=== PATIENT | female | born 2000 | race Caucasian/White ===

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

== ENCOUNTER 2020-03-12 12:40 | Emergency (ER) | payer OTHER, SELFPAY ==
[2020-03-12 12:51] VITALS: BP 117/72; PULSE 95; RESP 18; TEMP 36.7; O2SAT 99; BMI 24.5
[2020-03-12 13:15] LABS: Microscopic, Urine URINE MICROSCOPIC (MICROSCOPIC)
--- NOTE | 2020-03-12 13:17 | HMH.EDABDPAI ---
ED Disposition Clinical Impression: Acute UTI, Flank pain Disposition: Home, Self-Care Condition on Discharge: Good Instructions: DI for Abdominal Pain-Adult Prescriptions: Ibuprofen [Ibuprofen 800mg Tablet] 800 mg PO TIDP PRN #20 tab PRN Reason: Moderate Pain Prescription Printed cephALEXin [Keflex 500mg Cap] 500 mg PO BID 7 Days #14 cap Prescription Printed Referrals: PCP,No [Primary Care Provider] - - Critical Care Critical Care Time: No Attestation: On 03/12/20, the high probability of a clinically significant, sudden or life threatening deterioration of the following system(s) required my full and direct attention, intervention and personal management. The time I documented below is in addition to time spent performing reported procedures but includes the following listed in this critical care notation. Medical Decision Making - Medical Records Medical records reviewed: Yes: I reviewed the patient's medical records. - Malcolm Inquiry Pt receiving controlled substance: No Vital Signs: 03/12/20 12:51 03/12/20 14:23 03/12/20 14:30 Temperature 98.1 F Temperature Source Oral Pulse Rate [Radial] 95 H 84 85 Respiratory Rate 18 18 Blood Pressure [Right Arm] 117/72 91/72 L 108/75 L Blood Pressure Mean [Right Arm] 87 78 86 Blood Pressure Source [Right Arm] Automatic Cuff Automatic Cuff Automatic Cuff Blood Pressure Position [Right Arm] Sitting Sitting Sitting 02 Sat by Pulse Oximetry 99 100 100 Oxygen Delivery Method Room Air Room Air Room Air - Lab Data Lab Results 03/12/20 12:47: Urine Color Yellow, Urine Appearance Clear, Urine pH 8.0, Ur Specific [place] 1.020, Urine Protein 1+, Urine Glucose (UA) Negative, Urine Ketones Trace, Urine Blood 2+, Urine Nitrate Negative, Urine Bilirubin Negative, Urine Urobilinogen >=8.0, Ur Leukocyte Esterase Negative, Urine RBC 5-10, Urine WBC 3-5, Ur Squamous Epith Cells Occasional, Urine Bacteria Trace 03/12/20 12:47: Urine HCG, Qual Negative 03/12/20 13:41: WBC 9.5, RBC 4.46, Hgb 14.6, Hct 40.4, MCV 90.5, MCH 32.7 H, MCHC 36.1 H, RDW 13.0, Plt Count 210, MPV 7.6, Neut % (Auto) 76.0, Lymph % (Auto) 17.2, [place] % (Auto) 5.5, Eos % (Auto) 0.8, Baso % (Auto) 0.5, Neut # (Auto) 7.2, Lymph # (Auto) 1.6, [place] # (Auto) 0.5, Eos # (Auto) 0.1, Baso # (Auto) 0.1 03/12/20 13:41: Sodium 142, Potassium 3.4 L, Chloride 106, Carbon Dioxide 27, Anion Gap 12.4, BUN 8, Creatinine 0.60, Estimated Creat Clear 154, Estimated GFR 129, Est GFR ( Amer) 156, Glucose 113 H, Calcium 9.4, Total Bilirubin 3.0 H, AST 28, ALT 20, Alkaline Phosphatase 57, Total Protein 7.3, Albumin 4.4, Globulin 2.9, Albumin/Globulin Ratio 1.5, Lipase 44 Result diagrams: 03/12/20 13:41 03/12/20 13:41 Orders (Tests/Meds): ED MEDICATIONS Generic Name Dose Route Start Last Admin Trade Name Freq PRN Reason Stop Dose Admin Sodium Chloride 1,000 mls @ 999 mls/hr 03/12/20 13:30 03/12/20 13:46 Sod Chlor 0.9% 1000ml Bag IV 03/12/20 14:30 999 mls/hr .Q1H1M ISAAC Administration Discontinued Medications Generic Name Dose Route Start Last Admin Trade Name Freq PRN Reason Stop Dose Admin Ketorolac Tromethamine 30 mg 03/12/20 13:10 03/12/20 13:47 Toradol 30mg/Ml Vial IM 03/12/20 13:11 Not Given ONCE ONE Ketorolac Tromethamine 30 mg 03/12/20 13:16 03/12/20 13:45 Toradol 30mg/Ml Vial IV 03/12/20 13:17 30 mg ONCE ONE Administration Ondansetron HCl 4 mg 03/12/20 13:46 03/12/20 13:47 Zofran 4mg/2ml Vial IV 03/12/20 13:47 4 mg ONCE ONE Administration - Reevaluation(s) Time: 14:44 Reevaluation #1: On reevaluation, the patient is feeling much better. Repeat abdominal examination does not show any significant abnormality. She is tolerating oral intake at this time. No vomiting. Patient has evidence of some small bacteria in her urine, however there is some mild contamination. We will place the patient on antibiotics for the next few days. She ne
[2020-03-12 13:31] LABS: Urine Pregnancy, HCG Qual. Negative (Negative)
[2020-03-12 14:10] LABS: Chloride 106 mmol/L (98-107); Potassium 3.4 mmoL/L (3.5-5.1); Sodium 142 mmol/L (136-145)
[2020-03-12 14:12] LABS: Blood Urea Nitrogen 8 mg/dl (7-17); Creatinine Clearance Estimated 154 mL/min (50-200); Estimated Glomerular Filt Rate 129 ml/min (>60); GFR (African American) 156 ML/MIN (>60)
[2020-03-12 14:13] LABS: Alanine Aminotransferase 20 U/L (12-78); Albumin Level 4.4 g/dl (3.5-5.0); Albumin/Globulin Ratio 1.5 (1.1-1.8); Alkaline Phosphatase 57 U/L (38-126); Anion Gap 12.4 mEq/L (5-15); Aspartate Amino Transferase 28 U/L (14-36); Calcium 9.4 mg/dl (8.4-10.2); Carbon Dioxide 27 mmol/L (22.0-30.0); Globulin 2.9 g/dL (1.3-3.2); Glucose 113 mg/dl (74-100); Lipase 44 U/L (23-300); Total Protein,Serum 7.3 g/dl (6.3-8.2)
[2020-03-12 14:20] LABS: Basophils # 0.1 K/mm3 (0-0.2); Basophils % 0.5 % (0.1-2.0); Eosinophils # 0.1 K/mm3 (0.0-0.4); Eosinophils % 0.8 % (0.1-12.0); Hematocrit 40.4 % (37.0-47.0); Hemoglobin 14.6 g/dL (12.2-16.2); Lymphocytes # 1.6 K/mm3 (0.7-4.5); Lymphocytes % 17.2 % (10-50); Mean Corpuscular HGB Conc 36.1 g/dL (31.8-35.4); Mean Corpuscular Hemoglobin 32.7 pg (27.0-31.2); Mean Corpuscular Volume 90.5 fl (81-99); Mean Platelet Volume 7.6 fl (7.4-10.4); Monocytes # 0.5 K/mm3 (0.1-1.0); Monocytes % 5.5 % (1.7-9.3); Neutrophils # 7.2 K/mm3 (1.8-7.8); Platelet Count 210 K/mm3 (142-424); Red Blood Count 4.46 M/mm3 (4.20-5.40); White Blood Count 9.5 K/mm3 (4.5-13.0)
[2020-03-12 14:23] VITALS: BP 91/72; PULSE 84; RESP 18; O2SAT 100
[2020-03-12 14:24] LABS: Bacteria,Urine Trace /lpf; Squamous Epithelial Cell,Urine Occasional #/hpf (0-5)
[2020-03-12 14:27] LABS: Appearance,Urine CLEAR (Clear); Blood, Urine 2+ (Negative); Color,Urine YELLOW (Yellow); Glucose,Urine (UA) Negative (Negative); Ketones,Urine TRACE (Negative); Leukocyte Esterase,Urine Negative (Negative); Nitrate,Urine Negative (Negative); Protein,Urine 1+ (Negative); Urobilinogen,Urine >=8.0 EU/dl (0.2)
[2020-03-12 14:30] VITALS: BP 108/75; PULSE 85; O2SAT 100
[2020-03-12 14:32] LABS: Bilirubin,Urine Negative (Negative)
[2020-03-12 14:52] VITALS: BP 108/75; PULSE 93; RESP 18; TEMP 36.7; O2SAT 100
== END 2020-03-12 14:53 | disposition home or self-care (01) ==
PROVIDERS: Emergency Provider Emergency Medicine
DX: N30.00 Acute cystitis without hematuria (principal); Z88.8 Allergy status to other drugs, medicaments and biological substances
CPT/HCPCS: 80053; 81001; 81025; 83690; 85025; 96365; 96367; 96375; 99283; J2405

== ENCOUNTER 2020-12-26 12:43 | Emergency (ER) | payer OTHER, SELFPAY ==
[2020-12-26 12:45] VITALS: BP 103/66; PULSE 118; RESP 22; TEMP 36.9; O2SAT 98; BMI 25.8
--- NOTE | 2020-12-26 13:07 | HMH.EDUTC ---
[facility] [place] Dis[place] Clinical Impression: Strep throat Disposition: Home, Self-Care Condition on Discharge: Good Instructions: DI for Strep Throat Additional Instructions: Drink plenty of fluids. Take tylenol or ibuprofen for pain or fever. Take the medications as directed. Follow up with your regular doctor. GO TO THE ER FOR ANY WORSENING SYMPTOMS Prescriptions: Amoxicillin [Amoxicillin 500mg Tab] 500 mg PO TID 10 Days #30 tab Transmission Status: Received by [id number] Referrals: Provider,Referral, [Primary Care Provider] - Forms: Work/School Release Time of Disposition: 13:17 Medical Decision Making - Medical Records Medical records reviewed: No: I reviewed the patient's medical records. - Malcolm Inquiry Pt receiving controlled substance: No Vital Signs: 12/26/20 12:45 12/26/20 13:17 Temperature 98.4 F 98.4 F Temperature Source Oral Pulse Rate 118 H Pulse Rate [Left Brachial] 118 H Respiratory Rate 22 22 Blood Pressure 103/66 L Blood Pressure [Left Arm] 103/66 L Blood Pressure Mean [Left Arm] 78 Blood Pressure Source [Left Arm] Automatic Cuff Blood Pressure Position [Left Arm] Sitting 02 Sat by Pulse Oximetry 98 Oxygen Delivery Method Room Air - Lab Data Lab results reviewed: Yes: I reviewed the patient's lab results. Lab Results 12/26/20 13:01: Strep Scn Rapid Clinic Positive A [facility] [place] HPI - General Stated complaint: possible strep Time Seen by Provider: 12/26/20 13:07 - History of Present Illness Provider Complaint: She states that she has had a sore throat for the past 3 days. She has also had nausea and she has felt very bad. She had her tonsil removed when she was yound for frequent stret throat. - Related Data Previous Rx's Medication Instructions Recorded Amoxicillin [Amoxicillin 500mg Tab] 500 mg PO TID 10 Days #30 tab 12/26/20 Allergies Allergy/AdvReac Type Severity Reaction Status Date / Time brompheniramine Allergy Intermediate Hives Verified 12/13/20 18:37 [From Bromfed DM] dextromethorphan Allergy Intermediate Hives Verified 12/13/20 18:37 [From Bromfed DM] guaifenesin Allergy Intermediate Hives Verified 12/13/20 18:37 pseudoephedrine Allergy Intermediate Hives Verified 12/13/20 18:37 [facility] History - Hepatitis A Screen Attestation statement:: This patient has been screened for Hepatitis A risk factors. I have reviewed the patient's past medical history: Yes Medical History: Denies:: Diabetes Mellitus Type 1, Diabetes Mellitus Type 2, Seizures Other Surgeries: Yes: No Previous Surgery, Amputation: No Fractures: No - Social History Smoking Status: Never smoker Alcohol Intake: never Substance Use Type: denies use Occupational Status: employed Family Hx:: No significant family history Comment: Nexplanon ROS Obtained: Yes All systems reviewed & no additional complaints - Constitutional Constitutional: Reports chills, Reports fever(s), Reports poor appetite, Reports malaise - Eyes Eyes: Denies eye discharge - ENT Ears, Nose, Mouth, and Throat: Reports as per HPI - Cardiovascular Cardiovascular: Denies chest pain - Respiratory Respiratory: Denies chest congestion, Reports cough, Denies dyspnea, Denies stridor, Denies wheezing - Gastrointestinal Gastrointestingal: Reports: nausea. Denies: abdominal pain, diarrhea, vomiting Physical Exam - General General appearance: alert, in no apparent distress - Head Head exam: atraumatic, normocephalic, normal inspection - Eye Eye exam: Present: normal appearance, PERRL, EOMI - ENT ENT exam: Present: mucous membranes moist, normal external ear exam - Expanded ENT Exam TM/Canal exam: Bilateral TM: erythema, bulging Mouth exam: Present: normal external inspection Teeth exam: Present: normal inspection Throat exam: Present: tonsillar erythema, tonsillomegaly, tonsillar exudate. Absent: R peritonsillar mass, L peritonsillar mas
[2020-12-26 13:09] LABS: UTC Strep Screen (Rapid) Positive (Negative)
[2020-12-26 13:17] VITALS: BP 103/66; PULSE 118; RESP 22; TEMP 36.9; O2SAT 98
== END 2020-12-26 13:22 | disposition home or self-care (01) ==
PROVIDERS: Emergency Provider Nurse Practitioner Family
DX: J02.0 Streptococcal pharyngitis (principal)
CPT/HCPCS: 87880; 99202; G0463

== ENCOUNTER 2020-12-30 13:05 | Emergency (ER) | payer OTHER, SELFPAY ==
[2020-12-30 13:30] VITALS: BP 144/84; PULSE 86; RESP 18; TEMP 36.9; O2SAT 97; BMI 26.4
--- NOTE | 2020-12-30 14:15 | HMH.EDUTC ---
[facility] [place] Impression: Lower back pain Qualifiers: Chronicity: unspecified Back pain laterality: right Sciatica presence: without sciatica Qualified Code(s): M54.5 - Low back pain Disposition: Home, Self-Care Condition on Discharge: Good Instructions: Low Back Pain, DI for Low Back Pain, Cyclobenzaprine, Etodolac Additional Instructions: *Etodolac cata 6 hours with meal as needed for pain/inflammation *Not additional anti-inflammatory like motrin, aleve, advil with the above amount of ibuprofen. You can still take Tylenol every 4 hours as needed if you need something else for pain *Ice 20 minutes every 2 hours for the first 48 hours after the initial injury followed by moist heat every 20 minutes 3-4 times a day to affected area *Muscle relaxer as prescribed as needed for muscle spasms but remember, it WILL cause drowsiness You cannot take it and drive, operate machinery or care for small children. *Keep this area active, no movement leads to more stiffness, However take it easy and avoid heavy lifting pushing or pulling *Follow up with you family doctor if no improvement for further treatment Return if needed Straight to ER if any life threatening symptoms Prescriptions: Etodolac 200 mg PO Q6HP PRN #20 cap PRN Reason: Moderate Pain Transmission Status: Received by [id number] methocarbamoL [Methocarbamol 500mg Tablet] 500 mg PO BID PRN #20 tab PRN Reason: Muscle Spasm Transmission Status: Received by [id number] Referrals: Provider,Referral, [Primary Care Provider] - As needed Time of Disposition: 14:36 Medical Decision Making - Malcolm Inquiry Pt receiving controlled substance: No Malcolm was queried for this patient: No Vital Signs: 12/30/20 13:30 12/30/20 14:41 Temperature 98.5 F 98.5 F Temperature Source Oral Pulse Rate 86 Pulse Rate [Right Brachial] 86 Respiratory Rate 18 18 Blood Pressure 144/84 H Blood Pressure [Right Arm] 144/84 H Blood Pressure Mean [Right Arm] 104 Blood Pressure Source [Right Arm] Automatic Cuff Blood Pressure Position [Right Arm] Sitting 02 Sat by Pulse Oximetry 97 Oxygen Delivery Method Room Air - Lab Data Lab results reviewed: Yes: I reviewed the patient's lab results. Lab Results 12/30/20 13:47: Urine Color Dark yellow, Urine Appearance Clear, Urine pH 6.5, Ur Specific [place] 1.010, Urine Protein Negative, Urine Glucose (UA) Negative, Urine Ketones Negative, Urine Blood Trace, Urine Nitrate Negative, Urine Bilirubin Negative, Urine Urobilinogen 1, Ur Leukocyte Esterase Negative, Tst Clinic Negative [facility] [place] - General Stated complaint: lower back pain Time Seen by Provider: 12/30/20 14:15 Mode of Arrival: Ambulatory Source of Information: Patient Limitations: No Limitations Description of Symptoms (Recalled from Triage Doc. by RN): PATIENT C/O PAIN TO MIDDLE OF BACK SINCE 1300 TODAY. STATES PAIN STARTED AFTER SHE TRIED PICKING UP HER CHILD HEENT Symptoms (Recalled from RN notes): No Resp Symptoms (Recalled from RN notes): No Skin Symptoms (Recalled from RN notes): No MS Symptoms (Recalled from RN notes): Yes Functional Status (Recalled from RN notes): WNL - History of Present Illness Provider Complaint: Patient states that she went to bend over to poultry picker her child earlier and felt something pull in her right lower back and it shot pain through her back State that ever since she has been having achy like pain in her lower back area and hurts when she moves certain ways States feels like she is having spasms - Related Data Home Medications Medication Instructions Recorded Confirmed Amoxicillin [Amoxicillin 500mg Tab] 500 mg PO TID 12/30/20 12/30/20 Previous Rx's Medication Instructions Recorded Etodolac 200 mg PO Q6HP PRN #20 cap 12/30/20 methocarbamoL [Methocarbamol 500mg 500 mg PO BID PRN #20 tab 12/30/20 Tablet] Allergies Allergy/AdvReac Type Severity Reaction Status Date / T
[2020-12-30 14:23] LABS: Apearance,Urine Clear (Clear); Color,Urine Dark Yellow (Yellow)
[2020-12-30 14:24] LABS: Bilirubin,Urine Negative (Negative); Blood, Urine Trace (Negative); Glucose,Urine (UA) Negative (Negative); Ketones,Urine Negative (Negative); PH,Urine 6.5 (5.0-8.5); Protein,Urine Negative (Negative); UTC Leukocyte Esterase,Urine Negative (Negative); UTC Nitrate,Urine Negative (Negative); UTC Pregnancy Test, Urine Negative (Negative); Urobilinogen,Urine 1 EU/dl (0.2)
[2020-12-30 14:41] VITALS: BP 144/84; PULSE 86; RESP 18; TEMP 36.9; O2SAT 97
== END 2020-12-30 14:51 | disposition home or self-care (01) ==
PROVIDERS: Emergency Provider Nurse Practitioner
DX: M54.5 Low back pain (principal); Z88.8 Allergy status to other drugs, medicaments and biological substances
CPT/HCPCS: 81003; 81025; 99202; G0463

== ENCOUNTER → 2021-09-17 09:09 | Outpatient (CLI) | payer BC, OTHER, SELFPAY ==
[2021-09-17 11:15] LABS: HCG,Quantitative 73 mIU/ml (0-5.42)
== END ==
PROVIDERS: Visit Provider Nurse Practitioner Obstetrics & Gynecology
DX: Z32.01 Encounter for pregnancy test, result positive (principal)
CPT/HCPCS: 36415; 84702

== ENCOUNTER → 2021-09-20 08:35 | Outpatient (CLI) | payer BC, OTHER, SELFPAY ==
[2021-09-20 09:47] LABS: Basophils # 0.2 K/mm3 (0-0.2); Basophils % 1.6 % (0.1-2.0); Eosinophils # 0.1 K/mm3 (0.0-0.4); Eosinophils % 1.2 % (0.1-12.0); Hematocrit 42.6 % (37.0-47.0); Lymphocytes # 2.3 K/mm3 (0.7-4.5); Lymphocytes % 25.1 % (10-50); Mean Corpuscular HGB Conc 32.8 g/dL (31.8-35.4); Mean Corpuscular Hemoglobin 31.5 pg (27.0-31.2); Mean Corpuscular Volume 96.2 fl (81-99); Mean Platelet Volume 8.2 fl (7.4-10.4); Monocytes # 0.4 K/mm3 (0.1-1.0); Monocytes % 4.2 % (1.7-9.3); Neutrophils # 6.1 K/mm3 (1.8-7.8); Neutrophils % 67.9 % (37.0-80.0); Platelet Count 273 K/mm3 (142-424); Red Blood Count 4.43 M/mm3 (4.20-5.40); Red Cell Distribution Width 13.1 % (11.5-17.5)
[2021-09-20 11:06] LABS: HCG,Quantitative 71 mIU/ml (0-5.42)
[2021-09-21 08:15] LABS: HSV 1 IgG, Type Spec <0.91 index (0.00-0.90); HSV 2 IgG, Type Spec <0.91 index (0.00-0.90); Rubella Antibodies, IgG <0.90 index (Immune >0.99)
[2021-09-21 10:15] LABS: HIV Screen 4th Generation wRfx Non Reactive (Non Reactive); Rapid Plasma Reagin Ab Titer Non Reactive (NonRea<1:1)
[2021-09-21 11:15] LABS: Hepatitis B Surface Antigen Negative (Negative); Hepatitis C Antibody 0.1 s/co ratio (0.0-0.9)
== END ==
PROVIDERS: Visit Provider Nurse Practitioner Obstetrics & Gynecology
DX: Z34.90 Encounter for supervision of normal pregnancy, unspecified, unspecified trimester (principal)
CPT/HCPCS: 36415; 84702; 85025; 86592; 86695; 86703; 86762; 86790; 86850; 87340; 87380; G0432

== ENCOUNTER 2021-09-23 02:33 | Emergency (ER) | payer BC, OTHER, SELFPAY ==
[2021-09-23 02:35] VITALS: BP 117/74; PULSE 100; RESP 17; TEMP 36.8; O2SAT 101; BMI 26.6
[2021-09-23 02:46] VITALS: BMI 26.6
[2021-09-23 02:58] LABS: Basophils # 0.1 K/mm3 (0-0.2); Basophils % 1.5 % (0.1-2.0); Eosinophils # 0.1 K/mm3 (0.0-0.4); Eosinophils % 1.1 % (0.1-12.0); Hematocrit 50.1 % (37.0-47.0); Lymphocytes % 24.3 % (10-50); Mean Corpuscular Hemoglobin 31.2 pg (27.0-31.2); Mean Corpuscular Volume 97.4 fl (81-99); Mean Platelet Volume 8.1 fl (7.4-10.4); Monocytes # 0.3 K/mm3 (0.1-1.0); Monocytes % 3.9 % (1.7-9.3); Neutrophils # 5.8 K/mm3 (1.8-7.8); Neutrophils % 69.1 % (37.0-80.0); Platelet Count 318 K/mm3 (142-424); Red Blood Count 5.14 M/mm3 (4.20-5.40); Red Cell Distribution Width 12.9 % (11.5-17.5); White Blood Count 8.4 K/mm3 (4.8-10.8)
--- NOTE | 2021-09-23 03:04 | US_ITS ---
PROCEDURE INFORMATION: Exam: US , Transvaginal Exam date and time: 09/23/2021 3:10 AM Age: 21 years old Clinical indication: Lmp or gestational age (in weeks): Lmp 07/23/2021; Other: Vaginal bleeding since 9pm; ; Patient HX: Vag bleeding and hcg levels dropping; Additional info: Vaginal bleeding 2130 3/20, 5wk TECHNIQUE: Imaging protocol: Real-time transvaginal obstetrical ultrasound of the maternal pelvis with image documentation. Transvaginal imaging was used for better evaluation of the fetus, adnexa, and/or cervix. COMPARISON: No relevant prior studies available. FINDINGS: Uterus: Nongravid UTERUS measures approximately 8.7 x 4.2 x 4.6 cm. Endometrial stripe thickness: Endometrial thickness is approximately 9 mm. Right ovary/adnexa: RIGHT OVARY measures approximately 3.4 mL and demonstrates normal color flow. Left ovary/adnexa: LEFT OVARY measures approximately 3.2 mL and demonstrates normal color flow. Intraperitoneal space: No discernible adnexal mass or abnormality. No free fluid within the pelvis. IMPRESSION: 1. Unremarkable study without evidence of a viable intrauterine or ectopic . 2. Possibility of missed cannot be excluded. No discernible retained products of conception. COMMENTS: If transvaginal ultrasonography does not detect intrauterine , possibility of ectopic is 70 times higher when serum beta subunit of human chorionic gonadotropin level is 3,000 IU per mL or greater.
[2021-09-23 03:07] LABS: HCG Qualitative, Serum Negative (Negative)
[2021-09-23 03:09] LABS: Alanine Aminotransferase 25 U/L (12-78); Albumin Level 4.8 g/dl (3.5-5.0); Albumin/Globulin Ratio 1.5 (1.1-1.8); Alkaline Phosphatase 59 U/L (38-126); Aspartate Amino Transferase 28 U/L (14-36); Bilirubin,Total 0.7 mg/dl (0.2-1.3); Blood Urea Nitrogen 11 mg/dl (7-17); Calcium 9.3 mg/dl (8.4-10.2); Carbon Dioxide 25 mmol/L (22.0-30.0); Chloride 105 mmol/L (98-107); Creatinine Clearance Estimated 198 mL/min (50-200); Estimated Glomerular Filt Rate 156 ml/min (>60); GFR (African American) 188 ML/MIN (>60); Globulin 3.2 g/dL (1.3-3.2); Glucose 117 mg/dl (74-100); Sodium 141 mmol/L (136-145)
--- NOTE | 2021-09-23 03:10 | PC.NURSE ---
pt gone for u/s via wheelchair
[2021-09-23 03:14] LABS: C-Reactive Protein 0.9 mg/L (0-4)
[2021-09-23 03:28] LABS: Erythrocyte Sedimentation Rate 18 mm/hr (0-20); HCG,Quantitative 10 mIU/ml (0-5.42)
[2021-09-23 03:29] LABS: Procalcitonin < 0.030 ng/mL (0.0-2.0)
--- NOTE | 2021-09-23 03:35 | PC.NURSE ---
pt back from u/s, pt placed back on IVF
--- NOTE | 2021-09-23 04:53 | PC.NURSE ---
information tech notified staff the [employer] is behind on reading images and reports will be back as soon as possible. notified pt @ this time
--- NOTE | 2021-09-23 05:06 | HMH.EDPREG ---
ED Disposition Clinical Impression: Miscarriage Disposition: Home, Self-Care Condition on Discharge: Good Instructions: DI for Miscarriage Additional Instructions: call dr cortes this am Referrals: Provider,MD Padilla [Primary Care Provider] - Joshua Cortes MD [Staff Physician] - - Critical Care Critical Care Time: No Attestation: On 09/23/21, the high probability of a clinically significant, sudden or life threatening deterioration of the following system(s) required my full and direct attention, intervention and personal management. The time I documented below is in addition to time spent performing reported procedures but includes the following listed in this critical care notation. Medical Decision Making - Medical Records Medical records reviewed: Yes: I reviewed the patient's medical records. - Malcolm Inquiry Pt receiving controlled substance: No Vital Signs: 09/23/21 02:35 Temperature 98.2 F Temperature Source Oral Pulse Rate [Right] 100 H Respiratory Rate 17 Blood Pressure [Right Arm] 117/74 Blood Pressure Mean [Right Arm] 88 Blood Pressure Source [Right Arm] Automatic Cuff 02 Sat by Pulse Oximetry 101 H Oxygen Delivery Method Room Air - Lab Data Lab results reviewed: Yes: I reviewed the patient's lab results. Lab Results 09/23/21 02:45: WBC 8.4, RBC 5.14, Hgb 16.0, Hct 50.1 H, MCV 97.4, MCH 31.2, MCHC 32.0, RDW 12.9, Plt Count 318, MPV 8.1, Neut % (Auto) 69.1, Lymph % (Auto) 24.3, [place] % (Auto) 3.9, Eos % (Auto) 1.1, Baso % (Auto) 1.5, Neut # (Auto) 5.8, Lymph # (Auto) 2.0, [place] # (Auto) 0.3, Eos # (Auto) 0.1, Baso # (Auto) 0.1, ESR 18 09/23/21 02:45: Sodium 141, Potassium 4.0, Chloride 105, Carbon Dioxide 25, Anion Gap 15.0, BUN 11, Creatinine 0.50 L, Estimated Creat Clear 198, Estimated GFR 156, Est GFR ( Amer) 188, Glucose 117 H, Calcium 9.3, Total Bilirubin 0.7, AST 28, ALT 25, Alkaline Phosphatase 59, C-Reactive Protein 0.9, Total Protein 8.0, Albumin 4.8, Globulin 3.2, Albumin/Globulin Ratio 1.5, Procalcitonin < 0.030, HCG, Quant 10 H 09/23/21 02:45: Serum HCG, Qual Negative Result diagrams: 09/23/21 02:45 09/23/21 02:45 Orders (Tests/Meds): ED MEDICATIONS Generic Name Dose Route Start Last Admin Trade Name Freines PRN Reason Stop Dose Admin Lactated Ringer's 1,000 mls @ 999 mls/hr 09/23/21 03:00 09/23/21 03:30 Lactated Ringer's 1000 Ml Bag IV 09/23/21 04:00 999 mls/hr .Q1H1M ISAAC Administration ORDERS Category Date Time Status UA [Urinalysis and Microscopic] Stat Lab 09/23/21 02:46 Ordered US OB transvaginal Stat Ultrasound 09/23/21 03:04 Taken - US Data US Images: Pelvis ED US Reviewed: Yes: I have viewed radiologist's interpretation Findings Narrative: no preg seen - no ectopic Medical Decision Narrative: pt with miscarriage with neg pelvic u/s and is a pos - will f/u as op HPI - General Chief complaint: Vaginal Bleeding Stated complaint: Vaginal bleeding;Couple of weeks Time Seen by Provider: 09/23/21 03:30 Mode of Arrival: Family Vehicle Source of Information: Patient, Medical Record Limitations: No Limitations Description of Symptoms (Recalled from ER Triage Doc. by RN): Pt reports to be a couple weeks and last night ~ 2130 began to have vaginal bleeding. She reports the bleeding was light brown at first and small amount to now becoming bright red and filling a panty liner quickly. No clots reported. States she saw Dr Cortes on 09/18 for inital OB visit. LMP was 07/23/21 although d/t Beta HCG of 73 he reports her to be about 5wk along. Per Dr. Vasquez's note, he wanted a repeat Quant HCG the following day and u/s in 3 wk. The 2nd Quant HCG was 09/20/21 and decreased to 71. Pt is , no previous issue with 1st pregnany or delivery (). Blood type is A+. She also c/o abd cramping and states she has had this t/o . - History of Present Illness HPI Narrative: pt with vag b
[2021-09-23 05:15] VITALS: BP 110/70; PULSE 78; RESP 20; TEMP 36.8; O2SAT 98
== END 2021-09-23 05:18 | disposition home or self-care (01) ==
PROVIDERS: Emergency Provider Emergency Medicine
DX: O02.1 Missed abortion (principal)
CPT/HCPCS: 76817; 80053; 84145; 84702; 84703; 85025; 85651; 86140; 96360; 96365

== ENCOUNTER → 2021-09-24 09:27 | Outpatient (CLI) | payer BC, OTHER, SELFPAY ==
[2021-09-24 10:27] LABS: HCG,Quantitative 5 mIU/ml (0-5.42)
== END ==
PROVIDERS: Visit Provider Nurse Practitioner Obstetrics & Gynecology
DX: O20.0 Threatened abortion (principal)
CPT/HCPCS: 36415; 84702

== ENCOUNTER → 2022-05-05 15:28 | Outpatient (CLI) | payer BC, OTHER, SELFPAY ==
[2022-05-05 16:49] LABS: HCG,Quantitative 1116 mIU/ml (0-5.42)
== END ==
PROVIDERS: Visit Provider Nurse Practitioner Obstetrics & Gynecology
DX: N92.6 Irregular menstruation, unspecified (principal)
CPT/HCPCS: 36415; 84702

== ENCOUNTER → 2022-05-28 11:30 | Outpatient (CLI) | payer BC, OTHER, SELFPAY ==
[2022-05-28 11:57] LABS: Basophils # 0.1 K/mm3 (0-0.2); Basophils % 1.2 % (0.1-2.0); Eosinophils # 0.1 K/mm3 (0.0-0.4); Eosinophils % 1.2 % (0.1-12.0); Hematocrit 42.4 % (37.0-47.0); Hemoglobin 13.8 g/dL (12.2-16.2); Lymphocytes # 2.3 K/mm3 (0.7-4.5); Lymphocytes % 20.2 % (10-50); Mean Corpuscular HGB Conc 32.7 g/dL (31.8-35.4); Mean Corpuscular Hemoglobin 31.4 pg (27.0-31.2); Mean Corpuscular Volume 96.1 fl (81-99); Mean Platelet Volume 7.8 fl (7.4-10.4); Monocytes # 0.5 K/mm3 (0.1-1.0); Monocytes % 4.5 % (1.7-9.3); Neutrophils # 8.4 K/mm3 (1.8-7.8); Neutrophils % 72.9 % (37.0-80.0); Platelet Count 281 K/mm3 (142-424); Red Blood Count 4.41 M/mm3 (4.20-5.40); Red Cell Distribution Width 13.2 % (11.5-17.5); White Blood Count 11.5 K/mm3 (4.8-10.8)
[2022-05-29 08:03] LABS: Rubella Antibodies, IgG <0.90 index (Immune >0.99)
[2022-05-29 10:34] LABS: Rapid Plasma Reagin Ab Titer Non Reactive (NonRea<1:1)
[2022-06-08 23:28] LABS: Hepatitis B Surface Antigen NEGATIVE; Hepatitis C Antibody <0.1
== END ==
PROVIDERS: PCP Nurse Practitioner Obstetrics & Gynecology; Visit Provider Nurse Practitioner Obstetrics & Gynecology
DX: Z34.90 Encounter for supervision of normal pregnancy, unspecified, unspecified trimester (principal); Z3A.01 Less than 8 weeks gestation of pregnancy
CPT/HCPCS: 36415; 85025; 86592; 86703; 86762; 86850; 87340; 87380; G0432

== ENCOUNTER 2022-07-13 13:54 | Emergency (ER) | payer BC, OTHER, SELFPAY ==
[2022-07-13 14:05] VITALS: BP 147/83; PULSE 103; RESP 18; TEMP 36.8; O2SAT 100; BMI 25.7
[2022-07-13 15:00] VITALS: BP 118/81; PULSE 93; RESP 18; O2SAT 100
[2022-07-13 16:00] VITALS: BP 105/58; PULSE 91; RESP 16; TEMP 36.4; O2SAT 99
--- NOTE | 2022-07-13 23:42 | HMH.EDGENADL ---
Discharge Plan Disposition Patient Disposition: Home, Self-Care Prescriptions Prescriptions: No Action prenat.vits,genesis,[id number] Tablet 1 tab PO DAILY Referrals Follow up/Referrals: Provider,Referral, [Primary Care Provider] - See instructions Clinical Impressions Clinical Impression: Fall, Instructions Patient Instructions: How to Prevent Falls Discharge ED Provider: Gerson [facility] Adult HPI General Chief complaint: Fall Stated complaint: Fall@home 07/13 14 weeks LT arm pain Time Seen by Provider: 07/13/22 14:44 Mode of Arrival: Ambulatory Source of Information: Patient Limitations: No Limitations Description of Symptoms (Recalled from ER Triage Doc. by RN): PT STATES SHE FELL WHILE GETTING OUT OF THE BATH, HIT HER LOWER LEFT ABDOMEN, LEFT KNEE, AND LEFT ELBOW, DENIES LOC, STATES SHE IS 14 WEEKS , LMS 03/30/22 History of Present Illness HPI narrative: Patient presents for evaluation of left lower quadrant abdominal pain after falling in the shower and striking her stomach. She is 14 weeks . No vaginal bleeding since the attempt. Patient denies other injuries. Patient has not had contractions, but does have crampy type abdominal pain in her left lower quadrant. Related Data Home Medications Medication Instructions Recorded Confirmed prenat.vits,genesis,[id number] 1 tab PO DAILY 07/10/22 07/10/22 Allergies Allergy/AdvReac Type Severity Reaction Status Date / Time brompheniramine Allergy Intermediate Hives Verified 07/10/22 14:11 [From Bromfed DM] dextromethorphan Allergy Intermediate Hives Verified 07/10/22 14:11 [From Bromfed DM] guaifenesin Allergy Intermediate Hives Verified 07/10/22 14:11 pseudoephedrine Allergy Intermediate Hives Verified 07/10/22 14:11 [facility] Disclaimer: The information contained in this section may have been updated after the patient was seen, as this information can be updated by other users. Social History Smoking Status: Never smoker alcohol intake: never substance use type: denies use current occupational status: other Travel in the last 8 weeks: None ROS Obtained: Yes Systems reviewed as appropriate & no additional complaints except as documented Physical Exam General General appearance: alert Head Head exam: atraumatic and normocephalic Eye Eye exam: Present normal appearance and EOMI Respiratory Respiratory exam: Present normal lung sounds bilaterally Cardiovascular Cardiovascular exam: Present regular rate and normal rhythm Neurological Exam Neurological exam: Present alert and oriented X3 Skin Skin exam: Present warm and dry Medical Decision Making Malcolm Inquiry Pt receiving controlled substance: No Vital Signs: 07/13/22 14:05 07/13/22 15:00 07/13/22 16:00 Temperature 98.3 F 97.5 F L Temperature Source Oral Oral Pulse Rate 93 H 91 H Pulse Rate [Right Radial] 103 H Respiratory Rate 18 18 16 Blood Pressure 118/81 105/58 L Blood Pressure [Right Arm] 147/83 H Blood Pressure Mean 95 Blood Pressure Mean [Right Arm] 104 Blood Pressure Source Automatic Cuff Blood Pressure Source [Right Arm] Automatic Cuff Blood Pressure Position Sitting Blood Pressure Position [Right Arm] Sitting 02 Sat by Pulse Oximetry 100 100 Oxygen Delivery Method Room Air Room Air Orders (Tests/Meds): ED MEDICATIONS Discontinued Medications Generic Name Dose Route Start Last Admin Trade Name Freq PRN Reason Stop Dose Admin Acetaminophen 650 mg 07/13/22 14:57 07/13/22 15:54 Acetaminophen 325mg Tab PO 07/13/22 14:58 650 mg ONCE ONE Administration Medical Decision Narrative: Patient presents for evaluation of left lower quadrant abdominal pain after falling in the shower today. Patient is 14 weeks . No vaginal bleeding, no contractions. Patient has crampy abdominal pain i
== END 2022-07-13 16:01 | disposition home or self-care (01) ==
PROVIDERS: Emergency Provider Emergency Medicine
DX: M79.602 Pain in left arm (principal); O99.891 Other specified diseases and conditions complicating pregnancy; Z3A.14 14 weeks gestation of pregnancy; W19.XXXA Unspecified fall, initial encounter; R10.32 Left lower quadrant pain; M25.562 Pain in left knee; M25.522 Pain in left elbow
CPT/HCPCS: 99283; 99284

== ENCOUNTER 2022-07-15 04:44 | Emergency (ER) | payer BC, OTHER, SELFPAY ==
[2022-07-15 04:51] VITALS: BP 126/78; PULSE 133; RESP 16; TEMP 37.3; O2SAT 95; BMI 25.7
--- NOTE | 2022-07-15 04:59 | XR_ITS ---
PROCEDURE INFORMATION: Exam: XR Left Knee Exam date and time: 07/15/2022 4:56 AM Age: 22 years old Clinical indication: Left; Patient HX: PT states she fell Thursday, C/O pain & swelling and difficulty bending knee; Additional info: Knee pain/fall TECHNIQUE: Imaging protocol: Radiologic exam of the Left knee. Views: 3 views. COMPARISON: No relevant prior studies available. FINDINGS: Bones/joints: There is loss of joint space height medial compartment related to mild osteoarthritis. There is no acute fracture. Soft tissues: There is a small effusion. IMPRESSION: 1. There is a small suprapatellar effusion. 2. There is no acute fracture.
[2022-07-15 05:00] VITALS: BP 112/71; PULSE 114; RESP 20; O2SAT 99
[2022-07-15 05:15] VITALS: BP 110/70; PULSE 115; RESP 18; TEMP 36.6; O2SAT 99
--- NOTE | 2022-07-15 05:17 | HMH.EDLOEX ---
Discharge Plan Disposition Patient Disposition: Home, Self-Care Chief Complaint: Extremity Injury, Lower Prescriptions Prescriptions: No Action prenat.vits,genesis,[id number] Tablet 1 tab PO DAILY Referrals Follow up/Referrals: Provider,MD Padilla [Primary Care Provider] - See instructions Joshua Cortes MD [Staff Physician] - See instructions Cecilio Bautista DO [Staff Physician] - See instructions Clinical Impressions Clinical Impression: Acute internal derangement of knee, Instructions Patient Instructions: DI for Knee Effusion, DI for Knee Sprain Discharge ED Provider: Thaddeus Quiñones Lower Extremity Injury HPI General Chief Complaint: Extremity Injury, Lower Stated Complaint: 07/13/21 fell in tub; left knee pain Time Seen by Provider: 07/15/22 05:18 Mode of Arrival: Ambulatory Source of Information: Patient and Medical Record Limitations: No Limitations Description of Symptoms (Recalled from ER Triage Doc. by RN): Pt c/o left knee pain following a fall on 07/13/2022. Patient states that since then she has had left knee pain with swelling. History of Present Illness HPI Narrative: pt with recent fall and has persistent pain lt knee clarice with wt bearing -pt is 14 weeks complaint: knee injury Onset (ago): day(s) Injury: Left: knee Type of Injury: blunt Place: home Severity: moderate Associated symptoms: swelling and able to partially bear weight Other symptoms: none Related Data Home Medications Medication Instructions Recorded Confirmed prenat.vits,genesis,azp-[id number] 1 tab PO DAILY Supplement 07/10/22 07/15/22 Allergies Allergy/AdvReac Type Severity Reaction Status Date / Time brompheniramine Allergy Intermediate Hives Verified 07/10/22 14:11 [From Bromfed DM] dextromethorphan Allergy Intermediate Hives Verified 07/10/22 14:11 [From Bromfed DM] guaifenesin Allergy Intermediate Hives Verified 07/10/22 14:11 pseudoephedrine Allergy Intermediate Hives Verified 07/10/22 14:11 [facility] Disclaimer: The information contained in this section may have been updated after the patient was seen, as this information can be updated by other users. Social History Smoking Status: Never smoker alcohol intake: never substance use type: denies use current occupational status: other Travel in the last 8 weeks: None ROS Obtained: Yes All systems reviewed & no additional complaints except as documented Physical Exam General General appearance: alert Head Head exam: normocephalic Eye Eye exam: Present PERRL and EOMI ENT ENT exam: Present mucous membranes moist Neck Neck exam: Present trachea midline Respiratory Respiratory exam: Absent respiratory distress Cardiovascular Cardiovascular exam: Present regular rate Abdominal Exam Abdominal exam: Present soft Expanded Lower Extremity Exam Left: Knee exam: Present tenderness, swelling, effusion, knee extension intact and other (warmth); Absent full ROM or erythema Lower leg exam: Present Achilles tendon intact; Absent tenderness Neurovascular/Tendon exam: Absent pulse deficit, motor deficit, sensory deficit, tendon deficit or foot drop Neurological Exam Neurological exam: Present alert and CN II-XII intact Psychiatric Psychiatric exam: Present normal affect Skin Skin exam: Absent rash Medical Decision Making Medical Records Medical records reviewed: Yes I reviewed the patient's medical records. Malcolm Inquiry Pt receiving controlled substance: No Vital Signs: 07/15/22 04:51 07/15/22 05:00 07/15/22 05:15 Temperature 99.1 F 98 F Temperature Source Oral Oral Pulse Rate 114 H 115 H Pulse Rate [Apical] 133 H Respiratory Rate 16 20 18 Blood Pressure 112/71 110/70 Blood Pressure [Right Arm] 126/78 Blood Pressure Mean 84 Blood Pressure Mean [Right Arm] 94 Blood Pressure Source Automatic Cuff Blood Pressure
--- NOTE | 2022-07-15 06:39 | PC.NURSE ---
asked radiology to check on status of xr read with vrad
--- NOTE | 2022-07-15 07:10 | PC.NURSE ---
Called radiology per Dr. Quiñones to check on status of xr reports, they stated they would check again on report
--- NOTE | 2022-07-15 07:38 | PC.WOUNDNOTE ---
per rad staff vrad is in ready pt xrays at this time, notified ER
[2022-07-15 07:40] VITALS: BP 112/58; PULSE 95; O2SAT 99
[2022-07-15 07:55] VITALS: BP 112/58; PULSE 96; RESP 13; TEMP 36.7; O2SAT 100
== END 2022-07-15 07:55 | disposition home or self-care (01) ==
PROVIDERS: Emergency Provider Emergency Medicine
DX: M23.92 Unspecified internal derangement of left knee (principal); O99.891 Other specified diseases and conditions complicating pregnancy; W19.XXXA Unspecified fall, initial encounter; Z3A.14 14 weeks gestation of pregnancy
CPT/HCPCS: 73562; 99283; 99284

== ENCOUNTER 2022-08-07 11:09 | Emergency (ER) | payer BC, OTHER, SELFPAY ==
[2022-08-07 11:25] VITALS: BP 132/76; PULSE 110; RESP 24; TEMP 36.7; O2SAT 98; BMI 25.9
--- NOTE | 2022-08-07 11:43 | PC.NURSE ---
heart tones obtained, low left side lying, 155 bpm, physician notified
[2022-08-07 11:49] VITALS: BP 131/77; PULSE 109; O2SAT 98
[2022-08-07 11:59] LABS: Coronavirus 19, PCR Not Detected (NotDetected); Influenza A, PCR Not Detected (NotDetected); Influenza B, PCR Not Detected (NotDetected)
[2022-08-07 12:00] VITALS: BP 140/87; PULSE 103; O2SAT 96
--- NOTE | 2022-08-07 12:07 | PC.NURSE ---
Upon pt arrival to ED I was assisting her in the restroom with obtaining a UA. Pt advised she had an appt today with Dr. Cortes at 2:15 but she had been in too much pain and didnt think she could wait that long. I called Dr. Bautista office and spoke with Carolynn and she advised she would let Dr. Cortes know pt was in the ED.
--- NOTE | 2022-08-07 12:10 | PC.NURSE ---
Started pt saline lock, Krystal from lab was at the bedside to confirm stick and blood collection related to type and screen. Pt ID'ed with 2 identifiers and Krystal took blood samples. Pt was placed in position of comfort, provided with warm blanket and educated dehydrogenation converter helper light and how to use it. Pt had no other needs at this time.
--- NOTE | 2022-08-07 12:11 | US_ITS ---
FINAL REPORT CLINICAL HISTORY: 18 weeks poss. contractions FINDINGS: There is a single live intrauterine gestation. Presentation is cephalic. The cervix is closed and measures 3.7 cm. Placenta is posterior, grade 1. movement is noted. Heart rate is measured at 153 beats per minute. A small amount of free fluid is noted of uncertain significance. Four-chamber heart is noted. AMNIOTIC FLUID: Appropriate amount. MEASUREMENTS: ULTRASOUND AGE: 18 weeks 0 days. GESTATION AGE: 19 weeks 2 days. ESTIMATED WEIGHT: 230 g GROWTH PERCENTILE: 6% LMP percentile BPD: 3.8 cm corresponding with 17 weeks 4 days. OFD: 5.2 cm corresponding with 18 weeks 4 days. HC: 14.3 cm corresponding with 17 weeks 4 days. AC: 12.9 cm corresponding with 18 weeks 4 days. FL: 2.7 cm corresponding with 18 weeks 2 days. HC/AC: 1.11 CI: 72% FL/BPD: 71% FL/AC: 21% IMPRESSION: Single living IUP with an ultrasound age of 18 weeks 0 days. No gross anomaly identified. Reviewed, Interpreted and Dictated by Marciano Hoang III, MD Transcribed by Rachel Castro Authenticated and [facility]
[2022-08-07 12:15] VITALS: BP 135/79; PULSE 102; O2SAT 97
[2022-08-07 12:17] LABS: Microscopic, Urine URINE MICROSCOPIC (MICROSCOPIC)
[2022-08-07 12:22] LABS: Appearance,Urine CLEAR (Clear); Bilirubin,Urine Negative (Negative); Blood, Urine Negative (Negative); Color,Urine YELLOW (Yellow); Glucose,Urine (UA) Negative (Negative); Ketones,Urine 2+ (Negative); Leukocyte Esterase,Urine Negative (Negative); Nitrate,Urine Negative (Negative); Protein,Urine Negative (Negative); Urobilinogen,Urine 0.2 EU/dl (0.2)
[2022-08-07 12:24] LABS: Basophils # 0.1 K/mm3 (0-0.2); Basophils % 0.3 % (0.1-2.0); Eosinophils % 0.2 % (0.1-12.0); Hematocrit 40.5 % (37.0-47.0); Hemoglobin 13.7 g/dL (12.2-16.2); Lymphocytes # 1.1 K/mm3 (0.7-4.5); Lymphocytes % 6.1 % (10-50); Mean Corpuscular HGB Conc 33.8 g/dL (31.8-35.4); Mean Corpuscular Hemoglobin 31.2 pg (27.0-31.2); Mean Corpuscular Volume 92.5 fl (81-99); Monocytes # 0.5 K/mm3 (0.1-1.0); Neutrophils # 16.2 K/mm3 (1.8-7.8); Neutrophils % 90.4 % (37.0-80.0); Platelet Count 272 K/mm3 (142-424); Red Blood Count 4.38 M/mm3 (4.20-5.40); Red Cell Distribution Width 13.9 % (11.5-17.5)
[2022-08-07 12:32] LABS: Alanine Aminotransferase 14 U/L (12-78); Albumin Level 3.6 g/dl (3.5-5.0); Albumin/Globulin Ratio 1.2 (1.1-1.8); Alkaline Phosphatase 59 U/L (38-126); Anion Gap 8.6 mEq/L (5-15); Aspartate Amino Transferase 25 U/L (14-36); Blood Urea Nitrogen 5 mg/dl (7-17); Calcium 8.4 mg/dl (8.4-10.2); Carbon Dioxide 24 mmol/L (22.0-30.0); Chloride 108 mmol/L (98-107); Creatinine Clearance Estimated 239 mL/min (50-200); Estimated Glomerular Filt Rate 200 ml/min (>60); GFR (African American) 242 ML/MIN (>60); Globulin 3.1 g/dL (1.3-3.2); Glucose 90 mg/dl (74-100); Potassium 3.6 mmoL/L (3.5-5.1); Sodium 137 mmol/L (136-145); Total Protein,Serum 6.7 g/dl (6.3-8.2)
[2022-08-07 12:41] LABS: MANUAL DIFFERENTIAL MANUAL DIFFERENTIAL (MANUAL DIFF)
--- NOTE | 2022-08-07 12:43 | PC.NURSE ---
US at bedside to transport pt for noninvasive imaging study
[2022-08-07 13:00] LABS: Lymphocytes % 8 % (10-50); Monocytes % 4 % (2-9); Neutrophils % 88 % (42-76); Platelet Estimate Normal; RBC Morphology Normal; Total Cells Counted 100
--- NOTE | 2022-08-07 14:23 | HMH.EDGENADL ---
Discharge Plan Disposition Patient Disposition: Home, Self-Care Condition: Good Chief Complaint: Abdominal Pain Prescriptions Prescriptions: No Action prenat.vits,genesis,oik-jlxa-bfjis Tablet 1 tab PO DAILY Referrals Follow up/Referrals: Provider,Referral, MD [Primary Care Provider] - See instructions Activity Restrictions/Add. Instructions Additional Instructions/Restrictions: Call Dr. Vasquez's office to make appointment for follow-up. Return to the emergency department if symptoms worsen -worse pain or if fever, vomiting, or vaginal bleeding. Clinical Impressions Clinical Impression: Abdominal pain, 18 weeks gestation of Instructions Patient Instructions: DI for Abdominal Pain-Adult, DI for Abdominal Pain -- Early Discharge ED Provider: [place] [facility] HPI General Chief complaint: Abdominal Pain Stated complaint: 18 Weeks possible contractions Time Seen by Provider: 08/07/22 14:23 Mode of Arrival: Ambulatory Source of Information: Patient Limitations: No Limitations Description of Symptoms (Recalled from ER Triage Doc. by RN): Pt reports 18wk4d , followed by [facility] and no FM since last PM with contractions irregularly, denies vg bleeding or other illness/complaints History of Present Illness HPI narrative: Patient is 18 weeks gestation , 3, para 1, AB 1. She says that she started having contractions in the middle of the night about 2 AM. She says the pains last seconds to minutes, come and go. Sometimes they come in rapid succession and sometimes they do not come for a while. She denies fever, vomiting, diarrhea, urinary symptoms, back pain. No vaginal bleeding. She had an appointment to see Dr. Cortes today at 2:15 PM, but states she was in too much pain and came to the emergency department instead. Related Data Home Medications Medication Instructions Recorded Confirmed prenat.vits,genesis,ksc-jzja-oxrxe 1 tab PO DAILY Supplement 07/10/22 07/17/22 Allergies Allergy/AdvReac Type Severity Reaction Status Date / Time brompheniramine Allergy Intermediate Hives Verified 07/17/22 11:19 [From Bromfed DM] dextromethorphan Allergy Intermediate Hives Verified 07/17/22 11:19 [From Bromfed DM] guaifenesin Allergy Intermediate Hives Verified 07/17/22 11:19 pseudoephedrine Allergy Intermediate Hives Verified 07/17/22 11:19 [facility] Disclaimer: The information contained in this section may have been updated after the patient was seen, as this information can be updated by other users. Social History Smoking Status: Unknown if ever smoked alcohol intake: never substance use type: denies use current occupational status: other Travel in the last 8 weeks: None ROS Obtained: Yes Systems reviewed as appropriate & no additional complaints except as documented Constitutional Constitutional: Denies fever(s), Denies headache(s) and Denies weakness ENT Ears, Nose, Mouth, and Throat: Denies headache(s), Denies nasal discharge and Denies sore throat Cardiovascular Cardiovascular: Denies chest pain Respiratory Respiratory: Denies shortness of breath and Denies cough Gastrointestinal Gastrointestingal: Reports abdominal pain; Denies constipation, diarrhea or vomiting Genitourinary Female Genitourinary: Denies difficulty voiding, Denies dysuria and Denies flank pain Musculoskeletal Musculoskeletal: Denies numbness Neurologic Neurologic: Denies headache(s), Denies numbness and Denies weakness Physical Exam General General appearance: alert and in no apparent distress Head Head exam: atraumatic and normocephalic Eye Eye exam: Present normal appearance and EOMI ENT ENT exam: Present mucous membranes moist Neck Neck exam: Present normal inspection and trachea midline Chest Chest inspection: Present normal inspection and symmetric chest wall rise Respiratory Respiratory exam: P
--- NOTE | 2022-08-07 14:27 | PC.NURSE ---
DR HERNANDEZ AT BEDSIDE
--- NOTE | 2022-08-07 14:29 | PC.NURSE ---
Calling for Dr Vasquez for consult on patient. Dr [place] talking to Dr Vasquez.
[2022-08-07 14:45] VITALS: BP 118/90; PULSE 118; RESP 18; TEMP 36.8; O2SAT 98
== END 2022-08-07 14:45 | disposition home or self-care (01) ==
PROVIDERS: Emergency Provider Emergency Medicine
DX: O26.892 Other specified pregnancy related conditions, second trimester (principal); O47.02 False labor before 37 completed weeks of gestation, second trimester; Z3A.18 18 weeks gestation of pregnancy; R10.9 Unspecified abdominal pain; Z20.822 Contact with and (suspected) exposure to COVID-19
CPT/HCPCS: 76805; 80053; 81001; 85007; 85025; 86850; 99285; C9803; U0003; U0005

== ENCOUNTER → 2022-09-03 13:49 | Outpatient (CLI) | payer BC, OTHER, SELFPAY ==
--- NOTE | 2022-09-03 13:52 | US_ITS ---
FINAL REPORT CLINICAL HISTORY: 20 week anatomy scan COMPARISON: 08/07/2022 FINDINGS: There is a single live intrauterine gestation. Presentation is breech. The cervix is closed and measures 4.3 cm. Placenta is posterior, grade 1. movement is noted. heart rate is noted at 146 beats per minute. Three-vessel cord with satisfactory umbilical cord insertion. Four-chamber heart is noted. brain and ventricles are unremarkable. Chest and diaphragm are unremarkable. ABDOMEN: Both kidneys are unremarkable. Stomach is unremarkable. SPINE: No anomalies identified. Both arms and legs noted. AMNIOTIC FLUID: Appropriate amount. MEASUREMENTS: ULTRASOUND AGE: 21 weeks 5 days. GESTATION AGE: 22 weeks 3 days. ESTIMATED WEIGHT: 468 g GROWTH PERCENTILE: 24 % BPD: 5.0 cm consistent with 21 weeks 1 day. OFD: 6.9 cm consistent with 22 weeks 3 days. HC: 18.9 cm consistent with 21 weeks 2 days. AC: 17.8 cm consistent with 22 weeks 5 days. FL: 3.6 cm consistent with 21 weeks 4 days. CEREBELLUM: 2.2 cm consistent with 22 weeks 1 day. HUMERUS: 3.5 cm consistent with 22 weeks 0 days. HC/AC: 1.07 CI: 72% FL/BPD: 73% FL/AC: 20% IMPRESSION: Single living IUP with an ultrasound age of 21 weeks 5 days. Reviewed, Interpreted and Dictated by Arin Schreiber MD Transcribed by Briseida Vasquez Authenticated and . [facility]
== END ==
PROVIDERS: Visit Provider Nurse Practitioner Obstetrics & Gynecology
DX: Z34.90 Encounter for supervision of normal pregnancy, unspecified, unspecified trimester (principal); Z3A.20 20 weeks gestation of pregnancy
CPT/HCPCS: 76811

== ENCOUNTER → 2022-10-10 08:54 | Outpatient (CLI) | payer BC, OTHER, SELFPAY ==
[2022-10-10 09:17] LABS: Basophils # 0.1 K/mm3 (0-0.2); Basophils % 0.4 % (0.1-2.0); Eosinophils # 0.1 K/mm3 (0.0-0.4); Hematocrit 40.5 % (37.0-47.0); Hemoglobin 13.1 g/dL (12.2-16.2); Lymphocytes # 2.1 K/mm3 (0.7-4.5); Mean Corpuscular HGB Conc 32.4 g/dL (31.8-35.4); Mean Corpuscular Hemoglobin 31.4 pg (27.0-31.2); Mean Corpuscular Volume 97.1 fl (81-99); Mean Platelet Volume 8.9 fl (7.4-10.4); Monocytes # 0.8 K/mm3 (0.1-1.0); Monocytes % 6.3 % (1.7-9.3); Neutrophils # 9.9 K/mm3 (1.8-7.8); Neutrophils % 76.3 % (37.0-80.0); Platelet Count 181 K/mm3 (142-424); Red Blood Count 4.17 M/mm3 (4.20-5.40); Red Cell Distribution Width 13.7 % (11.5-17.5)
[2022-10-10 09:25] LABS: Glucose,Fasting 82 mg/dl (74-100)
[2022-10-10 10:44] LABS: Glucose 1 Hour 123 mg/dL (74-100)
== END ==
PROVIDERS: Visit Provider Nurse Practitioner Obstetrics & Gynecology
DX: Z34.90 Encounter for supervision of normal pregnancy, unspecified, unspecified trimester (principal)
CPT/HCPCS: 36415; 82951; 85025

== ENCOUNTER → 2022-12-10 12:50 | Outpatient (CLI) | payer OTHER, SELFPAY ==
--- NOTE | 2022-12-10 12:55 | US_ITS ---
PROCEDURE: US OB BIOPHYSICAL PROFILE CLINICAL INDICATION: LGA TECHNIQUE: Transabdominal ultrasound. FINDINGS: The following parameters are obtained: Presentation - cephalic Placenta: Posterior grade 2 Cervix: 3.86 cm From her established due date she is 36 weeks and 3 days. Average ultrasound age is 36weeks 3days Estimated due date by ultrasound is 01/04/2023. Estimated weight is 3,015g, 6 pounds 10 ounces. 60 percentile. BPD: 36weeks 3days OFD: 36weeks 3days HC: 35 weeks 4 days AC: 37 weeks 1 day FL: 37 weeks 1 day heart rate: 124bpm bpm. HC/AC: 0.96 Cephalic index: 0.79 FL/BPD: 0.82 FL/AC: 0.22 Amniotic fluid index: 10.02cm Qualitative AFV: 2 breathing movements: 2 Gross body movements: 2 Tone: 2 Biophysical profile score: 8 No obvious anomalies evident. Four-chamber view, kidneys, stomach, bladder, profile, nasion seen and appear normal. IMPRESSION: 1. Fetus in the cephalic presentation with a posterior placenta grade 2. 2. Good growth with the fetus 60 percentile. 3. Biophysical profile is 8/8 with good breathing movement seen. Baby is active. 4. Fluid is normal with an amniotic fluid index of 10.02 cm. Dictated by: Joshua Cortes MD 12/11/2022 10:47 Joshua Cortes MD in [place] 12/11/2022 10:47
== END ==
PROVIDERS: Visit Provider Nurse Practitioner Obstetrics & Gynecology
DX: O36.60X0 Maternal care for excessive fetal growth, unspecified trimester, not applicable or unspecified (principal); Z3A.36 36 weeks gestation of pregnancy
CPT/HCPCS: 76816; 76819

== ENCOUNTER 2022-12-11 14:35 | Emergency (ER) | payer OTHER, SELFPAY ==
[2022-12-11 14:35] VITALS: BP 133/85; PULSE 113; RESP 18; TEMP 36.8; O2SAT 98; BMI 29.4
--- NOTE | 2022-12-11 14:46 | EXP.UTC ---
Discharge Plan Disposition Patient Disposition: Home, Self-Care Condition: Good Prescriptions Prescriptions: No Action prenat.vits,genesis,jos-rrjc-qjqke Tablet 1 tab PO DAILY Ferretts 325 mg (106 mg iron) tablet 325 mg PO DAILY Qty: 30 11RF Rx Instructions: take one by mouth, daily Referrals Follow up/Referrals: Provider,Referral, [Primary Care Provider] - See instructions Activity Restrictions/Add. Instructions Additional Instructions/Restrictions: Follow up with your regular doctor. Follow up with your desulphurizer operator doctor. GO TO THE ER FOR ANY WORSENING SYMPTOMS Clinical Impressions Clinical Impression: Chloasma Instructions Patient Instructions: Melasma Discharge ED Provider: Getachew Gonzales [facility] General Stated complaint: Rash on neck Mode of Arrival: Ambulatory Source of Information: Patient Limitations: No Limitations Time Seen by Provider: 12/11/22 14:46 Description of Symptoms (Recalled from Triage Doc. by RN): Patient reports a rash on her neck for 2 weeks now. HEENT Symptoms (Recalled from RN notes): No Resp Symptoms (Recalled from RN notes): No Skin Symptoms (Recalled from RN notes): Yes MS Symptoms (Recalled from RN notes): No Functional Status (Recalled from RN notes): wnl History of Present Illness Provider Complaint: She states that she has had an oval darker pigmented area on the right side of her chin for the past 2 weeks. She denies any itching, pain or discomfort at the site. She is 36 weeks . Related Data Home Medications Medication Instructions Recorded Confirmed prenat.vits,genesis,grr-ftnv-noltr 1 tab PO DAILY Supplement 07/10/22 12/04/22 Previous Rx's Medication Instructions Recorded ferrous fumarate 325 mg (106 mg 325 mg PO DAILY #30 tabs 08/11/22 iron) tablet (Ferretts) Allergies Allergy/AdvReac Type Severity Reaction Status Date / Time brompheniramine Allergy Intermediate Hives Verified 12/04/22 08:55 [From Bromfed DM] dextromethorphan Allergy Intermediate Hives Verified 12/04/22 08:55 [From Bromfed DM] guaifenesin Allergy Intermediate Hives Verified 12/04/22 08:55 pseudoephedrine Allergy Intermediate Hives Verified 12/04/22 08:55 Worker's Comp Is this a Worker's Comp case?: No [facility] Disclaimer: The information contained in this section may have been updated after the patient was seen, as this information can be updated by other users. Medical History No significant medical problems Surgical History No history of previous surgery Family History Other No significant family history Social History Smoking Status: Never smoker alcohol intake: never substance use type: denies use current occupational status: other Travel in the last 8 weeks: None ROS Obtained: Yes All systems reviewed & no additional complaints except as documented Constitutional Constitutional: Denies chills and Denies fever(s) Eyes Eyes: Denies eye discharge ENT Ears, Nose, Mouth, and Throat: Denies dizziness, Denies otalgia and Denies sore throat Cardiovascular Cardiovascular: Denies chest pain Respiratory Respiratory: Denies shortness of breath, Denies chest congestion, Denies cough, Denies stridor and Denies wheezing Gastrointestinal Gastrointestingal: Denies nausea or vomiting Musculoskeletal Musculoskeletal: Reports system reviewed and no additional complaints, except as documented and Denies arthralgias Integumentary/Breasts Skin/Breast: Reports as per HPI Neurologic Neurologic: Denies dizziness and Denies paresthesias Allergic/Immunologic Allergic/Immunologic: Denies wheezing Physical Exam General General appearance: alert and in no apparent distress Head Head exam: atraumatic, normocephalic and normal inspec
[2022-12-11 15:28] VITALS: BP 133/85; PULSE 113; RESP 18; TEMP 36.8; O2SAT 98
== END 2022-12-11 15:30 | disposition home or self-care (01) ==
PROVIDERS: Emergency Provider Nurse Practitioner Family
DX: L81.1 Chloasma (principal); O26.893 Other specified pregnancy related conditions, third trimester; Z3A.36 36 weeks gestation of pregnancy
CPT/HCPCS: 99212; 99213; G0463

== ENCOUNTER → 2022-12-16 23:00 | Outpatient (CLI) | payer OTHER, SELFPAY | PROVIDERS: Visit Provider Nurse Practitioner Obstetrics & Gynecology | DX: Z34.93 Encounter for supervision of normal pregnancy, unspecified, third trimester (principal); Z3A.37 37 weeks gestation of pregnancy | CPT/HCPCS: 86403 ==

== ENCOUNTER 2023-01-01 06:18 | Inpatient (IN) | payer OTHER, SELFPAY ==
[2023-01-01] VITALS (10 sets, daily range): BP systolic 108–125; BP diastolic 67–90; PULSE 69–101; RESP 16–20; TEMP 36.1–36.9; O2SAT 96–100; BMI 29.8
[2023-01-01 06:49] LABS: Coronavirus 19, PCR Not Detected (NotDetected); Influenza A, PCR Not Detected (NotDetected); Influenza B, PCR Not Detected (NotDetected); Microscopic, Urine URINE MICROSCOPIC (MICROSCOPIC)
[2023-01-01 06:55] LABS: Chloride 105 mmol/L (98-107)
[2023-01-01 06:56] LABS: Potassium 3.5 mmoL/L (3.5-5.1); Sodium 137 mmol/L (136-145)
[2023-01-01 06:58] LABS: Alanine Aminotransferase 18 U/L (12-78); Alkaline Phosphatase 149 U/L (38-126); Anion Gap 14.5 mEq/L (5-15); Aspartate Amino Transferase 27 U/L (14-36); Bilirubin,Total 1.3 mg/dl (0.2-1.3); Blood Urea Nitrogen 4 mg/dl (7-17); Carbon Dioxide 21 mmol/L (22.0-30.0); Creatinine Clearance Estimated 275 mL/min (50-200); Estimated Glomerular Filt Rate 200 ml/min (>60); GFR (African American) 242 ML/MIN (>60)
[2023-01-01 06:59] LABS: Albumin Level 3.6 g/dl (3.5-5.0); Albumin/Globulin Ratio 1.2 (1.1-1.8); Calcium 8.9 mg/dl (8.4-10.2); Globulin 3.1 g/dL (1.3-3.2); Glucose 86 mg/dl (74-100); Total Protein,Serum 6.7 g/dl (6.3-8.2)
[2023-01-01 07:06] LABS: Basophils # 0.1 K/mm3 (0-0.2); Basophils % 0.4 % (0.1-2.0); Eosinophils # 0.2 K/mm3 (0.0-0.4); Eosinophils % 1.2 % (0.1-12.0); Hematocrit 38.7 % (37.0-47.0); Hemoglobin 11.9 g/dL (12.2-16.2); Lymphocytes # 3.4 K/mm3 (0.7-4.5); Lymphocytes % 21.5 % (10-50); Mean Corpuscular HGB Conc 30.6 g/dL (31.8-35.4); Mean Corpuscular Hemoglobin 27.8 pg (27.0-31.2); Mean Corpuscular Volume 90.8 fl (81-99); Mean Platelet Volume 9.9 fl (7.4-10.4); Monocytes # 1.1 K/mm3 (0.1-1.0); Neutrophils % 69.9 % (37.0-80.0); Platelet Count 223 K/mm3 (142-424); Red Blood Count 4.27 M/mm3 (4.20-5.40); Red Cell Distribution Width 15.5 % (11.5-17.5); White Blood Count 15.8 K/mm3 (4.8-10.8)
[2023-01-01 07:07] LABS: Appearance,Urine CLEAR (Clear); Bilirubin,Urine Negative (Negative); Blood, Urine Negative (Negative); Color,Urine YELLOW (Yellow); Glucose,Urine (UA) Negative (Negative); Ketones,Urine Negative (Negative); Leukocyte Esterase,Urine Negative (Negative); Nitrate,Urine Negative (Negative); Protein,Urine Negative (Negative)
[2023-01-01 07:11] LABS: MANUAL DIFFERENTIAL MANUAL DIFFERENTIAL (MANUAL DIFF)
[2023-01-01 07:18] LABS: Benzodiazepines Screen,Urine Negative ng/ml (<200)
[2023-01-01 07:19] LABS: Amphetamine/Metha Screen,Urine Negative ng/ml (<1000)
[2023-01-01 07:20] LABS: Barbiturates Screen,Urine Negative ng/ml (<200); Cannabinoid Screen,Urine Negative ng/ml (<50)
--- NOTE | 2023-01-01 07:20 | P.PN_ITS ---
[facility] Disclaimer: The information contained in this section may have been updated after the patient was seen, as this information can be updated by other users. Medical History No significant medical problems Surgical History (Updated 01/01/23 @ 06:53 by Joi Wilder RN) History of tonsillectomy No history of previous surgery Family History Other No significant family history Social History (Updated 01/01/23 @ 06:53 by Joi Wilder RN) Smoking Status: Never smoker alcohol intake: never substance use type: denies use current occupational status: unemployed Travel in the last 8 weeks: None do you feel safe at home: Yes victim of physical abuse: No victim of emotional abuse: No victim of sexual abuse: No [facility] Anesthesia Checklist Patient Identification Patient Identification: Arm Band and Verbal (Name & ) Structural Data Planned Operative Procedure/s: C section-repeat Consent for Planned Operative Procedure(s) Verified: Yes Verified Documents: Surgical Consent and History and Physical NPO Status Verified Time NPO: 00:00 Additional verifications Patient : Yes Anesthesia Reactions: No Airway Assessment C-Spine Mobility Assessed: Yes TMJ Mobility Assessed: Yes Dentition: Good Dentition Neurological Assessment Level of Consciousness: Awake and Alert Hx Seizures: No Numbness or tingling in extremities: No Anesthesia Plan Anesthesia Risk discussed: Yes ASA Class: II Anesthesia Type: Spinal
[2023-01-01 07:21] LABS: Cocaine Screen,Urine Negative ng/ml (<300)
[2023-01-01 07:22] LABS: Methadone Screen,Urine Negative ng/ml (<300); Opiate Screen,Urine Negative ng/ml (<300)
[2023-01-01 07:23] LABS: Phencyclidine Screen,Urine Negative ng/ml (<25)
[2023-01-01 07:27] LABS: Bacteria,Urine 1+ /lpf; Calcium Oxalate Crystals,Urine 1+ /lpf; RBC,Urine Occasional #/hpf (0-3)
--- NOTE | 2023-01-01 08:06 | PC.NURSE ---
RESP CARE NOTE: called for stat cord pH sample, Nsg notified not enough sample to test.
--- NOTE | 2023-01-01 08:41 | P.PNANES_ITS ---
[facility] Anesthesia Record Part I Anesthesia Record I Intake, IV Amount: 1,700 Estimated blood loss (mL): 600 Urine output (mL): 250 Blood Pressure: 117/90 SaO2: 97 Pulse Rate: 97 Respiratory Rate: 16 Temperature: 97.5 F Patient is:: Awake and Stable Stable to PACU at:: 08:40
[2023-01-01 08:42] LABS: Lymphocytes % 23 % (10-50); Monocytes % 6 % (2-9); Neutrophils % 71 % (42-76); Platelet Estimate Normal; RBC Morphology Normal; Total Cells Counted 100
--- NOTE | 2023-01-01 08:53 | EXP.OP.NOTE ---
Date of procedure: 01/01/23 Pre-op Diagnosis:: Term , previous section, Post-op Diagnosis:: Term , previous section, Procedure performed:: Repeat lower segment transverse section. Surgeon:: Joshua Cortes MD Copy Camera Operator(s):: Dr. Dominguez TIRE SHOP MECHANIC:: Other (Loli Elizondo) Anesthesia: spinal Estimated blood loss (mL): 600 Clinical Note:: She is a 22-year-old 2 para 1 at 39 weeks gestational age. She has had a previous section and as result of that was offered repeat lower segment transverse section at term. Operative findings:: She delivered a liveborn female child at 7:55 AM on the morning of January 01, 2023. The baby had Apgars of 9 at 1 minute and 9 at 5 minutes. She weighed 8 pounds 14 ounces. There was a nuchal cord x1. Ovaries and tubes appeared normal. Operative note:: She was taken to the operating room where spinal anesthesia was found be adequate. She was prepped and draped in normal sterile fashion in the supine position. A Yusuf catheter was in the bladder. A Pfannenstiel skin incision was made with knife then carried through to the underlying layer of fascia with cautery. The fascia was opened in the midline with cautery and extended laterally using Nguyen scissors. [place] clamps were applied to the superior aspect of the fascial incision which was tented up and the underlying rectus muscles dissected off using cautery. The Jose clamps were then applied to the inferior aspect of the fascial incision which in a similar fashion was tented up and the underlying rectus muscles dissected off using cautery. The rectus muscles were then in the midline, the peritoneum identified, and entered bluntly. An Vincent retractor was then inserted into the abdominal cavity. The bladder peritoneum was then opened midline and extended laterally using Metzenbaum scissors. There was a small adhesion of the bladder peritoneum on the anterior aspect of the uterus and this was taken down with cautery. Transverse incision was made through the uterine muscle above the bladder flap to the amnion. This incision was then extended superiorly and inferiorly using the fingers as traction. The amnion was entered sharply with knife. There was clear amniotic fluid. The infant's head was then delivered atraumatically. A loose nuchal cord was then reduced. This was followed by the anterior shoulder and the rest of the infant's body atraumatically. The oropharynx and nasopharynx were bulb suctioned. The infant was vigorous so we allowed the cord to continue to pulsate for approximately 1 minute. The cord was then doubly clamped and cut. The infant was then handed off to Dr. Willson who assigned Apgars of 9 at 1 minute and 9 at 5 minutes. We then obtained cord blood. Using gentle traction on the cord and fundal massage I was able to easily deliver the placenta intact. It had a normal three-vessel cord. The uterus was then cleared of clots and debris . The corners of the uterine incision were closed with individual [id number] sutures. The uterine incision was then closed using running 0 Vicryl suture in a locked fashion. A second layer of the same suture was used to imbricate the first layer. The bladder peritoneum was then closed using running 2-0 Vicryl suture in a locked fashion. The gutters and cul-de-sac were then cleared of clots and debris. I then placed a large piece of Gelfoam over the uterine incision. The peritoneum was then closed using a running 2-0 Vicryl suture. The rectus muscles were then reapproximated using 0 Vicryl suture. Once again hemostasis was assured. The fascia was closed using running #1 Vicryl suture. The subcutaneous tissues were then irrigated with warm water followed by closure Haylie's fascia using running 2-0 Monocryl suture. The skin was closed with running subcuticular 2-0 Monocryl strata fix suture. I then cleaned the skin with Hibiclens. Sterile dressings were fermin
--- NOTE | 2023-01-01 09:05 | EXP.HP ---
History of Present Illness *Admission Date: 01/01/23 *Reason for visit:: Term , previous section *History of present illness: She is a 22-year-old 2 para 1 who is 39 weeks gestational age. She has had an uncomplicated . She has had a previous section and as result of that is offered repeat lower segment transverse section at term. [facility] Disclaimer: The information contained in this section may have been updated after the patient was seen, as this information can be updated by other users. Medical History No significant medical problems Surgical History History of tonsillectomy No history of previous surgery Family History No significant family history Social History Smoking Status: Never smoker alcohol intake: never substance use type: denies use current occupational status: unemployed Travel in the last 8 weeks: None do you feel safe at home: Yes victim of physical abuse: No victim of emotional abuse: No victim of sexual abuse: No Review of Systems Review of Systems Review of systems:: pertinent systems reviewed and negative unless documented below Meds Home Medications and Allergies Home Medications Medication Instructions Recorded Confirmed Type prenat.vits,genesis,sjn-kzxo-eeeoi 1 tab PO DAILY Supplement 07/10/22 01/01/23 History ferrous fumarate 325 mg (106 mg 325 mg PO DAILY iron supplement 01/01/23 01/01/23 History iron) tablet (Alycia) New Prescriptions to Start Prescriptions: Allergies Allergy/AdvReac Type Severity Reaction Status Date / Time brompheniramine Allergy Intermediate Hives Verified 12/25/22 13:44 [From Bromfed DM] dextromethorphan Allergy Intermediate Hives Verified 12/25/22 13:44 [From Bromfed DM] guaifenesin Allergy Intermediate Hives Verified 12/25/22 13:44 pseudoephedrine Allergy Intermediate Hives Verified 12/25/22 13:44 Exam Data for Last 24 hours Vital signs and Labs for Last 24 Hours: Temp Pulse Resp BP Pulse Ox 97.5 F L 78 16 111/73 98 01/01/23 08:43 01/01/23 08:50 01/01/23 08:50 01/01/23 08:50 01/01/23 08:50 Laboratory Results - last 24 hr 01/01/23 05:35: WBC 15.8 H, RBC 4.27, Hgb 11.9 L, Hct 38.7, MCV 90.8, MCH 27.8, MCHC 30.6 L, RDW 15.5, Plt Count 223, MPV 9.9, Neut % (Auto) 69.9, Lymph % (Auto) 21.5, [place] % (Auto) 7.0, Eos % (Auto) 1.2, Baso % (Auto) 0.4, Neut # (Auto) 11.0 H, Lymph # (Auto) 3.4, [place] # (Auto) 1.1 H, Eos # (Auto) 0.2, Baso # (Auto) 0.1, Total Counted 100, Neutrophils % (Manual) 71, Lymphocytes % (Manual) 23, Monocytes % (Manual) 6, Platelet Estimate Normal, RBC Morphology Normal, Sodium 137, Potassium 3.5, Chloride 105, Carbon Dioxide 21 L, Anion Gap 14.5, BUN 4 L, Creatinine 0.40 L, Estimated Creat Clear 275, Estimated GFR 200, Est GFR ( Amer) 242, Glucose 86, Calcium 8.9, Total Bilirubin 1.3, AST 27, ALT 18, Alkaline Phosphatase 149 H, Total Protein 6.7, Albumin 3.6, Globulin 3.1, Albumin/Globulin Ratio 1.2, Urine Color Yellow, Urine Appearance Clear, Urine pH 6.0, Ur Specific [place] 1.020, Urine Protein Negative, Urine Glucose (UA) Negative, Urine Ketones Negative, Urine Blood Negative, Urine Nitrate Negative, Urine Bilirubin Negative, Urine Urobilinogen 4.0, Ur Leukocyte Esterase Negative, Urine RBC Occasional, Urine WBC 3-5, Ur Squamous Epith Cells 3-5, Calcium Oxalate Crystal 1+, Urine Bacteria 1+, Urine Opiates Screen Negative, Urine Methadone Screen Negative, Ur Barbituates Screen Negative, Ur Phencyclidine Scrn Negative, Ur Amphetamines Screen Negative, U Benzodiazepines Scrn Negative, Urine Cocaine Screen Negative, U Marijuana (THC) Screen Negative, SARS-CoV-2 (PCR) Not detected, Influenza A Untype (PCR) Not detected, Influenza Type B (PCR)
--- NOTE | 2023-01-01 10:44 | SUR.OPER ---
0755- Time of of viable . Cord blood pH not obtainable, MD [facility]
[2023-01-01 16:30] LABS: Microscopic,Cath URINE MICROSCOPIC (MICROSCOPIC)
[2023-01-01 17:07] LABS: Appearance,Urine/Cath CLEAR (Clear); Bilirubin,Cath Negative (Negative); Blood, Urine/Cath Negative (Negative); Color,Urine/Cath YELLOW (Yellow); Glucose,Urine/Cath (UA) Negative (Negative); Ketones,Urine/Cath Negative (Negative); Leukocyte Esterase,Cath Negative (Negative); Nitrate,Cath Negative (Negative); Protein,Urine/Cath Negative (Negative)
[2023-01-01 18:27] LABS: WBC,Urine/Cath Occasional #/hpf (0-3)
[2023-01-02 07:06] LABS: Hematocrit 34.4 % (37.0-47.0); Hemoglobin 10.8 g/dL (12.2-16.2)
[2023-01-02 08:53] VITALS: BP 104/67; PULSE 79; RESP 16; TEMP 36.8; O2SAT 98
--- NOTE | 2023-01-02 10:55 | P.PN_ITS ---
Subjective *Date: 01/02/23 *Time: 10:55 Interval history: POD # 1 s/p RLTCS Resting comfortably in bed. Pain controlled. Lochia is appropriate. She is breast and formula feeding. Voiding without difficulty and passing flatus. Tolerating regular diet. Ambulating well ad porfirio. Admits to some shortness of air with exertion that was present prior to delivery. She denies chest pain. No fever/chills. Denies headaches, dizziness and lightheadedness. No lower extremity swelling. Medical Exam Vital signs and Labs for Last 24 Hours: Vital Signs Temp Pulse Resp BP Pulse Ox 01/02/23 08:53 98.2 F 79 16 104/67 L 98 01/01/23 20:45 98.5 F 82 18 109/74 L 98 01/01/23 16:30 98.1 F 83 18 111/68 96 01/01/23 14:20 97.6 F 86 20 112/75 99 Laboratory Results - last 24 hr 01/01/23 07:40: Urine Color Yellow, Urine Appearance Clear, Urine pH 6.0, Ur Specific [place] 1.010, Urine Protein Negative, Urine Glucose (UA) Negative, Urine Ketones Negative, Urine Blood Negative, Urine Nitrate Negative, Urine Bilirubin Negative, Urine Urobilinogen 2.0, Ur Leukocyte Esterase Negative, Urine RBC None, Urine WBC Occasional, Ur Squamous Epith Cells None, Urine Bacteria None 01/02/23 06:50: Hgb 10.8 L, Hct 34.4 L I & O for Labs for Last 24 Hours: Intake & Output 12/30/22 12/31/22 01/01/23 01/02/23 23:59 23:59 23:59 23:59 Intake Total 1700 / 1700 Output Total 325 / 325 Balance 1375 / 1375 Weight 174 lb Head: Present atraumatic and normocephalic ENT: Present normal exam Neck: Present normal inspection and full ROM Respiratory: Present CTA bilaterally and normal respiratory effort Cardiac: Present Reg Rate and Rhythm GI: Present soft and normal bowel sounds; Absent distention or tenderness Comments:: Uterine fundus firm and below umbilicus, pfannenstiel incision clean/dry/intact Rectal (female): Present deferred (female): Present deferred Extremities: Present normal inspection and full ROM; Absent edema or calf tenderness Neuro: Present alert, awake, oriented x 3 and moves all extremities Assessment and Plan *Assessment and plan (1) with 39 completed weeks gestation: Status: Acute Category: Medical Code(s): Z3A.39 - 39 weeks gestation of (2) S/P repeat low transverse : Status: Acute Category: Surgical Code(s): Z98.891 - History of uterine scar from previous surgery (3) Acute blood loss anemia: Status: Acute Category: Medical Code(s): D62 - Acute posthemorrhagic anemia Plan Continue routine care Encouraged increased ambulation Will continue to monitor syptoms of shortness of air. O2 saturation is normal, vital signs stable and within normal limits, lungs are clear to auscultation, heart regular rate and rhythm. She does not have any lower extremity swelling or calf pain Plan d/c home POD #2 or POD # 3
[2023-01-02 16:30] VITALS: BP 125/84; PULSE 92; RESP 18; TEMP 36.9; O2SAT 98
[2023-01-02 20:25] VITALS: BP 123/84; PULSE 85; RESP 18; TEMP 36.8; O2SAT 98
[2023-01-03 04:00] VITALS: BP 122/78; PULSE 71; RESP 17; TEMP 36.3; O2SAT 96
[2023-01-03 08:25] VITALS: BP 120/85; PULSE 90; RESP 18; TEMP 36.7; O2SAT 97
--- NOTE | 2023-01-03 09:27 | EXP.DC.SUM ---
General Admission date:: 01/01/23 Discharge date: 01/03/23 HPI HPI HPI: POD # 2 s/p RLTCS Resting comfortably in bed. Pain controlled. Light lochia. She is formula feeding. Voiding without difficulty and passing flatus. Tolerating regular diet. Denies fever/chills, chest pain and shortness of breath. No headaches, vision changes or dizziness. Ambulating well ad porfirio. Hospital Course Hospital Course Hospital Course: She is a 22-year-old 2 para 1 who is 39 weeks gestational age. She has had an uncomplicated . She has had a previous section and as result of that is offered repeat lower segment transverse section at term. She underwent repeat on 01/01/23. She delivered a live female baby (baby's name Elham) weighing 8 lb 14 oz. APGARs 9, 9. EBL 600 mL. She did well postoperatively. Pain controlled. Formula feeding. Light lochia. Voiding without difficulty and passing flatus. Tolerating regular diet. Vital signs stable, afebrile. Heart regular rate and rhythm. Lungs clear to auscultation. Abdomen soft, nontender. No lower extremity edema. Normal hospital course. She was discharged home on POD # 2. Exam Data for Last 24 hours Vital signs and Labs for Last 24 Hours: Temp Pulse Resp BP Pulse Ox 98.1 F 90 18 120/85 97 01/03/23 08:25 01/03/23 08:25 01/03/23 08:25 01/03/23 08:25 01/03/23 08:25 I & O for Last 24 hours: Intake & Output 12/31/22 01/01/23 01/02/23 01/03/23 23:59 23:59 23:59 23:59 Intake Total 1700 / 1700 Output Total 325 / 325 Balance 1375 / 1375 Weight 174 lb Constitutional Constitutional: no acute distress *Routine HEENT Exam Head: Present normocephalic and atraumatic Eye: Absent conjunctivae pink ENT: Present mucous membranes moist *Routine Neck Exam Neck: Present full ROM *Routine Respiratory Exam Respiratory: Present CTA bilaterally and normal respiratory effort *Routine Cardiovascular Exam Cardiovascular: Present RRR *Routine Abdominal Exam Abdominal: Present soft and normoactive bowel sounds; Absent tenderness or distended Comments: Uterine fundus firm and below umbilicus, pfannenstiel incision clean/dry/intact *Routine Rectal Exam Patient deferred: visual exam *Routine Exam Patient deferred: external exam *Routine Extremities Exam Extremities: Present full ROM; Absent edema or calf tenderness *Routine Neurological Exam Neurological: Present alert, oriented X3 and moving all extremities Routine Psychiatric Exam Psychiatric: Present normal affect and cooperative DS: Diagnosis Discharge Diagnosis (1) with 39 completed weeks gestation: Status: Acute Code(s): Z3A.39 - 39 weeks gestation of (2) S/P repeat low transverse : Status: Acute Code(s): Z98.891 - History of uterine scar from previous surgery (3) Acute blood loss anemia: Status: Acute Code(s): D62 - Acute posthemorrhagic anemia Meds Home Medications and Allergies Home Medications Medication Instructions Recorded Confirmed Type prenat.vits,genesis,jor-dkyh-izfmz 1 tab PO DAILY Supplement 07/10/22 01/01/23 History ferrous fumarate 325 mg (106 mg 325 mg PO DAILY iron supplement 01/01/23 01/01/23 History iron) tablet (Alycia) ibuprofen 800 mg tablet 800 mg PO Q8H PRN pain #20 tabs 01/03/23 Rx oxycodone 5 mg tablet 5 mg PO Q4-6H PRN Moderate To 01/03/23 Rx Severe Pain (4-10) #20 tabs New Prescriptions to Start Prescriptions: ibuprofen Canan,Angella oxycodone Canan,Angella Allergies Allergy/AdvReac Type Severity Reaction Status Date / Time brompheniramine Allergy Intermediate Hives Verified 12/25/22 13:44 [From Bromfed DM] dextromethorphan Allergy Intermediate Hives Verified 12/25/22 13:44 [From Bromfed DM] guaifenesin Allergy Intermediate Hives Verified 12/25/22 13:44 pseudoephedrine Allergy Interm
--- NOTE | 2023-01-05 08:13 | P.PNANES_ITS ---
[facility] [place] Anesthesia Record Part II Anesthesia Record Part II Discharge Time: 09:10 Destination: Obstetric Gynecology Dept PACU nurse assessment reviewed?: Yes Patient Condition:: Good Anesthesia Complications:: None Swallowing reflex intact?: Yes Cyanosis?: No Blood Pressure: 117/81 Pulse Rate: 70 Temperature: 97 F Mental Status: Alert & Oriented Pain level:: 0 Nausea and/or vomitting:: None Intake, IV Amount: 0
[2023-01-05 08:14] VITALS: BP 117/81; PULSE 70; TEMP 36.1
== END 2023-01-03 14:08 | disposition home or self-care (01) | DRG 787 ==
PROVIDERS: Admitting Provider Nurse Practitioner Obstetrics & Gynecology; Visit Provider Nurse Practitioner Obstetrics & Gynecology
PROC: 10D00Z1 Extraction of Products of Conception, Low, Open Approach (ICD-10-PCS; CPT 59514; principal; 2023-01-01 07:30)
DX: O34.211 Maternal care for low transverse scar from previous cesarean delivery (principal); D62 Acute posthemorrhagic anemia; Z3A.39 39 weeks gestation of pregnancy; Z37.0 Single live birth; N85.8 Other specified noninflammatory disorders of uterus; O90.81 Anemia of the puerperium; O69.81X0 Labor and delivery complicated by cord around neck, without compression, not applicable or unspecified
CPT/HCPCS: 59514; 59025; 80053; 80305; 81001; 85007; 85014; 85018; 85025; 86850; 87636; 90707; 94761; 96374; C9290; C9803; G0283; J2405; U0003; U0005

== ENCOUNTER 2023-08-04 15:34 | Outpatient (CLI) | payer OTHER, SELFPAY ==
[2023-08-04 17:30] LABS: HCG,Quantitative 38787 mIU/ml (0-5.42)
[2023-08-05 10:03] LABS: Progesterone 11.5 ng/mL (.)
== END 2023-08-04 23:59 ==
LOC: LAB 15:35
PROVIDERS: Visit Provider Nurse Practitioner Obstetrics & Gynecology
DX: N92.6 Irregular menstruation, unspecified (principal); Z32.00 Encounter for pregnancy test, result unknown
CPT/HCPCS: 36415; 84144; 84702

== ENCOUNTER 2023-08-13 15:49 | Outpatient (CLI) | payer OTHER, SELFPAY ==
[2023-08-13 16:30] LABS: Basophils # 0.1 K/mm3 (0-0.2); Basophils % 0.4 % (0.1-2.0); Eosinophils % 0.3 % (0.1-12.0); Hematocrit 45.9 % (37.0-47.0); Hemoglobin 15.9 g/dL (12.2-16.2); Lymphocytes # 2.1 K/mm3 (0.7-4.5); Lymphocytes % 16.6 % (10-50); Mean Corpuscular HGB Conc 34.6 g/dL (31.8-35.4); Mean Corpuscular Volume 92.3 fl (81-99); Mean Platelet Volume 7.9 fl (7.4-10.4); Monocytes # 0.5 K/mm3 (0.1-1.0); Neutrophils # 9.8 K/mm3 (1.8-7.8); Neutrophils % 78.7 % (37.0-80.0); Platelet Count 243 K/mm3 (142-424); Red Blood Count 4.97 M/mm3 (4.20-5.40); Red Cell Distribution Width 13.5 % (11.5-17.5); White Blood Count 12.5 K/mm3 (4.8-10.8)
[2023-08-14 07:42] LABS: Rubella Antibodies, IgG 2.41 index (Immune >0.99)
[2023-08-14 10:23] LABS: Rapid Plasma Reagin Ab Titer Non Reactive titer (NonRea<1:1)
[2023-08-18 12:05] LABS: HIV Screen 4th Generation wRfx Non Reactive; Hepatitis B Surface Antigen Negative; Hepatitis C Antibody Non Reactive
== END 2023-08-13 23:59 ==
LOC: LAB 15:49
PROVIDERS: Visit Provider Nurse Practitioner Obstetrics & Gynecology
DX: Z34.91 Encounter for supervision of normal pregnancy, unspecified, first trimester (principal); Z3A.08 8 weeks gestation of pregnancy
CPT/HCPCS: 36415; 85025; 86593; 86703; 86762; 86850; 87086; 87340; 87380; G0432

== ENCOUNTER 2023-08-24 13:54 | Outpatient (CLI) | payer OTHER, SELFPAY ==
--- NOTE | 2023-08-24 13:58 | US_ITS ---
PROCEDURE: US OB <= 14 WEEKS FETUS CLINICAL INDICATION: for dates COMPARISON: No exams were available for comparison FINDINGS: Transvaginal sonographic images of the pelvis were obtained. From her last menstrual period she is 9weeks 4days. An intrauterine gestational sac is present with a pole with a crown-rump length of 2.64cm This correlates to a gestational age of 9weeks 4days. heart tones are present with an FHR of 169bpm. Yolk sac is noted. The yolk sac measures 5.9mm. The right ovary is seen and appears normal. A corpus luteum is seen in the right ovary. The left ovary is seen and appears normal. There is no fluid in the cul-de-sac. IMPRESSION: 1. Viable fetus within the uterine cavity. 2. CRL and LMP are congruent. EMILY will remain 03/24/2024. 3. Both ovaries are seen appear normal. 4. No fluid in the cul-de-sac. Dictated by: Joshua Cortes MD 08/24/2023 16:10 Joshua Cortes MD in [facility] 08/24/2023 16:10
== END 2023-08-24 23:59 ==
LOC: RAD 13:55
PROVIDERS: Visit Provider Nurse Practitioner Obstetrics & Gynecology
DX: O26.841 Uterine size-date discrepancy, first trimester (principal); Z3A.14 14 weeks gestation of pregnancy
CPT/HCPCS: 76801

== ENCOUNTER 2023-11-09 14:53 | Outpatient (CLI) | payer BC, OTHER, SELFPAY ==
--- NOTE | 2023-11-09 14:59 | US_ITS ---
PROCEDURE: US OB /MATERNAL DETAIL CLINICAL INDICATION: 20 week anatomy scan COMPARISON: US US OB <= 14 WEEKS FETUS from 08/24/2023 FINDINGS: Transabdominal sonographic images of the pelvis were obtained. From her established due date she is 20 weeks 4 days. Single viable intrauterine gestation. Breech position. Placenta: Posteriorplacenta grade 1. There is an average amount of fluid. The cervix appears satisfactory. Closed and measuring 4.8 cm in length. Complete survey performed and was unremarkable on the submitted images as in PACS. No discrete anomalies identified on survey imaging by technologist. Active fetus. Three-vessel cord with satisfactory umbilical cord insertion. 4- chamber heart noted. Situs, aortic arch, LVOT, RVOT, three-vessel view appear normal. Survey of brain & ventricles Unremarkable. Cerebellum, thalamus, choroid plexus, cisterna magna appear normal. Face and neck survey unremarkable. Profile, nasion, lips and nose appeared normal. Diaphragm and chest views unremarkable. Abdomen: Both kidneys noted and unremarkable. Stomach and bladder noted and satisfactory. Spine: Survey of the spine satisfactory with no anomalies identified nor imaged. Cervical, thoracic, lower spine appear normal. Both arms and legs noted. Amniotic Fluid: Adequate. Measurements: Average ultrasound age 20weeks 1day. Estimated due date by ultrasound age 0903/27/2024. Estimated weight 332g BPD = 19weeks 6days HC = 20weeks 1day AC = 20weeks 3days FL = 19weeks 6days Growth Percentile= 21 Heart Rate = 143bpm Cerebellum = 20weeks 1day Humerus = 20weeks 4days HC/AC is 1.16 FL/BPD is 0.69 FL/AC is 0.21 IMPRESSION: 1. Viable fetus initially in the cephalic presentation then turned breech. Placenta is posterior grade 1. 2. The fluid is within normal limits. 3. Anatomical scan appears normal. 4. biometry is consistent with the dates. Dictated by: Joshua Cortes MD 11/09/2023 17:19 Joshua Cortes MD in [facility] 11/09/2023 17:19
== END 2023-11-09 23:59 | disposition home or self-care (01) ==
LOC: RAD 14:54
PROVIDERS: Visit Provider Nurse Practitioner Obstetrics & Gynecology
DX: O26.892 Other specified pregnancy related conditions, second trimester (principal); Z3A.20 20 weeks gestation of pregnancy
CPT/HCPCS: 76811

== ENCOUNTER 2024-01-14 11:51 | Outpatient (CLI) | payer BC, OTHER, SELFPAY ==
[2024-01-14 12:27] LABS: Basophils # 0.1 K/mm3 (0-0.2); Basophils % 0.6 % (0.1-2.0); Eosinophils # 0.1 K/mm3 (0.0-0.4); Hematocrit 38.1 % (37.0-47.0); Hemoglobin 12.5 g/dL (12.2-16.2); Lymphocytes # 1.9 K/mm3 (0.7-4.5); Lymphocytes % 17.4 % (10-50); Mean Corpuscular HGB Conc 32.9 g/dL (31.8-35.4); Mean Corpuscular Hemoglobin 31.5 pg (27.0-31.2); Mean Corpuscular Volume 95.6 fl (81-99); Mean Platelet Volume 8.8 fl (7.4-10.4); Monocytes # 0.7 K/mm3 (0.1-1.0); Monocytes % 6.6 % (1.7-9.3); Neutrophils # 8.1 K/mm3 (1.8-7.8); Neutrophils % 74.4 % (37.0-80.0); Platelet Count 165 K/mm3 (142-424); Red Blood Count 3.98 M/mm3 (4.20-5.40); Red Cell Distribution Width 14.8 % (11.5-17.5); White Blood Count 10.9 K/mm3 (4.8-10.8)
[2024-01-14 12:44] LABS: Glucose,Fasting 78 mg/dl (74-100)
[2024-01-14 14:05] LABS: Glucose 1 Hour 118 mg/dL (74-100)
== END 2024-01-14 23:59 | disposition home or self-care (01) ==
LOC: LAB 11:52
PROVIDERS: Visit Provider Nurse Practitioner Obstetrics & Gynecology
DX: Z34.90 Encounter for supervision of normal pregnancy, unspecified, unspecified trimester (principal)
CPT/HCPCS: 36415; 82951; 85025

== ENCOUNTER 2024-03-17 05:05 | Inpatient (IN) | payer BC, OTHER, SELFPAY ==
[2024-03-17] VITALS (7 sets, daily range): BP systolic 103–129; BP diastolic 60–75; PULSE 71–99; RESP 15–16; TEMP 36.4–37; O2SAT 98–99; BMI 28.5; BMI 28.3
[2024-03-17 05:47] LABS: Basophils # 0.1 K/mm3 (0-0.2); Basophils % 0.6 % (0.1-2.0); Eosinophils # 0.1 K/mm3 (0.0-0.4); Eosinophils % 0.8 % (0.1-12.0); Hematocrit 40.3 % (37.0-47.0); Hemoglobin 12.5 g/dL (12.2-16.2); Lymphocytes # 2.4 K/mm3 (0.7-4.5); Lymphocytes % 18.5 % (10-50); Mean Corpuscular HGB Conc 30.9 g/dL (31.8-35.4); Mean Corpuscular Hemoglobin 28.8 pg (27.0-31.2); Mean Corpuscular Volume 93.2 fl (81-99); Mean Platelet Volume 9.8 fl (7.4-10.4); Monocytes # 0.9 K/mm3 (0.1-1.0); Neutrophils # 9.6 K/mm3 (1.8-7.8); Neutrophils % 73.1 % (37.0-80.0); Platelet Count 188 K/mm3 (142-424); Red Blood Count 4.32 M/mm3 (4.20-5.40); Red Cell Distribution Width 15.1 % (11.5-17.5); White Blood Count 13.1 K/mm3 (4.8-10.8)
[2024-03-17 06:00] LABS: Anion Gap 7.5 mEq/L (5-15); Blood Urea Nitrogen 4 mg/dl (7-17); Calcium 8.6 mg/dl (8.4-10.2); Carbon Dioxide 21 mmol/L (22.0-30.0); Chloride 110 mmol/L (98-107); Creatinine Clearance Estimated 347 mL/min (50-200); Estimated Glomerular Filt Rate 276 ml/min (>60); GFR (African American) 334 ML/MIN (>60); Glucose 84 mg/dl (74-100); Potassium 3.5 mmoL/L (3.5-5.1); Sodium 135 mmol/L (136-145)
[2024-03-17] MEDS: LACTATED RINGERS 1000ML 1,000 ML 250 ML IV (06:06)
--- NOTE | 2024-03-17 07:24 | EXP.ANES.CKL ---
[facility] Disclaimer: The information contained in this section may have been updated after the patient was seen, as this information can be updated by other users. Medical History Acute blood loss anemia Chloasma Surgical History S/P repeat low transverse History of tonsillectomy Family History (Updated 03/17/24 @ 05:43 by Gisselle Norwood RN) Other Family history of hypertension No significant family history Social History (Updated 03/17/24 @ 05:43 by Gisselle Norwood RN) Smoking Status: Never smoker alcohol intake: never substance use type: denies use current occupational status: employed Travel in the last 8 weeks: None do you feel safe at home: Yes victim of physical abuse: No victim of emotional abuse: No victim of sexual abuse: No [facility] Anesthesia Checklist Patient Identification Patient Identification: Arm Band Structural Data Admitted From: Home Planned Operative Procedure/s: Repeat C/S Consent for Planned Operative Procedure(s) Verified: Yes Verified Documents: Surgical Consent and History and Physical NPO Status Verified Time NPO: 00:00 Additional verifications Anesthesia Reactions: No Airway Assessment Mallampati Score:: Class II C-Spine Mobility Assessed: Yes TMJ Mobility Assessed: Yes Dentition: Good Dentition Neurological Assessment Level of Consciousness: Awake, Alert and Appropriate Anesthesia Plan Anesthesia Risk discussed: Yes Anesthesia Plan: Verified ASA Class: II Anesthesia Type: Spinal (with Bilateral TAP Block)
--- NOTE | 2024-03-17 07:26 | P.HP_ITS ---
OB - H&P: HPI Antepartum History of Present Illness Chief complaint: Scheduled repeat History of present illness: Ms Pamela Anderson is a 23 yo at 39w0d who presents to [facility] L&D for scheduled repeat . She has had good care. History of x 2. History of Present Criteria for establishing EDC:: LMP confirmed by 1st trimester US care: good care Ultrasounds: normal mid trimester US Obstetrical complications: previous Medical complications: none Labs Blood type: A (+) positive Rubella: immune RPR/VDRL: nonreactive GBS status: negative HBsAG: negative [facility] Disclaimer: The information contained in this section may have been updated after the patient was seen, as this information can be updated by other users. Medical History Acute blood loss anemia Chloasma Surgical History (Updated 03/17/24 @ 07:36 by Angella Dominguez DO) History of S/P repeat low transverse History of tonsillectomy Family History (Updated 03/17/24 @ 05:43 by Gisselle Norwood RN) Other Family history of hypertension No significant family history Social History (Updated 03/17/24 @ 05:43 by Gisselle Norwood RN) Smoking Status: Never smoker alcohol intake: never substance use type: denies use current occupational status: employed Travel in the last 8 weeks: None do you feel safe at home: Yes victim of physical abuse: No victim of emotional abuse: No victim of sexual abuse: No Review of Systems Review of Systems Review of systems:: pertinent systems reviewed and negative unless documented below Meds Home Medications and Allergies Home Medications ?Medication ?Instructions ?Recorded ?Confirmed ?Type ferrous fumarate 325 mg (106 mg 325 mg PO DAILY iron supplement 01/01/23 03/17/24 History iron) tablet (Alycia) vits no.126-ferrous fum 1 tab PO DAILY #30 tabs 08/13/23 03/17/24 Rx 28 mg iron-folic acid 800 mcg tablet (Classic ) New Prescriptions to Start Prescriptions: Allergies Allergy/AdvReac Type Severity Reaction Status Date / Time brompheniramine Allergy Intermediate Hives Verified 03/17/24 05:40 [From Bromfed DM] dextromethorphan Allergy Intermediate Hives Verified 03/17/24 05:40 [From Bromfed DM] guaifenesin Allergy Intermediate Hives Verified 03/17/24 05:40 pseudoephedrine Allergy Intermediate Hives Verified 03/17/24 05:40 OB - H&P: Exam Physical Exam Vital signs: Temp Pulse Resp BP 98.2 F 96 H 16 113/75 03/17/24 05:53 03/17/24 05:53 03/17/24 05:53 03/17/24 05:53 Constitutional no acute distress and cooperative Routine HEENT Exam Head: Present normocephalic and atraumatic Eye: Absent conjunctivae pink ENT: Present mucous membranes moist Routine Neck Exam Present full ROM Routine Respiratory Exam Present CTA bilaterally and normal respiratory effort Routine Cardiovascular Exam Present RRR Routine Abdominal Exam Present soft (Gravid); Absent tenderness Routine Rectal Exam Patient deferred: visual exam Routine Exam External: Present normal urethra appearance; Absent erythema, tenderness, lesions or lacerations Routine Extremities Exam Present full ROM; Absent edema or calf tenderness OB - Results Labs Labs: Short CBC 03/17/24 Range/Units 05:30 WBC 13.1 H (4.8-10.8) K/mm3 Hgb 12.5 (12.2-16.2) g/dL Hct 40.3 (37.0-47.0) % Plt Count 188 (142-424) K/mm3 [facility] 03/17/24 05:30 Sodium 135 L Potassium 3.5 Chloride 110 H Carbon Dioxide 21 L BUN 4 L Creatinine 0.30 L Glucose 84 Calcium 8.6 OB - A/P Antepartum (1) History of : Problem details: x 2 Status: Acute (2) with 39 completed weeks gestation: Status: Resolved Additional Plan Planning to breastfeed?: Yes Additional Information:: Admit to [facility] L&D for repeat Reviewed risks, benefits, alternatives, expectations and possible complications. All questions addressed and answered. She voiced understanding of risks and possible complicaions. Consent form signed. Proceed with [facility]
[2024-03-17 07:27] LABS: Amphetamine/Metha Screen,Urine Negative ng/ml (<1000); Benzodiazepines Screen,Urine Negative ng/ml (<200)
[2024-03-17 07:28] LABS: Barbiturates Screen,Urine Negative ng/ml (<200)
[2024-03-17 07:29] LABS: Methadone Screen,Urine Negative ng/ml (<300)
[2024-03-17 07:30] LABS: Cannabinoid Screen,Urine Negative ng/ml (<50)
[2024-03-17 07:31] LABS: Cocaine Screen,Urine Negative ng/ml (<300); Phencyclidine Screen,Urine Negative ng/ml (<25)
[2024-03-17 07:32] LABS: Opiate Screen,Urine Negative ng/ml (<300)
[2024-03-17] MEDS: CEFAZOLIN SODIUM 2 GM in 0.9 % SODIUM CHLORIDE 100 ML IV ×2 (07:34→17:21)
--- NOTE | 2024-03-17 08:55 | EXP.ANES.I ---
[facility] Anesthesia Record Part I Anesthesia Record I Intake, IV Amount: 1,300 Hydration: Adequate Estimated blood loss (mL): 800 Urine output (mL): 1,000 Blood Products used (#): none Blood Pressure: 129/63 SaO2: 98 Pulse Rate: 80 Airway Patency: Patent Respiratory Rate: 16 Temperature: 97.5 F Patient is:: Drowsy and Stable Stable to PACU at:: 08:45
[2024-03-17 09:13] LABS: Microscopic, Urine URINE MICROSCOPIC (MICROSCOPIC)
--- NOTE | 2024-03-17 09:15 | SUR.PHASEI ---
Report given to Chaka Casas RN @ [id number]. Pt doing well, no complaints of pain. Minimal vaginal bleeding. Dressing C/D/I. Currently lying in bed . Father @ bedside. No needs @ this time.
[2024-03-17 09:17] LABS: Appearance,Urine CLEAR (Clear); Bilirubin,Urine Negative (Negative); Blood, Urine Negative (Negative); Color,Urine YELLOW (Yellow); Glucose,Urine (UA) Negative (Negative); Ketones,Urine Negative (Negative); Leukocyte Esterase,Urine Negative (Negative); Nitrate,Urine Negative (Negative); Protein,Urine Negative (Negative); Urobilinogen,Urine 0.2 EU/dl (0.2)
[2024-03-17] MEDS: DEXTROSE 5%-LACTATED RINGERS 1,000 ML 125 ML IV (09:44)
[2024-03-17] MEDS: OXYTOCIN/RINGERS LACTATE 30 UNITS/500 ML BAG 40 UNITS IV (09:45)
--- NOTE | 2024-03-17 11:56 | P.OP_ITS ---
Date of procedure: 03/17/24 Pre-op Diagnosis:: 1. IUP at 39w0d 2. History of x 2 Post-op Diagnosis:: 1. IUP at 39w0d 2. History of x 2 Procedure performed:: Repeat Low Transverse Section Surgeon:: Angella Dominguez DO Head Control Clerk(s):: Yun Canada DO RESIDENTIAL REAL ESTATE APPRAISER:: Zeferino Llanos Anesthesia: spinal Estimated blood loss (mL): 800 Clinical Note:: Ms Pamela Anderson is a 23 yo at 39w0d who presents to [facility] L&D for scheduled repeat . She has had good care. History of x 2. Operative findings:: 1. Live male baby, Norbert, weighing 8 lb 10 oz. Apgars 6 (1 min), 4 (5 min), 6 (10 min), 7 (15 min) 2. Grossly normal appearing uterus, bilateral fallopian tubes and ovaries Operative note:: The risks, benefits and alternatives of the procedure were reviewed with the patient. Informed consent was obtained. Patient was taken to the operating room where spinal anesthesia was placed. The patient received 2 grams of Ancef preoperatively. Patient was placed in dorsal supine position with a leftward tilt. SCDs in place. Yusuf catheter was inserted and was draining clear urine prior to the start of the procedure. heart tones were obtained. Patient was then prepped and draped in normal sterile fashion. Allis clamp test was performed to ensure adequate anesthesia. A Pfannenstiel skin incision was made 2 cm above pubic symphysis along prior Pfannenstiel incision scar. This was carried through to underlying layer of fascia. Fascia was incised in midline, extended laterally with Nguyen scissors. Superior aspect of fascial incision was grasped with two Igor clamps, elevated up, and rectus muscle dissected off bluntly and sharply with Nguyen scissors. Inferior aspect of fascial incision was grasped with two Igor clamps, elevated up, and rectus muscle dissected off bluntly and sharply with Nguyen scissors. The retcus muscle was then in the midline and the peritoneum was entered bluntly with a digit. Peritoneal incision was then extended superiorly and inferiorly with good visualization of the bladder. Vincent retractor was inserted. The lower uterine segment was incised in a transverse fashion. Clear amniotic fluid was noted. Head was delivered without difficulty. Remainder of body was delivered without difficulty. Mouth and nares were bulb suctioned. Spontaneous cry was noted. Delayed cord clamping was performed for 60 seconds. The umbilical cord was clamped and cut. The was handed to awaiting pediatric staff in stable condition. Dr. Haines was present. Apgars were 6 (1 min), 4 (5 min), 6 (10 min), 7 (15 min). Cord blood was obtained. Gentle traction on the umbilical cord and uterine fundal massage delivered the placenta. Placenta was intact. Uterus was cleared of all clots and debris with a moist laparotomy sponge. Corners of the uterine incision were grasped with Allis clamps. The uterine incision was reapproximated with # 1 Vicryl suture in a running, locked stitch. Second layer of the same stitch was used to imbricate the incision. Vesicouterine peritoneum was reapproximated in a running locked stitch with 0- Vicryl suture. Hemostasis was noted. Posterior cul-de-sac was cleaned with moist laparotomy sponge. Gutters cleared of all clots and debris with a moist laparotomy sponge. Reinspection of the lower uterine segment demonstrated hemostasis. At this point all instruments and sponges were removed from the pelvis.? The peritoneum was grasped with Kary clamps x 3. The peritoneum was reapproximated with 0 Vicryl suture in a running stitch. The corners of the fascia were grasped with Igor clamps, and the fascia was reapproximated with two # 1 Vicryl suture overlapped to the right of midline. Subcutaneous tissue was irrigated with clear return of fluids. The subcutaneous tissue was reapproximated with 3-0 Vicryl. The skin was reapproximated with 2-0 Stratafix suture. Steri strips and Telfa was placed over closed Pfannenstiel skin incision. At the end of the procedure, the uterus was firm with minimal vaginal bleeding. Patient tolerated the procedure well. Instrument, sponges and needle counts were correct x 2. Mom and baby were transported to recovery room in stable condition. Condition: stable Disposition: floor Specimens:: 1. Cord blood Complications:: None
[2024-03-17] MEDS: ACETAMINOPHEN 500MG TAB 1000 MG PO (12:40)
[2024-03-17] MEDS: SODIUM CHLORIDE 0.9% 25ML BAG 25 ML IV (12:41)
[2024-03-17] MEDS: PROMETHAZINE HCL 25MG/ML 1ML VIAL 12.5 MG IV (12:41)
[2024-03-17] MEDS: HYDROMORPHONE 2MG/ML SYRINGE 2 MG IV (12:41)
[2024-03-17] MEDS: SODIUM CHLORIDE 0.9% 10ML FLUSH SYRINGE 10 ML IV ×2 (12:42→17:21)
[2024-03-17] MEDS: KETOROLAC 30MG/ML VIAL 30 MG IV (17:21)
[2024-03-18] MEDS: KETOROLAC 30MG/ML VIAL 30 MG IV ×2 (00:17→06:23)
[2024-03-18] MEDS: CEFAZOLIN SODIUM 2 GM in 0.9 % SODIUM CHLORIDE 100 ML IV (00:18)
[2024-03-18] MEDS: SENNA 8.6MG TABLET 8.6 MG PO ×2 (00:18→15:42)
[2024-03-18] MEDS: ACETAMINOPHEN 500MG TAB 1000 MG PO ×4 (00:18→21:42)
[2024-03-18] MEDS: SIMETHICONE 80MG CHEWABLE TABLET 160 MG PO (00:18)
[2024-03-18 03:32] VITALS: BP 107/67; PULSE 74; RESP 16; TEMP 36.7; O2SAT 97
[2024-03-18 06:34] LABS: Basophils # 0.1 K/mm3 (0-0.2); Basophils % 0.5 % (0.1-2.0); Eosinophils # 0.1 K/mm3 (0.0-0.4); Eosinophils % 0.9 % (0.1-12.0); Hematocrit 36.3 % (37.0-47.0); Hemoglobin 11.4 g/dL (12.2-16.2); Lymphocytes # 1.7 K/mm3 (0.7-4.5); Lymphocytes % 14.7 % (10-50); Mean Corpuscular HGB Conc 31.3 g/dL (31.8-35.4); Mean Corpuscular Hemoglobin 29.5 pg (27.0-31.2); Mean Corpuscular Volume 94.3 fl (81-99); Monocytes # 0.8 K/mm3 (0.1-1.0); Monocytes % 7.2 % (1.7-9.3); Neutrophils # 8.6 K/mm3 (1.8-7.8); Neutrophils % 76.7 % (37.0-80.0); Platelet Count 175 K/mm3 (142-424); Red Blood Count 3.85 M/mm3 (4.20-5.40); Red Cell Distribution Width 15.1 % (11.5-17.5); White Blood Count 11.3 K/mm3 (4.8-10.8)
--- NOTE | 2024-03-18 07:29 | P.PNANES_ITS ---
[facility] Anesthesia Record Part II Anesthesia Record Part II Discharge Time: 09:15 Destination: Obstetric PACU nurse assessment reviewed?: Yes Patient Condition:: Good Anesthesia Complications:: None Swallowing reflex intact?: Yes Airway Patency: Patent Cyanosis?: No Blood Pressure: 103/70 SaO2: 99 Respiratory Rate: 15 Pulse Rate: 81 Temperature: 98.1 F Mental Status: Alert & Oriented Pain level:: 0 Nausea and/or vomitting:: None Intake, IV Amount: 0 Hydration: Adequate
[2024-03-18 07:30] VITALS: BP 103/70; PULSE 81; RESP 15; TEMP 36.7; O2SAT 99
--- NOTE | 2024-03-18 08:27 | EXP.ACUTE.PN ---
Subjective *Date: 03/18/24 *Time: 08:27 Interval history: POD # 1 s/p RLTCS Feeling well. Pain controlled. Breast and formula feeding. Lochia is appropriate. Voiding without difficulty and passing flatus. Tolerating regular diet. Denies fever/chills, chest pain and shortness of breath. No headaches, vision changes, lightheadedness/dizziness. No lower extremity swelling. Ambulating well ad porfirio. Medical Exam Vital signs and Labs for Last 24 Hours: Vital Signs Temp Pulse Pulse Resp BP BP Pulse Ox 03/18/24 07:30 15 03/18/24 03:32 98.1 F 74 16 107/67 L 97 03/17/24 19:56 98.6 F 71 16 114/72 98 03/17/24 09:15 98.1 F 81 15 103/70 L 99 03/17/24 09:05 89 15 108/60 L 99 03/17/24 08:56 97.5 F L 80 16 129/63 03/17/24 08:55 99 H 16 122/73 99 03/17/24 08:45 97.5 F L 84 15 129/63 98 O2 Del Method 03/18/24 07:30 03/18/24 03:32 Room Air 03/17/24 19:56 Room Air 03/17/24 09:15 Room Air 03/17/24 09:05 Room Air 03/17/24 08:56 03/17/24 08:55 Room Air 03/17/24 08:45 Room Air Intake and Output 03/17/24 03/18/24 03/18/24 23:59 07:59 15:59 Intake Total 0 / 0 Balance 0 / 0 Intake: Intake, Total IV Amount 0 / 0 Laboratory Results - last 24 hr 03/17/24 05:30: Blood Type A Positive, Antibody Screen Negative 03/17/24 06:11: Urine Color Yellow, Urine Appearance Clear, Urine pH 6.0, Ur Specific Rebuck 1.010, Urine Protein Negative, Urine Glucose (UA) Negative, Urine Ketones Negative, Urine Blood Negative, Urine Nitrate Negative, Urine Bilirubin Negative, Urine Urobilinogen 0.2, Ur Leukocyte Esterase Negative, Urine RBC None, Urine WBC None, Ur Squamous Epith Cells 3-5, Urine Bacteria None 03/18/24 06:16: WBC 11.3 H, RBC 3.85 L, Hgb 11.4 L, Hct 36.3 L, MCV 94.3, MCH 29.5, MCHC 31.3 L, RDW 15.1, Plt Count 175, MPV 9.0, Neut % (Auto) 76.7, Lymph % (Auto) 14.7, [place] % (Auto) 7.2, Eos % (Auto) 0.9, Baso % (Auto) 0.5, Neut # (Auto) 8.6 H, Lymph # (Auto) 1.7, [place] # (Auto) 0.8, Eos # (Auto) 0.1, Baso # (Auto) 0.1 I & O for Labs for Last 24 Hours: Intake & Output 03/15/24 03/16/24 03/17/24 03/18/24 23:59 23:59 23:59 23:59 Intake Total 1300 / 1300 0 / 0 Output Total 900 / 900 Balance 400 / 400 0 / 0 Weight 165 lb 15.988 oz Head: Present atraumatic and normocephalic ENT: Present mucous membranes moist Neck: Present normal inspection Respiratory: Present CTA bilaterally and normal respiratory effort Cardiac: Present Reg Rate and Rhythm GI: Present soft; Absent distention or tenderness Comments:: Uterine fundus firm and below umbilicus, pfannenstiel incision clean/dry/intact with steri strips in place Rectal (female): Present deferred (female): Present deferred Extremities: Present full ROM; Absent edema or calf tenderness Neuro: Present alert, awake and moves all extremities Assessment and Plan *Assessment and plan (1) S/P : Status: Acute Category: Surgical Code(s): Z98.891 - History of uterine scar from previous surgery (2) with 39 completed weeks gestation: Status: Resolved Category: Medical Code(s): Z3A.39 - 39 weeks gestation of (3) History of : Problem Comment: x 2 Status: Acute Category: Surgical Code(s): Z98.891 - History of uterine scar from previous surgery Plan Continue routine /postop care Encouraged increased ambulation Plan d/c home tomorrow, POD # 2
[2024-03-18 09:34] VITALS: BP 107/64; PULSE 81; RESP 15; TEMP 36.6; O2SAT 97
[2024-03-18 12:14] LABS: Rapid Plasma Reagin Ab Titer Non Reactive titer (NonRea<1:1)
[2024-03-18] MEDS: IBUPROFEN 400 MG TABLET 800 MG PO (15:42)
[2024-03-18 21:19] VITALS: BP 118/82; PULSE 76; RESP 20; TEMP 36.9; O2SAT 97
[2024-03-19] MEDS: IBUPROFEN 400 MG TABLET 800 MG PO ×2 (00:17→08:05)
[2024-03-19 03:55] VITALS: BP 119/73; PULSE 82; RESP 17; TEMP 36.9; O2SAT 97
[2024-03-19] MEDS: ACETAMINOPHEN 500MG TAB 1000 MG PO (03:58)
[2024-03-19 08:00] VITALS: BP 108/73; PULSE 80; RESP 17; TEMP 36.7; O2SAT 100
--- NOTE | 2024-03-19 12:37 | EXP.DC.SUM ---
General Admission date:: 03/17/24 Discharge date: 03/19/24 HPI HPI HPI: PPD # 2 s/p RLTCS Feeling well. Pain controlled. Breast and formula feeding. Lochia is appropriate. Voiding without difficulty and passing flatus. Tolerating regular diet. Denies fever/chills, chest pain and shortness of breath. No headaches, vision changes, lightheadedness/dizziness. No lower extremity swelling. Ambulating well ad porfirio. Hospital Course Hospital Course Hospital Course: Ms Pamela Anderson is a 23 yo at 39w0d who presents to [facility] L&D for scheduled repeat . She has had good care. History of x 2. She underwent repeat on 03/17/24. She delivered a live male baby, Norbert, weighing 8 lb 10 oz. Apgars 6 (1 min), 4 (5 min), 6 (10 min), 7 (15 min). EBL 800 mL. She did well /postoperatively. Pain controlled. Breast and formula feeding. Light lochia. Voiding without difficulty and passing flatus. Tolerating regular diet. Denies fever/chills, chest pain and shortness of breath. No headaches, dizziness/lightheadedness or vision changes. Vital signs stable, afebrile. Heart regular rate and rhythm. Lungs clear to auscultation. Abdomen soft, nontender. No lower extremity swelling. Ambulating well ad porfirio. Normal hospital course. She was discharged to home on POD # 2 with instructions to follow-up in the office in 2 weeks or sooner if needed. Exam Data for Last 24 hours Vital signs and Labs for Last 24 Hours: Temp Pulse Resp BP Pulse Ox O2 Del Method 98.0 F 80 17 108/73 L 100 Room Air 03/19/24 08:00 03/19/24 08:00 03/19/24 08:00 03/19/24 08:00 03/19/24 08:00 03/19/24 08:00 I & O for Last 24 hours: Intake & Output 03/16/24 03/17/24 03/18/24 03/19/24 23:59 23:59 23:59 23:59 Intake Total 1300 / 1300 0 / 0 Output Total 900 / 900 Balance 400 / 400 0 / 0 Weight 165 lb 15.988 oz Microbiology Reports for the Last 24 Hours: Microbiology 03/17/24 07:38 Urine,Yusuf [place] Urine Culture - Final Constitutional Constitutional: no acute distress and cooperative *Routine HEENT Exam Head: Present normocephalic and atraumatic Eye: Absent conjunctivae pink ENT: Present mucous membranes moist *Routine Neck Exam Neck: Present full ROM *Routine Respiratory Exam Respiratory: Present CTA bilaterally and normal respiratory effort *Routine Cardiovascular Exam Cardiovascular: Present RRR *Routine Abdominal Exam Abdominal: Present soft and normoactive bowel sounds; Absent tenderness or distended Comments: Uterine fundus firm and below umbilicus, pfannenstiel incision clean/dry/intact with steri strips in place *Routine Rectal Exam Patient deferred: visual exam *Routine Exam Patient deferred: external exam *Routine Extremities Exam Extremities: Present full ROM; Absent edema or calf tenderness *Routine Neurological Exam Neurological: Present alert, moving all extremities and normal speech Routine Psychiatric Exam Psychiatric: Present normal affect and cooperative DS: Diagnosis Discharge Diagnosis (1) S/P : Status: Acute Code(s): Z98.891 - History of uterine scar from previous surgery (2) with 39 completed weeks gestation: Status: Resolved Code(s): Z3A.39 - 39 weeks gestation of (3) History of : Status: Acute Code(s): Z98.891 - History of uterine scar from previous surgery Problem details: x 2 Meds Home Medications and Allergies Home Medications ?Medication ?Instructions ?Recorded ?Confirmed ?Type vits no.126-ferrous fum 1 tab PO DAILY #30 tabs 08/13/23 03/17/24 Rx 28 mg iron-folic acid 800 mcg tablet (Classic ) ibuprofen 800 mg tablet 800 mg PO Q8H PRN pain #20 tabs 03/19/24 Rx oxycodone 5 mg tablet 5 mg PO Q4HP PRN Moderate Pain 03/19/24 Rx (4-6) #20 tabs New Prescriptions to Start Prescriptions: ibuprofen Canan,Angella oxycodone Canan,Angella Allergies Allergy/AdvReac Type Severity Reaction Status Date / Time brompheniramine Allergy Intermediate Hives Verified 03/17/24 05:40 [From Bromfed DM] dextromethorphan Allergy Intermediate Hives Verified 03/17/24 05:40 [From Bromfed DM] guaifenesin Allergy Intermediate Hives Verified 03/17/24 05:40 pseudoephedrine Allergy Intermediate Hives Verified 03/17/24 05:40 Discharge Plan Disposition Patient Disposition: Home, Self-Care Condition: Good Discharge Order Discharge Orders: Discharge Order (Routine); Ordered 03/19/24 Ordered By: Angella Dominguez Follow up Plan Follow up with: Joshua Cortes MD [Staff Physician] - 2 weeks Prescriptions/Medication Reconciliation: New oxycodone 5 mg Tablet 5 mg PO Q4HP PRN (Reason: Moderate Pain (4-6)) Qty: 20 0RF ibuprofen 800 mg tablet 800 mg PO Q8H PRN (Reason: pain) Qty: 20 0RF Continued Classic 28 mg iron- 800 mcg tablet 1 tab PO DAILY Qty: 30 11RF Discontinued Ferretts 325 mg (106 mg iron) tablet 325 mg PO DAILY Rx Instructions: take one by mouth, daily Problem Reconciliation Problems Reviewed?: Yes Patient Discharge Instructions ACTIVITY: Limited activity DIET: continue same diet and regular diet Additional Instructions: Congratulations!! Discharge: 1. Take 800 mg Ibuprofen every 8 hours as needed for pain. You can also take 500-1000 mg of Tylenol in between doses, every 6-8 hours. If pain persists you can take Oxycodone 5 mg, 1 tablet every 4-6 hours or more as needed. 2. Nothing in the vagina for 6 weeks - no intercourse, douching or tampons. No tub baths/hot tubs or swimming pools - Drink plenty of fluids. - No strenuous activity or driving until released by your doctor. - Don't lift anything heavier than your . 3. Reasons to return to L&D or call On-Call doctor - fever (greater than 100.4) - heavy vaginal bleeding (soaking through 1 pad in less than 2 hours) - vaginal discharge (malodorous and/or purulent) - severe headaches not resolved by medication or rest and leg tenderness/edema 4. depression/blues - Normal to feel anxious/overwhelmed for first 2 weeks - Talk to your doctor if: severe anxiety, trouble bonding with baby, withdrawing from other family members, thoughts of harming yourself or others Angella Dominguez DO [facility] [phone] Patient Instructions: Depression, Hemorrhage, DI for , DI for Pre-eclampsia, DI for Postoperative Pain, [facility] Post Discharge Instructions Print Language: Persian Providers Primary Care Provider: Provider,Referral Admit Provider: Angella Dominguez Attending Provider: Angella Dominguez
== END 2024-03-19 13:35 | disposition home or self-care (01) | DRG 788 ==
PROVIDERS: Admitting Provider Obstetrics & Gynecology; Visit Provider Obstetrics & Gynecology
PROC: 10D00Z1 Extraction of Products of Conception, Low, Open Approach (ICD-10-PCS; principal; 2024-03-17 07:30)
DX: O34.211 Maternal care for low transverse scar from previous cesarean delivery (principal); N85.8 Other specified noninflammatory disorders of uterus; Z3A.39 39 weeks gestation of pregnancy; Z37.0 Single live birth
CPT/HCPCS: 36415; 59025; 80048; 80307; 81001; 85025; 86593; 86850; 87086; 94761; C9290; G0283; J1170; J1885; J2405; J2550; J3010; J7120

== ENCOUNTER 2024-07-26 09:04 | Emergency (ER) | payer BC, OTHER, SELFPAY ==
[2024-07-26 09:05] VITALS: BP 118/77; PULSE 97; RESP 18; TEMP 36.9; O2SAT 100; BMI 25.7
[2024-07-26] MEDS: FLUORESCEIN SODIUM 1MG STRIP 1 MG OP (09:56)
[2024-07-26] MEDS: TETRAHYDROZOLINE OP (09:56)
[2024-07-26] MEDS: ERYTHROMYCIN BASE 1 GM OINT...G. OP (09:56)
[2024-07-26 09:59] VITALS: BP 116/72; PULSE 94; RESP 18; TEMP 36.6; O2SAT 99
--- NOTE | 2024-07-26 10:15 | [facility].EDGENADL ---
Discharge Plan Disposition Patient Disposition: Home, Self-Care Condition: Good Prescriptions Prescriptions: New erythromycin 5 mg/gram (0.5 %) ointment 1 applic ophthalmic (eye) QID Qty: 3.5 0RF No Action Classic 28 mg iron- 800 mcg tablet 1 tab PO DAILY Qty: 30 11RF Referrals Follow up/Referrals: Provider,Referral, [Primary Care Provider] - See instructions Activity Restrictions/Add. Instructions Additional Instructions/Restrictions: You were evaluated in the emergency department today. Please use your erythromycin ointment that was prescribed to you 4 times daily for the next 3 to 4 days or until symptoms resolved. I recommend close follow-up with a primary care provider as well as with an eye doctor for reassessment. Take Tylenol and ibuprofen as needed for pain. Return to the emergency department for new or worsening symptoms. Clinical Impressions Clinical Impression: Abrasion, corneal Stand Alone Forms Stand Alone Forms: Work/School Release Instructions Patient Instructions: DI for Corneal Abrasion, DI for Eye Pain Print Language Print Language: Northern Irish Discharge ED Provider: Crystal Polo General Adult HPI General Chief complaint: Eye Problems Stated complaint: AO 07/25/24 poked in right eye Time Seen by Provider: 07/26/24 09:28 Mode of Arrival: Ambulatory Source of Information: Patient Limitations: No Limitations Description of Symptoms (Recalled from ER Triage Doc. by RN): r sided eye pain. got poked in the eye by her toddler. History of Present Illness HPI narrative: This patient is a 24-year-old female who denies significant past medical history presenting to the emergency department for evaluation with concern for right eye pain. Patient states that she got scratched in the eye by her toddler yesterday, and she thought it would be fine but the pain is worse this morning. She denies any vision changes, drainage from her eye, or other concerns. She knows she supposed wear glasses but does not. Related Data Previous Rx's ?Medication ?Instructions ?Recorded vits no.126-ferrous fum 1 tab PO DAILY #30 tabs 08/13/23 28 mg iron-folic acid 800 mcg tablet (Classic ) erythromycin 5 mg/gram (0.5 %) eye 1 applic ophthalmic (eye) QID #3.5 07/26/24 ointment grams Allergies Allergy/AdvReac Type Severity Reaction Status Date / Time brompheniramine (From Allergy Intermediate Hives Verified 05/03/24 14:06 Bromfed DM) dextromethorphan (From Allergy Intermediate Hives Verified 05/03/24 14:06 Bromfed DM) guaifenesin Allergy Intermediate Hives Verified 05/03/24 14:06 pseudoephedrine Allergy Intermediate Hives Verified 05/03/24 14:06 PFSH [facility] Disclaimer: The information contained in this section may have been updated after the patient was seen, as this information can be updated by other users. Medical History Acute blood loss anemia Chloasma Surgical History S/P History of S/P repeat low transverse History of tonsillectomy Family History Other Family history of hypertension No significant family history Social History Smoking Status: Never smoker alcohol intake: never substance use type: denies use current occupational status: employed Travel in the last 8 weeks: None do you feel safe at home: Yes victim of physical abuse: No victim of emotional abuse: No victim of sexual abuse: No Have you lived/traveled outside [place] in past 30 days?: No Contact w/someone who lives/traveled outside US past 30 days?: No Exposure to someone with infectious disease in past 14 days?: No Do you have a fever (greater than 100.4 F or 38 C)?: No Have you tested positive for COVID-19: No Exposed to someone with COVID-19 in past 14 days?: No Do you have a sore throat?: No Do you have a cough?: No Do you have any weakness?: No Do you have any diarrhea?: No Are you experiencing any unusual bleeding?: No Do you have any muscle aches/pain?: No Do you have any abdominal pain?: No Are you experiencing loss of taste or smell?: No Other Medical History Have you received the Flu Vaccine for this season: No Have you received the Pneumonia Vaccine: No ROS Obtained: Yes All systems reviewed & no additional complaints except as documented Physical Exam General General appearance: alert and in no apparent distress Head Head exam: atraumatic and normocephalic Eye Eye exam: Present PERRL, EOMI and conjunctival injection (Right eye); Absent discharge ENT ENT exam: Present normal exam, normal oropharynx, mucous membranes moist and normal external ear exam Neck Neck exam: Present normal inspection, full ROM and trachea midline; Absent tenderness Chest Chest inspection: Present normal inspection and symmetric chest wall rise; Absent tenderness Respiratory Respiratory exam: Present normal lung sounds bilaterally; Absent respiratory distress, wheezes, stridor or accessory muscle use Cardiovascular Cardiovascular exam: Present regular rate and normal rhythm Abdominal Exam Abdominal exam: Present soft; Absent distention, tenderness or guarding Extremities Exam Extremities exam: Present normal inspection, full ROM and normal capillary refill; Absent tenderness or edema Back Exam Back exam: Present normal inspection and full ROM; Absent tenderness Neurological Exam Neurological exam: Present alert, oriented X3, CN II-XII intact and normal gait; Absent motor sensory deficit Psychiatric Psychiatric exam: Present normal affect and normal mood Skin Skin exam: Present warm and dry Medical Decision Making Medical Records Medical records reviewed: Yes I reviewed the patient's medical records. Screening: Per USPSTF and CDC recommendations, given the prevalence of disease in our region, it is our hospital?s policy to screen for HIV and viral Hepatitis for all patients aged 18 and over and those with ongoing risk factors. Malcolm Inquiry Pt receiving controlled substance: No Vital Signs: 07/26/24 09:05 07/26/24 09:59 Temperature 98.4 F 98 F Temperature Source Oral Pulse Rate 94 H Pulse Rate [Right] 97 H Respiratory Rate 18 18 Blood Pressure 116/72 Blood Pressure [Right Arm] 118/77 Blood Pressure Mean [Right Arm] 90 02 Sat by Pulse Oximetry 100 Lab Data Lab results reviewed: Yes I reviewed the patient's lab results. Orders (Tests/Meds): ED MEDICATIONS Discontinued Medications Generic Name Dose Route Start Last Admin Trade Name Freq PRN Reason Stop Dose Admin Erythromycin 1 gm 07/26/24 09:51 07/26/24 09:56 Erythromycin Base 1 Gm Oint...G. OP 07/26/24 09:52 1 gm ONCE ONE Administration Fluorescein Sodium 1 mg 07/26/24 09:51 07/26/24 09:56 Fluorescein Sodium 1mg Strip OP 07/26/24 09:52 1 mg ONCE ONE Administration Tetrahydrozoline HCl 1 ml 07/26/24 09:51 07/26/24 09:56 Tetrahydrozoline Opth Karishma 15ml OP 07/26/24 09:52 1 ml ONCE ONE Administration ORDERS Category Date Time Status HIV Combo Stat Lab 07/26/24 09:13 Ordered Hepatitis C Ab Qual. W/ RFX Stat Lab 07/26/24 09:13 Ordered Medical Decision Narrative: In summary, this patient is a 24-year-old female presenting to the Emergency Department for evaluation of right eye pain after her toddler scratched it last night. Differential diagnoses considered include but are not limited to abrasion, corneal ulceration, open globe. Ruling out the most morbid conditions drove assessment. On exam, the patient is well-appearing with reassuring ocular exam with the exception of conjunctival injection of the right eye. Fluorescein staining was performed which demonstrated a corneal abrasion to the right eye, but no deep ulceration. Negative Lucio sign. Overall, I feel she is appropriate for discharge home with erythromycin ophthalmic ointment to treat corneal abrasion and prevent any sort of secondary infection. She is not a contact lens wearer. Vision 20/50 in each eye and 20/40 in both eyes together. She knows she supposed to wear glasses but does not. She was given prescription for erythromycin, instructions for close follow-up with primary care as well as a eye doctor, and strict return precautions. She was discharged after all questions were answered. Critical Care Critical Care Time Critical Care Time: No
== END 2024-07-26 10:00 | disposition home or self-care (01) ==
PROVIDERS: Emergency Provider Emergency Medicine
DX: S05.00XA Injury of conjunctiva and corneal abrasion without foreign body, unspecified eye, initial encounter (principal); H57.11 Ocular pain, right eye; X58.XXXA Exposure to other specified factors, initial encounter
CPT/HCPCS: 99283

== ENCOUNTER 2024-09-23 12:55 | Emergency (ER) | payer BC, OTHER, SELFPAY ==
[2024-09-23] VITALS (9 sets, daily range): BP systolic 102–115; BP diastolic 60–78; PULSE 96–135; RESP 10–21; TEMP 36.7–37.9; O2SAT 87–99; BMI 25.7
--- NOTE | 2024-09-23 13:00 | ED_ITS ---
Discharge Plan Disposition Patient Disposition: Home, Self-Care Condition: Good Prescriptions Prescriptions: New sulfamethoxazole-trimethoprim [Bactrim DS] 800-160 mg tablet 1 tab PO BID 5 Days Qty: 10 0RF ondansetron 4 mg tablet,disintegrating 4 mg PO Q6H PRN (Reason: nausea and vomiting) Qty: 10 0RF No Action Classic 28 mg iron- 800 mcg tablet 1 tab PO DAILY Qty: 30 11RF erythromycin 5 mg/gram (0.5 %) ointment 1 applic ophthalmic (eye) QID Qty: 3.5 0RF Referrals Follow up/Referrals: Provider,Referral, MD [Primary Care Provider] - See instructions Activity Restrictions/Add. Instructions Additional Instructions/Restrictions: As we discussed please try to stay hydrated keeping on top of your fever. If you are unable to tolerate oral intake you have increasing pain fever tractable nausea vomiting return to the emergency department. I sent an antibiotic and nausea medicine into your pharmacy. Take your antibiotic till its gone. Clinical Impressions Clinical Impression: Sepsis without septic shock, Pyelonephritis Instructions Patient Instructions: DI for Kidney Infection Print Language Print Language: Bengali Discharge ED Provider: Crystal Polo General Adult HPI <TIM Villegas - Last Filed: 09/23/24 17:48> General Chief complaint: Headache Stated complaint: Headache, pain in back when inhaling Time Seen by Provider: 09/23/24 13:00 History of Present Illness HPI narrative: Patient presents for evaluation of headache and left-sided back pain when inhaling . Patient states that approximately 2 weeks ago she had sore throat and cough but has gotten over that. Over the last several days she has had increasing headache malaise and reports feeling like she is having back pain when she takes a deep breath. She denies shortness of breath hemoptysis hematochezia melena nausea vomiting diarrhea dysuria. Related Data Previous Rx's ?Medication ?Instructions ?Recorded vits no.126-ferrous fum 1 tab PO DAILY #30 tabs 08/13/23 28 mg iron-folic acid 800 mcg tablet (Classic ) erythromycin 5 mg/gram (0.5 %) eye 1 applic ophthalmic (eye) QID #3.5 07/26/24 ointment grams ondansetron 4 mg disintegrating 4 mg PO Q6H PRN nausea and 09/23/24 tablet vomiting #10 tabs sulfamethoxazole 800 1 tab PO BID 5 days #10 tabs 09/23/24 mg-trimethoprim 160 mg tablet (Bactrim DS) Allergies Allergy/AdvReac Type Severity Reaction Status Date / Time brompheniramine (From Allergy Intermediate Hives Verified 05/03/24 14:06 Bromfed DM) dextromethorphan (From Allergy Intermediate Hives Verified 05/03/24 14:06 Bromfed DM) guaifenesin Allergy Intermediate Hives Verified 05/03/24 14:06 pseudoephedrine Allergy Intermediate Hives Verified 05/03/24 14:06 [facility] <Keegan Johnson PA - Last Filed: 09/23/24 17:48> [facility] Disclaimer: The information contained in this section may have been updated after the patient was seen, as this information can be updated by other users. Medical History Acute blood loss anemia Chloasma Surgical History S/P History of S/P repeat low transverse History of tonsillectomy Family History Other Family history of hypertension No significant family history Social History Smoking Status: Never smoker alcohol intake: never substance use type: denies use current occupational status: employed Travel in the last 8 weeks: None do you feel safe at home: Yes victim of physical abuse: No victim of emotional abuse: No victim of sexual abuse: No Have you lived/traveled outside [place] in past 30 days?: No Contact w/someone who lives/traveled outside US past 30 days?: No Exposure to someone with infectious disease in past 14 days?: No Do you have a fever (greater than 100.4 F or 38 C)?: No Have you tested positive for COVID-19: No Exposed to someone with COVID-19 in past 14 days?: No Do you have a sore throat?: No Do you have a cough?: No Do you have any weakness?: No Do you have any diarrhea?: No Are you experiencing any unusual bleeding?: No Do you have any muscle aches/pain?: No Do you have any abdominal pain?: No Are you experiencing loss of taste or smell?: No Other Medical History Have you received the Flu Vaccine for this season: No Have you received the Pneumonia Vaccine: No <TIM Villegas - Last Filed: 09/23/24 17:48> ROS Obtained: Yes Systems reviewed as appropriate & no additional complaints except as documented Physical Exam <TIM Villegas - Last Filed: 09/23/24 17:48> General General appearance: alert and in no apparent distress Neck Neck exam: Present lymphadenopathy Respiratory Respiratory exam: Present normal lung sounds bilaterally Cardiovascular Cardiovascular exam: Present tachycardia Neurological Exam Neurological exam: Present alert and oriented X3 Medical Decision Making <TIM Villegas - Last Filed: 09/23/24 17:48> Medical Records Medical records reviewed: Yes I reviewed the patient's medical records. Screening: Per USPSTF and CDC recommendations, given the prevalence of disease in our region, it is our hospital?s policy to screen for HIV and viral Hepatitis for all patients aged 18 and over and those with ongoing risk factors. Malcolm Inquiry Pt receiving controlled substance: No Vital Signs: 09/23/24 13:00 09/23/24 14:02 09/23/24 15:19 Temperature 100.2 F H Temperature Source Oral Pulse Rate 135 H 117 H Pulse Rate [Right] 132 H Respiratory Rate 18 10 L Blood Pressure 103/66 L 111/71 Blood Pressure [Right Arm] 110/65 Blood Pressure Mean [Right Arm] 80 Blood Pressure Source Blood Pressure Source [Right Arm] Automatic Cuff Blood Pressure Position Blood Pressure Position [Right Arm] Sitting 02 Sat by Pulse Oximetry 98 99 87 L Oxygen Delivery Method Room Air 09/23/24 15:23 09/23/24 15:30 09/23/24 15:45 Temperature Temperature Source Pulse Rate 108 H 103 H 102 H Pulse Rate [Right] Respiratory Rate 21 20 20 Blood Pressure 111/71 115/66 102/66 L Blood Pressure [Right Arm] Blood Pressure Mean [Right Arm] Blood Pressure Source Blood Pressure Source [Right Arm] Blood Pressure Position Blood Pressure Position [Right Arm] 02 Sat by Pulse Oximetry 95 96 96 Oxygen Delivery Method 09/23/24 16:00 09/23/24 16:30 09/23/24 17:42 Temperature 98.1 F Temperature Source Oral Pulse Rate 96 H 96 H 97 H Pulse Rate [Right] Respiratory Rate 18 18 16 Blood Pressure 114/78 104/61 L 104/60 L Blood Pressure [Right Arm] Blood Pressure Mean [Right Arm] Blood Pressure Source Automatic Cuff Blood Pressure Source [Right Arm] Blood Pressure Position Sitting Blood Pressure Position [Right Arm] 02 Sat by Pulse Oximetry 96 96 Oxygen Delivery Method Room Air Lab Data Lab results reviewed: Yes I reviewed the patient's lab results. Lab Results 09/23/24 13:05: Chlamy pneumoniae PCR Not detected, Adenovirus (PCR) Not detected, B. pertussis DNA (PCR) Not detected, Coronavirus OC43 (PCR) Not detected, Coronavirus HKU1 (PCR) Not detected, Coronavirus 229E (PCR) Not detected, SARS-CoV-2 (PCR) Not detected 09/23/24 13:05: SARS-CoV-2 (PCR) Not detected, Coronavirus NL63 (PCR) Not detected, Human Metapneumovir PCR Not detected, Influenza A (H1) PCR Not detected, Influ A (H1N1/09) PCR Not detected, Influenza A (H3) PCR Not detected, Influenza Type A (PCR) Not detected, Influenza A Untype (PCR) Not detected, Influenza Type B (PCR) Not detected 09/23/24 13:05: Influenza Type B (PCR) Not detected, M. pneumoniae (PCR) Not detected, Parainfluenza 1 (PCR) Not detected, Parainfluenza 2 (PCR) Not detected, Parainfluenza 3 (PCR) Not detected, Parainfluenza 4 (PCR) Not detected, RSV (PCR) Not detected, Entero/Rhino (PCR) Not detected 09/23/24 14:00: Group A Strep Rapid Negative 09/23/24 14:10: WBC 13.9 H, RBC 4.59, Hgb 14.3, Hct 41.7, MCV 90.8, MCH 31.2, MCHC 34.3, RDW 12.8, Plt Count 189, MPV 9.6, Neut % (Auto) 81.9 H, Lymph % (Auto) 5.2 L, [place] % (Auto) 9.7 H, Eos % (Auto) 2.3, Baso % (Auto) 0.4, Neut # (Auto) 11.4 H, Lymph # (Auto) 0.7, [place] # (Auto) 1.3 H, Eos # (Auto) 0.3, Baso # (Auto) 0.1, Sodium 137, Potassium 3.3 L, Chloride 104, Carbon Dioxide 25, Anion Gap 11.3, BUN 6 L, Creatinine 0.60, Estimated Creat Clear 155, Estimated GFR 123, Est GFR ( Amer) 149, Glucose 110 H, Calcium 9.1, Total Bilirubin 2.5 H, AST 30, ALT 26, Alkaline Phosphatase 75, Total Protein 7.4, Albumin 4.5, Globulin 2.9, Albumin/Globulin Ratio 1.6, Procalcitonin 0.179, TSH 0.25 L, Free T4 Index 2.0 L, Thyroxine (T4) 5.8, T3 Uptake 35, Serum HCG, Qual Negative 09/23/24 15:36: Urine Color Yellow, Urine Appearance Sl cloudy, Urine pH 6.0, Ur Specific [place] 1.010, Urine Protein Trace, Urine Glucose (UA) Negative, Urine Ketones Negative, Urine Blood Moderate, Urine Nitrate Negative, Urine Bilirubin Negative, Urine Urobilinogen 0.2, Ur Leukocyte Esterase Large, Urine RBC Occasional, Urine WBC Tntc, Ur Squamous Epith Cells 20-50, Urine Bacteria 2+ 09/23/24 14:10 09/23/24 14:10 Orders (Tests/Meds): ED MEDICATIONS Discontinued Medications Generic Name Dose Route Start Last Admin Trade Name Freq PRN Reason Stop Dose Admin Acetaminophen 1,000 mg 09/23/24 13:27 09/23/24 13:46 Acetaminophen 500mg Tab PO 09/23/24 13:28 1,000 mg ONCE ONE Administration Diphenhydramine HCl 50 mg 09/23/24 13:27 09/23/24 13:46 Diphenhydramine 25mg Capsule PO 09/23/24 13:28 50 mg ONCE ONE Administration Sodium Chloride 1,640 mls @ 820 mls/hr 09/23/24 14:03 09/23/24 14:15 Sod Chlor 0.9% 1000ml Bag 30 ml/kg infuse over 2 hr (1640 ml) 09/23/24 16:02 820 mls/hr IV Administration .Q2H ONE Ceftriaxone Sodium 1 gm/ 50 mls @ 100 mls/hr 09/23/24 16:30 09/23/24 16:38 Sodium Chloride IV 10/03/24 16:29 100 mls/hr Q24H ISAAC Administration Ibuprofen 800 mg 09/23/24 13:27 09/23/24 13:46 Ibuprofen 400 Mg Tablet PO 09/23/24 13:28 800 mg ONCE ONE Administration Iopamidol 75 ml 09/23/24 16:17 09/23/24 16:18 Iopamidol-370 (76%);100ml Bottle IV 09/23/24 16:18 75 ml ONCE ONE Administration Methocarbamol 500 mg 09/23/24 13:27 09/23/24 13:46 Methocarbamol 500mg Tablet PO 09/23/24 13:28 500 mg ONCE ONE Administration Ondansetron HCl 4 mg 09/23/24 13:27 09/23/24 13:46 Ondansetron 4mg Odt SL 09/23/24 13:28 4 mg ONCE ONE Administration Sodium Chloride 10 ml 09/23/24 16:17 09/23/24 16:18 Sodium Chloride 0.9% 10ml Syr (Rad Only) IV 09/23/24 16:18 10 ml ONCE ONE Administration ORDERS Category Date Time Status CT abdomen pelvis w con Stat Cat Scan 09/23/24 16:[address] chest w con Stat Cat Scan 09/23/24 16:06 Completed Chest XR 2 view (NOT portable) [XR chest 2V] Stat Exams 09/23/24 14:57 Completed CBC w/Auto Diff [Complete Blood Count Auto Diff] Stat Lab 09/23/24 14:10 Completed CMP [Comprehensive Metabolic Panel] Stat Lab 09/23/24 14:10 Completed Full Resp Panel w/COVID ([facility]) Routine Lab 09/23/24 13:05 Completed HCG Qualitative, Serum Stat Lab 09/23/24 14:10 Completed Procalcitonin Stat Lab 09/23/24 14:10 Completed Rapid PCR Covid and Flu A/B Stat Lab 09/23/24 13:05 Completed Strep Scrn Group A (Rapid) Stat Lab 09/23/24 14:00 Completed Thyroid Panel Stat Lab 09/23/24 14:10 Completed UA [Urinalysis and Microscopic] Stat Lab 09/23/24 15:36 Completed Blood Culture Stat Micro 09/23/24 14:45 Results Strep Screen Confirmation Stat Micro 09/23/24 14:00 Received Urine Culture Stat Micro 09/23/24 15:36 Completed Tissue Perfus/Sepsis Re-Eval Date Performed: 09/23/24 Time Performed: 16:00 Medical Decision Narrative: In summary patient is a 24-year-old female who presents to the emergency department for evaluation of headache malaise and left posterior chest wall pain. Patient is normotensive at 110/65 but significantly tachycardic at 132 with sinus tachycardia on the bedside monitor breathing 18 times a minute satting at 98% on room air upon arrival, with a temperature of 100.2. Physical exam is remarkable for no nuchal rigidity or meningeal signs, pupils equal round reactive to light, oropharynx pink moist patent, breath sounds clear and equal bilaterally to the bases without adventitious sounds, abdomen soft without rebound or guarding or rigidity.. Differential diagnosis includes initially considered was an additional respiratory tract infection versus postviral pneumonia. Initial workup will be conducted with COVID and flu swabs. Initial interventions include crystalloid bolus Toradol Tylenol Benadryl Robaxin. Initial workup reviewed by me and her COVID and flu swabs are negative and heart rate did not respond to the initial liter bolus thus her workup was broadened to include other etiologies and hematologic labs blood cultures urine culture CT scan of the chest abdomen pelvis was ordered to search for cause of her fever and tachycardia and likely sepsis. Patient given a sepsis bolus. After blood cultures drawn patient was given a dose of Rocephin as initial antibiotic. My informal interpretation of her HSU showed that she had a white count of 13.9 with an absolute neutrophil count of 11.4 potassium was 3.3 and repleted, TSH was 0.25 procalcitonin was 0.179 urinalysis showed a large amount of leukocyte Estrace and microscopic exam showed occasional red blood cells too numerous to count white cells 20-50 epithelial cells and 2+ bacteria, strep screen was negative, full respiratory panel was ordered, my informal interpretation of CT scan chest abdomen pelvis does not show any acute intrathoracic infiltrates and my interpretation of her abdomen showed that she had findings consistent with left pyelonephritis. Upon repeat evaluation after fluid resuscitation and IV antibiotic administration patient's heart rate had come down to 86 her temperature came down to 98.6 blood pressure remained stable and she is tolerating oral intake. Given this I had interactive discussion with the patient and via shared decision making I offered the patient admission for continued IV antibiotics versus discharge home with oral antibiotics and antiemetics. Via patient directed decision making and discharge she feels comfortable going home as she has children at home to take care of however she has verbalized understanding of strict return precautions of increasing fever pain ability to tolerate oral intake as reasons to return to the ER. Thus patient is appropriate for discharge with prescription for Bactrim and Zofran and strict return precautions. I was consulted by the LEO, and we discussed the complexity of problems being addressed. I approved the treatment and management plan for this patient's care in the emergency department, thus performing a substantial portion of the medical decision making. Margarita Pa MD <Margarita Pa MD - Last Filed: 09/25/24 08:26> Vital Signs: 09/23/24 13:00 09/23/24 14:02 09/23/24 15:19 Temperature 100.2 F H Temperature Source Oral Pulse Rate 135 H 117 H Pulse Rate [Right] 132 H Respiratory Rate 18 10 L Blood Pressure 103/66 L 111/71 Blood Pressure [Right Arm] 110/65 Blood Pressure Mean [Right Arm] 80 Blood Pressure Source Blood Pressure Source [Right Arm] Automatic Cuff Blood Pressure Position Blood Pressure Position [Right Arm] Sitting 02 Sat by Pulse Oximetry 98 99 87 L Oxygen Delivery Method Room Air 09/23/24 15:23 09/23/24 15:30 09/23/24 15:45 Temperature Temperature Source Pulse Rate 108 H 103 H 102 H Pulse Rate [Right] Respiratory Rate 21 20 20 Blood Pressure 111/71 115/66 102/66 L Blood Pressure [Right Arm] Blood Pressure Mean [Right Arm] Blood Pressure Source Blood Pressure Source [Right Arm] Blood Pressure Position Blood Pressure Position [Right Arm] 02 Sat by Pulse Oximetry 95 96 96 Oxygen Delivery Method 09/23/24 16:00 09/23/24 16:30 09/23/24 17:42 Temperature 98.1 F Temperature Source Oral Pulse Rate 96 H 96 H 97 H Pulse Rate [Right] Respiratory Rate 18 18 16 Blood Pressure 114/78 104/61 L 104/60 L Blood Pressure [Right Arm] Blood Pressure Mean [Right Arm] Blood Pressure Source Automatic Cuff Blood Pressure Source [Right Arm] Blood Pressure Position Sitting Blood Pressure Position [Right Arm] 02 Sat by Pulse Oximetry 96 96 Oxygen Delivery Method Room Air Lab Data Lab Results 09/23/24 13:05: Chlamy pneumoniae PCR Not detected, Adenovirus (PCR) Not detected, B. pertussis DNA (PCR) Not detected, Coronavirus OC43 (PCR) Not detected, Coronavirus HKU1 (PCR) Not detected, Coronavirus 229E (PCR) Not detected, SARS-CoV-2 (PCR) Not detected 09/23/24 13:05: SARS-CoV-2 (PCR) Not detected, Coronavirus NL63 (PCR) Not detected, Human Metapneumovir PCR Not detected, Influenza A (H1) PCR Not detected, Influ A (H1N1/09) PCR Not detected, Influenza A (H3) PCR Not detected, Influenza Type A (PCR) Not detected, Influenza A Untype (PCR) Not detected, Influenza Type B (PCR) Not detected 09/23/24 13:05: Influenza Type B (PCR) Not detected, M. pneumoniae (PCR) Not detected, Parainfluenza 1 (PCR) Not detected, Parainfluenza 2 (PCR) Not detected, Parainfluenza 3 (PCR) Not detected, Parainfluenza 4 (PCR) Not detected, RSV (PCR) Not detected, Entero/Rhino (PCR) Not detected 09/23/24 14:00: Group A Strep Rapid Negative 09/23/24 14:10: WBC 13.9 H, RBC 4.59, Hgb 14.3, Hct 41.7, MCV 90.8, MCH 31.2, MCHC 34.3, RDW 12.8, Plt Count 189, MPV 9.6, Neut % (Auto) 81.9 H, Lymph % (Auto) 5.2 L, [place] % (Auto) 9.7 H, Eos % (Auto) 2.3, Baso % (Auto) 0.4, Neut # (Auto) 11.4 H, Lymph # (Auto) 0.7, [place] # (Auto) 1.3 H, Eos # (Auto) 0.3, Baso # (Auto) 0.1, Sodium 137, Potassium 3.3 L, Chloride 104, Carbon Dioxide 25, Anion Gap 11.3, BUN 6 L, Creatinine 0.60, Estimated Creat Clear 155, Estimated GFR 123, Est GFR ( Amer) 149, Glucose 110 H, Calcium 9.1, Total Bilirubin 2.5 H, AST 30, ALT 26, Alkaline Phosphatase 75, Total Protein 7.4, Albumin 4.5, Globulin 2.9, Albumin/Globulin Ratio 1.6, Procalcitonin 0.179, TSH 0.25 L, Free T4 Index 2.0 L, Thyroxine (T4) 5.8, T3 Uptake 35, Serum HCG, Qual Negative 09/23/24 15:36: Urine Color Yellow, Urine Appearance Sl cloudy, Urine pH 6.0, Ur Specific [place] 1.010, Urine Protein Trace, Urine Glucose (UA) Negative, Urine Ketones Negative, Urine Blood Moderate, Urine Nitrate Negative, Urine Bilirubin Negative, Urine Urobilinogen 0.2, Ur Leukocyte Esterase Large, Urine RBC Occasional, Urine WBC Tntc, Ur Squamous Epith Cells 20-50, Urine Bacteria 2+ Orders (Tests/Meds): ED MEDICATIONS Discontinued Medications Generic Name Dose Route Start Last Admin Trade Name Freq PRN Reason Stop Dose Admin Acetaminophen 1,000 mg 09/23/24 13:27 09/23/24 13:46 Acetaminophen 500mg Tab PO 09/23/24 13:28 1,000 mg ONCE ONE Administration Diphenhydramine HCl 50 mg 09/23/24 13:27 09/23/24 13:46 Diphenhydramine 25mg Capsule PO 09/23/24 13:28 50 mg ONCE ONE Administration Sodium Chloride 1,640 mls @ 820 mls/hr 09/23/24 14:03 09/23/24 14:15 Sod Chlor 0.9% 1000ml Bag 30 ml/kg infuse over 2 hr (1640 ml) 09/23/24 16:02 820 mls/hr IV Administration .Q2H ONE Ceftriaxone Sodium 1 gm/ 50 mls @ 100 mls/hr 09/23/24 16:30 09/23/24 16:38 Sodium Chloride IV 10/03/24 16:29 100 mls/hr Q24H ISAAC Administration Ibuprofen 800 mg 09/23/24 13:27 09/23/24 13:46 Ibuprofen 400 Mg Tablet PO 09/23/24 13:28 800 mg ONCE ONE Administration Iopamidol 75 ml 09/23/24 16:17 09/23/24 16:18 Iopamidol-370 (76%);100ml Bottle IV 09/23/24 16:18 75 ml ONCE ONE Administration Methocarbamol 500 mg 09/23/24 13:27 09/23/24 13:46 Methocarbamol 500mg Tablet PO 09/23/24 13:28 500 mg ONCE ONE Administration Ondansetron HCl 4 mg 09/23/24 13:27 09/23/24 13:46 Ondansetron 4mg Odt SL 09/23/24 13:28 4 mg ONCE ONE Administration Sodium Chloride 10 ml 09/23/24 16:17 09/23/24 16:18 Sodium Chloride 0.9% 10ml Syr (Rad Only) IV 09/23/24 16:18 10 ml ONCE ONE Administration ORDERS Category Date Time Status CT abdomen pelvis w con Stat Cat Scan 09/23/24 16:[address] chest w con Stat Cat Scan 09/23/24 16:06 Completed Chest XR 2 view (NOT portable) [XR chest 2V] Stat Exams 09/23/24 14:57 Completed CBC w/Auto Diff [Complete Blood Count Auto Diff] Stat Lab 09/23/24 14:10 Completed CMP [Comprehensive Metabolic Panel] Stat Lab 09/23/24 14:10 Completed Full Resp Panel w/COVID ([facility]) Routine Lab 09/23/24 13:05 Completed HCG Qualitative, Serum Stat Lab 09/23/24 14:10 Completed Procalcitonin Stat Lab 09/23/24 14:10 Completed Rapid PCR Covid and Flu A/B Stat Lab 09/23/24 13:05 Completed Strep Scrn Group A (Rapid) Stat Lab 09/23/24 14:00 Completed Thyroid Panel Stat Lab 09/23/24 14:10 Completed UA [Urinalysis and Microscopic] Stat Lab 09/23/24 15:36 Completed Blood Culture Stat Micro 09/23/24 14:45 Results Strep Screen Confirmation Stat Micro 09/23/24 14:00 Received Urine Culture Stat Micro 09/23/24 15:36 Completed Medical Decision Narrative: In summary patient is a [age, sex] who presents to the emergency department for evaluation of [complaint]. Patient is [hemodynamically stable/unstable] upon arrival, [febrile/afebrile]. [Unremarkable physical exam, nonfocal exam versus focal remarkable exam]. Differential diagnosis includes [DDx]. Initial workup will be conducted with [hematologic labs, imaging, respiratory swab, describe workup]. Initial interventions include [crystalloid bolus, medications, p.o. challenge, etc.] initial workup reviewed by me [hematologic labs are remarkable for... Imaging remarkable for... Urinalysis remarkable for]. Upon repeat evaluation [patient had acceptable resolution of symptoms, had persistent pain for which additional interventions were conducted (describe interventions), tolerated p.o., was ambulatory, etc.]. Given this [patient is appropriate for discharge at this time and will be discharged with a prescription for... The case was discussed with hospital medicine regarding management and they will admit the patient their service for continued evaluation at this time... Etc.] Places where you can increase complexity: I informally interpreted the patient's chest x-ray or CT read and is remarkable for... Documenting what the air sampling and monitoring shows with rate and rhythm Consideration of test but deferring. Ex: I considered chest x-ray on this patient however given that they have no oxygen requirement and are clear to auscultation all lung lopez will be deferred. Social determinants of health: Given that patient is undomiciled increases complexity. Given that patient has polysubstance abuse compounds all aspects of care I was consulted by the LEO, and we discussed the complexity of problems being addressed. I approved the treatment and management plan for this patient's care in the emergency department, thus performing a substantial portion of the medical decision making. Margarita Pa MD Critical Care <TIM Villegas - Last Filed: 09/23/24 17:48> Critical Care Time Critical Care Time: Yes Attestation: On 09/23/24, the high probability of a clinically significant, sudden or life threatening deterioration of the following system(s) required my full and direct attention, intervention and personal management. The time I documented below is in addition to time spent performing reported procedures but includes the following listed in this critical care notation. Total Time Total Critical Care Time: 60
[2024-09-23 13:11] LABS: Coronavirus 19, PCR Not Detected (NotDetected); Influenza A, PCR Not Detected (NotDetected); Influenza B, PCR Not Detected (NotDetected)
[2024-09-23] MEDS: METHOCARBAMOL 500MG TABLET 500 MG PO (13:46)
[2024-09-23] MEDS: ACETAMINOPHEN 500MG TAB 1000 MG PO (13:46)
[2024-09-23] MEDS: diphenhydrAMINE 25MG CAPSULE 50 MG PO (13:46)
[2024-09-23] MEDS: IBUPROFEN 400 MG TABLET 800 MG PO (13:46)
[2024-09-23] MEDS: ONDANSETRON 4MG ODT 4 MG SL (13:46)
--- NOTE | 2024-09-23 14:06 | ECG_ITS ---
APPROVED REPORT Exam: Resting ECG HR:131 bpm ECG Measurements Heart Rate 131 AXES [place] 158 P 74 QRSd 93 QRS 72 QT 333 T 2 QTc [address] DEVIATION AND MODERATE T-WAVE ABNORMALITY, CONSIDER LATERAL ISCHEMIA [-0.1+ mV T-WAVE IN I/aVL/V5/V6] ST DEVIATION AND MODERATE T-WAVE ABNORMALITY, CONSIDER INFERIOR ISCHEMIA [-0.1+ mV T-WAVE IN II/aVF] ABNORMAL ECG No STEMI Electronically signed by : JANEY RENE, 09/24/2024 06:27:44
[2024-09-23] MEDS: 0.9 % SODIUM CHLORIDE 1000ML 1,640 ML 820 ML IV (14:15)
[2024-09-23 14:16] LABS: Basophils # 0.1 K/mm3 (0-0.2); Basophils % 0.4 % (0.1-2.0); Eosinophils # 0.3 K/mm3 (0.0-0.4); Eosinophils % 2.3 % (0.1-12.0); Hematocrit 41.7 % (37.0-47.0); Hemoglobin 14.3 g/dL (12.2-16.2); Lymphocytes # 0.7 K/mm3 (0.7-4.5); Lymphocytes % 5.2 % (10-50); Mean Corpuscular HGB Conc 34.3 g/dL (31.8-35.4); Mean Corpuscular Hemoglobin 31.2 pg (27.0-31.2); Mean Corpuscular Volume 90.8 fl (81-99); Mean Platelet Volume 9.6 fl (7.4-10.4); Monocytes # 1.3 K/mm3 (0.1-1.0); Monocytes % 9.7 % (1.7-9.3); Neutrophils # 11.4 K/mm3 (1.8-7.8); Neutrophils % 81.9 % (37.0-80.0); Platelet Count 189 K/mm3 (142-424); Red Blood Count 4.59 M/mm3 (4.20-5.40); Red Cell Distribution Width 12.8 % (11.5-17.5); White Blood Count 13.9 K/mm3 (4.8-10.8)
[2024-09-23 14:22] LABS: Chloride 104 mmol/L (98-107)
[2024-09-23 14:23] LABS: Strep Scrn Group A (Rapid) Negative (Negative)
[2024-09-23 14:23] LABS: Albumin Level 4.5 g/dl (3.5-5.0); Potassium 3.3 mmoL/L (3.5-5.1); Sodium 137 mmol/L (136-145)
[2024-09-23 14:25] LABS: Blood Urea Nitrogen 6 mg/dl (7-17); Creatinine Clearance Estimated 155 mL/min (50-200); Estimated Glomerular Filt Rate 123 ml/min (>60); GFR (African American) 149 ML/MIN (>60)
[2024-09-23 14:26] LABS: Alanine Aminotransferase 26 U/L (12-78); Albumin/Globulin Ratio 1.6 (1.1-1.8); Alkaline Phosphatase 75 U/L (38-126); Anion Gap 11.3 mEq/L (5-15); Aspartate Amino Transferase 30 U/L (14-36); Bilirubin,Total 2.5 mg/dl (0.2-1.3); Calcium 9.1 mg/dl (8.4-10.2); Carbon Dioxide 25 mmol/L (22.0-30.0); Globulin 2.9 g/dL (1.3-3.2); Glucose 110 mg/dl (74-100); Total Protein,Serum 7.4 g/dl (6.3-8.2)
[2024-09-23 14:49] LABS: Adenovirus,PCR Not Detected (NotDetected); Bordetella Pertussis Not Detected (NotDetected); Chlamydophila Pneumoniae, PCR Not Detected (NotDetected); Coronavirus 19, PCR Not Detected (NotDetected); Coronavirus 229E Not Detected (NotDetected); Coronavirus NL63 Not Detected (NotDetected); Coronavirus OC43 Not Detected (NotDetected); Coronovirus HKU1,PCR Not Detected (NotDetected); Human Metapneumovirus Not Detected (NotDetected); Influenza A, PCR Not Detected (NotDetected); Influenza AH1, 2009 Not Detected (NotDetected); Influenza AH1, PCR Not Detected (NotDetected); Influenza AH3,PCR Not Detected (NotDetected); Influenza B, PCR Not Detected (NotDetected); Mycoplasma Pneumoniae, PCR Not Detected (NotDetected); Parainfluenza 1, PCR Not Detected (NotDetected); Parainfluenza 2, PCR Not Detected (NotDetected); Parainfluenza 3, PCR Not Detected (NotDetected); Parainfluenza 4, PCR Not Detected (NotDetected); Respiratory Syncytial Virus Not Detected (NotDetected); Rhinovirus/Enterovirus Not Detected (NotDetected)
--- NOTE | 2024-09-23 14:57 | XR_ITS ---
FINAL REPORT CLINICAL HISTORY: Fever tachycardia COMPARISON: None FINDINGS: PA and lateral views of the chest were obtained. No acute pulmonary density is evident. There is no evidence of effusion or other pleural disease. The mediastinum has a normal appearance. The cardiac silhouette is unremarkable. IMPRESSION: Unremarkable chest exam. Reviewed, Interpreted and Dictated by Candy Kelly MD Transcribed by Briseida Vasquez Authenticated and [facility]
[2024-09-23 15:00] LABS: Procalcitonin 0.179 ng/mL (0.0-2.0)
[2024-09-23 15:01] LABS: T4 (Thyroxine) 5.8 ug/dl (5.53-11.0); Triiodothryronine (T3) Uptake 35 % (23.5-40.5)
[2024-09-23 15:11] LABS: HCG Qualitative, Serum Negative (Negative)
[2024-09-23 15:15] LABS: Thyroid Stimulating Hormone 0.25 uIU/mL (0.465-4.68)
[2024-09-23 15:40] LABS: Microscopic, Urine URINE MICROSCOPIC (MICROSCOPIC)
[2024-09-23 15:42] LABS: Appearance,Urine SL CLOUDY (Clear); Bilirubin,Urine Negative (Negative); Blood, Urine MODERATE (Negative); Color,Urine YELLOW (Yellow); Glucose,Urine (UA) Negative (Negative); Ketones,Urine Negative (Negative); Leukocyte Esterase,Urine LARGE (Negative); Nitrate,Urine Negative (Negative); Protein,Urine TRACE (Negative); Urobilinogen,Urine 0.2 EU/dl (0.2)
[2024-09-23 15:55] LABS: RBC,Urine Occasional #/hpf (0-3); Squamous Epithelial Cell,Urine 20-50 #/hpf (0-5); WBC,Urine TNTC #/hpf (0-3)
[2024-09-23 15:56] LABS: Bacteria,Urine 2+ /lpf
--- NOTE | 2024-09-23 16:01 | CT_ITS ---
PROCEDURE INFORMATION: Exam: CT Abdomen And Pelvis With Contrast Exam date and time: 09/23/2024 4:08 PM Age: 24 years old Clinical indication: Fever x 2 days. SOA. x 6 months ago. Lmp x 11 days ago; Additional info: Sepsis and abdominal pain TECHNIQUE: Imaging protocol: Computed tomography of the abdomen and pelvis with contrast. Radiation optimization: All CT scans at this facility use at least one of these dose optimization techniques: automated exposure control; mA and/or kV adjustment per patient size (includes targeted exams where dose is matched to clinical indication); or iterative reconstruction. Contrast material: ISOVUE; Contrast volume: 75 ml; Contrast route: IV; COMPARISON: CT ABDOMEN PELVIS W CON 09/23/2024 4:08 PM FINDINGS: Liver: Normal. No mass. Gallbladder and biliary ducts: Normal. No calcified stones. No ductal dilation. Pancreas: Normal. No ductal dilation. Spleen: Normal. No splenomegaly. Adrenal glands: Normal. No mass. Kidneys and ureters: Multiple areas of decreased density/decreased enhancement in the upper left kidney measuring up to 3.0 cm. 6 mm stone in the lower right kidney. Stomach and bowel: Unremarkable. No obstruction. No mucosal thickening. Appendix: No evidence of appendicitis. Intraperitoneal space: Unremarkable. No free air. No significant fluid collection. Vasculature: Unremarkable. No abdominal aortic aneurysm. Lymph nodes: Unremarkable. No enlarged lymph nodes. Urinary bladder: Unremarkable as visualized. Reproductive: 2.7 cm right ovarian cyst. Bones/joints: Unremarkable. No acute fracture. Soft tissues: Unremarkable. IMPRESSION: 1. Left-sided pyelonephritis. 2. 6 mm right renal stone. 3. Right ovarian cyst.
--- NOTE | 2024-09-23 16:06 | CT_ITS ---
PROCEDURE INFORMATION: Exam: CT Chest With Contrast; Diagnostic Exam date and time: 09/23/2024 4:08 PM Age: 24 years old Clinical indication: Prior surgery; Surgery date: 6+ months; Fever x 2 days. SOA. x 6 months ago. Lmp x 11 days ago; Additional info: Sepsis TECHNIQUE: Imaging protocol: Diagnostic computed tomography of the chest with contrast. Radiation optimization: All CT scans at this facility use at least one of these dose optimization techniques: automated exposure control; mA and/or kV adjustment per patient size (includes targeted exams where dose is matched to clinical indication); or iterative reconstruction. Contrast material: ISOVUE; Contrast volume: 75 ml; Contrast route: IV; COMPARISON: CR XR CHEST 2V 09/23/2024 3:05 PM FINDINGS: Lungs: 6 mm calcified granuloma in the right lower lobe. No consolidation. No masses. Pleural spaces: Minor left-sided pleural fluid. No pneumothorax. Heart: Unremarkable. No cardiomegaly. No pericardial effusion. Lymph nodes: Unremarkable. No enlarged lymph nodes. Vasculature: Unremarkable. No aortic aneurysm. Bones/joints: Unremarkable. No acute fracture. Soft tissues: Unremarkable. IMPRESSION: Minor left-sided pleural fluid.
[2024-09-23] MEDS: IOPAMIDOL-370 (76%);100ML BOTTLE 75 ML IV (16:18)
[2024-09-23] MEDS: SODIUM CHLORIDE 0.9% 10ML SYR (RAD ONLY) 10 ML IV (16:18)
[2024-09-23] MEDS: CEFTRIAXONE 1 GM 1 GM in 0.9 % SODIUM CHLORIDE 50 ML IV (16:38)
--- NOTE | 2024-09-25 17:41 | PC.NURSE ---
URINE CULTURE DISCUSSED WITH DR WEN, NO NEW ORDERS
== END 2024-09-23 17:43 | disposition home or self-care (01) ==
PROVIDERS: Physician Assistant; Student in an Organized Health Care Education/Training Program; Emergency Provider Emergency Medicine
DX: N12 Tubulo-interstitial nephritis, not specified as acute or chronic (principal); A41.9 Sepsis, unspecified organism
CPT/HCPCS: 71046; 71260; 74177; 80053; 81001; 84145; 84436; 84443; 84479; 84703; 85025; 87040; 87086; 87088; 87186; 87430; 87633; 87636; 93005; 96361; 96374; 99285; J0696; J7030; Q0162; Q9967

== ENCOUNTER 2024-11-16 13:43 | Outpatient (CLI) | payer OTHER, SELFPAY ==
[2024-11-16 15:56] LABS: HCG,Quantitative 24357 mIU/ml (0-5.42)
[2024-11-17 09:02] LABS: Progesterone 10.4 ng/mL (.)
== END 2024-11-16 23:59 | disposition home or self-care (01) ==
LOC: LAB 13:44
PROVIDERS: Visit Provider Nurse Practitioner Obstetrics & Gynecology
DX: Z32.01 Encounter for pregnancy test, result positive (principal)
CPT/HCPCS: 36415; 84144; 84702

== ENCOUNTER 2024-11-21 11:30 | Outpatient (CLI) | payer OTHER, SELFPAY ==
[2024-11-21 12:29] LABS: Basophils # 0.1 K/mm3 (0-0.2); Basophils % 1.1 % (0.1-2.0); Eosinophils % 0.5 % (0.1-12.0); Hematocrit 42.6 % (37.0-47.0); Hemoglobin 14.6 g/dL (12.2-16.2); Immature Granulocytes # 0.02 10^3uL; Immature Granulocytes % 0.2 %; Lymphocytes # 1.6 K/mm3 (0.7-4.5); Lymphocytes % 19.1 % (10-50); Mean Corpuscular HGB Conc 34.3 g/dL (31.8-35.4); Mean Corpuscular Hemoglobin 31.5 pg (27.0-31.2); Mean Corpuscular Volume 91.8 fl (81-99); Monocytes # 0.4 K/mm3 (0.1-1.0); Monocytes % 4.9 % (1.7-9.3); Neutrophils # 6.2 K/mm3 (1.8-7.8); Neutrophils % 74.2 % (37.0-80.0); Nucleated Red Blood Cells # 0 10^3/uL; Nucleated Red Blood Cells % 0 %; Platelet Count 245 K/mm3 (142-424); Red Blood Count 4.64 M/mm3 (4.20-5.40); Red Cell Distribution Width 13.4 % (11.5-17.5); Red Cell Distribution Width-SD 44.8 fL; White Blood Count 8.4 K/mm3 (4.8-10.8)
[2024-11-21 13:40] LABS: HIV Combo NEGATIVE (Negative)
[2024-11-21 13:46] LABS: Hepatitis C Ab Qual. W/ RFX NEGATIVE (Negative)
[2024-11-21 16:35] LABS: RPR W/RFX Titers Nonreactive (Nonreactive)
[2024-11-22 07:10] LABS: Rubella Antibodies, IgG 1.25 index (Immune >0.99)
[2024-11-22 13:17] LABS: Hepatitis B Surface Antigen Negative (Negative)
== END 2024-11-21 23:59 | disposition home or self-care (01) ==
LOC: LAB 11:30
PROVIDERS: Visit Provider Nurse Practitioner Obstetrics & Gynecology
DX: Z34.01 Encounter for supervision of normal first pregnancy, first trimester (principal); Z3A.01 Less than 8 weeks gestation of pregnancy
CPT/HCPCS: 36415; 85025; 86592; 86762; 86803; 86850; 87340; 87389

== ENCOUNTER 2024-12-01 12:58 | Outpatient (CLI) | payer OTHER, SELFPAY ==
--- NOTE | 2024-12-01 13:00 | US_ITS ---
PROCEDURE: US OB <= 14 WEEKS FETUS CLINICAL INDICATION: Confirm viability-Dates COMPARISON: No exams were available for comparison FINDINGS: Transvaginal sonographic images of the pelvis were obtained. From her last menstrual period she is 7weeks 4days. An intrauterine gestational sac is present with a pole with a crown-rump length of 1.58cm This correlates to a gestational age of 8weeks 0 days. EMILY will remain 07/16/2025 heart tones are present with an FHR of 169bpm. Yolk sac is noted. The yolk sac measures 5.2mm. There is an anterior fibroid that measures 3.2 cm x 4.3 cm x 2.9 cm. The right ovary is seen and appears normal. There is a 2 cm collapsing corpus luteum within the right ovary. The left ovary is seen and appears normal. There is no fluid in the cul-de-sac. IMPRESSION: 1. There is a viable embryo within the uterine cavity. heart rate activity is seen. 2. The embryo measures 8 weeks 0 days which is consistent with her last menstrual period. EMILY will remain 07/16/2025. 3. Both ovaries are seen and appear normal. There appears to be a corpus luteum in the right ovary. 4. There is a 4.3 cm anterior fibroid in the uterus. 5. No fluid in the cul-de-sac Dictated by: Joshua Cortes MD 12/01/2024 20:16 Joshua Cortes MD in [facility] 12/01/2024 20:16
== END 2024-12-01 23:59 | disposition home or self-care (01) ==
LOC: RAD 12:59
PROVIDERS: PCP Nurse Practitioner Obstetrics & Gynecology; Visit Provider Nurse Practitioner Obstetrics & Gynecology
DX: O34.219 Maternal care for unspecified type scar from previous cesarean delivery (principal); O34.11 Maternal care for benign tumor of corpus uteri, first trimester; O34.81 Maternal care for other abnormalities of pelvic organs, first trimester; O36.80X0 Pregnancy with inconclusive fetal viability, not applicable or unspecified; D25.9 Leiomyoma of uterus, unspecified; N83.11 Corpus luteum cyst of right ovary; Z3A.01 Less than 8 weeks gestation of pregnancy
CPT/HCPCS: 76801

== ENCOUNTER 2025-02-02 08:51 | Emergency (ER) | payer OTHER, SELFPAY ==
--- NOTE | 2025-02-02 08:56 | ED_ITS ---
Discharge Plan Disposition Patient Disposition: Home, Self-Care Prescriptions Prescriptions: New cefadroxil 500 mg capsule 500 mg PO BID 5 Days Qty: 10 0RF No Action 28-800 mg-mcg tablet See Rx Instructions .ROUTE .COMPLEX Qty: 90 2RF Dose Instruction: Take 1 tablet by mouth once daily Rx Instructions: Take 1 tablet by mouth once daily Referrals Follow up/Referrals: Provider,Referral, MD [Primary Care Provider, Medical] - See instructions Activity Restrictions/Add. Instructions Additional Instructions/Restrictions: Follow-up with your OB physician within 48 hours as they will likely want to recheck your hCG levels. If you develop any new or worsening symptoms, such as worsening bleeding, pain, fever, or if you become concerned for your health for any reason, return to the emergency department for evaluation Clinical Impressions Clinical Impression: Threatened miscarriage, Asymptomatic bacteriuria during Instructions Patient Instructions: DI for Acute Abdominal Pain Print Language Print Language: Belgian Discharge ED Provider: Oswaldo Maxwell General Adult HPI General Chief complaint: Abdominal Pain Stated complaint: vaginal bleeding, 16 weeks , cramping Time Seen by Provider: 02/02/25 08:56 Mode of Arrival: Ambulatory Source of Information: Patient Limitations: No Limitations History of Present Illness HPI narrative: Pamela Anderson is a 24y female with a history of 3 prior C-sections who presents to the emergency department for complaints of vaginal bleeding in . Patient states that she is approximately 16 weeks gestation and woke up this morning and had some lower abdominal cramping as well as bright red blood vaginally when she wiped. She states that the bleeding has very much slowed down at this time. She called her OB office and reported that she needed to come to the emergency department for evaluation. She denies any dysuria or hematuria. She states otherwise she has been in her normal state of health. She states that this has been uncomplicated thus far. She has been taking her vitamins. Related Data Previous Rx's ?Medication ?Instructions ?Recorded vits [id number] See Rx Instructions .Rout e 11/23/24 fumarate 28 mg-folic acid 800 mcg .COMPLEX #90 tabs tablet () cefadroxil 500 mg capsule 500 mg PO BID 5 days #10 cap s 02/02/25 Allergies Allergy/AdvReac Type Severity Reaction Status Date / Time brompheniramine (From Allergy Intermediate Hives Verified 01/17/25 09:06 Bromfed DM) dextromethorphan (From Allergy Intermediate Hives Verified 01/17/25 09:06 Bromfed DM) guaifenesin Allergy Intermediate Hives Verified 01/17/25 09:06 pseudoephedrine Allergy Intermediate Hives Verified 01/17/25 09:06 [facility] Disclaimer: The information contained in this section may have been updated after the patient was seen, as this information can be updated by other users. Medical History Acute blood loss anemia Chloasma Surgical History S/P History of x 2 S/P repeat low transverse History of tonsillectomy Family History Other Family history of hypertension No significant family history Social History Smoking Status: Never smoker alcohol intake: never substance use type: denies use current occupational status: employed Travel in the last 8 weeks?: None do you feel safe at home: Yes victim of physical abuse: No victim of emotional abuse: No victim of sexual abuse: No Have you lived/traveled outside US in past 30 days?: No Contact w/someone who lives/traveled outside US past 30 days?: No Exposure to someone with infectious disease in past 14 days?: No Do you have a fever (greater than 100.4 F or 38 C)?: No Have you tested positive for COVID-19?: No Exposed to someone with COVID-19 in past 14 days?: No Do you have a sore throat?: No Do you have a cough?: No Do you have any weakness?: No Do you have any diarrhea?: No Are you experiencing any unusual bleeding?: Yes Do you have any muscle aches/pain?: No Do you have any abdominal pain?: Yes Are you experiencing loss of taste or smell?: No Other Medical History Have you received the Flu Vaccine for this season: No Have you received the Pneumonia Vaccine: No ROS Obtained: Yes Systems reviewed as appropriate & no additional complaints except as documented Physical Exam General General appearance: alert and in no apparent distress Head Head exam: atraumatic Eye Eye exam: Present normal appearance ENT ENT exam: Present normal external ear exam Neck Neck exam: Present full ROM Chest Chest inspection: Present symmetric chest wall rise Respiratory Respiratory exam: Present normal lung sounds bilaterally; Absent respiratory distress Cardiovascular Cardiovascular exam: Present regular rate and normal rhythm Abdominal Exam Abdominal exam: Present soft and distention (Gravid abdomen); Absent tenderness or guarding Extremities Exam Extremities exam: Present normal inspection Back Exam Back exam: Present normal inspection Neurological Exam Neurological exam: Present alert and oriented X3 Psychiatric Psychiatric exam: Present normal affect Skin Skin exam: Present warm and dry Medical Decision Making Medical Records Screening: Per USPSTF and CDC recommendations, given the prevalence of disease in our region, it is our hospital?s policy to screen for HIV and viral Hepatitis for all patients aged 18 and over and those with ongoing risk factors. Malcolm Inquiry Pt receiving controlled substance: No Vital Signs: 02/02/25 09:01 02/02/25 09:15 02/02/25 09:45 Temperature 98.3 F Temperature Source Oral Pulse Rate 95 H 101 H Respiratory Rate 15 Blood Pressure [Right Arm] 139/77 Blood Pressure Mean [Right Arm] 97 Blood Pressure Source [Right Arm] Automatic Cuff Blood Pressure Position [Right Arm] Supine 02 Sat by Pulse Oximetry 100 98 98 Oxygen Delivery Method Room Air 02/02/25 10:15 Temperature Temperature Source Pulse Rate 104 H Respiratory Rate Blood Pressure [Right Arm] Blood Pressure Mean [Right Arm] Blood Pressure Source [Right Arm] Blood Pressure Position [Right Arm] 02 Sat by Pulse Oximetry 99 Oxygen Delivery Method Lab Data Lab Results 02/02/25 09:08: Urine Color Yellow, Urine Appearance Clear, Urine pH 6.5, Ur Specific [place] <= 1.005, Urine Protein Negative, Urine Glucose (UA) Negative, Urine Ketones Negative, Urine Blood 2+ A, Urine Nitrate Negative, Urine Bilirubin Negative, Urine Urobilinogen 0.2, Ur Leukocyte Esterase 2+ A, Urine RBC 5-10, Urine WBC 10-20, Ur Squamous Epith Cells 10-20, Urine Bacteria 1+ 02/02/25 09:09: WBC 10.8, RBC 4.51, Hgb 14.3, Hct 42.4, MCV 94.0, MCH 31.7 H, MCHC 33.7, RDW 13.4, Plt Count 201, MPV 9.9, Neut % (Auto) 77.9, Lymph % (Auto) 14.0, [place] % (Auto) 5.7, Eos % (Auto) 1.4, Baso % (Auto) 0.6, Neut # (Auto) 8.4 H, Lymph # (Auto) 1.5, [place] # (Auto) 0.6, Eos # (Auto) 0.2, Baso # (Auto) 0.1, PT 10.5, INR 0.94, APTT 28.0, Sodium 134 L, Potassium 3.4 L, Chloride 104, Carbon Dioxide 24, Anion Gap 9.4, BUN 5 L, Creatinine 0.40 L, Estimated Creat Clear 248, Estimated GFR 196, Est GFR ( Amer) 237, Glucose 87, Calcium 9.3, Total Bilirubin 1.7 H, AST 23, ALT 11 L, Alkaline Phosphatase 49, Total Protein 7.3, Albumin 3.5, Globulin 3.8 H, Albumin/Globulin Ratio 0.9 L, HCG, Quant 7885 H, Blood Type A Positive, Antibody Screen Negative 02/02/25 09:09 02/02/25 09:09 Orders (Tests/Meds): ORDERS Category Date Time Status Type and Screen Stat BBK 02/02/25 09:09 Completed POCUS Point of Care (ER Only) Stat Exams 02/02/25 08:56 Completed CBC w/Auto Diff [Complete Blood Count Auto Diff] Stat Lab 02/02/25 09:09 Completed CMP [Comprehensive Metabolic Panel] Stat Lab 02/02/25 09:09 Completed HCG,Quantitative Stat Lab 02/02/25 09:09 Completed PT INR [Prothrombin Time INR] Stat Lab 02/02/25 09:09 Completed PTT [Activated Partial Thrombo Time] Stat Lab 02/02/25 09:09 Completed UA [Urinalysis and Microscopic] Stat Lab 02/02/25 09:08 Completed Urine Culture Stat Micro 02/02/25 09:08 Received Medical Decision Narrative: Pamela Anderson is a 24y female with a history of 3 prior C-sections who presents to the emergency department for complaints of vaginal bleeding in . Patient states that she is approximately 16 weeks gestation and woke up this morning and had some lower abdominal cramping as well as bright red blood vaginally when she wiped. She states that the bleeding has very much slowed down at this time. She called her OB office and reported that she needed to come to the emergency department for evaluation. She denies any dysuria or hematuria. She states otherwise she has been in her normal state of health. She states that this has been uncomplicated thus far. She has been taking her vitamins. On arrival, patient's blood pressure is borderline elevated at 139/77 (was previously 128 systolic on 01/17/2025). Afebrile, breathing comfortably on room air with appropriate oxygen saturation. Physical exam, as stated above, reveals an overall well-appearing female in no distress. Abdomen is gravid but soft, nontender. No significant edema noted. Cardiopulmonary exam is unremarkable. Differential diagnosis includes, but is not limited to: Threatened miscarriage, inevitable miscarriage, incomplete miscarriage, subchorionic hemorrhage, preeclampsia, among others. The most morbid conditions were considered and workup was based on these. Chart review demonstrates patient had a ultrasound on 12/01/2024 that showed viable embryo within the uterine cavity. heart rate activity was seen at that time. Embryo was measuring 8 weeks and 0 days at that time. There was a 4.3 cm anterior fibroid in the uterus. Workup in the emergency department included: [id number] transabdominal ultrasound, CBC, CMP, PTT, PT/INR, urinalysis, type and screen, quantitative beta-hCG Wound care ultrasound showed a viable intrauterine with heart rate of 158. Adequate motion was noted. See procedure note for details. Laboratory studies showed no leukocytosis, no anemia, platelets within normal image. Coagulation studies unremarkable. Mildly low sodium 134 and mildly low potassium at 3.4 but grossly unremarkable nonactionable. No CHANI. Liver enzymes within normal limits. Bilirubin is mildly elevated 1.7 but is below previous limits. Quantitative hCG is 7885, which is downtrending fairly significantly from 11/16/2024 at 24,357. Urine studies show 1+ bacteria, 10-20 white blood cells, although there are 10-20 squamous epithelial cells with 2+ leukocyte esterase. 2+ hematuria. Given bacteriuria in the setting of , will treat with antibiotics. Blood type is a positive, no indication for RhoGAM at this time. Given this, saw the patient is appropriate for discharge at this time. Given bleeding in early , this could represent a threatened miscarriage, especially in the setting of downtrending quantitative beta-hCG. I encouraged her to follow-up with her OB physician in the next 48 hours as she will likely need repeat quantitative beta-hCG to ensure that it is trending upward. She was given return precautions for any worsening bleeding, pain, fever, or if she became concerned for her health for any reason. All questions were answered. She demonstrated understanding and was in agreement this plan. She was then discharged from the emergency department in stable condition. She is being sent with a 5-day course of Duricef for asymptomatic bacteriuria of . Procedures Limited Ultrasound Interpretation:: Limited OB ultrasound Indication: Approximately 16 weeks , vaginal bleeding, abdominal cramping Identified structures: Uterus, pouch of Roel Findings: Uterus: Definitive IUP FHR: 158 Cul de sac: -free fluid absent Impression: -IUP: Present - heart rate: 158 -Ectopic : Absent -Free fluid: Absent Images were saved to permanent archive The study was technically adequate CPT Transabdominal: 87804-16 This study was performed by me, and I personally interpreted all images/videos. Based on my clinical judgement, these images were adequate and did not necessitate further imaging. Critical Care Critical Care Time Critical Care Time: No
[2025-02-02 09:01] VITALS: BP 139/77; RESP 15; TEMP 36.8; O2SAT 100; BMI 27.4
[2025-02-02 09:15] VITALS: PULSE 95; O2SAT 98
[2025-02-02 09:22] LABS: Microscopic, Urine URINE MICROSCOPIC (MICROSCOPIC)
[2025-02-02 09:26] LABS: Bilirubin,Urine Negative (Negative); Color,Urine YELLOW (Yellow); Glucose,Urine (UA) Negative (Negative); Ketones,Urine Negative (Negative); Leukocyte Esterase,Urine 2+ (Negative); PH,Urine 6.5 (5.0-8.5); Protein,Urine Negative (Negative); Specific Gravity, Urine <= 1.005 (1.005-1.030); Urobilinogen,Urine 0.2 EU/dl (0.2)
[2025-02-02 09:42] LABS: Albumin Level 3.5 g/dl (3.5-5.0); Chloride 104 mmol/L (98-107); Sodium 134 mmol/L (136-145)
[2025-02-02 09:43] LABS: Potassium 3.4 mmoL/L (3.5-5.1)
[2025-02-02 09:45] VITALS: PULSE 101; O2SAT 98
[2025-02-02 09:45] LABS: Alanine Aminotransferase 11 U/L (12-78); Albumin/Globulin Ratio 0.9 (1.1-1.8); Alkaline Phosphatase 49 U/L (38-126); Anion Gap 9.4 mEq/L (5-15); Aspartate Amino Transferase 23 U/L (14-36); Bilirubin,Total 1.7 mg/dl (0.2-1.3); Blood Urea Nitrogen 5 mg/dl (7-17); Carbon Dioxide 24 mmol/L (22.0-30.0); Creatinine Clearance Estimated 248 mL/min (50-200); Creatinine,Serum 0.40 mg/dl (0.52-1.04); Estimated Glomerular Filt Rate 196 ml/min (>60); GFR (African American) 237 ML/MIN (>60); Globulin 3.8 g/dL (1.3-3.2); Total Protein,Serum 7.3 g/dl (6.3-8.2)
[2025-02-02 09:46] LABS: Calcium 9.3 mg/dl (8.4-10.2); Glucose 87 mg/dl (74-100)
[2025-02-02 09:48] LABS: Activated Partial Thrombo Time 28.0 seconds (22.8-30.6); INR 0.94 (0.9-1.1); Prothrombin Time 10.5 seconds (10.1-12.5)
[2025-02-02 10:00] LABS: Hematocrit 42.4 % (37.0-47.0); Hemoglobin 14.3 g/dL (12.2-16.2); Immature Granulocytes % 0.4 %; Mean Corpuscular HGB Conc 33.7 g/dL (31.8-35.4); Mean Corpuscular Hemoglobin 31.7 pg (27.0-31.2); Mean Corpuscular Volume 94.0 fl (81-99); Nucleated Red Blood Cells % 0 %; Platelet Count 201 K/mm3 (142-424); Red Blood Count 4.51 M/mm3 (4.20-5.40); Red Cell Distribution Width-SD 45.6 fL; White Blood Count 10.8 K/mm3 (4.8-10.8)
[2025-02-02 10:15] VITALS: PULSE 104; O2SAT 99
[2025-02-02 10:52] LABS: Bacteria,Urine 1+ /lpf
[2025-02-02 11:07] VITALS: BP 107/73; PULSE 88; RESP 17; TEMP 37.1; O2SAT 100
== END 2025-02-02 11:08 | disposition home or self-care (01) ==
PROVIDERS: Emergency Provider Student in an Organized Health Care Education/Training Program
DX: O99.892 Other specified diseases and conditions complicating childbirth (principal); O20.0 Threatened abortion; Z3A.16 16 weeks gestation of pregnancy
CPT/HCPCS: 80053; 81001; 84702; 85025; 85610; 85730; 86850; 87077; 87086; 87088; 99285

== ENCOUNTER 2025-02-03 10:43 | Outpatient (CLI) | payer OTHER, SELFPAY ==
--- NOTE | 2025-02-03 11:00 | US_ITS ---
PROCEDURE: US OB >= 14 WEEKS FETUS CLINICAL INDICATION: viability COMPARISON: US US OB <= 14 WEEKS FETUS from 12/01/2024 FINDINGS: Transabdominal sonographic images of the pelvis were obtained. The following parameters are obtained: From her established due date she is 16weeks 4days Viable fetus in the breech presentation with a lateral posterior placenta grade 1. The cervix measures 4.77 cm heart rate: 158bpm bpm. BPD: 17weeks 3days HC: 17weeks 3days AC: 17weeks 4days FL: 16weeks 3days HC/AC: 1.19 FL/BPD: 0.57 FL/AC: 0.18 Growth percentile: 70 Amniotic fluid subjectively appears normal. No obvious anomalies evident. face seen, stomach, bladder, kidneys, three-vessel cord, four chamber heart appear normal. IMPRESSION: 1. Viable fetus in the breech presentation with the lateral, posterior placenta grade 1. 2. The fluid is within normal limits. 3. Limited anatomical scan appears normal. 4. Cervix is appropriate length and the placenta appears intact. No obvious cause for her vaginal spotting. 5. There has been good interval growth with the fetus currently 70th percentile. Dictated by: Joshua Cortes MD 02/04/2025 19:20 Joshua Cortes MD in [facility] 02/04/2025 19:20
== END 2025-02-03 23:59 | disposition home or self-care (01) ==
LOC: RAD 02-04 10:05
PROVIDERS: PCP Obstetrics & Gynecology; Visit Provider Obstetrics & Gynecology
DX: O99.891 Other specified diseases and conditions complicating pregnancy (principal); R82.71 Bacteriuria; O20.0 Threatened abortion; Z3A.16 16 weeks gestation of pregnancy
CPT/HCPCS: 76805

== ENCOUNTER 2025-02-04 10:48 | Outpatient (CLI) | payer OTHER, SELFPAY ==
[2025-02-06 21:09] LABS: Neisseria gonorrhoeae, NAA Negative (Negative)
[2025-02-07 12:17] LABS: Bacterial Vaginosis Associated 0
== END 2025-02-04 23:59 | disposition home or self-care (01) ==
LOC: LAB 10:50
PROVIDERS: Nurse Practitioner Obstetrics & Gynecology; Visit Provider Obstetrics & Gynecology
DX: O99.891 Other specified diseases and conditions complicating pregnancy (principal); R82.71 Bacteriuria; O20.0 Threatened abortion
CPT/HCPCS: 36415; 84702; 87491; 87591; 87798; 87801

== ENCOUNTER 2025-03-03 12:45 | Outpatient (CLI) | payer OTHER, SELFPAY ==
--- NOTE | 2025-03-03 13:00 | US_ITS ---
PROCEDURE: US OB /MATERNAL DETAIL CLINICAL INDICATION: 20 wk anatomy scan in 4 weeks COMPARISON: US US OB <= 14 WEEKS FETUS from 12/01/2024 US US OB >= 14 WEEKS FETUS from 02/03/2025 FINDINGS: Transabdominal sonographic images of the pelvis were obtained. From her established due date she is 20 weeks 4 days. Single viable intrauterine gestation. Breech position. Placenta: Posteriorplacenta grade 1. There is an average amount of fluid. The cervix appears satisfactory. Closed and measuring 5.4 cm in length. Complete survey performed and was unremarkable on the submitted images as in PACS. No discrete anomalies identified on survey imaging by technologist. Active fetus. Three-vessel cord with satisfactory umbilical cord insertion. 4- chamber heart noted. S[place], aortic arch, LVOT, RVOT, three-vessel view appear normal. Survey of brain & ventricles Unremarkable. Cerebellum, thalamus, choroid plexus, cisterna magna appear normal. Face and neck survey unremarkable. Profile, nasion, lips and nose appeared normal. Diaphragm and chest views unremarkable. Abdomen: Both kidneys noted. There is bilateral renal pelvis dilation measuring 4.8 mm and 5.3 mm. Stomach and bladder noted and satisfactory. Spine: Survey of the spine satisfactory with no anomalies identified nor imaged. Cervical, thoracic, lower spine appear normal. Both arms and legs noted. Amniotic Fluid: Adequate. MVP 4.36 cm Measurements: Average ultrasound age 21weeks 6days. Estimated due date by ultrasound age 0107/08/2025. Estimated weight 493g BPD = 20weeks 5days HC = 21weeks 3days AC = 23weeks 1day FL = 22weeks 0 days Growth Percentile= >98 Heart Rate = 144bpm Cerebellum = 19weeks 5days Humerus = 21weeks 4days HC/AC is 1.05 FL/BPD is 0.77 FL/AC is 0.21 IMPRESSION: 1. Viable fetus in the breech presentation with a posterior placenta grade 1. 2. The fluid is within normal limits with an MVP 4.36 cm. 3. There is mild bilateral renal pelvis dilation measuring 4.8 mm and 5.3 mm. Would suggest follow-up at 28 weeks. The rest of the anatomical scan appears normal. 4. The abdominal circumference is 2-1/2 weeks ahead and would suggest repeat growth when we do her next ultrasound at 28 weeks. Dictated by: Joshua Cortes MD 03/04/2025 06:46 Joshua Cortes MD in [facility] 03/04/2025 06:46
== END 2025-03-03 23:59 | disposition home or self-care (01) ==
LOC: RAD 12:46
PROVIDERS: PCP Obstetrics & Gynecology; Visit Provider Obstetrics & Gynecology
DX: O28.3 Abnormal ultrasonic finding on antenatal screening of mother (principal); O32.1XX0 Maternal care for breech presentation, not applicable or unspecified; O99.891 Other specified diseases and conditions complicating pregnancy; O20.0 Threatened abortion; O99.012 Anemia complicating pregnancy, second trimester; N28.89 Other specified disorders of kidney and ureter; D62 Acute posthemorrhagic anemia; Z3A.20 20 weeks gestation of pregnancy
CPT/HCPCS: 76811

== ENCOUNTER 2025-03-12 14:52 | Observation (INO) | payer OTHER, SELFPAY ==
[2025-03-12 11:40] VITALS: BMI 27.6
--- NOTE | 2025-03-12 11:41 | US_ITS ---
PROCEDURE INFORMATION: Exam: US After First Trimester, Transabdominal and US , Transvaginal Exam date and time: 03/12/2025 11:58 AM Age: 24 years old Clinical indication: Lmp or gestational age (in weeks): 21 weeks 6 days; Other: Vaginal heavy bleeding; ; Additional info: Vaginal bleeding LABS AND CLINICAL REPORTS: Gestational age (Established): 21 w 6 d Estimated due date (Established): 07/17/2025 TECHNIQUE: Imaging protocol: Real-time transabdominal obstetrical ultrasound of the maternal pelvis and a second or third trimester with image documentation. Transvaginal imaging was used for better evaluation of the fetus, adnexa, and/or cervix. COMPARISON: US OB /MATERNAL DETAIL 03/03/2025 12:59 PM FINDINGS: Gestation: Intrauterine gestation. heart rate: 142 bpm presentation and position: Cephalic presentation Placenta: Posterior placenta right lateral grade 1. Large placental rivero. Possible anterior hematoma noted with amniotic membrane. ANATOMY: heart right ventricular outflow tract: Normal right ventricular outflow tract heart left ventricular outflow tract: Normal left ventricular outflow tract urinary bladder: Normal bladder Umbilical cord and insertion: Normal three-vessel cord MATERNAL: Cervix: Cervical length measures 3.52 cm. Cervix measures 4.5 cm. Debris noted at the cervix click lab Vagina: Anechoic area noted within the vaginal canal measures 3.53 x 1.21 x 3.21 cm and may represent fluid in the vaginal canal. Other findings: Dilatation of both renal collecting systems. Right 3.3 mm. Left 3 mm. IMPRESSION: 1. Possible anterior hematoma noted with amniotic membrane. 2. Anechoic area noted within the vaginal canal measures 3.53 x 1.21 x 3.21 cm and may represent fluid in the vaginal canal. 3. Dilatation of both renal collecting systems. Right 3.3 mm. Left 3 mm.
[2025-03-12 11:55] LABS: Hematocrit 40.6 % (37.0-47.0); Hemoglobin 14.0 g/dL (12.2-16.2); Immature Granulocytes % 0.6 %; Mean Corpuscular HGB Conc 34.5 g/dL (31.8-35.4); Mean Corpuscular Hemoglobin 32.1 pg (27.0-31.2); Mean Corpuscular Volume 93.1 fl (81-99); Nucleated Red Blood Cells % 0 %; Platelet Count 198 K/mm3 (142-424); Red Blood Count 4.36 M/mm3 (4.20-5.40); Red Cell Distribution Width-SD 45.9 fL; White Blood Count 10.6 K/mm3 (4.8-10.8)
[2025-03-12] MEDS: LACTATED RINGERS 1000ML 1,000 ML 999 ML IV (12:06)
[2025-03-12 12:24] VITALS: BP 119/80; PULSE 121; RESP 20; TEMP 36.8; O2SAT 97; BMI 27.8
--- NOTE | 2025-03-12 14:33 | EXP.HP ---
History of Present Illness *Admission Date: 03/12/25 *Reason for visit:: Vaginal bleeding, sub amniotic hematoma *History of present illness: She is a 24-year-old 5 para 3 aborta 1 who is 21 and 6 weeks gestational age. She has had multiple episodes throughout the of vaginal bleeding. Today she comes in with heavier vaginal bleeding and soaked through a couple of pads. Ultrasound shows that the baby is in the transverse presentation with a posterior lateral placenta grade 1. The head is in the left upper quadrant. There appears to be an anterior subamniotic hematoma measuring 9 cm x 4 cm. At times the hematoma had liquefied collections around the edge. She denies any contractions. Ultrasounds done at 16 weeks showed what appeared to be an anterior contraction during the examination but in retrospect it was more likely a hematoma. The hematoma was no longer there at her 20-week exam and today 2 weeks later the hematoma has returned. [facility] Disclaimer: The information contained in this section may have been updated after the patient was seen, as this information can be updated by other users. Medical History Vaginal bleeding in patient after first trimester Acute blood loss anemia Chloasma Surgical History S/P History of S/P repeat low transverse History of tonsillectomy Family History No significant family history Family history of hypertension Social History Smoking Status: Never smoker alcohol intake: never substance use type: denies use current occupational status: employed Travel in the last 8 weeks?: None do you feel safe at home: Yes victim of physical abuse: No victim of emotional abuse: No victim of sexual abuse: No Have you lived/traveled outside [place] in past 30 days?: No Contact w/someone who lives/traveled outside [place] past 30 days?: No Exposure to someone with infectious disease in past 14 days?: No Do you have a fever (greater than 100.4 F or 38 C)?: No Have you tested positive for COVID-19?: No Exposed to someone with COVID-19 in past 14 days?: No Do you have a sore throat?: No Do you have a cough?: No Do you have any weakness?: No Do you have any diarrhea?: No Are you experiencing any unusual bleeding?: Yes Do you have any muscle aches/pain?: No Do you have any abdominal pain?: No Are you experiencing loss of taste or smell?: No Other Medical History Have you received the Flu Vaccine for this season: No Have you received the Pneumonia Vaccine: No Review of Systems Review of Systems Review of systems:: pertinent systems reviewed and negative unless documented below Meds Home Medications and Allergies Home Medications ?Medication ?Instructions ?Recorded ?Confirmed ?Type vits no.133-ferrous See Rx Instructions .Route 11/23/24 03/07/25 Rx fumarate 28 mg-folic acid 800 mcg .COMPLEX #90 tabs tablet () New Prescriptions to Start Prescriptions: Allergies Allergy/AdvReac Type Severity Reaction Status Date / Time brompheniramine (From Allergy Intermediate Hives Verified 03/07/25 10:38 Bromfed DM) dextromethorphan (From Allergy Intermediate Hives Verified 03/07/25 10:38 Bromfed DM) guaifenesin Allergy Intermediate Hives Verified 03/07/25 10:38 pseudoephedrine Allergy Intermediate Hives Verified 03/07/25 10:38 Exam Data for Last 24 hours Vital signs and Labs for Last 24 Hours: Temp Pulse Resp BP Pulse Ox O2 Del Method 98.3 F 121 H 20 119/80 97 Room Air 03/12/25 12:24 03/12/25 12:24 03/12/25 12:24 03/12/25 12:24 03/12/25 12:24 03/12/25 12:24 Laboratory Results - last 24 hr 03/12/25 11:40: WBC 10.6, RBC 4.36, Hgb 14.0, Hct 40.6, MCV 93.1, MCH 32.1 H, MCHC 34.5, RDW 13.3, Plt Count 198, MPV 10.2, Neut % (Auto) 73.2, Lymph % (Auto) 17.9, [place] % (Auto) 6.8, Eos % (Auto) 0.8, Baso % (Auto) 0.7, Neut # (Auto) 7.8, Lymph # (Auto) 1.9, [place] # (Auto) 0.7, Eos # (Auto) 0.1, Baso # (Auto) 0.1 I & O for Last 24 hours: Intake & Output 03/10/25 03/11/25 03/12/25 03/13/25 11:59 11:59 11:59 11:59 Weight 161 lb 162 lb Constitutional Constitutional: no acute distress *Routine HEENT Exam Head: Present normocephalic Eye: Present EOMI and PERRL ENT: Present mucous membranes moist *Routine Neck Exam Neck: Present supple; Absent lymphadenopathy *Routine Respiratory Exam Respiratory: Present CTA bilaterally *Routine Cardiovascular Exam Cardiovascular: Present RRR *Routine Abdominal Exam Abdominal: Present soft and normoactive bowel sounds; Absent tenderness *Routine Rectal Exam Rectal:: deferred *Routine Genitalia Exam Genitalia:: deferred *Routine Extremities Exam Extremities: Absent cyanosis, clubbing or edema *Routine Skin Exam Skin: Present warm; Absent rash *Routine Neurological Exam Neurological: Present alert and oriented X3 Assessment and Plan *Assessment and plan (1) Vaginal bleeding in patient after first trimester: Status: Acute Category: Medical Code(s): O46.90 - Antepartum hemorrhage, unspecified, unspecified trimester (2) History of : Problem Comment: x 3 Status: Acute Category: Surgical Code(s): Z98.891 - History of uterine scar from previous surgery Plan 1. We will admit her for observation and to monitor her bleeding. She is hemodynamically. We will monitor her pad counts. Repeat CBC in the morning. 2. She denies any contractions and we will continue to monitor her for increased uterine activity. 3. Ultrasound shows the baby in the transverse position with the head in the left upper quadrant. The hematoma is 9 cm x 4 cm. 4. We will repeat her ultrasound again in the morning. 5. I spoke with Dr. Vick at [facility] and he did not have any other recommendations at this point in time. He felt it was also a possible hematoma and subamniotic bleeding that has been present throughout the . 6. We will make arrangements for her to have a consult at either [facility] or [facility] as an outpatient this week. 7. Unfortunately at this early stage the baby is previable. Dates are secure from an early 8-week ultrasound.
[2025-03-12 16:07] VITALS: BP 108/63; PULSE 90; RESP 18; TEMP 37; O2SAT 100
[2025-03-12 20:00] VITALS: BP 119/58; PULSE 97; RESP 17; TEMP 36.8; O2SAT 100
[2025-03-13 04:26] VITALS: BP 109/67; PULSE 94; RESP 17; TEMP 36.9; O2SAT 99
[2025-03-13 06:31] LABS: Hematocrit 35.6 % (37.0-47.0); Immature Granulocytes % 0.4 %; Mean Corpuscular HGB Conc 32.9 g/dL (31.8-35.4); Mean Corpuscular Hemoglobin 31.1 pg (27.0-31.2); Mean Corpuscular Volume 94.7 fl (81-99); Nucleated Red Blood Cells % 0 %; Platelet Count 150 K/mm3 (142-424); Red Blood Count 3.76 M/mm3 (4.20-5.40); Red Cell Distribution Width-SD 47.0 fL; White Blood Count 9.6 K/mm3 (4.8-10.8)
[2025-03-13 06:37] LABS: Hemoglobin 12.0 g/dL (12.2-16.2)
[2025-03-13 08:31] VITALS: BP 110/59; PULSE 97; RESP 17; TEMP 36.6; O2SAT 100
--- NOTE | 2025-03-13 11:22 | EXP.DC.SUM ---
General Admission date:: 03/12/25 Discharge date: 03/13/25 HPI HPI HPI: She is a 24-year-old 5 para 3 aborta 1 who is 21 and 6 weeks gestational age. She has had multiple episodes throughout the of vaginal bleeding. Today she comes in with heavier vaginal bleeding and soaked through a couple of pads. Ultrasound shows that the baby is in the transverse presentation with a posterior lateral placenta grade 1. The head is in the left upper quadrant. There appears to be an anterior subamniotic hematoma measuring 9 cm x 4 cm. At times the hematoma had liquefied collections around the edge. She denies any contractions. Ultrasounds done at 16 weeks showed what appeared to be an anterior contraction during the examination but in retrospect it was more likely a hematoma. The hematoma was no longer there at her 20-week exam and today 2 weeks later the hematoma has returned. Hospital Course Hospital Course Hospital Course: She was admitted to hospital and observed overnight. She settled her bleeding and is just having a small amount of brownish discharge consistent with an old hematoma. She denies any pain or contractions. The baby is active. We will plan to discharge her home today and she will follow-up here next week again. We will have her see [facility] for a consult later this week. Exam Data for Last 24 hours Vital signs and Labs for Last 24 Hours: Temp Pulse Resp BP Pulse Ox O2 Del Method 97.9 F 97 H 17 110/59 L 100 Room Air 03/13/25 08:31 03/13/25 08:31 03/13/25 08:31 03/13/25 08:31 03/13/25 08:31 03/13/25 08:31 Laboratory Results - last 24 hr 03/12/25 11:40: WBC 10.6, RBC 4.36, Hgb 14.0, Hct 40.6, MCV 93.1, MCH 32.1 H, MCHC 34.5, RDW 13.3, Plt Count 198, MPV 10.2, Neut % (Auto) 73.2, Lymph % (Auto) 17.9, [place] % (Auto) 6.8, Eos % (Auto) 0.8, Baso % (Auto) 0.7, Neut # (Auto) 7.8, Lymph # (Auto) 1.9, [place] # (Auto) 0.7, Eos # (Auto) 0.1, Baso # (Auto) 0.1 03/13/25 06:22: WBC 9.6, RBC 3.76 L, Hgb 12.0 L D, Hct 35.6 L, MCV 94.7, MCH 31.1, MCHC 32.9, RDW 13.5, Plt Count 150, MPV 9.7, Neut % (Auto) 72.1, Lymph % (Auto) 17.1, [place] % (Auto) 8.2, Eos % (Auto) 1.4, Baso % (Auto) 0.8, Neut # (Auto) 6.9, Lymph # (Auto) 1.6, [place] # (Auto) 0.8, Eos # (Auto) 0.1, Baso # (Auto) 0.1 I & O for Last 24 hours: Intake & Output 03/10/25 03/11/25 03/12/25 03/13/25 11:59 11:59 11:59 11:59 Intake Total 1000 / 1000 Balance 1000 / 1000 Weight 161 lb 162 lb Constitutional Constitutional: no acute distress *Routine HEENT Exam Head: Present normocephalic *Routine Respiratory Exam Respiratory: Present normal respiratory effort; Absent accessory muscle use Results Data Completed and Pending Labs on day of discharge: Labs from last 24 hours 03/13/25 03/12/25 06:22 11:40 WBC 9.6 10.6 RBC 3.76 L 4.36 Hgb 12.0 L D 14.0 Hct 35.6 L 40.6 MCV 94.7 93.1 MCH 31.1 32.1 H MCHC 32.9 34.5 RDW 13.5 13.3 Plt Count 150 198 MPV 9.7 10.2 Neut % (Auto) 72.1 73.2 Lymph % (Auto) 17.1 17.9 [place] % (Auto) 8.2 6.8 Eos % (Auto) 1.4 0.8 Baso % (Auto) 0.8 0.7 Neut # (Auto) 6.9 7.8 Lymph # (Auto) 1.6 1.9 [place] # (Auto) 0.8 0.7 Eos # (Auto) 0.1 0.1 Baso # (Auto) 0.1 0.1 DS: Diagnosis Discharge Diagnosis (1) Vaginal bleeding in patient after first trimester: Status: Acute Code(s): O46.90 - Antepartum hemorrhage, unspecified, unspecified trimester (2) History of : Status: Acute Code(s): Z98.891 - History of uterine scar from previous surgery Problem details: x 3 Meds Home Medications and Allergies Home Medications ?Medication ?Instructions ?Recorded ?Confirmed ?Type vits no.133-ferrous 1 tab PO DAILY 03/13/25 03/13/25 History fumarate 28 mg-folic acid 800 mcg tablet () New Prescriptions to Start Prescriptions: Allergies Allergy/AdvReac Type Severity Reaction Status Date / Time brompheniramine (From Allergy Intermediate Hives Verified 03/07/25 10:38 Bromfed DM) dextromethorphan (From Allergy Intermediate Hives Verified 03/07/25 10:38 Bromfed DM) guaifenesin Allergy Intermediate Hives Verified 03/07/25 10:38 pseudoephedrine Allergy Intermediate Hives Verified 03/07/25 10:38 Discharge Plan Disposition Patient Disposition: Home, Self-Care Follow up Plan Prescriptions/Medication Reconciliation: Continued 28-800 mg-mcg tablet 1 tab PO DAILY Problem Reconciliation Problems Reviewed?: Yes Patient Discharge Instructions ACTIVITY: Limited activity DIET: continue same diet Patient Instructions: DI for Vaginal Bleeding During , Antepartum Care Print Language: [place] Providers Primary Care Provider: Provider,Referral Admit Provider: Joshua Cortes Attending Provider: Joshua Cortes
== END 2025-03-13 12:08 | disposition home or self-care (01) ==
LOC: OBOUT 14:54 → OB 14:54
PROVIDERS: Admitting Provider Nurse Practitioner Obstetrics & Gynecology; Visit Provider Nurse Practitioner Obstetrics & Gynecology
DX: O46.92 Antepartum hemorrhage, unspecified, second trimester (principal); Z3A.21 21 weeks gestation of pregnancy; Z98.891 History of uterine scar from previous surgery; Z88.8 Allergy status to other drugs, medicaments and biological substances
CPT/HCPCS: 36415; 76816; 76817; 85025; 96360; G0378; J7120

== ENCOUNTER 2025-03-29 14:54 | Outpatient (CLI) | payer OTHER, SELFPAY ==
--- OUTSIDE RECORDS SUMMARY | 2025-03-20 10:19 | XMS_ITS | Encounter Summary ---
Author Organization [facility] Address [address] [place] [id number] Care Team Providers Care Microsoft Bi Developer Name Role Phone Provider, No Known Primary [...] [facility] Kenisha Fitzgerald MD [address] [place] [address] [address] Phone: tel: fax: [facility] DIAG CTR [address] [place] [address] Phone: tel: Referral ID Status Reason Start Date Expiration Date Visits Re quested Visits Authorized [id number] Closed 03/13/2025 06/12/2026 1 1 Reason for [...] [facility] Kenisha Fitzgerald MD [address] [place] [address] [place] [place] [address] Phone: tel: fax: [facility] [address] [place] [address] Phone: tel: Referral ID Status Reason Start Date Expiration Date Visits Re quested Visits Authorized [id number] Closed 03/13/2025 06/12/2026 1 1 Encounter Details Date Type Department Care Team (Latest Contact Info) Description 03/20/2025 10:19 AM EDT - 03/20/2025 11:59 PM EDT Hospital Encounter [facility] [address] [place] [address] Kenisha Fitzgerald MD [address] [place] [address] [address] [facility] [address] [place] [address] Subchorionic hematoma in second trimester, single or [...] Description 04/24/2025 1:45 PM EDT Office Visit [facility] [address] [place] [address] 04/24/2025 1:45 PM EDT Appointment [facility] [address] [place] [address] documented as of this encounter Procedures Procedure Name Priority Date/Time Associated Diagnosis Comments [facility] Routine 03/20/2025 11:31 AM EDT Subchorionic hematoma in second trimester, single or unspecified fetus Encounter for maternal care for excessive growth in second trimester, single or unspecified fetus Encounter for repeat ultrasound of pyelectasis in [place] , antepartum History of , unspecified gestational age documented in this encounter Results * [facility] (03/20/2025 11:31 AM EDT) Anatomical Region Laterality Modality Ultrasound 03/20/2025 11:1 4 AM EDT Narrative 03/20/2025 12:20 PM EDT PAT NAME: PAMELA BONILLA MED REC#: [id number] DA: [id number] PAT GEND: F PAT TYPE: O EXAM LENCHO: [id number] REF PHYS KENISHA FITZGERALD Comparison Studies There [...] EFW (oz) 8 oz EFW by: Hadlock (YCN-RI-ZZ-FL) Extended Tibia 34.6 mm 22w 6d 43% Geo Fibula 36.0 mm 23w 4d 59% Geo Radius 33.1 mm 23w 4d 55% Geo Ulna 36.6 mm 24w 3d 74% Geo Cav. septi pel. tr 5.0 mm Corporation Officer 5.3 mm CM 7.8 mm 95% Nicolaides [...] normal IVC: normal 3-vessel view: Appears normal 8-vwhaqj-agcrfpc view: Appears normal Rt lung: Appears normal [...] Consultation / Office Visit Type: Consultation See [facility] for full consult note. Impression Single, live [...] weeks for growth assessment Coding ======= Description: 46662-80 Detailed Development Professional: Gris Guerrero RDMS Physician: Cooper Pham MD Electronically signed by: Cooper Pham MD at: 12:20 Procedure Note Cooper Pham MD - 03/20/2025 PAT NAME: PAMELA BONILLA MED REC#: [id number] DA: 2000 PAT GEND: F PAT TYPE: O EXAM LENCHO: [id number] REF PHYS KENISHA FITZGERALD Comparison Studies There are no relevant prior studies to which this study is beingcompared Patient Status Outpatient Indication ======== Chronic subchorionic hemorrhage with vaginal bleeding. Size greater thandates. Previous c/s x 3. Maternal Assessment Rqumjp802 cm Height (ft)5 ft Height (in)4 in Krliij54 kg Weight (lb)165 lb BMI28.52 kg/m Method ======= Transabdominal ultrasound examination. View: Adequate view ========= [place] . Number of fetuses: 1 Dating ====== Method of dating:based on stated EMILY GA by prior [email or web address] w + 0 d EMILY by prior assessment:07/17/2025 Ultrasound examination on:03/20/2025 GA by U/S based upon:AC, BPD, Femur, HC GA by U/S24 w + 3 d EMILY by U/S:07/07/2025 Assigned:based on stated EMILY, selected on 03/20/2025 Assigned GA23 w + 0 d Assigned EMILY:07/17/2025 [id number] d Biometry Standard BPD58.7 mm 24w 0d 81% Hadlock OFD82.0 mm 26w 5d >99% Geo HC228.4 mm 24w 6d 94% Hadlock Cerebellum tr27.7 mm 24w 4d >99% Hill AC202.2 mm 24w 6d 91% Hadlock Femur42.2 mm 23w 5d 64% Hadlock Rhrlpkq98.2 mm 24w 0d 69% Geo HC / AC1.13 LIE109 g 24w 1d 95% Hadlock EFW (lb)1 lb EFW (oz)8 oz EFW by:Hadlock (VFS-PO-IH-FL) Extended Tibia34.6 mm 22w 6d 43% Geo Ufzqxp78.0 mm 23w 4d 59% Geo Vblvnk30.1 mm 23w 4d 55% Geo Ulna36.6 mm 24w 3d 74% Geo Cav. septi pel. tr5.0 mm Vp5.3 mm CM7.8 mm 95% Nicolaides Nasal bone7.4 mm Head / Face / Neck Cephalic index0.72 2% Nicolaides Extremities / Bony Struc FL / BPD0.72 FL / HC0.18 FL / AC0.21 Other Structures YUT921 bpm General Evaluation Cardiac activity present. FHR [...] view:Appears normal SVC:normal IVC:normal 3-vessel view:Appears normal 9-wztyes-xuuhouc view:Appears normal Rt lung:Appears normal Lt lung:normal [...] Structures Uterus / Cervix Cervix:Visualized Approach:Transabdominal Cervical vitfmp13.6 mm Ovaries / Tubes / Adnexa Rt ovary:Visualized Lt ovary:Visualized Consultation / Office Visit Type: Consultation See [facility] for full consult note. Impression Single, live [...] ~28 weeks for growth assessment Coding ======= Description:16910-34 Detailed Development Professional: Gris Guerrero RDMS Physician: Cooper Pham MD [...] age documented in this encounter Care Teams Microsoft Bi Developer Relationship Specialty Start Date End Date Provider, No Known [place] [phone] PCP - General 03/13/25 documented as of this encounter
--- OUTSIDE RECORDS SUMMARY | 2025-03-20 10:30 | XMS_ITS | Encounter Summary ---
Author Organization [facility] Address [address] [place] [id number] Care Team Providers Care Credentialing Analyst Name Role Phone Provider, No Known Primary Care Provider Unavail able Reason for Referral * Diagnostic Imaging (Routine) - Authorized Specialty Diagnoses / Procedures Referred By Contac t Referred To Contact Radiology Diagnoses Short interval between pregnancies affecting in second trimester, antepartum Vaginal bleeding in , second trimester History of delivery affecting Procedures [facility] [place] [address] [place] [address] Phone: tel: fax: [facility] US PER DIAG [facility] [address] [place] [phone] Phone: tel: Referral ID Status Reason Start Date Expiration Date V isits Requested Visits Authorized [id number] Authorized 03/20/2025 06/19/2026 4 4 Reason for Visit * Reason Comments ISAAC, S>D, Jose Rafael UTD, Prev C/S x 3 Encounter Details Date Type Department Care Team (Late st Contact Info) Description 03/20/2025 10:30 AM EDT Office Visit [facility] MATERNAL MEDICINE [address] [place] [phone] Cooper Pham MD [address] [place] [address] Vaginal bleeding in , second trimester (Primary [...] infants have been larger, with the G3 infant being 98%ile for birthweight; denies any history of gestational DM and reports she has always passed screening tests - Recommended screening for GDM at 24 weeks with a 1-hr GTT. If non-diagnostic and the infant continues to show accelerated growth, would consider [...] in , second trimester - Admitted to [facility] from 03/12- due to vaginal bleeding - [...] risk. Next OB follow-up appointment with Dr. Cortes is uncertain, patient will verify with her physician. * Cooper Pham MD - 03/20/2025 10:30 AM EDT Images from the original note were not included. Maternal Medicine Consult Note Date: 03/20/2025 Name: Pamela Anderson : 2000 EMILY: Estimated Date of Delivery: 07/17/25 Referring Provider: Joshua Cortes MD Chief Complaint ISAAC, S>D, Jose Rafael UTD, Prev C/S x 3 Subjective History of Present Illness: Pamela Anderson is a 24 y.o. 23w0d who presents today for initial consultation due to a complicated by vaginal bleeding, prior C/S x3, short inter- interval, and bilateral UTD-A1. She was admitted to [facility] 03/12- due to heavier vaginal bleeding but [...] (Primary) Assessment & Plan: - Admitted to [facility] from 03/12- due to vaginal bleeding - [...] and Rh positive Orders: - [facility]; Standing 2. Suspected anomaly, antepartum, [...] a 1-hr GTT. If non-diagnostic and the infant continues to show accelerated growth, would consider [...] overall maternal risk Orders: - [facility]; Standing 5. History of delivery affecting Assessment & Plan: - Three prior C/S reported; no operative reports available for review at time of consultation - PAS risk increases with the number of prior sections, independent of interpregnancy interval - On US today, the placenta is posterior with no overt sonographic evidence of PAS Orders: - [facility]; Standing Follow Up Return in [...] CVS. Cooper Pham MD, FACOG Maternal Medicine, [facility] documented in this encounter Plan of Treatment Upcoming Encounters Date Type Department Care Team (Late st Contact Info) Description 04/24/2025 1:45 PM EDT Office Visit [facility]ERNAL MEDICINE [address] [facility] [address] [place] [address] 04/24/2025 1:45 PM EDT Appointment [facility] PER DIAG CTR [address] [place] [address] Scheduled Orders Name Type Priority Associated Diagnoses Orde r Schedule [facility] [place] Imaging Routine Short interval between pregnancies affecting in second trimester, antepartum Vaginal bleeding in , second trimester History of delivery affecting Every 4 Weeks for 4 Occurrences starting 03/20/2025 until 03/20/2026 documented as of this encounter Visit Diagnoses Diagnosis Vaginal bleeding in , second trimester- Primary Suspected anomaly, antepartum, single or unspecified fetus Fundal height high for dates Short interval between pregnancies affecting in second trimester, antepartum History of delivery affecting documented in this encounter Care Teams Credentialing Analyst Relationship Specialty Start Date End Date Provider, [place] [address] PCP - General 03/13/25 documented as of this encounter
--- OUTSIDE RECORDS SUMMARY | 2025-03-29 14:59 | XMS_ITS | Encounter Summary ---
Author Organization [facility] Address [address] [place] [address] Care Team Providers Care Yarn Man Name Role Phone Provider, No Known Primary Care Provider Unavail able Encounter Details Date Type Department Care Team (Latest Contact Info) Description 03/20/2025 Travel Social History Tobacco Use Types Packs/Day Years [...] on file documented as of this encounter Plan of Treatment Upcoming Encounters Date Type Department Care Team (Late st Contact Info) Description 04/24/2025 1:45 PM EDT Office Visit [facility] MEDIC[facility] [address] [facility] [address] [place] [address] 04/24/2025 1:45 PM EDT Appointment [facility] [address] [facility] [place] [address] documented as of this encounter Visit Diagnoses Not on filedocumented in this encounter Care Teams Yarn Man Relationship Specialty Start Date End Date Provider, No Known [facility] [place] [address] PCP - General 03/13/25 documented as of this encounter
--- OUTSIDE RECORDS SUMMARY | 2025-03-29 14:59 | XMS_ITS | Clinical Summary ---
[facility] Organization [facility] Address [address] [place] [address] Care Team Providers Care Project Systems Engineer Name Role Phone Provider, No Known Primary Care Provider Unavail able Allergies No known active allergies Medications 28-0.8 MG tablet Take 1 tablet by mouth Daily. 11/23/2024 Active Active Problems Problem Noted Date Diagnosed Date Fundal height high for dates 03/20/2025 Assessment & Plan (03/20/2025 12:15 PM EDT): - Prior US with concern for accelerated [...] 28 weeks to ensure there is no component of GDM at play History of delivery affecting 03/20/2025 Assessment & Plan (03/20/2025 12:10 PM EDT): - Three prior C/S reported; no operative reports available for review at time of consultation - PAS risk increases with the number of prior sections, independent of interpregnancy interval - On US today, the placenta is posterior with no overt sonographic evidence of PAS Short interval between pregn ancies affecting in second trimester, antepartum 03/20/2025 Assessment & Plan (03/20/2025 11:15 AM EDT): - Higher risk of uterine rupture given less than 18-24 months - PAS risk increases with the number of prior sections, independent of interpregnancy interval, but a short interval may compound overall maternal risk Vaginal bleeding in , second trimester 03/20/2025 Assessment & Plan (03/20/2025 12:09 PM EDT): - Admitted to [facility] from 03/12- due to vaginal bleeding [...] Patient's blood type reviewed and Rh positive Suspected anomaly, antepartum 03/20/2025 Overview (03/20/2025): - Prior outside scan with concern for bilateral UTD-A1 - US today shows right-sided UTD-A1 - We discussed that this finding in isolation likely slightly increases her a priori risk for T21, but given her low risk Panorama result, no further testing is indicated - Plan to reassess urinary tract on subsequent scans; discussed that this finding is likely to resolve prior to delivery - If persistent, will recommend post- evaluation and renal ultrasound within the first month of life Estimated Date of Delivery Comme nts Yes 07/17/2025 Date entered francesca or to episode creation Encounters Date Type Department Care Team Description 03/20/2025 10:30 AM EDT Office Visit [facility] [address] [place] [address] Cooper Pham MD Vaginal bleeding in , second trimester (Primary Dx); Suspected anomaly, antepartum, single or unspecified fetus; Fundal height high for dates; Short interval between pregnancies affecting in second trimester, antepartum; History of delivery affecting 03/20/2025 10:19 AM EDT - 03/20/2025 11:59 PM EDT Hospital Encounter [facility] [address] [place] [address] Kenisha Fitzgerald MD Subchorionic hematoma in second trimester, single or unspecified fetus; Encounter for maternal care for excessive growth in second trimester, single or unspecified fetus; Encounter for repeat ultrasound of pyelectasis in [place] , antepartum; History of ; , unspecified gestational age Discharge Disposition: Home or Self Care 03/20/2025 Travel from Last 3 Months Immunizations Immunization Administration Dates Next Due DTaP, Unspecified 04/01/2004, 2,2000,2000,1 08/04/1999 HPV Quadrivalent 03/01/2012 Hep A, 2 Dose 08/19/2018,02/08/2018 Hep B / HiB 2000,2000 Hep B, Adolescent or Pediatric 2000 HiB 11/09/2001 Hib (PRP-OMP) 2000 IPV 04/01/2004,2000,2000 ,2000 Influenza Seasonal Injectable 08/19/2018 MCV4 Unspecified 03/01/2012 MMR 04/01/2004,11/09/2001 Meningococcal MCV4P (Menactra) 02/08/2018 Tdap 01/19/2024,03/01/2012 Varicella 03/01/2012,11/09/2001 Social History Tobacco Use Types Packs/Day Years [...] on file Sexual Orientation Not on file Last Filed Vital Signs Vital Sign Reading Time Taken Comments Blood Pressure 117/75 03/20/2025 10:48 AM EDT Pulse - - Temperature - - Respiratory Rate - - Oxygen Saturation - - Inhaled Oxygen Concentration - - Weight 74.8 kg (165 lb) 03/20/2025 10:48 AM EDT Height 162.6 cm (5' 4 ) 03/20/2025 10:52 AM EDT Body Mass Index 28.32 03/20/2025 10:48 AM EDT Plan of Treatment Upcoming Encounters Date Type Department Care Team (Late st Contact Info) Description 04/24/2025 1:45 PM EDT Office Visit [facility] [address] [facility] [address] [place] [address] 04/24/2025 1:45 PM EDT Appointment [facility] [address] [place] [address] Health Maintenance Due Date Last Done Comments Annual Gynecologic Pelvic an d Breast Exam 2000 HPV VACCINES (2 - 2-dose series) 09/01/2012 03/01/2012 PAP SMEAR 2021 INFLUENZA VACCINE 02/03/2025 08/19/2018 ANNUAL PHYSICAL 03/13/2025 HEPATITIS C SCREENING 03/13/2025 RSV Vaccine - Adults (1 - Risk 1-dose series) 05/22/2025 TDAP/TD VACCINES (3 - Td or Tdap) 01/18/2034 01/19/2024, 03/01/2012 Pneumococcal Vaccine 0-49 Aged Out No longer eligible based on patient's age to complete this topic Procedures Procedure Name Priority Date/Time Associated Diagnosis Comments [facility] Routine 03/20/2025 11:31 AM EDT Subchorionic hematoma in second trimester, single or unspecified fetus Encounter for maternal care for excessive growth in second trimester, single or unspecified fetus Encounter for repeat ultrasound of pyelectasis in pined[place] , antepartum History of , unspecified gestational age from Last 3 Months Results * [facility] (03/20/2025 11:31 AM EDT) Anatomical Region Laterality Modality Ultrasound 03/20/2025 11:1 4 AM EDT Narrative 03/20/2025 12:20 PM EDT PAT NAME: PAMELA BONILLA MED REC#: [id number] DA: [id number] PAT GEND: F PAT TYPE: O EXAM LENCHO: [id number] REF PHYS KENISHA FITZGERALD Comparison Studies There [...] EFW (oz) 8 oz EFW by: Hadlock (EWD-NA-DO-FL) Extended Tibia 34.6 mm 22w 6d 43% Geo Fibula 36.0 mm 23w 4d 59% Geo Radius 33.1 mm 23w 4d 55% Geo Ulna 36.6 mm 24w 3d 74% Geo Cav. septi pel. tr 5.0 mm Stationary Plant Operators 5.3 mm CM 7.8 mm 95% Nicolaides [...] normal IVC: normal 3-vessel view: Appears normal 6-wqfxrb-msyrhmb view: Appears normal Rt lung: Appears normal [...] Consultation / Office Visit Type: Consultation See [facility] for full consult note. Impression Single, [...] weeks for growth assessment Coding ======= Description: 27490-87 Detailed Bench Carpenter: Gris Guerrero RDMS Physician: Cooper Pham MD Electronically signed by: Cooper Pham MD at: 12:20 Procedure Note Cooper Pham MD - 03/20/2025 PAT NAME: PAMELA BONILLA MED REC#: [id number] DA: [id number] PAT GEND: F PAT TYPE: O EXAM LENCHO: [id number] REF PHYS KENISHA FITZGERALD Comparison Studies There are no relevant prior studies to which this study is beingcompared Patient Status Outpatient Indication ======== Chronic subchorionic hemorrhage with vaginal bleeding. Size greater thandates. Previous c/s x 3. Maternal Assessment Jsgdyv998 cm Height (ft)5 ft Height (in)4 in Nishxw69 kg Weight (lb)165 lb BMI28.52 kg/m Method ======= Transabdominal ultrasound examination. View: Adequate view ========= [place] . Number of fetuses: 1 Dating ====== Method of dating:based on stated EMILY GA by prior ievnumyned84 w + 0 d EMILY by prior assessment:07/17/2025 Ultrasound examination on:03/20/2025 GA by U/S based upon:AC, BPD, Femur, HC GA by U/S24 w + 3 d EMILY by U/S:07/07/2025 Assigned:based on stated EMILY, selected on 03/20/2025 Assigned GA23 w + 0 d Assigned EMILY:07/17/2025 [id number] d Biometry Standard BPD58.7 mm 24w 0d 81% Hadlock OFD82.0 mm 26w 5d >99% Geo HC228.4 mm 24w 6d 94% Hadlock Cerebellum tr27.7 mm 24w 4d >99% Hill AC202.2 mm 24w 6d 91% Hadlock Femur42.2 mm 23w 5d 64% Hadlock Bvmtqxq97.2 mm 24w 0d 69% Geo HC / AC1.13 USZ141 g 24w 1d 95% Hadlock EFW (lb)1 lb EFW (oz)8 oz EFW by:Hadlock (EZP-GF-XJ-FL) Extended Tibia34.6 mm 22w 6d 43% Geo Uvxdzz75.0 mm 23w 4d 59% Geo Fzibnb53.1 mm 23w 4d 55% Geo Ulna36.6 mm 24w 3d 74% Geo Cav. septi pel. tr5.0 mm Vp5.3 mm CM7.8 mm 95% Nicolaides Nasal bone7.4 mm Head / Face / Neck Cephalic index0.72 2% Nicolaides Extremities / Bony Struc FL / BPD0.72 FL / HC0.18 FL / AC0.21 Other Structures TMC560 bpm General Evaluation Cardiac activity present. FHR [...] view:Appears normal SVC:normal IVC:normal 3-vessel view:Appears normal 1-pyslah-fbihiuo view:Appears normal Rt lung:Appears normal Lt lung:normal [...] Structures Uterus / Cervix Cervix:Visualized Approach:Transabdominal Cervical fgrtii99.6 mm Ovaries / Tubes / Adnexa Rt ovary:Visualized Lt ovary:Visualized Consultation / Office Visit Type: Consultation See [facility] for full consult note. Impression Single, [...] ~28 weeks for growth assessment Coding ======= Description:78612-40 Detailed Bench Carpenter: Gris Guerrero RDMS Physician: Cooper Pham MD Electronically signed by: Cooper Pham MD at: 12:20 us Kenisha Fitzgerald MD G US ORDERABLES Final Resul t from Last 3 Months Insurance Care Teams Project Systems Engineer Relationship Specialty Start Date End Date Provider, No Known [facility] [place] [address] PCP - General 03/13/25
[2025-03-29 15:35] VITALS: BMI 27.8
--- NOTE | 2025-03-29 15:36 | US_ITS ---
PROCEDURE INFORMATION: Exam: US , Follow up Exam date and time: 03/29/2025 3:53 PM Age: 25 years old Clinical indication: Lmp or gestational age (in weeks): 24w2d; Other: Bleeding; LABS AND CLINICAL REPORTS: Gestational age (Established): 24 w 2 d Estimated due date (Established): 07/17/2025 TECHNIQUE: Imaging protocol: Transabdominal ultrasound of the uterus, real time with image documentation. Follow-up (eg, re-evaluation of size by measuring standard growth parameters and amniotic fluid volume, re-evaluation of organ system(s) suspected or confirmed to be abnormal on a previous scan). Total images: 1054 COMPARISON: US OB FOLLOW UP 03/12/2025 11:58 AM FINDINGS: Gestation: Single living intrauterine gestation. heart rate: 150 bpm. heart rate recorded to be 150 bpm. presentation and position: Cephalic presentation. Placenta: Placenta is posterior to the maternal right. Multiple placental lakes are noted. Prior possible anterior hematoma within the placenta has decreased in size when compared to the prior study. MATERNAL: Cervix: Cervical length measures 3.49 cm. Soft tissues: Possible anterior hematoma measures approximately 5.2 x 4.2 x 0.8 cm. IMPRESSION: 1. Single living intrauterine gestation. 2. heart rate recorded to be 150 bpm. 3. Multiple placental lakes are noted. 4. Prior possible anterior hematoma within the placenta has decreased in size when compared to the prior study.
[2025-03-29 16:09] LABS: Fetal Membrane Rupture (Rapid) Negative (Negative)
[2025-03-29 16:20] VITALS: BP 124/7; PULSE 116; RESP 17; TEMP 36.8; O2SAT 98; BMI 27.6
[2025-03-29 18:19] LABS: Glucose 1 Hour 172 mg/dL (74-100)
== END 2025-03-29 17:39 | disposition home or self-care (01) ==
LOC: OBOUT 14:56 → OB 14:58
PROVIDERS: Visit Provider Obstetrics & Gynecology
DX: O28.3 Abnormal ultrasonic finding on antenatal screening of mother (principal); O46.92 Antepartum hemorrhage, unspecified, second trimester; O26.892 Other specified pregnancy related conditions, second trimester; N89.8 Other specified noninflammatory disorders of vagina; Z3A.24 24 weeks gestation of pregnancy
CPT/HCPCS: 59025; 76816; 82947; 84112; 99212; G0463

== ENCOUNTER 2025-04-01 09:08 | Outpatient (CLI) | payer OTHER, SELFPAY ==
--- OUTSIDE RECORDS SUMMARY | 2025-03-20 10:19 | XMS_ITS | Encounter Summary ---
Author Organization [facility] Address [address] [place] [phone] Care Team Providers Care Food Preparation Worker Name Role Phone Provider, No Known Primary [...] [facility] Kenisha Fitzgerald MD [address] [place] [address] [address] Phone: tel: fax: [facility] [address] [place] [address] Phone: tel: Referral ID Status Reason Start Date Expiration Date Visits Re quested Visits Authorized [id number] Closed 03/13/2025 06/12/2026 1 1 Reason for [...] [facility] Kenisha Fitzgerald MD [address] [place] [address] [place] [place] [address] Phone: tel: fax: [facility] [address] [place] [address] Phone: tel: Referral ID Status Reason Start Date Expiration Date Visits Re quested Visits Authorized [id number] Closed 03/13/2025 06/12/2026 1 1 Encounter Details Date Type Department Care Team (Latest Contact Info) Description 03/20/2025 10:19 AM EDT - 03/20/2025 11:59 PM EDT Hospital Encounter [facility] [address] [place] [address] Kenisha Fitzgerald MD [address] [place] [address] E [facility] [place] [address] [address] Subchorionic hematoma in second trimester, single or [...] Description 04/24/2025 1:45 PM EDT Office Visit [facility] [address] [place] [address] 04/24/2025 1:45 PM EDT Appointment [facility] [address] [place] [address] documented as of this encounter Procedures Procedure [...] age documented in this encounter Results * [facility] (03/20/2025 11:31 AM EDT) Anatomical Region Laterality Modality Ultrasound 03/20/2025 11:1 4 AM EDT Narrative 03/20/2025 12:20 PM EDT PAT NAME: PAMELA BONILLA MED REC#: [id number] DA: [id number] PAT GEND: F PAT TYPE: O EXAM LENCHO: [id number] REF PHYS KENISHA FITZGERALD Comparison Studies There [...] EFW (oz) 8 oz EFW by: Hadlock (UFD-EU-VK-FL) Extended Tibia 34.6 mm 22w 6d 43% Geo Fibula 36.0 mm 23w 4d 59% Geo Radius 33.1 mm 23w 4d 55% Goe Ulna 36.6 mm 24w 3d 74% Geo Cav. septi pel. tr 5.0 mm Biomass Boiler Operator 5.3 mm CM 7.8 mm 95% Nicolaides [...] normal IVC: normal 3-vessel view: Appears normal 5-qurkjw-sfwfvov view: Appears normal Rt lung: Appears normal [...] Consultation / Office Visit Type: Consultation See [facility] for full consult note. Impression Single, [...] weeks for growth assessment Coding ======= Description: 13187-54 Detailed Tax Accountant: Gris Guerrero RDMS Physician: Cooper Pham MD Electronically signed by: Cooper Pham MD at: 12:20 Procedure Note Cooper Pham MD - 03/20/2025 PAT NAME: PAMELA BONILLA MED REC#: [id number] DA: 2000 PAT GEND: F PAT TYPE: O EXAM LENCHO: [id number] REF PHYS KENISHA FITZGERALD Comparison Studies There are no relevant prior studies to which this study is beingcompared Patient Status Outpatient Indication ======== Chronic subchorionic hemorrhage with vaginal bleeding. Size greater thandates. Previous c/s x 3. Maternal Assessment Sorufk969 cm Height (ft)5 ft Height (in)4 in Yartwi43 kg Weight (lb)165 lb BMI28.52 kg/m Method ======= Transabdominal ultrasound examination. View: Adequate view ========= [place]ineda . Number of fetuses: 1 Dating ====== Method of dating:based on stated EMILY GA by prior goqlbroiek16 w + 0 d EMILY by prior assessment:07/17/2025 Ultrasound examination on:03/20/2025 GA by U/S based upon:AC, BPD, Femur, HC GA by U/S24 w + 3 d EMILY by U/S:07/07/2025 Assigned:based on stated EMILY, selected on 03/20/2025 Assigned GA23 w + 0 d Assigned EMILY:07/17/2025 ivcbyj118 d Biometry Standard BPD58.7 mm 24w 0d 81% Hadlock OFD82.0 mm 26w 5d >99% Geo HC228.4 mm 24w 6d 94% Hadlock Cerebellum tr27.7 mm 24w 4d >99% Hill AC202.2 mm 24w 6d 91% Hadlock Femur42.2 mm 23w 5d 64% Hadlock Wehxesv45.2 mm 24w 0d 69% Geo HC / AC1.13 BJO058 g 24w 1d 95% Hadlock EFW (lb)1 lb EFW (oz)8 oz EFW by:Hadlock (AIN-NV-UZ-FL) Extended Tibia34.6 mm 22w 6d 43% Geo Fkagdv96.0 mm 23w 4d 59% Geo Yxkorc44.1 mm 23w 4d 55% Geo Ulna36.6 mm 24w 3d 74% Geo Cav. septi pel. tr5.0 mm Vp5.3 mm CM7.8 mm 95% Nicolaides Nasal bone7.4 mm Head / Face / Neck Cephalic index0.72 2% Nicolaides Extremities / Bony Struc FL / BPD0.72 FL / HC0.18 FL / AC0.21 Other Structures SKX942 bpm General Evaluation Cardiac activity present. FHR [...] view:Appears normal SVC:normal IVC:normal 3-vessel view:Appears normal 4-jtgpfs-mednzlc view:Appears normal Rt lung:Appears normal Lt lung:normal [...] Consultation / Office Visit Type: Consultation See [facility] for full consult note. Impression Single, [...] ~28 weeks for growth assessment Coding ======= Description:67091-26 Detailed Tax Accountant: Gris Guerrero RDMS Physician: Cooper Pham MD [...] age documented in this encounter Care Teams Food Preparation Worker Relationship Specialty Start Date End Date Provider, No Known [place] [id number] PCP - General 03/13/25 documented as of this encounter
--- OUTSIDE RECORDS SUMMARY | 2025-03-20 10:30 | XMS_ITS | Encounter Summary ---
Author Organization [facility] Address [address] [place] [phone] Care Team Providers Care Quarter Lining Smoother Name Role Phone Provider, No Known Primary Care Provider Unavail able Reason for Referral * Diagnostic Imaging (Routine) - Authorized Specialty Diagnoses / Procedures Referred By Contac t Referred To Contact Radiology Diagnoses Short interval between pregnancies affecting in second trimester, antepartum Vaginal bleeding in , second trimester History of delivery affecting Procedures [facility] [place] [address] [place] [address] Phone: tel: fax: [facility] US PER DIAG CTR [address] [place] [phone] Phone: tel: Referral ID Status Reason Start Date Expiration Date V isits Requested Visits Authorized [id number] Authorized 03/20/2025 06/19/2026 4 4 Reason for Visit * Reason Comments ISAAC, S>D, Jose Rafael UTD, Prev C/S x 3 Encounter Details Date Type Department Care Team (Late st Contact Info) Description 03/20/2025 10:30 AM EDT Office Visit [facility] MATERNAL MEDICINE [address] [place] [phone] Cooper Pham MD [address] [place] [address] Vaginal bleeding in , second trimester (Primary [...] in , second trimester - Admitted to [facility] from 03/12- due to [...] type reviewed and Rh positive * Loretta Aktinson RN - 03/20/2025 10:30 AM EDT Patient [...] and bilateral UTD-A1. She was admitted to [facility] 03/12- due to heavier [...] (Primary) Assessment & Plan: - Admitted to [facility] from 03/12- due to [...] type reviewed and Rh positive Orders: - [facility] Diagnostic Center; Standing 2. Suspected [...] may compound overall maternal risk Orders: - [facility] Diagnostic Center; Standing 5. History of delivery affecting Assessment & Plan: - Three prior C/S reported; no operative reports available for review at time of consultation - PAS risk increases with the number of prior sections, independent of interpregnancy interval - On US today, the placenta is posterior with no overt sonographic evidence of PAS Orders: - [facility] Diagnostic Center; Standing Follow Up [...] CVS. Cooper Pham MD, FACOG Maternal Medicine, [facility] documented in this encounter Plan of Treatment Upcoming Encounters Date Type Department Care Team (Late st Contact Info) Description 04/24/2025 1:45 PM EDT Office Visit [facility] MATERNAL MEDICINE [address] [facility] [address] [place] [address] 04/24/2025 1:45 PM EDT Appointment [facility] PER DI[facility] [address] [place] [address] Scheduled Orders Name Type Priority Associated Diagnoses Orde r Schedule [facility] Diagnostic [place] Imaging Routine Short interval between pregnancies affecting [...] affecting documented in this encounter Care Teams Quarter Lining Smoother Relationship Specialty Start Date End Date Provider, [place] [address] PCP - General 03/13/25 documented as of this encounter
--- OUTSIDE RECORDS SUMMARY | 2025-04-01 09:11 | XMS_ITS | Encounter Summary ---
Author Organization [facility] Address [address] [place] [address] Care Team Providers Care Senior Sales Director Name Role Phone Provider, No Known Primary [...] Description 04/24/2025 1:45 PM EDT Office Visit [facility] [address] [facility] [address] [place] [address] 04/24/2025 1:45 PM EDT Appointment [facility] [address] [facility] [place] [address] documented as of this encounter Visit Diagnoses Not on filedocumented in this encounter Care Teams Senior Sales Director Relationship Specialty Start Date End Date Provider, No Known [facility] [place] [address] PCP - General 03/13/25 documented as of this encounter
--- OUTSIDE RECORDS SUMMARY | 2025-04-01 09:11 | XMS_ITS | Clinical Summary ---
Author Organization [facility] Address [address] [place] [address] Care Team Providers Care Hoof Trimmer Name Role Phone Provider, No Known Primary [...] (03/20/2025 12:09 PM EDT): - Admitted to [facility] [...] Description 03/20/2025 10:30 AM EDT Office Visit [facility] [address] [place] [address] Cooper Pham MD Vaginal bleeding in , second trimester (Primary Dx); Suspected anomaly, antepartum, single or unspecified fetus; Fundal height high for dates; Short interval between pregnancies affecting in second trimester, antepartum; History of delivery affecting 03/20/2025 10:19 AM EDT - 03/20/2025 11:59 PM EDT Hospital Encounter [facility] [address] [place] [address] Kenisha Fitzgerald MD Subchorionic hematoma [...] Description 04/24/2025 1:45 PM EDT Office Visit [facility] [address] [facility] [address] [place] [address] 04/24/2025 1:45 PM EDT Appointment [facility] [address] [place] [address] Health Maintenance Due Date Last [...] Procedure Name Priority Date/Time Associated Diagnosis Comments [facility] Routine 03/20/2025 11:31 AM EDT Subchorionic hematoma in second trimester, single or unspecified fetus Encounter for maternal care for excessive growth in second trimester, single or unspecified fetus Encounter for repeat ultrasound of pyelectasis in [place] , antepartum History of , unspecified gestational age from Last 3 Months Results * [facility] (03/20/2025 11:31 AM EDT) Anatomical Region Laterality Modality Ultrasound 03/20/2025 11:1 4 AM EDT Narrative 03/20/2025 12:20 PM EDT PAT NAME: PAMELA BONILLA MED REC#: [id number] DA: [id number] PAT GEND: F PAT TYPE: O EXAM LENCHO: [id number] REF PHYS KENISHA FITZGERALD Comparison Studies There [...] EFW (oz) 8 oz EFW by: Hadlock (ZOW-EA-YM-FL) Extended Tibia 34.6 mm 22w 6d 43% Geo Fibula 36.0 mm 23w 4d 59% Geo Radius 33.1 mm 23w 4d 55% Geo Ulna 36.6 mm 24w 3d 74% Geo Cav. septi pel. tr 5.0 mm Possum Trapper 5.3 mm CM 7.8 mm 95% Nicolaides [...] normal IVC: normal 3-vessel view: Appears normal 7-ggyvrz-dmhwiiz view: Appears normal Rt lung: Appears normal [...] Consultation / Office Visit Type: Consultation See [facility] for full consult note. Impression Single, [...] weeks for growth assessment Coding ======= Description: 85274-77 Detailed Car Electronics Installer: Gris Guerrero RDMS Physician: Cooper Pham MD Electronically signed by: Cooper Pham MD at: 12:20 Procedure Note Cooper Pham MD - 03/20/2025 PAT NAME: PAMELA BONILLA MED REC#: [id number] DA: [id number] PAT GEND: F PAT TYPE: O EXAM LENCHO: [id number] REF PHYS KENISHA FITZGERALD Comparison Studies There are no relevant prior studies to which this study is beingcompared Patient Status Outpatient Indication ======== Chronic subchorionic hemorrhage with vaginal bleeding. Size greater thandates. Previous c/s x 3. Maternal Assessment Zjnswv157 cm Height (ft)5 ft Height (in)4 in Gmsgcm31 kg Weight (lb)165 lb BMI28.52 kg/m Method ======= Transabdominal ultrasound examination. View: Adequate view ========= [place] . Number of fetuses: 1 Dating ====== Method of dating:based on stated EMILY GA by prior wtysglscgg75 w + 0 d EMILY by prior [...] Hadlock Femur42.2 mm 23w 5d 64% Hadlock Boiitml24.2 mm 24w 0d 69% Geo HC / AC1.13 LZJ514 g 24w 1d 95% Hadlock EFW (lb)1 lb EFW (oz)8 oz EFW by:Hadlock (JJO-IM-YS-FL) Extended Tibia34.6 mm 22w 6d 43% Geo Udetlf39.0 mm 23w 4d 59% Geo Yszpun30.1 mm 23w 4d 55% Geo Ulna36.6 mm 24w 3d 74% Geo Cav. septi pel. tr5.0 mm Vp5.3 mm CM7.8 mm 95% Nicolaides Nasal bone7.4 mm Head / Face / Neck Cephalic index0.72 2% Nicolaides Extremities / Bony Struc FL / BPD0.72 FL / HC0.18 FL / AC0.21 Other Structures OZQ113 bpm General Evaluation Cardiac activity present. FHR [...] view:Appears normal SVC:normal IVC:normal 3-vessel view:Appears normal 3-crycel-zwgbmek view:Appears normal Rt lung:Appears normal Lt lung:normal [...] Structures Uterus / Cervix Cervix:Visualized Approach:Transabdominal Cervical gqrbfy65.6 mm Ovaries / Tubes / Adnexa Rt ovary:Visualized Lt ovary:Visualized Consultation / Office Visit Type: Consultation See [facility] for full consult note. Impression Single, [...] ~28 weeks for growth assessment Coding ======= Description:98184-31 Detailed Car Electronics Installer: Gris Guerrero RDMS Physician: Cooper Pham MD Electronically signed by: Cooper Pham MD at: 12:20 us Kenisha Fitzgerald MD G US ORDERABLES Final Resul t from Last 3 Months Insurance Care Teams Hoof Trimmer Relationship Specialty Start Date End Date Provider, No Known [facility] [place] [address] PCP - General 03/13/25
[2025-04-01 09:55] LABS: Glucose,Fasting 87 mg/dl (74-100)
[2025-04-01 12:09] LABS: Glucose 1 Hour 134 mg/dL (74-100)
[2025-04-01 12:26] LABS: Glucose 2 Hour 100 mg/dL (74-100)
[2025-04-01 12:30] LABS: Glucose 3 Hour 62 mg/dL (74-100)
== END 2025-04-01 23:59 | disposition home or self-care (01) ==
LOC: LAB 09:09
PROVIDERS: Visit Provider Obstetrics & Gynecology
DX: Z34.83 Encounter for supervision of other normal pregnancy, third trimester (principal); Z3A.00 Weeks of gestation of pregnancy not specified
CPT/HCPCS: 36415; 82951

== ENCOUNTER 2025-04-04 11:59 | Outpatient (CLI) | payer OTHER, SELFPAY ==
--- OUTSIDE RECORDS SUMMARY | 2025-03-20 10:19 | XMS_ITS | Encounter Summary ---
Author Organization [facility] Address [address] [place] [phone] Care Team Providers Care Pulping Machine Operator Name Role Phone Provider, No Known Primary [...] [facility] Kenisha Fitzgerald MD [address] [place] [address] [address] Phone: tel: fax: [facility] [address] [place] [address] Phone: tel: Referral ID Status Reason Start Date Expiration Date Visits Re quested Visits Authorized [id number] Closed 03/13/2025 06/12/2026 1 1 Reason for [...] [facility] Kenisha Fitzgerald MD [address] [place] [address] [place] [place] [address] Phone: tel: fax: [facility] [address] [place] [address] Phone: tel: Referral ID Status Reason Start Date Expiration Date Visits Re quested Visits Authorized [id number] Closed 03/13/2025 06/12/2026 1 1 Encounter Details Date Type Department Care Team (Latest Contact Info) Description 03/20/2025 10:19 AM EDT - 03/20/2025 11:59 PM EDT Hospital Encounter [facility] [address] [place] [address] Kenisha Fitzgerald MD [address] [place] [address] [facility] [place] [address] [address] Subchorionic hematoma in second trimester, single or [...] Description 04/24/2025 1:45 PM EDT Office Visit [facility] [address] [place] [address] 04/24/2025 1:45 PM EDT Appointment [facility] [address] [place] [address] documented as of this encounter Procedures Procedure Name Priority Date/Time Associated Diagnosis Comments [facility] Routine 03/20/2025 11:31 AM EDT Subchorionic hematoma in second trimester, single or unspecified fetus Encounter for maternal care for excessive growth in second trimester, single or unspecified fetus Encounter for repeat ultrasound of pyelectasis in [place] , antepartum History of , unspecified gestational age documented in this encounter Results * [facility] (03/20/2025 11:31 AM EDT) Anatomical Region Laterality Modality Ultrasound 03/20/2025 11:1 4 AM EDT Narrative 03/20/2025 12:20 PM EDT PAT NAME: PAMELA BONILLA MED REC#: [id number] DA: [id number] PAT GEND: F PAT TYPE: O EXAM LENCHO: [id number] REF PHYS KENISHA FITZGERALD Comparison Studies There [...] EFW (oz) 8 oz EFW by: Hadlock (KRJ-LE-UG-FL) Extended Tibia 34.6 mm 22w 6d 43% Geo Fibula 36.0 mm 23w 4d 59% Geo Radius 33.1 mm 23w 4d 55% Geo Ulna 36.6 mm 24w 3d 74% Geo Cav. septi pel. tr 5.0 mm Ripening Room Hand 5.3 mm CM 7.8 mm 95% Nicolaides [...] normal IVC: normal 3-vessel view: Appears normal 6-orompx-ficrief view: Appears normal Rt lung: Appears normal [...] Consultation / Office Visit Type: Consultation See [facility] for full consult note. Impression Single, [...] weeks for growth assessment Coding ======= Description: 45800-23 Detailed Rate Examiner: Gris Guerrero RDMS Physician: Cooper Pham MD Electronically signed by: Cooper Pham MD at: 12:20 Procedure Note Cooper Pham MD - 03/20/2025 PAT NAME: PAMELA BONILLA MED REC#: [id number] DA: 2000 PAT GEND: F PAT TYPE: O EXAM LENCHO: [id number] REF PHYS KENISHA FITZGERALD Comparison Studies There are no relevant prior studies to which this study is beingcompared Patient Status Outpatient Indication ======== Chronic subchorionic hemorrhage with vaginal bleeding. Size greater thandates. Previous c/s x 3. Maternal Assessment Ajrkpi802 cm Height (ft)5 ft Height (in)4 in Yqgvdi70 kg Weight (lb)165 lb BMI28.52 kg/m Method ======= Transabdominal ultrasound examination. View: Adequate view ========= [place]ined[place] . Number of fetuses: 1 Dating ====== Method of dating:based on stated EMILY GA by prior izzviemzhk02 w + 0 d EMILY by prior assessment:07/17/2025 Ultrasound examination on:03/20/2025 GA by U/S based upon:AC, BPD, Femur, HC GA by U/S24 w + 3 d EMILY by U/S:07/07/2025 Assigned:based on stated EMILY, selected on 03/20/2025 Assigned GA23 w + 0 d Assigned EMILY:07/17/2025 d Biometry Standard BPD58.7 mm 24w 0d 81% Hadlock OFD82.0 mm 26w 5d >99% Geo HC228.4 mm 24w 6d 94% Hadlock Cerebellum tr27.7 mm 24w 4d >99% Hill AC202.2 mm 24w 6d 91% Hadlock Femur42.2 mm 23w 5d 64% Hadlock Ryeluwr75.2 mm 24w 0d 69% Geo HC / AC1.13 TZI397 g 24w 1d 95% Hadlock EFW (lb)1 lb EFW (oz)8 oz EFW by:Hadlock (WDR-ZR-YK-FL) Extended Tibia34.6 mm 22w 6d 43% Geo Rqjkcg61.0 mm 23w 4d 59% Geo Dvhcth93.1 mm 23w 4d 55% Geo Ulna36.6 mm 24w 3d 74% Geo Cav. septi pel. tr5.0 mm Vp5.3 mm CM7.8 mm 95% Nicolaides Nasal bone7.4 mm Head / Face / Neck Cephalic index0.72 2% Nicolaides Extremities / Bony Struc FL / BPD0.72 FL / HC0.18 FL / AC0.21 Other Structures CWV969 bpm General Evaluation Cardiac activity present. FHR [...] view:Appears normal SVC:normal IVC:normal 3-vessel view:Appears normal 8-kcvref-bcfhjxb view:Appears normal Rt lung:Appears normal Lt lung:normal [...] Structures Uterus / Cervix Cervix:Visualized Approach:Transabdominal Cervical beelbu58.6 mm Ovaries / Tubes / Adnexa Rt ovary:Visualized Lt ovary:Visualized Consultation / Office Visit Type: Consultation See [facility] for full consult note. Impression Single, [...] ~28 weeks for growth assessment Coding ======= Description:45060-08 Detailed Rate Examiner: Gris Guerrero RDMS Physician: Cooper Pham MD [...] age documented in this encounter Care Teams Pulping Machine Operator Relationship Specialty Start Date End Date Provider, No Known [place] [id number] PCP - General 03/13/25 documented as of this encounter
--- OUTSIDE RECORDS SUMMARY | 2025-03-20 10:30 | XMS_ITS | Encounter Summary ---
Author Organization [facility] Address [address] [place] [id number] Care Team Providers Care Flexo Folder Gluer Operator Name Role Phone Provider, No Known Primary Care Provider Unavail able Reason for Referral * Diagnostic Imaging (Routine) - Authorized Specialty Diagnoses / Procedures Referred By Contac t Referred To Contact Radiology Diagnoses Short interval between pregnancies affecting in second trimester, antepartum Vaginal bleeding in , second trimester History of delivery affecting Procedures [facility] [place] [address] [place] [address] Phone: tel: fax: [facility] DI[facility] [address] [place] [phone] Phone: tel: Referral ID Status Reason Start Date Expiration Date V isits Requested Visits Authorized [id number] Authorized 03/20/2025 06/19/2026 4 4 Reason for Visit * Reason Comments ISAAC, S>D, Jose Rafael UTD, Prev C/S x 3 Encounter Details Date Type Department Care Team (Late st Contact Info) Description 03/20/2025 10:30 AM EDT Office Visit [facility] [address] [place] [phone] Cooper Pham MD [address] [place] [address] Vaginal bleeding in , second trimester (Primary [...] documented in this encounter Progress Notes * Coopre Pham MD - 03/20/2025 11:17 AM EDTAssociated [...] in , second trimester - [facility] due to vaginal [...] and bilateral UTD-A1. She was admitted to [facility] 03/12- due to heavier vaginal [...] (Primary) Assessment & Plan: - Admitted to [facility] from 03/12- due to vaginal [...] type reviewed and Rh positive Orders: [facility]; Standing 2. Suspected anomaly, antepartum, [...] may compound overall maternal risk Orders: - [facility]; Standing 5. History of delivery affecting Assessment & Plan: - Three prior C/S reported; no operative reports available for review at time of consultation - PAS risk increases with the number of prior sections, independent of interpregnancy interval - On US today, the placenta is posterior with no overt sonographic evidence of PAS Orders: - [facility]; Standing Follow Up Return in [...] CVS. Cooper Pham MD, FACOG Maternal Medicine, [facility] documented in this encounter Plan of Treatment Upcoming Encounters Date Type Department Care Team (Late st Contact Info) Description 04/24/2025 1:45 PM EDT Office Visit [facility] [address] [facility] [address] [place] [address] 04/24/2025 1:45 PM EDT Appointment [facility] [address] [place] [address] Scheduled Orders Name Type Priority Associated Diagnoses Orde r Schedule [facility] [place] Imaging Routine Short interval between pregnancies affecting [...] affecting documented in this encounter Care Teams Flexo Folder Gluer Operator Relationship Specialty Start Date End Date Provider, [place] [address] PCP - General 03/13/25 documented as of this encounter
--- OUTSIDE RECORDS SUMMARY | 2025-04-04 12:07 | XMS_ITS | Encounter Summary ---
Author Organization [facility] Address [address] [place] [address] Care Team Providers Care Hand Decorator Name Role Phone Provider, No Known Primary [...] Description 04/24/2025 1:45 PM EDT Office Visit [facility] [address] [facility] [address] [place] [address] 04/24/2025 1:45 PM EDT Appointment [facility] [address] [facility] [place] [address] documented as of this encounter Visit Diagnoses Not on filedocumented in this encounter Care Teams Hand Decorator Relationship Specialty Start Date End Date Provider, No Known [facility] [place] [address] PCP - General 03/13/25 documented as of this encounter
--- OUTSIDE RECORDS SUMMARY | 2025-04-04 12:07 | XMS_ITS | Clinical Summary ---
Author Organization [facility] Address [address] [place] [address] Care Team Providers Care Oracle Database Consultant Name Role Phone Provider, No Known Primary [...] (03/20/2025 12:09 PM EDT): - Admitted to [facility] from 03/12- due to vaginal [...] Description 03/20/2025 10:30 AM EDT Office Visit [facility] [address] [place] [address] Cooper Pham MD Vaginal bleeding in , second trimester (Primary Dx); Suspected anomaly, antepartum, single or unspecified fetus; Fundal height high for dates; Short interval between pregnancies affecting in second trimester, antepartum; History of delivery affecting 03/20/2025 10:19 AM EDT - 03/20/2025 11:59 PM EDT Hospital Encounter [facility] [address] [place] [address] Kenisha Fitzgerald MD Subchorionic hematoma [...] Description 04/24/2025 1:45 PM EDT Office Visit [facility] [address] [facility] [address] [place] [address] 04/24/2025 1:45 PM EDT Appointment [facility] [address] [place] [address] Health Maintenance Due Date Last [...] Priority Date/Time Associated Diagnosis Comments [facility] Routine 03/20/2025 11:31 AM EDT Subchorionic hematoma in second trimester, single or unspecified fetus Encounter for maternal care for excessive growth in second trimester, single or unspecified fetus Encounter for repeat ultrasound of pyelectasis in [place] , antepartum History of , unspecified gestational age from Last 3 Months Results * [facility] (03/20/2025 11:31 AM EDT) Anatomical Region Laterality Modality Ultrasound 03/20/2025 11:1 4 AM EDT Narrative 03/20/2025 12:20 PM EDT PAT NAME: PAMELA BONILLA MED REC#: [id number] DA: [id number] PAT GEND: F PAT TYPE: O EXAM LENCHO: [id number] REF PHYS KENISHA FITZGERALD Comparison Studies There [...] EFW (oz) 8 oz EFW by: Hadlock (MZO-NY-ME-FL) Extended Tibia 34.6 mm 22w 6d 43% Geo Fibula 36.0 mm 23w 4d 59% Geo Radius 33.1 mm 23w 4d 55% Geo Ulna 36.6 mm 24w 3d 74% Geo Cav. septi pel. tr 5.0 mm Manager Instrumentation 5.3 mm CM 7.8 mm 95% Nicolaides [...] normal IVC: normal 3-vessel view: Appears normal 5-efnxgc-zdeyilm view: Appears normal Rt lung: Appears normal [...] Consultation / Office Visit Type: Consultation See [facility] for full consult note. Impression Single, [...] weeks for growth assessment Coding ======= Description: 77149-86 Detailed Insurance Representative: Gris Guerrero RDMS Physician: Cooper Pham MD Electronically signed by: Cooper Pham MD at: 12:20 Procedure Note Cooper Pham MD - 03/20/2025 PAT NAME: PAMELA BONILLA MED REC#: [id number] DA: [id number] PAT GEND: F PAT TYPE: O EXAM LENCHO: [id number] REF PHYS KENISHA FITZGERALD Comparison Studies There are no relevant prior studies to which this study is beingcompared Patient Status Outpatient Indication ======== Chronic subchorionic hemorrhage with vaginal bleeding. Size greater thandates. Previous c/s x 3. Maternal Assessment Gupxol810 cm Height (ft)5 ft Height (in)4 in Pgnyyd93 kg Weight (lb)165 lb BMI28.52 kg/m Method ======= Transabdominal ultrasound examination. View: Adequate view ========= [place] . Number of fetuses: 1 Dating ====== Method of dating:based on stated EMILY GA by prior aobaaigpwr63 w + 0 d EMILY by prior [...] Hadlock Femur42.2 mm 23w 5d 64% Hadlock Wmonsqv34.2 mm 24w 0d 69% Geo HC / AC1.13 MOK258 g 24w 1d 95% Hadlock EFW (lb)1 lb EFW (oz)8 oz EFW by:Hadlock (JPN-PQ-JE-FL) Extended Tibia34.6 mm 22w 6d 43% Geo Fzkrbr99.0 mm 23w 4d 59% Geo Hnamkk33.1 mm 23w 4d 55% Geo Ulna36.6 mm 24w 3d 74% Geo Cav. septi pel. tr5.0 mm Vp5.3 mm CM7.8 mm 95% Nicolaides Nasal bone7.4 mm Head / Face / Neck Cephalic index0.72 2% Nicolaides Extremities / Bony Struc FL / BPD0.72 FL / HC0.18 FL / AC0.21 Other Structures YWT315 bpm General Evaluation Cardiac activity present. FHR [...] view:Appears normal SVC:normal IVC:normal 3-vessel view:Appears normal 9-aieauw-nkdgrqp view:Appears normal Rt lung:Appears normal Lt lung:normal [...] Structures Uterus / Cervix Cervix:Visualized Approach:Transabdominal Cervical mesqva30.6 mm Ovaries / Tubes / Adnexa Rt ovary:Visualized Lt ovary:Visualized Consultation / Office Visit Type: Consultation See [facility] for full consult note. Impression Single, [...] ~28 weeks for growth assessment Coding ======= Description:[id number] Detailed Insurance Representative: Gris Guerrero RDMS Physician: Cooper Pham MD Electronically signed by: Cooper Pham MD at: 12:20 us Kenisha Fitzgerald MD G US ORDERABLES Final Resul t from Last 3 Months Insurance Care Teams Oracle Database Consultant Relationship Specialty Start Date End Date Provider, No Known [facility] [place] [address] PCP - General 03/13/25
--- NOTE | 2025-04-04 12:10 | US_ITS ---
PROCEDURE INFORMATION: Exam: US , Follow up Exam date and time: 04/04/2025 12:22 PM Age: 25 years old Clinical indication: Lmp or gestational age (in weeks): 25w1d; Other: Bleeding; ; Additional info: Follow up abruption LABS AND CLINICAL REPORTS: Gestational age (Established): 25 w 1 d Estimated due date (Established): 07/17/2025 TECHNIQUE: Imaging protocol: Transabdominal ultrasound of the uterus, real time with image documentation. Follow-up (eg, re-evaluation of size by measuring standard growth parameters and amniotic fluid volume, re-evaluation of organ system(s) suspected or confirmed to be abnormal on a previous scan). COMPARISON: US OB FOLLOW UP 03/29/2025 3:53 PM FINDINGS: Gestation: There is a single intrauterine gestation containing a fetus. Estimated age by ultrasound 25 weeks 1 day. heart rate: 153 bpm. Cardiac activity: 153 bpm presentation and position: Cephalic. Placenta: Placenta is posterior, grade 2/3. There is a linear echogenicity at the site of previously suspected placental hematoma. No splaying of the membranes or discrete collection is identified on today's exam. Amniotic fluid index: BECKY is 11.74 cm. Amniotic fluid index 6.1 cm Umbilical cord and insertion: There is a three-vessel umbilical cord BIOMETRY: Estimated due date (AUA): 07/17/2025 MATERNAL: Cervix: Cervix is long and measures 5.4 cm. IMPRESSION: 1. Single live intrauterine with gestational age by ultrasound 25 weeks 1 day 2. Placenta is posterior, grade 2/3. There is a linear echogenicity at the site of previously suspected placental hematoma. No discrete collection is identified on today's exam
[2025-04-04] MEDS: LACTATED RINGERS 1000ML 1,000 ML 999 ML IV (12:26)
[2025-04-04 12:35] VITALS: BMI 28.5
[2025-04-04 14:10] VITALS: BP 121/77; PULSE 101; RESP 17; TEMP 37.1; O2SAT 96
[2025-04-04] MEDS: BETAMETHASONE ACET/PHOS 6MG/ML 5ML MDV 12 MG IM (14:24)
== END 2025-04-04 16:19 | disposition home or self-care (01) ==
LOC: OBOUT 12:02 → OB 12:05
PROVIDERS: Visit Provider Nurse Practitioner Obstetrics & Gynecology
DX: O28.3 Abnormal ultrasonic finding on antenatal screening of mother (principal); O46.92 Antepartum hemorrhage, unspecified, second trimester; Z3A.25 25 weeks gestation of pregnancy
CPT/HCPCS: 76816; 96360; 96361; 99212; G0463; J0702; J7120

== ENCOUNTER 2025-04-05 16:06 | Outpatient (CLI) | payer OTHER, SELFPAY ==
--- OUTSIDE RECORDS SUMMARY | 2025-03-20 10:19 | XMS_ITS | Encounter Summary ---
Author Organization [facility] Address [address] [place] [id number] Care Team Providers Care Crane Rigger Name Role Phone Provider, No Known Primary Care Provider Unavail able Reason for Referral * Diagnostic Imaging (Routine) - Closed Specialty Diagnoses / Procedures Referred By Chad noel Referred To Contact Radiology Diagnoses Subchorionic hematoma in second trimester, single or unspecified fetus Encounter for maternal care for excessive growth in second trimester, single or unspecified fetus Encounter for repeat ultrasound of pyelectasis in [place] , antepartum History of , unspecified gestational age Procedures [facility] Kenisha Fitzgerald MD [address] [place] [address] [address] Phone: tel: fax: [facility] [address] [place] [address] Phone: tel: Referral ID Status Reason Start Date Expiration Date Visits Re quested Visits Authorized [id number] Closed 03/13/2025 06/12/2026 1 1 Reason for Visit * Diagnostic Imaging (Routine) - Closed Specialty Diagnoses / Procedures Referred By Chad noel Referred To Contact Radiology Diagnoses Subchorionic hematoma in second trimester, single or unspecified fetus Encounter for maternal care for excessive growth in second trimester, single or unspecified fetus Encounter for repeat ultrasound of pyelectasis in [place] , antepartum History of , unspecified gestational age Procedures [facility] Kenisha Fitzgerald MD [address] [place] [address] [place] [place] [address] Phone: tel: fax: [facility] [address] [place] [address] Phone: tel: Referral ID Status Reason Start Date Expiration Date Visits Re quested Visits Authorized [id number] Closed 03/13/2025 06/12/2026 1 1 Encounter Details Date Type Department Care Team (Latest Contact Info) Description 03/20/2025 10:19 AM EDT - 03/20/2025 11:59 PM EDT Hospital Encounter [facility] [address] [place] [id number] Kenisha Fitzgerald MD [address] [place] [address] [address] [facility] [place] [place] [address] [address] Subchorionic hematoma in second trimester, single or unspecified fetus; Encounter for maternal care for excessive growth in second trimester, single or unspecified fetus; Encounter for repeat ultrasound of pyelectasis in [place] , antepartum; History of ; , unspecified gestational age Discharge Disposition: Home or Self Care Social History Tobacco Use Types Packs/Day Years Used Date Smoking Tobacco: Never Smokeless Tobacco: Never Alcohol Use Standard Drinks/Week Comments Never 0 (1 standard drink = 0.6 oz pur e alcohol) Estimated Date of Delivery Comme nts Yes 07/17/2025 Date entered francesca or to episode creation Sex and Gender Information Value Date Recorded Sex Assigned at Not on file Legal Sex Female 12:14 PM EDT Gender Identity Not on file Sexual Orientation Not on file documented as of this encounter Medications at Time of Discharge 28-0.8 MG tablet Take 1 tablet by mouth Daily. 11/23/2024 documented as of this encounter Plan of Treatment Upcoming Encounters Date Type Department Care Team (Late Contact Info) Description 04/24/2025 1:45 PM EDT Office Visit [facility]ERNAL [facility]ICINE [address] [place] [address] 04/24/2025 1:45 PM EDT Appointment [facility] [address] [place] [address] documented as of this encounter Procedures Procedure Name Priority Date/Time Associated Diagnosis Comments [facility] Routine 03/20/2025 11:31 AM EDT Subchorionic hematoma in second trimester, single or unspecified fetus Encounter for maternal care for excessive growth in second trimester, single or unspecified fetus Encounter for repeat ultrasound of pyelectasis in [place] , antepartum History of , unspecified gestational age documented in this encounter Results * [facility] (03/20/2025 11:31 AM EDT) Anatomical Region Laterality Modality Ultrasound 03/20/2025 11:1 4 AM EDT Narrative 03/20/2025 12:20 PM EDT PAT NAME: PAMELA BONILLA MED REC#: [id number] DA: [id number] PAT GEND: F PAT TYPE: O EXAM LENCHO: [id number] REF PHYS KENISHA FITZGERALD Comparison Studies There are no relevant prior studies to which this study is being compared Patient Status Outpatient Indication ======== Chronic subchorionic hemorrhage with vaginal bleeding. Size greater than dates. Previous c/s x 3. Maternal Assessment Height 162 cm Height (ft) 5 ft Height (in) 4 in Weight 75 kg Weight (lb) 165 lb BMI 28.52 kg/m Method ======= Transabdominal ultrasound examination. View: Adequate view ========= [place] . Number of fetuses: 1 Dating ====== Method of dating: based on stated EMILY GA by prior assessment 23 w + 0 d EMILY by prior assessment: 07/17/2025 Ultrasound examination on: 03/20/2025 GA by U/S based upon: AC, BPD, Femur, HC GA by U/S 24 w + 3 d EMILY by U/S: 07/07/2025 Assigned: based on stated EMILY, selected on 03/20/2025 Assigned GA 23 w + 0 d Assigned EMILY: 07/17/2025 length 280 d Biometry Standard BPD 58.7 mm 24w 0d 81% Hadlock OFD 82.0 mm 26w 5d >99% Geo HC 228.4 mm 24w 6d 94% Hadlock Cerebellum tr 27.7 mm 24w 4d >99% Hill AC 202.2 mm 24w 6d 91% Hadlock Femur 42.2 mm 23w 5d 64% Hadlock Humerus 39.2 mm 24w 0d 69% Geo HC / AC 1.13 EFW 692 g 24w 1d 95% Hadlock EFW (lb) 1 lb EFW (oz) 8 oz EFW by: Hadlock (KLB-ON-IT-FL) Extended Tibia 34.6 mm 22w 6d 43% Geo Fibula 36.0 mm 23w 4d 59% Geo Radius 33.1 mm 23w 4d 55% Geo Ulna 36.6 mm 24w 3d 74% Geo Cav. septi pel. tr 5.0 mm Anesthetic Assistant 5.3 mm CM 7.8 mm 95% Nicolaides Nasal bone 7.4 mm Head / Face / Neck Cephalic index 0.72 2% Nicolaides Extremities / Bony Struc FL / BPD 0.72 FL / HC 0.18 FL / AC 0.21 Other Structures FHR 144 bpm General Evaluation Cardiac activity present. FHR 144 bpm. movements present. Presentation breech. Placenta Placental site: posterior. Subchorionic hemorrhage (Size 94.7 mm x 16.3 mm x 42.9 mm). Umbilical cord Cord vessels: 3 vessel cord. Insertion site: placental insertion: normal. Amniotic fluid Amount of AF: normal. MVP 5.4 cm. BECKY 12.0 cm. Q1 2.5 cm, Q2 3.8 cm, Q3 4.1 cm, Q4 1.6 cm. Anatomy Cranium: Appears normal Midline falx: Appears normal Cavum septi pellucidi: Appears normal Cerebellum: Appears normal Cisterna magna: Appears normal Head / Neck Rt lateral ventricle: Appears normal Lt lateral ventricle: Appears normal Rt choroid plexus: Appears normal Lt choroid plexus: Appears normal Vermis: Appears normal Neck: Appears normal Lips: Appear normal Profile: Appears normal Nose: Appears normal Face Nose: Nasal bone present Palate: Appears normal Orbits: Appears normal Lens: Normal 4-chamber view: Appears normal RVOT view: Appears normal LVOT view: Appears normal Heart / Thorax Aortic arch view: Appears normal Ductal arch view: Appears normal SVC: normal IVC: normal 3-vessel view: Appears normal 0-iivmik-demuctf view: Appears normal Rt lung: Appears normal Lt lung: normal Diaphragm: Appears normal Diaphragm: Intact Cord insertion: Appears normal Stomach: Appears normal Bladder: Appears normal Abdomen Rt kidney: 5.3 mm , dilatation Lt kidney: 3.7 mm , dilatation Liver: normal Small bowel: normal Large bowel: normal Cervical spine: Appears normal Thoracic spine: Appears normal Lumbar spine: Appears normal Sacral spine: Appears normal Arms: Appears normal Legs: Appears normal Rt upper arm: Appears normal Rt forearm: Appears normal Rt hand: Appears normal Lt upper arm: Appears normal Lt forearm: Appears normal Lt hand: Appears normal Rt upper leg: Appears normal Rt lower leg: Appears normal Rt foot: Appears normal Lt upper leg: Appears normal Lt lower leg: Appears normal Lt foot: Appears normal Wants to know gender: yes Maternal Structures Uterus / Cervix Cervix: Visualized Approach: Transabdominal Cervical length 48.6 mm Ovaries / Tubes / Adnexa Rt ovary: Visualized Lt ovary: Visualized Consultation / Office Visit Type: Consultation See [facility] for full consult note. Impression Single, live intrauterine at 23w0d size is larger than anticipated for the reported EMILY Amniotic fluid volume is normal Right-sided UTD-A1 The visualized anatomy is otherwise normal Fluid collection between the anterior uterine wall and the membranes No gross placental abnormality appreciated No other abnormalities were appreciated within the limitations of ultrasound Recommendation Follow up ~28 weeks for growth assessment Coding ======= Description: 94142-88 Detailed Control And Recovery Special Tactics: Gris Guerrero RDMS Physician: Cooper Pham MD Electronically signed by: Cooper Pham MD at: 12:20 Procedure Note Cooper Pham MD - 03/20/2025 PAT NAME: PAMELA BONILLA MED REC#: [id number] DA: 2000 PAT GEND: F PAT TYPE: O EXAM LENCHO: [id number] REF PHYS KENISHA FITZGERALD Comparison Studies There are no relevant prior studies to which this study is beingcompared Patient Status Outpatient Indication ======== Chronic subchorionic hemorrhage with vaginal bleeding. Size greater thandates. Previous c/s x 3. Maternal Assessment Haiatu094 cm Height (ft)5 ft Height (in)4 in Innyqt93 kg Weight (lb)165 lb BMI28.52 kg/m Method ======= Transabdominal ultrasound examination. View: Adequate view ========= [place] . Number of fetuses: 1 Dating ====== Method of dating:based on stated EMILY GA by prior [email or web address] w + 0 d EMILY by prior assessment:07/17/2025 Ultrasound examination on:03/20/2025 GA by U/S based upon:AC, BPD, Femur, HC GA by U/S24 w + 3 d EMILY by U/S:07/07/2025 Assigned:based on stated EMILY, selected on 03/20/2025 Assigned GA23 w + 0 d Assigned EMILY:07/17/2025 [id number] d Biometry Standard BPD58.7 mm 24w 0d 81% Hadlock OFD82.0 mm 26w 5d >99% Geo HC228.4 mm 24w 6d 94% Hadlock Cerebellum tr27.7 mm 24w 4d >99% Hill AC202.2 mm 24w 6d 91% Hadlock Femur42.2 mm 23w 5d 64% Hadlock Rjgysbz12.2 mm 24w 0d 69% Geo HC / AC1.13 BQP193 g 24w 1d 95% Hadlock EFW (lb)1 lb EFW (oz)8 oz EFW by:Hadlock (TIH-TV-ZX-FL) Extended Tibia34.6 mm 22w 6d 43% Geo Uxgthj97.0 mm 23w 4d 59% Geo Sanuhm63.1 mm 23w 4d 55% Geo Ulna36.6 mm 24w 3d 74% Geo Cav. septi pel. tr5.0 mm Vp5.3 mm CM7.8 mm 95% Nicolaides Nasal bone7.4 mm Head / Face / Neck Cephalic index0.72 2% Nicolaides Extremities / Bony Struc FL / BPD0.72 FL / HC0.18 FL / AC0.21 Other Structures OKE729 bpm General Evaluation Cardiac activity present. FHR 144 bpm. movements present. Presentation breech. Placenta Placental site: posterior. Subchorionic hemorrhage (Size 94.7 mmx 16.3 mm x 42.9 mm). Umbilical cord Cord vessels: 3 vessel cord. Insertion site: placentalinsertion: normal. Amniotic fluid Amount of AF: normal. MVP 5.4 cm. BECKY 12.0 cm. Q1 2.5 cm,Q2 3.8 cm, Q3 4.1 cm, Q4 1.6 cm. Anatomy Cranium:Appears normal Midline falx:Appears normal Cavum septi pellucidi:Appears normal Cerebellum:Appears normal Cisterna magna:Appears normal Head / Neck Rt lateral ventricle:Appears normal Lt lateral ventricle:Appears normal Rt choroid plexus:Appears normal Lt choroid plexus:Appears normal Vermis:Appears normal Neck:Appears normal Lips:Appear normal Profile:Appears normal Nose:Appears normal Face Nose:Nasal bone present Palate:Appears normal Orbits:Appears normal Lens:Normal 4-chamber view:Appears normal RVOT view:Appears normal LVOT view:Appears normal Heart / Thorax Aortic arch view:Appears normal Ductal arch view:Appears normal SVC:normal IVC:normal 3-vessel view:Appears normal 2-ugdsoh-mxybrzg view:Appears normal Rt lung:Appears normal Lt lung:normal Diaphragm:Appears normal Diaphragm:Intact Cord insertion:Appears normal Stomach:Appears normal Bladder:Appears normal Abdomen Rt kidney:5.3 mm , dilatation Lt kidney:3.7 mm , dilatation Liver:normal Small bowel:normal Large bowel:normal Cervical spine:Appears normal Thoracic spine:Appears normal Lumbar spine:Appears normal Sacral spine:Appears normal Arms:Appears normal Legs:Appears normal Rt upper arm:Appears normal Rt forearm:Appears normal Rt hand:Appears normal Lt upper arm:Appears normal Lt forearm:Appears normal Lt hand:Appears normal Rt upper leg:Appears normal Rt lower leg:Appears normal Rt foot:Appears normal Lt upper leg:Appears normal Lt lower leg:Appears normal Lt foot:Appears normal Wants to know gender:yes Maternal Structures Uterus / Cervix Cervix:Visualized Approach:Transabdominal Cervical .6 mm Ovaries / Tubes / Adnexa Rt ovary:Visualized Lt ovary:Visualized Consultation / Office Visit Type: Consultation See [facility] for full consult note. Impression Single, live intrauterine at 23w0d size is larger than anticipated for the reported EMILY Amniotic fluid volume is normal Right-sided UTD-A1 The visualized anatomy is otherwise normal Fluid collection between the anterior uterine wall and the fetalmembranes No gross placental abnormality appreciated No other abnormalities were appreciated within the limitations ofultrasound Recommendation Follow up ~28 weeks for growth assessment Coding ======= Description:[id number] Detailed Control And Recovery Special Tactics: Gris Guerrero RDMS Physician: Cooper Pham MD Electronically signed by: Cooper Pham MD at: 12:20 us Kenisha Fitzgerald MD G US ORDERABLES Final Resul t documented in this encounter Visit Diagnoses Diagnosis Subchorionic hematoma in second trimester, single or unspecified fetus Encounter for maternal care for excessive growth in second trimester, single or unspecified fetus Encounter for repeat ultrasound of pyelectasis in [place] , antepartum History of Other postprocedural status , unspecified gestational age documented in this encounter Care Teams Crane Rigger Relationship Specialty Start Date End Date Provider, No Known [place] [id number] PCP - General 03/13/25 documented as of this encounter
--- OUTSIDE RECORDS SUMMARY | 2025-03-20 10:30 | XMS_ITS | Encounter Summary ---
Author Organization [facility] Address [address] [place] [id number] Care Team Providers Care Diesel Technology Instructor Name Role Phone Provider, No Known Primary Care Provider Unavail able Reason for Referral * Diagnostic Imaging (Routine) - Authorized Specialty Diagnoses / Procedures Referred By Contac t Referred To Contact Radiology Diagnoses Short interval between pregnancies affecting in second trimester, antepartum Vaginal bleeding in , second trimester History of delivery affecting Procedures [facility] [place] [address] [place] [address] Phone: tel: fax: [facility] DI[facility] [address] [place] [phone] Phone: tel: Referral ID Status Reason Start Date Expiration Date V isits Requested Visits Authorized [id number] Authorized 03/20/2025 06/19/2026 4 4 Reason for Visit * Reason Comments ISAAC, S>D, Jose Rafael UTD, Prev C/S x 3 Encounter Details Date Type Department Care Team (Late st Contact Info) Description 03/20/2025 10:30 AM EDT Office Visit [facility]ERNAL MEDICINE [address] [place] [phone] Cooper Pham MD [address] [place] [address] Vaginal bleeding in , second trimester (Primary [...] in , second trimester - Admitted to [facility] from 03/12- due to vaginal [...] and bilateral UTD-A1. She was admitted to [facility] 03/12- due to heavier vaginal [...] (Primary) Assessment & Plan: - Admitted to [facility] from 03/12- due to vaginal [...] type reviewed and Rh positive Orders: - [facility] Diagnostic Center; Standing 2. Suspected [...] may compound overall maternal risk Orders: - [facility]; Standing 5. History of delivery affecting Assessment & Plan: - Three prior C/S reported; no operative reports available for review at time of consultation - PAS risk increases with the number of prior sections, independent of interpregnancy interval - On US today, the placenta is posterior with no overt sonographic evidence of PAS Orders: - [facility]; Standing Follow Up [...] CVS. Cooper Pham MD, FACOG Maternal Medicine, [facility] documented in this encounter Plan of Treatment Upcoming Encounters Date Type Department Care Team (Late st Contact Info) Description 04/24/2025 1:45 PM EDT Office Visit [facility]IC[facility] [address] [facility] [address] [place] [address] 04/24/2025 1:45 PM EDT Appointment [facility] [address] [place] [address] Scheduled Orders Name Type Priority Associated Diagnoses Orde r Schedule [facility] [place] Imaging Routine Short interval between pregnancies affecting [...] affecting documented in this encounter Care Teams Diesel Technology Instructor Relationship Specialty Start Date End Date Provider, [place] [address] PCP - General 03/13/25 documented as of this encounter
--- OUTSIDE RECORDS SUMMARY | 2025-04-05 16:10 | XMS_ITS | Encounter Summary ---
Author Organization [facility] Address [address] [place] [address] Care Team Providers Care General Production Worker Name Role Phone Provider, No Known [...] Description 04/24/2025 1:45 PM EDT Office Visit [facility] [address] [place] [address] 04/24/2025 1:45 PM EDT Appointment [facility] [address] [facility] [place] [address] documented as of this encounter Visit Diagnoses Not on filedocumented in this encounter Care Teams General Production Worker Relationship Specialty Start Date End Date Provider, No Known [facility] [place] [address] PCP - General 03/13/25 documented as of this encounter
--- OUTSIDE RECORDS SUMMARY | 2025-04-05 16:10 | XMS_ITS | Clinical Summary ---
Author Organization [facility] Address [address] [place] [address] Care Team Providers Care Teleservices Representative Name Role Phone Provider, No Known Primary [...] (03/20/2025 12:09 PM EDT): - Admitted to [facility] from 03/12- due to vaginal bleeding - [...] to delivery - If persistent, will recommend post-alex evaluation and renal ultrasound within the first month of life Estimated Date of Delivery Comme nts Yes 07/17/2025 Date entered francesca or to episode creation Encounters Date Type Department Care Team Description 03/20/2025 10:30 AM EDT Office Visit [facility] MATERNAL MEDICINE [address] [place] [address] Cooper Pham MD Vaginal bleeding in , second trimester (Primary Dx); Suspected anomaly, antepartum, single or unspecified fetus; Fundal height high for dates; Short interval between pregnancies affecting in second trimester, antepartum; History of delivery affecting 03/20/2025 10:19 AM EDT - 03/20/2025 11:59 PM EDT Hospital Encounter [facility] [address] [place] [address] Kenisha Fitzgerald MD Subchorionic hematoma [...] Description 04/24/2025 1:45 PM EDT Office Visit [facility] MATERNAL MEDICINE [address] [facility] [address] [place] [address] 04/24/2025 1:45 PM EDT Appointment [facility] [address] [place] [address] Health Maintenance Due Date Last [...] Priority Date/Time Associated Diagnosis Comments [facility] Routine 03/20/2025 11:31 AM EDT Subchorionic hematoma in second trimester, single or unspecified fetus Encounter for maternal care for excessive growth in second trimester, single or unspecified fetus Encounter for repeat ultrasound of pyelectasis in pineda , antepartum History of , unspecified gestational age from Last 3 Months Results * [facility] (03/20/2025 11:31 AM EDT) Anatomical Region Laterality Modality Ultrasound 03/20/2025 11:1 4 AM EDT Narrative 03/20/2025 12:20 PM EDT PAT NAME: PAMELA BONILLA MED REC#: [id number] DA: [id number] PAT GEND: F PAT TYPE: O EXAM LENCHO: [id number] REF PHYS KENISHA FITZGERALD Comparison Studies There [...] EFW (oz) 8 oz EFW by: Hadlock ([id number]) Extended Tibia 34.6 mm 22w 6d 43% Geo Fibula 36.0 mm 23w 4d 59% Geo Radius 33.1 mm 23w 4d 55% Geo Ulna 36.6 mm 24w 3d 74% Geo Cav. septi pel. tr 5.0 mm Restaurant Server 5.3 mm CM 7.8 mm 95% Nicolaides [...] normal IVC: normal 3-vessel view: Appears normal 1-qcgcil-jawcdaa view: Appears normal Rt lung: Appears normal [...] Consultation / Office Visit Type: [facility]. Impression [...] weeks for growth assessment Coding ======= Description: 98250-33 Detailed Temper Mill Roller: Gris Guerrero RDMS Physician: Cooper Pham MD Electronically signed by: Cooper Pham MD at: 12:20 Procedure Note Cooper Pham MD - 03/20/2025 PAT NAME: PAMELA BONILLA MED REC#: [id number] DA: [id number] PAT GEND: F PAT TYPE: O EXAM LENCHO: [id number] REF PHYS KENISHA FITZGERALD Comparison Studies There are no relevant prior studies to which this study is beingcompared Patient Status Outpatient Indication ======== Chronic subchorionic hemorrhage with vaginal bleeding. Size greater thandates. Previous c/s x 3. Maternal Assessment Kjksnv047 cm Height (ft)5 ft Height (in)4 in Jdfual42 kg Weight (lb)165 lb BMI28.52 kg/m Method ======= Transabdominal ultrasound examination. View: Adequate view ========= Pineda . Number of fetuses: 1 Dating ====== Method of dating:based on stated EMILY GA by prior [id number] w + 0 d EMILY by prior assessment:07/17/2025 Ultrasound examination on:03/20/2025 GA by U/S based upon:AC, BPD, Femur, HC GA by U/S24 w + 3 d EMILY by U/S:07/07/2025 Assigned:based on stated EMILY, selected on 03/20/2025 Assigned GA23 w + 0 d Assigned EMILY:07/17/2025 [id number] d Biometry Standard BPD58.7 mm 24w 0d 81% Hadlock OFD82.0 mm 26w 5d >99% Geo HC228.4 mm 24w 6d 94% Hadlock Cerebellum tr27.7 mm 24w 4d >99% Hill AC202.2 mm 24w 6d 91% Hadlock Femur42.2 mm 23w 5d 64% Hadlock Ysvnarm70.2 mm 24w 0d 69% Geo HC / AC1.13 VYW421 g 24w 1d 95% Hadlock EFW (lb)1 lb EFW (oz)8 oz EFW by:Hadlock ([id number]) Extended Tibia34.6 mm 22w 6d 43% Geo Jqaang63.0 mm 23w 4d 59% Geo Iycylw00.1 mm 23w 4d 55% Geo Ulna36.6 mm 24w 3d 74% Geo Cav. septi pel. tr5.0 mm Vp5.3 mm CM7.8 mm 95% Nicolaides Nasal bone7.4 mm Head / Face / Neck Cephalic index0.72 2% Nicolaides Extremities / Bony Struc FL / BPD0.72 FL / HC0.18 FL / AC0.21 Other Structures FXU955 bpm General Evaluation Cardiac activity present. FHR [...] view:Appears normal SVC:normal IVC:normal 3-vessel view:Appears normal 0-xppqvn-fmfjnyj view:Appears normal Rt lung:Appears normal Lt lung:normal [...] Consultation / Office Visit Type: [facility]. Impression [...] ~28 weeks for growth assessment Coding ======= Description:59853-47 Detailed Temper Mill Roller: Gris Guerrero RDMS Physician: Cooper Pham MD Electronically signed by: Cooper Pham MD at: 12:20 us Kenisha Fitzgerald MD G US ORDERABLES Final Resul t from Last 3 Months Insurance Care Teams Teleservices Representative Relationship Specialty Start Date End Date Provider, No Known [facility] [place] [address] PCP - General 03/13/25
[2025-04-05] MEDS: BETAMETHASONE ACET/PHOS 6MG/ML 5ML MDV 12 MG IM (16:33)
== END 2025-04-05 23:59 | disposition home or self-care (01) ==
LOC: INF 16:09
PROVIDERS: Visit Provider Nurse Practitioner Obstetrics & Gynecology
DX: Z01.89 Encounter for other specified special examinations (principal)
CPT/HCPCS: 96372; 99211; J0702

== ENCOUNTER 2025-04-25 09:04 | Outpatient (CLI) | payer OTHER, SELFPAY ==
--- OUTSIDE RECORDS SUMMARY | 2025-03-20 10:19 | XMS_ITS | Encounter Summary ---
Author Organization [facility] Address [address] [place] [phone] Care Team Providers Care Machine Guide Base Winder Name Role Phone Provider, No Known Primary [...] [facility] Kenisha Fitzgerald MD [address] [place] [address] [address] Phone: tel: fax: [facility] [address] [place] [address] Phone: tel: Referral ID Status Reason Start Date Expiration Date Visits Re quested Visits Authorized [id number] Closed 03/13/2025 06/12/2026 1 1 Reason for [...] [facility] Kenisha Fitzgerald MD [address] [place] [address] [place] [address] [place] [address] Phone: tel: fax: [facility] [address] [place] [address] Phone: tel: Referral ID Status Reason Start Date Expiration Date Visits Re quested Visits Authorized [id number] Closed 03/13/2025 06/12/2026 1 1 Encounter Details Date Type Department Care Team (Latest Contact Info) Description 03/20/2025 10:19 AM EDT - 03/20/2025 11:59 PM EDT Hospital Encounter [facility] [address] [place] [address] Kenisha Fitzgerald MD [address] [place] [address] E [facility] [place] [address] Subchorionic hematoma in second trimester, single or [...] Take 1 tablet by mouth Daily. 11/23/2024 04/07/2025 documented as of this encounter Plan of Treatment Upcoming Encounters Date Type Department Care Team (Late st Contact Info) Description 05/16/2025 11:30 AM EST Office Visit [facility] [address] [place] [address] documented as of this encounter Procedures Procedure Name Priority Date/Time Associated Diagnosis Comments [facility] Routine 03/20/2025 11:31 AM EDT Subchorionic hematoma in second trimester, single or unspecified fetus Encounter for maternal care for excessive growth in second trimester, single or unspecified fetus Encounter for repeat ultrasound of pyelectasis in [place]ined[place] , antepartum History of , unspecified gestational age documented in this encounter Results * [facility] (03/20/2025 11:31 AM EDT) Anatomical Region Laterality Modality Ultrasound 03/20/2025 11:1 4 AM EDT Narrative 03/20/2025 12:20 PM EDT PAT NAME: PAMELA BONILLA MED REC#: [id number] DA: [id number] PAT GEND: F PAT TYPE: O EXAM LENCHO: [id number] REF PHYS KENISHA FITZGERALD Comparison Studies There [...] EFW (oz) 8 oz EFW by: Hadlock (IVS-HP-UR-FL) Extended Tibia 34.6 mm 22w 6d 43% Geo Fibula 36.0 mm 23w 4d 59% Geo Radius 33.1 mm 23w 4d 55% Geo Ulna 36.6 mm 24w 3d 74% Geo Cav. septi pel. tr 5.0 mm Needle Control Cheniller 5.3 mm CM 7.8 mm 95% Nicolaides [...] normal IVC: normal 3-vessel view: Appears normal 0-eqvtqu-tfvlvpz view: Appears normal Rt lung: Appears normal [...] Consultation / Office Visit Type: Consultation See [facility] for full consult note. Impression Single, [...] weeks for growth assessment Coding ======= Description: 41093-48 Detailed Off Premise Service Representative: Gris Guerrero RDMS Physician: Cooper Pham MD Electronically signed by: Cooper Pham MD at: 12:20 Procedure Note Cooper Pham MD - 03/20/2025 PAT NAME: PAMELA BONILLA MED REC#: [id number] DA: 2000 PAT GEND: F PAT TYPE: O EXAM LENCHO: [id number] REF PHYS KENISHA FITZGERALD Comparison Studies There are no relevant prior studies to which this study is beingcompared Patient Status Outpatient Indication ======== Chronic subchorionic hemorrhage with vaginal bleeding. Size greater thandates. Previous c/s x 3. Maternal Assessment Yiolkg898 cm Height (ft)5 ft Height (in)4 in Clcixt39 kg Weight (lb)165 lb BMI28.52 kg/m Method ======= Transabdominal ultrasound examination. View: Adequate view ========= Pineda . Number of fetuses: 1 Dating ====== Method of dating:based on stated EMILY GA by prior lemcfhamjj80 w + 0 d EMILY by prior assessment:07/17/2025 Ultrasound examination on:03/20/2025 GA by U/S based upon:AC, BPD, Femur, HC GA by U/S24 w + 3 d EMILY by U/S:07/07/2025 Assigned:based on stated EMILY, selected on 03/20/2025 Assigned GA23 w + 0 d Assigned EMILY:07/17/2025 spzycl466 d Biometry Standard BPD58.7 mm 24w 0d 81% Hadlock OFD82.0 mm 26w 5d >99% Geo HC228.4 mm 24w 6d 94% Hadlock Cerebellum tr27.7 mm 24w 4d >99% Hill AC202.2 mm 24w 6d 91% Hadlock Femur42.2 mm 23w 5d 64% Hadlock Yhmtdip59.2 mm 24w 0d 69% Geo HC / AC1.13 UBP481 g 24w 1d 95% Hadlock EFW (lb)1 lb EFW (oz)8 oz EFW by:Hadlock (OCC-SQ-AL-FL) Extended Tibia34.6 mm 22w 6d 43% Geo Nslkqn28.0 mm 23w 4d 59% Geo Jwqgar91.1 mm 23w 4d 55% Geo Ulna36.6 mm 24w 3d 74% Geo Cav. septi pel. tr5.0 mm Vp5.3 mm CM7.8 mm 95% Nicolaides Nasal bone7.4 mm Head / Face / Neck Cephalic index0.72 2% Nicolaides Extremities / Bony Struc FL / BPD0.72 FL / HC0.18 FL / AC0.21 Other Structures BDM493 bpm General Evaluation Cardiac activity present. FHR [...] view:Appears normal SVC:normal IVC:normal 3-vessel view:Appears normal 1-rrtwih-ywdpznt view:Appears normal Rt lung:Appears normal Lt lung:normal [...] Structures Uterus / Cervix Cervix:Visualized Approach:Transabdominal Cervical eljmuu67.6 mm Ovaries / Tubes / Adnexa Rt ovary:Visualized Lt ovary:Visualized Consultation / Office Visit Type: Consultation See [facility] for full consult note. Impression Single, [...] ~28 weeks for growth assessment Coding ======= Description:11149-78 Detailed Off Premise Service Representative: Gris Guerrero RDMS Physician: Cooper Pham MD Electronically signed by: Cooper Pham MD at: 12:20 us Kenisha Fitzgerald MD IMG US ORDERABLES Final Resul t documented in this encounter Visit Diagnoses Diagnosis Subchorionic hematoma in second trimester, single or unspecified fetus Encounter for maternal care for excessive growth in second trimester, single or unspecified fetus Encounter for repeat ultrasound of pyelectasis in [place] , antepartum History of Other postprocedural status , unspecified gestational age documented in this encounter Care Teams Machine Guide Base Winder Relationship Specialty Start Date End Date Provider, No Known [place] [id number] PCP - General 03/13/25 documented as of this encounter
--- OUTSIDE RECORDS SUMMARY | 2025-03-20 10:30 | XMS_ITS | Encounter Summary ---
Author Organization [facility] Address [address] [place] [id number] Care Team Providers Care Trimmer Buffing Wheel Name Role Phone Provider, No Known Primary Care Provider Unavail able Reason for Referral * Diagnostic Imaging (Routine) - Authorized Specialty Diagnoses / Procedures Referred By Contac t Referred To Contact Radiology Diagnoses Short interval between pregnancies affecting in second trimester, antepartum Vaginal bleeding in , second trimester History of delivery affecting Procedures [facility] [place] [address] [place] [address] Phone: tel: fax: [facility] US PER DIAG CTR [address] [place] [phone] Phone: tel: Referral ID Status Reason Start Date Expiration Date V isits Requested Visits Authorized [id number] Authorized 03/20/2025 06/19/2026 4 4 Reason for Visit * Reason Comments ISAAC, S>D, Jose Rafael UTD, Prev C/S x 3 Encounter Details Date Type Department Care Team (Late st Contact Info) Description 03/20/2025 10:30 AM EDT Office Visit [facility]NAL MEDICINE [address] [place] [phone] Cooper Pham MD [address] [place] [address] Vaginal bleeding in , second trimester (Primary Dx); Suspected anomaly, antepartum, single or unspecified fetus; Fundal height high for dates; Short interval between pregnancies affecting in second trimester, antepartum; History of delivery affecting Social History Tobacco Use Types Packs/Day Years Used Date Smoking Tobacco: Never Smokeless Tobacco: Never Tobacco Cessation:Counseling Given: Not Answered Alcohol Use Standard Drinks/Week Comments Never 0 [...] on file documented as of this encounter Last Filed Vital Signs Vital Sign Reading Time Taken Comments Blood Pressure 117/75 03/20/2025 10:48 AM EDT Pulse - - Temperature - - Respiratory Rate - - Oxygen Saturation - - Inhaled Oxygen Concentration - - Weight 74.8 kg (165 lb) 03/20/2025 10:48 AM EDT Height 162.6 cm (5' 4 ) 03/20/2025 10:52 AM EDT Body Mass Index 28.32 03/20/2025 10:48 AM EDT documented in this encounter Progress Notes * Cooper Pham MD - 03/20/2025 11:17 AM EDTAssociated Problem(s): Fundal height high for dates - Prior US with concern for accelerated growth due to a large AC - On US today, size is larger than expected given the EMILY - EFW 692 (95%), AC 91% - Inquired about dating critera and patient reports she is dated based on LMP that was consistent with a first trimester U/S; records requested - Prior infants have been larger, with the G3 being 98%ile for birthweight; denies any history of gestational DM and reports she has always passed screening tests - Recommended screening for GDM at 24 weeks with a 1-hr GTT. If non-diagnostic and the continues to show accelerated growth, would consider 3-hr GTT at 28 weeks to ensure there is no componentof GDM at play * Cooper Pham MD - 03/20/2025 11:15 AM EDTAssociated Problem(s): Short interval between pregnancies affecting in second trimester, a ntepartum - Higher risk of uterine rupture given less than 18-24 months - PAS risk increases with the number of prior sections, independent of interpregnancy interval, but a short interval may compound overall maternal risk * Cooper Pham MD - 03/20/2025 11:12 AM EDTAssociated Problem(s): History of delivery affecting - Three prior C/S reported; no operative reports available for review at time of consultation - PAS risk increases with the number of prior sections, independent of interpregnancy interval - On US today, the placenta is posterior with no overt sonographic evidence of PAS * Cooper Pham MD - 03/20/2025 11:11 AM EDTAssociated Problem(s): Vaginal bleeding in , second trimester - Admitted to [facility] from 03/12- due to vaginal bleeding - Prior US at the OSH have reported a concern for a subamniotic hemorrhage/hematoma - On US today, there is no discrete hematoma appreciated and no gross placental pathology is seen, though resolution for placental abruption on obstetric ultrasound is low - Discussed that there is a collection of fluid anteriorly that likely represents blood given the patient's clinical presentation - Overall concerning for a chronic abruption; discussed that she is at high risk for PPROM and - Discussed bleeding precautions and reasons to present to care - Patient's blood type reviewed and Rh positive * Loretta Atkinson RN - 03/20/2025 10:30 AM EDT Patient reports constant vaginal bleeding, currently dark red spotting today. Stayed overnight in hospital on Thursday, Mar.13 for heavy bleeding. This was the last time patient reports significant bleeding event. Denies leaking fluid. Patient reports cramping that comes and goes, last time was 2 days ago, but reports she is feeling none today. Endorses normal movement. NIPT low risk. Next OB follow-up appointment with Dr. Fitzgerald is uncertain, patient will verify with her physician. * Cooper Pham MD - 03/20/2025 10:30 AM EDT Images from the original note were not included. Maternal Medicine Consult Note Date: 03/20/2025 Name: Pamela Bonilla : 2000 EMILY: Estimated Date of Delivery: 07/17/25 Referring Provider: Kenisha Fitzgerald MD Chief Complaint ISAAC, S>D, Jose Rafael UTD, Prev C/S x 3 Subjective History of Present Illness: Pamela Bonilla is a 24 y.o. 23w0d who presents today for initial consultation due to a complicated by vaginal bleeding, prior C/S x3, short inter- interval, and bilateral UTD-A1. She was admitted to [facility] 03/12- due to heavier vaginal bleeding but was ultimately discharged and she has not had any heavy vaginal bleeding since that time. Today, she reports vaginal spotting, which she states has been occurring for almost all of the . She denies any abdominal pain or leakage of fluid. She reports movement. ROS: Review of Systems Constitutional: Negative for chills and fever. Eyes: Negative for visual disturbance. Respiratory: Negative for cough and shortness of breath. Cardiovascular: Negative for chest pain. Gastrointestinal: Negative for abdominal pain, nausea and vomiting. Genitourinary: Positive for vaginal bleeding. Skin: Negative for rash. Neurological: Negative for headache. Psychiatric/Behavioral: The patient is not nervous/anxious. History reviewed. No pertinent past medical history. Past Surgical History: Procedure Laterality Date SECTION x3 TONSILLECTOMY OB History 5 Para 3 Term 3 0 AB 1 Living 3 SAB 1 IAB 0 Ectopic 0 Molar 0 Multiple 0 Live Births 3 Current Outpatient Medications: 28-0.8 MG tablet, Take 1 tablet by mouth Daily., Disp: , Rfl: Objective Vital Signs BP 117/75 Ht 162.6 cm (64 ) Wt 74.8 kg (165 lb) Estimated body mass index is 28.32 kg/m?? as calculated from the following: Height as of this encounter: 162.6 cm (64 ). Weight as of this encounter: 74.8 kg (165 lb). Physical Exam Vitals and nursing note reviewed. Constitutional: General: She is not in acute distress. Appearance: Normal appearance. HENT: Head: Normocephalic. Pulmonary: Effort: Pulmonary effort is normal. No respiratory distress. Abdominal: Tenderness: There is no abdominal tenderness. Skin: General: Skin is warm and dry. Neurological: Mental Status: She is alert. Psychiatric: Mood and Affect: Mood normal. Behavior: Behavior normal. Ultrasound Impression: Single, live intrauterine at 23w0d size is larger than anticipated for the reported EMILY Amniotic fluid volume is normal Right-sided UTD-A1 The visualized anatomy is otherwise normal Fluid collection between the anterior uterine wall and the membranes No gross placental abnormality appreciated No other abnormalities were appreciated within the limitations of ultrasound Assessment and Plan Diagnoses and all orders for this visit: 1. Vaginal bleeding in , second trimester (Primary) Assessment & Plan: - Admitted to [facility] from 03/12- due to vaginal bleeding - Prior US at the OSH have reported a concern for a subamniotic hemorrhage/hematoma - On US today, there is no discrete hematoma appreciated and no gross placental pathology is seen, though resolution for placental abruption on obstetric ultrasound is low - Discussed that there is a collection of fluid anteriorly that likely represents blood given the patient's clinical presentation - Overall concerning for a chronic abruption; discussed that she is at high risk for PPROM and - Discussed bleeding precautions and reasons to present to care - Patient's blood type reviewed and Rh positive Orders: - [facility]; Standing 2. Suspected anomaly, antepartum, single or unspecified fetus 3. Fundal height high for dates Assessment & Plan: - Prior US with concern for accelerated growth due to a large AC - On US today, size is larger than expected given the EMILY - EFW 692 (95%), AC 91% - Inquired about dating critera and patient reports she is dated based on LMP that was consistent with a first trimester U/S; records requested - Prior infants have been larger, with the G3 being 98%ile for birthweight; denies any history of gestational DM and reports she has always passed screening tests - Recommended screening for GDM at 24 weeks with a 1-hr GTT. If non-diagnostic and the continues to show accelerated growth, would consider 3-hr GTT at 28 weeks to ensure there is no componentof GDM at play 4. Short interval between pregnancies affecting in second trimester, antepartum Assessment & Plan: - Higher risk of uterine rupture given less than 18-24 months - PAS risk increases with the number of prior sections, independent of interpregnancy interval, but a short interval may compound overall maternal risk Orders: - [facility]; Standing 5. History of delivery affecting Assessment & Plan: - Three prior C/S reported; no operative reports available for review at time of consultation - PAS risk increases with the number of prior sections, independent of interpregnancy interval - On US today, the placenta is posterior with no overt sonographic evidence of PAS Orders: - [facility]; Standing Follow Up Return in about 5 weeks (around 04/24/2025) for Growth ultrasound. I spent 60 minutes caring for the patient on the day of service. This included: obtaining or reviewing a separately obtained medical history, reviewing patient records, performing a medically appropriate exam and/or evaluation, counseling or educating the patient/family/caregiver, ordering medications, labs, and/or procedures and documenting such in the medical record. This does not include time spent on review and interpretation of other tests such as ultrasound or the performance of other procedures such as amniocentesis or CVS. Cooper Pham MD, FACOG Maternal Medicine, [facility] documented in this encounter Plan of Treatment Upcoming Encounters Date Type Department Care Team (Late st Contact Info) Description 05/16/2025 11:30 AM EST Office Visit [facility] [address] [facility] [address] [place] [address] Scheduled Orders Name Type Priority Associated Diagnoses Orde r Schedule [facility] Imaging Routine Short interval between pregnancies affecting in second trimester, antepartum Vaginal bleeding in , second trimester History of delivery affecting Every 4 Weeks for 4 Occurrences starting 03/20/2025 until 03/20/2026, 1 completed documented as of this encounter Results * [facility] (04/18/2025 11:53 AM EDT) Anatomical Region Laterality Modality Ultrasound 04/18/2025 11:3 0 AM EDT Narrative 04/23/2025 9:35 PM EDT PAT NAME: PAMELA BONILLA MED REC#: [id number] DA: [id number] PAT GEND: F PAT TYPE: O EXAM LENCHO: [id number] REF PHYS FITZGERALD, KENISHA Comparison Studies The findings of this study are compared to the prior ultrasound study dated 03/20/25 Patient Status Outpatient Indication ======== Chronic subchorionic hemorrhage with vaginal bleeding. Size greater than dates. Previous c/s x 3. Maternal Assessment Height 162 cm Height (ft) 5 ft Height (in) 4 in Weight 76 kg Weight (lb) 167 lb BMI 28.86 kg/m Method ======= Transabdominal ultrasound examination ========= Moe . Number of fetuses: 1 Dating ====== Method of dating: based on stated EMILY GA by prior assessment 27 w + 1 d EMILY by prior assessment: 07/17/2025 Ultrasound examination on: 04/18/2025 GA by U/S based upon: AC, BPD, Femur, HC GA by U/S 28 w + 2 d EMILY by U/S: 07/09/2025 Previous dating: based on stated EMLIY, selected on 03/20/2025 Agreed EMILY of previous datin07/17/2025 Assigned: based on stated EMILY, selected on 04/18/2025 Assigned GA 27 w + 1 d Assigned EMILY: 07/17/2025 length 280 d Biometry Standard BPD 72.1 mm 29w 0d 90% Hadlock OFD 90.3 mm 29w 1d 94% Geo HC 259.4 mm 28w 1d 57% Hadlock AC 243.9 mm 28w 5d 84% Hadlock Femur 51.4 mm 27w 3d 45% Hadlock HC / AC 1.06 EFW 1,195 g 27w 6d 80% Hadlock EFW (lb) 2 lb EFW (oz) 10 oz EFW by: Hadlock ([id number]) Extended Apprentice Instrument Technician 5.3 mm Rt Renal pelvis ap 3.9 mm Head / Face / Neck Cephalic index 0.80 63% Nicolaides Extremities / Bony Struc FL / BPD 0.71 FL / HC 0.20 FL / AC 0.21 Other Structures FHR 149 bpm General Evaluation Cardiac activity present. FHR 149 bpm. movements present. Presentation cephalic. Placenta Placental site: posterior. Subchorionic hemorrhage (Size 41.0 mm x 40.0 mm x 35.3 mm). Umbilical cord Cord vessels: 3 vessel cord. Amniotic fluid Amount of AF: normal. MVP 4.5 cm. Anatomy Cranium: Normal Cavum septi pellucidi: Normal Cerebellum: Normal Cisterna magna: Normal Head / Neck Rt lateral ventricle: Normal Lt lateral ventricle: Normal Lips: Normal Profile: Normal Nose: Normal 4-chamber view: Appears normal RVOT view: Normal LVOT view: Normal Heart / Thorax 3-vessel view: Normal 7-bymyaf-uhqfcdv view: normal Cord insertion: Normal Stomach: Appears normal Kidneys: Appears normal Bladder: Appears normal Wants to know gender: yes Doppler Arterial Umbilical A PI 0.72 3% Paige Umbilical A RI 0.51 <1% Paige Umbilical A PS 39.57 cm/s 30% Ebbing Umbilical A ED 20.02 cm/s Umbilical A TAmax 28.27 cm/s 56% Ebbing Umbilical A MD 19.76 cm/s Umbilical A S / D 2.04 3% Paige Umbilical A HR 144 bpm Consultation / Office Visit Office note to follow Impression ========= S=D Normal appearing limited anatomy Posterior placenta ISAAC again noted - smaller than prior Normal fluid UA doppler normal Coding ====== Description: [id number] Follow Up Recreation Attendant: Balbina Condon RDMS Physician: Pari Rueda MD, FACOG Electronically signed by: Pari Rueda MD, FACOG at: 21:35 Procedure Note Pari Rueda MD - 04/23/2025 PAT NAME: PAMELA BONILLA MED REC#: [id number] DA: [id number] PAT GEND: F PAT TYPE: O EXAM LENCHO: [id number] REF PHYS FITZGERALDKENISHA Comparison Studies The findings of this study are compared to the prior ultrasound studydated 03/20/25 Patient Status Outpatient Indication ======== Chronic subchorionic hemorrhage with vaginal bleeding. Size greater thandates. Previous c/s x 3. Maternal Assessment [id number] cm Height (ft)5 ft Height (in)4 in [id number] kg Weight (lb)167 lb BMI28.86 kg/m Method ======= Transabdominal ultrasound examination ========= Moe . Number of fetuses: 1 Dating ====== Method of dating:based on stated EMILY GA by prior [id number] w + 1 d EMILY by prior assessment:07/17/2025 Ultrasound examination on:04/18/2025 GA by U/S based upon:AC, BPD, Femur, HC GA by U/S28 w + 2 d EMILY by U/S:07/09/2025 Previous dating:based on stated EMILY, selected on 03/20/2025 Agreed EMILY of previous datin07/17/2025 Assigned:based on stated EMILY, selected on 04/18/2025 Assigned GA27 w + 1 d Assigned EMILY:07/17/2025 [id number] d Biometry Standard BPD72.1 mm 29w 0d 90% Hadlock OFD90.3 mm 29w 1d 94% Geo HC259.4 mm 28w 1d 57% Hadlock AC243.9 mm 28w 5d 84% Hadlock Femur51.4 mm 27w 3d 45% Hadlock HC / AC1.06 EFW1,195 g 27w 6d 80% Hadlock EFW (lb)2 lb EFW (oz)10 oz EFW by:Hadlock ([id number]) Extended Vp5.3 mm Rt Renal pelvis ap3.9 mm Head / Face / Neck Cephalic index0.80 63% Nicolaides Extremities / Bony Struc FL / BPD0.71 FL / HC0.20 FL / AC0.21 Other Structures [id number] bpm General Evaluation Cardiac activity present. FHR 149 bpm. movements present. Presentation cephalic. Placenta Placental site: posterior. Subchorionic hemorrhage (Size 41.0 mmx 40.0 mm x 35.3 mm). Umbilical cord Cord vessels: 3 vessel cord. Amniotic fluid Amount of AF: normal. MVP 4.5 cm. Anatomy Cranium:Normal Cavum septi pellucidi:Normal Cerebellum:Normal Cisterna magna:Normal Head / Neck Rt lateral ventricle:Normal Lt lateral ventricle:Normal Lips:Normal Profile:Normal Nose:Normal 4-chamber view:Appears normal RVOT view:Normal LVOT view:Normal Heart / Thorax 3-vessel view:Normal 0-qnkhch-ffyjuwm view:normal Cord insertion:Normal Stomach:Appears normal Kidneys:Appears normal Bladder:Appears normal Wants to know gender:yes Doppler Arterial Umbilical A PI0.72 3% Paige Umbilical A RI0.51 <1% Paige Umbilical A PS39.57 cm/s 30% Ebbing Umbilical A ED20.02 cm/s Umbilical A TAmax28.27 cm/s 56% Ebbing Umbilical A MD19.76 cm/s Umbilical A S / D2.04 3% Paige Umbilical A HR144 bpm Consultation / Office Visit Office note to follow Impression ========= S=D Normal appearing limited anatomy Posterior placenta ISAAC again noted - smaller than prior Normal fluid UA doppler normal Coding ====== Description:[id number] Follow Up Recreation Attendant: Balbina Condon RDMS Physician: Pari Rueda MD, FACOG Electronically signed by: Pari Rueda MD, FACOG at: :35 us Cooper Pham MD IMG US ORDERABLES Final Res ult documented in this encounter Visit Diagnoses Diagnosis Vaginal bleeding in , second trimester- Primary Suspected anomaly, antepartum, single or unspecified fetus Fundal height high for dates Short interval between pregnancies affecting in second trimester, antepartum History of delivery affecting documented in this encounter Care Teams Trimmer Buffing Wheel Relationship Specialty Start Date End Date Provider, [place] [address] PCP - General 03/13/25 documented as of this encounter
--- OUTSIDE RECORDS SUMMARY | 2025-04-06 18:09 | XMS_ITS | Encounter Summary ---
Author Organization [facility] Address [address] [place] [address] Care Team Providers Care Pcat Instructor Name Role Phone Provider, No Known Primary Care Provider Unavail able Reason for Visit * Reason Comments Vaginal Bleeding * Auth/Cert (Routine) Specialty Diagnoses / Procedures Referred By Contac t Referred To Contact Referral ID Status Reason Start Date Expiration Date Visits Re quested Visits Authorized [id number] 1 1 Encounter Details Date Type Department Care Team (Late st Contact Info) Description 04/06/2025 6:09 PM EDT - 04/07/2025 12:20 AM EDT Hospital Encounter [facility] [address] [place] [phone] Sunil Schmitz DO [address] [address] Sherwin De Leon MD [address] [address] Discharge Disposition: Short Term Hospital (DC) Social History Tobacco Use Types Packs/Day Years Used Date Smoking Tobacco: Never Smokeless Tobacco: Never Alcohol Use Standard Drinks/Week Comments Not Currently 0 (1 standard drink = 0.6 oz pur e alcohol) [facility] Utilities Answer Date Recorded In the past 12 months has e [employer], gas, oil, or water company threatened to [...] and heating? Not hard at all 04/06/2025 [facility] - Occupational Stress Questionnaire Answer Date Recorded [...] GED or equivalent No 04/06/2025 Preferred Language Turkish 04/06/2025 PHQ-2 Answer Date Recorded Patient Health [...] 6:38 PM EDT Perla Mas RN * [place] Suicide Severity Rating Scale (Screener/Recent Self-Report) Question [...] - 04/06/2025 11:12 PM EDT Pamela Anderson [phone] Referring physician: Joshua Cortes MD Chief [...] 30 minutes on discharge activity which included: [id number] encounter counseling with the patient, reviewing the data in the system, coordination of the care with the nursing staff as well as consultants, documentation, and entering orders. Sherwin De Leon MD 04/06/25 23:12 EDT documented in this encounter Progress Notes * Sherwin De Leon MD - 04/06/2025 11:09 PM EDT Pamela Anderson [phone] [id number] Pt is continuing to have bleeding during magnesium administration. Baby is active and reassuring and pt is not feeling contractions. P/1)transfer to (accepted by Dr. Myra Beard) Sherwin De Leon MD 04/06/2025 23:09 EDT * Sherwin De Leon MD - 04/06/2025 10:03 PM EDT Pamela Anderson [phone] CTSP for bleeding. Pt had bright [...] Schmitz DO - 04/06/2025 7:09 PM EDT [facility] Obstetric History and Physical Referring Provider: Joshua Cortes MD Chief Complaint Patient presents with Vaginal Bleeding Subjective Patient is a 25 y.o. female currently at 25w3d, who presents for direct admission from Dr. Cortes in [facility] via personal transportation. Patient seen today for [...] [facility]: Resting Tone: Resting Tone by [facility]PC: [place] Units: Laboratory Results: Lab Results (last 24 hours) Procedure Component Value Units Date/Time Preeclampsia Panel [[id number]] Collected: 04/06/251852 Specimen: Blood Updated: 04/06/251906 CBC (No Diff) [[id number]] Collected: 04/06/251852 Specimen: Blood Updated: 04/06/251906 Fibrinogen [[id number]] Collected: 04/06/251852 Specimen: Blood Updated: 04/06/251906 Radiology [...] [facility] [address] [facility] [address] [place] [address] documented as of this encounter [...] ve Non-React vera 04/07/2025 10:17 AM EDT [facility] Blood Line / Unknown 04/06/2025 10 :22 PM EDT 04/06/2025 10:35 PM EDT Narrative [facility] - 04/07/2025 10:17 AM EDT Reactive results will reflex RPR testing. Sunil Schmitz LAB BLOOD ORDERABLES Final Result [facility]
[address] [place] [address], [place] [phone] * ABO RH Specimen Verification (04/06/2025 10:04 PM EDT) ABO Type A 04/06/2025 11:36 PM EDT [facility] RH type Positive 04/06/2025 11:36 PM EDT [facility] Blood Venipuncture / Unknown 04/06/2025 10:04 PM EDT 04/06/2025 11:07 PM EDT Sunil Schmitz DO BLOOD BANK TEST ORDERABLES Final Result [facility]
[address] [place] [address], [place] [phone] * Type & Screen (04/06/2025 6:53 PM EDT) ABO Type A 04/06/2025 8:55 PM EDT [facility] RH type Positive 04/06/2025 8:55 PM EDT [facility] Antibody Screen Negative 04/06/2025 8:55 PM EDT [facility] T&S Expiration Date 04/09/2025 11:59:59 PM 04/06/2025 8:55 PM EDT [facility] Blood Line / Unknown 04/06/2025 6: 53 PM EDT 04/06/2025 7:11 PM EDT Sunil Schmitz DO BLOOD BANK TEST ORDERABLES Edited Result - Final [facility]
[address] [place] [address], [place] [phone] * Fibrinogen (04/06/2025 6:53 PM EDT) Pathologist [facility] Fibrinogen 316 203 - 567 mg/dL 04/06/2025 7:21 PM EDT [facility] Blood Line / Unknown 04/06/2025 6: 53 PM EDT 04/06/2025 7:07 PM EDT Sunil Schmitz DO LAB BLOOD ORDERABLES Final Result [facility]
[address] [place] [address], [place] [phone] * (ABNORMAL) Preeclampsia Panel (04/06/2025 6:53 PM EDT) Alkaline Phosphatase 94 39 - 117 U/L 04/06/2025 7:29 PM EDT [facility] ALT (SGPT) 12 1 - 33 U/L 04/06/2025 7:29 PM EDT [facility] AST (SGOT) 14 1 - 32 U/L 04/06/2025 7:29 PM EDT [facility] Creatinine 0.42(L) 0.57 - 1.00 mg/dL 04/06/2025 7:29 PM EDT [facility] Total Bilirubin 0.7 0.0 - 1.2 mg/dL 04/06[facility]2025 7[facility] LDH 249(H) 135 - 214 U/L 04/06/2025 7:29 PM EDT [facility] Uric Acid 4.3 2.4 - 5.7 mg/dL 04/06/2025 7:29 PM EDT [facility] Blood Line / Unknown 04/06/2025 6: 53 PM EDT 04/06/2025 7:07 PM EDT Sunil Schmitz DO LAB BLOOD ORDERABLES Final Result [facility]
[address] [place] [address], * (ABNORMAL) CBC (No Diff) (04/06/2025 6:53 PM EDT) WBC 14.59(H) 3.40 - 10.80 10*3/mm3 04/06/2025 7:09 PM EDT [facility] RBC 3.61(L) 3.77 - 5.28 10*6/mm3 04/06/2025 7:09 PM EDT [facility] Hemoglobin 11.2(L) 12.0 - 15.9 g/dL 04/06/2025 7:09 PM EDT [facility] Hematocrit 33.5(L) 34.0 - 46.6 % 04/06/2025 7:09 PM EDT [facility] MCV 92.8 79.0 - 97.0 fL 04/06/2025 7:09 PM EDT [facility] MCH 31.0 26.6 - 33.0 pg 04/06/2025 7:09 PM EDT [facility] MCHC 33.4 31.5 - 35.7 g/dL 04/06/2025 7:09 PM EDT [facility] RDW 13.6 12.3 - 15.4 % 04/06/2025 7:09 PM EDT [facility] RDW-SD 46.5 37.0 - 54.0 fl 04/06/2025 7:09 PM EDT [facility] MPV 9.5 6.0 - 12.0 fL 04/06/2025 7:09 PM EDT [facility] Platelets 181 140 - 450 10*3/mm3 04/06/2025 7:09 PM EDT [facility] Blood Line / Unknown 04/06/2025 6: 53 PM EDT 04/06/2025 7:07 PM EDT Sunil Schmitz DO LAB BLOOD ORDERABLES Final Result [facility]
[address] [place] [address], documented in this encounter Visit Diagnoses Not [...] [id number] documented in this encounter Care Teams Pcat Instructor Relationship Specialty Start Date End Date Provider, [place] [address] PCP - General 03/13/25 documented as of this encounter
--- OUTSIDE RECORDS SUMMARY | 2025-04-07 00:40 | XMS_ITS | Encounter Summary ---
Author Organization Healthcare Address [address] [id number] Care Team Providers Care Parking Lot Spotter Name Role Phone Pcp, No Primary Care Provider Unavailabl e Reason for Visit * Auth/Cert (Routine) Specialty Diagnoses / Procedures Referred By Contac t Referred To Contact Diagnoses Vaginal bleeding Rashard Allen MD [address] [address] Phone: tel: fax: [facility] [address] [place] [address] Phone: tel: fax: Referral ID Status Reason Start Date Expiration Date Visits Re quested Visits Authorized [id number] 1 1 Encounter Details Date Type Department Care Team (Latest Contact Info) Description 04/07/2025 12:40 AM EDT - 04/12/2025 3:26 PM EDT Hospital Encounter [facility] [address] [place] [address] Rashard Allen MD [address] [address] Reema Louis MD [address] [address] Discharge Disposition: Home or Self Care Social History Tobacco Use Types Packs/Day Years Used Date Smoking Tobacco: Never Smokeless Tobacco: Never Tobacco Cessation:Counseling Given: Not Answered Alcohol Use Standard Drinks/Week Comments Never 0 (1 standard drink = 0.6 oz pur e alcohol) Humiliation, Afraid, Rape, and Kick questionnair e Answer Date Recorded Within the last year, have y ou been afraid of your partner or ex-partner? No 04/12/2025 Within the last year, have y ou been humiliated or emotionally abused in other ways by your partner or ex-partner? No Within the last year, have y ou been kicked, hit, slapped, or otherwise physically hurt by your partner or ex-partner? No 04/12/2025 Within the last year, have y ou been raped or forced to have any kind of sexual activity by your partner or ex-partner? No 04/12/2025 Hunger Vital Sign Answer Date Recorded Within the past 12 months, y ou worried that your food would run out before you got the money to buy more. Never true 04/12/20 25 Within the past 12 months, t he food you bought just didn't last and you didn't have money to get more. Never true 04/12/2025 PRAPARE - Transportation Answer Date Re corded In the past 12 months, has l ack of transportation kept you from medical appointments or from getting medications? No 02/2025 In the past 12 months, has l ack of transportation kept you from meetings, work, or from getting things needed for daily living? No 04/12/2025 Housing Stability Vital Sign Answer Faustino e Recorded In the last 12 months, was t here a time when you were not able to pay the mortgage or rent on time? No 04/12/2025 In the past 12 months, how m any times have you moved where you were living? 1 04/12/2025 At any time in the past 12 m [facility], were you homeless or living in a fci (including now)? No 04/12/2025 [facility] Utilities Answer Date Recorded In the past 12 months has e [employer], gas, oil, or water company threatened to shut off services in your home? No 04/12/2025 CAGE ASSESSMENT Answer Date Recorded Cage unable to access Not on file 04/07/2025 Cage max number of drinks Not on file 2024 Cage Beverages a week Not on file 04/07/2025 Have you ever felt you should CUT down on your d rinking? 0 04/07/2025 Have you been ANNOYED by people criticizing your drinking? 0 04/07/2025 Have you felt GUILTY about your drinking? 0 04/07/2025 Have you had a drink first t mickie in the morning (EYE-SCRUM PROJECT MANAGER) to steady your nerves or to get rid of a hangover? 0 04/07/2025 CAGE Questionnaire Score 0 025 Estimated Date of Delivery Comme nts Yes 07/17/2025 Based on Patient Reported Sex and Gender Information Value Date Recorded Sex Assigned at Not on file Legal Sex Female 7:48 PM EDT Gender Identity Not on file Sexual Orientation Not on file documented as of this encounter Last Filed Vital Signs Vital Sign Reading Time Taken Comments Blood Pressure 107/63 04/12/2025 8:08 AM EDT Pulse 102 04/12/2025 8:08 AM EDT Temperature 37.1 C (98.7 F) 04/12/2025 8:08 AM EDT Respiratory Rate 15 04/12/2025 8:08 AM EDT Oxygen Saturation 97% 04/12/2025 8:08 AM EDT Inhaled Oxygen Concentration - - Weight 75.3 kg (166 lb) 04/07/2025 8:46 AM EDT p er pt report Height 162.6 cm (5' 4 ) 04/07/2025 8:46 AM EDT Body Mass Index 28.49 04/07/2025 8:46 AM EDT documented in this encounter Functional Status * Calculated C-SSRS Risk Score (Lifetime/Recent) Answer Date of Assessment Author No Risk Indicated 04/12/2025 9:35 AM EDT Yun aPrham RN * Question Answer Date of Assessment Author 1. Wish to be (Past 1 Month) No 025 9:35 AM EDT Yun Parham RN 2. Non-Specific Active Suici dayton Thoughts (Past 1 Month) No 04/12/2025 9:35 AM EDT Yun Parham RN 6. Suicidal Behavior (Lifetime) No 9:35 AM EDT Yun Parham RN documented as of this encounter Discharge Instructions * Discharge Instructions* Shelly Jackson MD - 04/12/2025 2:34 PM EDT Call your QUALITY IMPROVEMENT COORDINATOR or come to OB triage at [facility] if: You are having heavy vaginal bleeding You are having new onset of headaches, blurry vision, chest pain, shortness of air, significant legswelling. Fever (temperature >100.4 F) Severe abdominal pain, nausea/vomiting Difficulty with urination You feel like your baby has stopped moving You think that your water is broken You are having contractions, less than 10 minutes apart for an hour or more. Follow-up recommendations: *Please follow up with your provider at [facility] in one week. * Who to Call: [facility] Medical Office Building [address] [address] documented in this encounter Miscellaneous Notes * Hospital Course - Guerline Estrada MD - 04/12/2025 3:26 PM EDT Pamela Anderson is a 25yo at 25w4d admitted as a transfer for care for acute vaginal bleeding. complicated by chronic placental abruption, 3 prior c-sections. Has had intermittentvaginal bleeding since 8 weeks gestation, and thus received ANCS 04/04-04/05 after a bleeding episode. Throughout admission her labs remained stable, HCT 29, PLT 203 prior to discharge. Fibrinogen, PT,PTT additionally stable. status reassuring, patient able to speak with the NICU team and undergo formal ultrasound which showed [id number] bleed from right lateral placenta. Bleeding stable and heart tracing reactive. Stable for discharge 04/12 with plans to follow-[facility] for ultrasound 04/18 and [facility] clinic. Strict return precautions given. * Care Plan - Yun Parham RN - 04/12/2025 3:14 PM EDT Problem: Adult Inpatient Plan of Care Goal: Plan of Care Review Outcome: Met Goal: Patient-Specific Goal (Individualized) Outcome: Met Goal: Absence of Hospital-Acquired Illness or Injury Outcome: Met Goal: Optimal Comfort and Wellbeing Outcome: Met Problem: Hospitalized Patient Goal: Optimal Patient- Wellbeing Outcome: Met Problem: Pain Acute Goal: Optimal Pain Control and Function Outcome: Met * Discharge Instr - Karmen - Yun Parham RN - 04/12/2025 3:13 PM EDT Will need an appt. With [facility] [phone] * Yun Welch RN - 04/12/2025 3:12 PM EDT Images from the original note were not included. 248 Important OB Phone Numbers If you have any questions or concerns or think you may need to be seen by a doctor, call the officein which you have been seen during normal business hours, Thursday through Thursday. If you have a question after 4:30 p.m., on a weekend, or holiday that cannot wait until the following day, you may call the Birthing Center (Triage) and ask to speak with a nurse. The Birthing Center (Triage) [facility] [address] [place] [address] [facility] Medical Office Building [address], [address] [place] [address] [facility] [address] [place] [address] Family Practice [address], Third Floor [address] [place] [address] [facility] [address] [facility] [address] [place] [address] [facility] [place] [address] [place] [address] [facility] [address] [place] [address] * Dl Sharif - Yun Parham RN - 04/12/2025 3:12 PM EDT Images from the original note were not included. 275 Signs of Labor labor is a serious problem before 37 weeks of . This is too early, and your baby could be born too soon. Call your doctor right away if you have any of these signs. ? Contractions every 10 minutes or 6 contractions in a hour ? Change in vaginal discharge (leaking fluid or bleeding for your vagina) ? Pelvic pressure - the feeling that your baby is pushing down ? Low, dull backache ? Cramps that feel like your period ? Abdominal cramps with or without diarrhea For more information on labor contact your health care provider or visit www.[employer]. ? [facility] Clinic: ? Women's Health & Obstetrics: ? Birthing Center Triage: ? [facility]: ? Family Practice: ? [facility] [place]: ? [facility] [place]: [phone] * Progress Notes - Boy Woodward - 04/12/2025 3:12 PM EDT Case Management Adult Initial Progress Note Pamela Anderson 25 y.o. female CSN: [id number] Admission: 04/07/2025 12:40 AM Primary Problem: No Principal Problem: There is no principal problem currently on the Problem List.Please update the Problem List and refresh. PCP: Pcp, No Emergency Contact: No emergency contact information on file. Insurance: Primary Visit Coverage Payer Plan Sponsor Code Group Number Group Name [employer] MEDICAID [employer] [place] Primary Visit Coverage Subscriber Subscriber ID Subscriber Name Subscriber SSN Subscriber Address [id number] Pamela Anderson [phone] [id number] [place] [address] Patient information: Primary Caregiver: Self Accompanied by/Relationship: Pt's Boyfriend available at bedside as support. Support System: Immediate family, Other (Comment) (Boyfriend) Daily Living Activities: Type of Residence: Private residence [address] [place] [address] Smoker in the Home?: No Current DME: Equipment Currently Used at Home: none Current DME Provider: N/A Income Information: Income Source: Sentrinsic Income/Expense Information: Expenses exceed income Current Resources Utilized: [facility] Housing Circumstances-Z Codes: Housing Circumstances (select all that apply): Low Income (101-300% Federal Poverty Guidlines) - Z596 Patient Referred to: None Applicable Anticipated Discharge Date: 04/12/25 Patient's Discharge Goal: Home Assistance Available at Discharge: Pt's family and boyfriend available as supports. Discharge Transport: Pt reports having a personal vehicle available at discharge. Follow Up Transport: Pt Home Health / Home Infusion / Outpatient Dialysis Services: Current DME Provider: N/A Living Will/Advance Directive/Power of Can Cutter /Guardian: Unable to assess: No Have you reviewed your Advance Directive and is it valid for this stay?: No Advance Directive: Patient would not like information Information Provided on Healthcare Directives: No Pre-existing DNR/DNI Order: No Patient Requests Assistance: No DCBS Involvement Hx: Denied Substance Use Hx: Denied Treatment Hx: CS (N/A) and Tonsillectomy (N/A Criminal/Legal Hx: Denied Mental Health Hx: Denied DV Hx: Denied UDS: None on file Social Drivers of Health Intimate Partner Violence: Not At Risk (04/12/2025) Humiliation, Afraid, Rape, and Kick questionnaire Fear of Current or Ex-Partner: No Emotionally Abused: No Physically Abused: No Sexually Abused: No Social Connections: Not At Risk (04/06/2025) Received from [facility] Family and Community Support If for any reason you need help with day-to-day activities such as bathing, preparing meals, shopping, managing finances, etc., do you get the help you need?: I don't need any help How often do you feel lonely or isolated from those around you?: Never Alcohol Use: Low Risk (04/07/2025) CAGE ASSESSMENT Cage unable to access: Not on file Cage max number of drinks: Not on file Cage Beverages a week: Not on file Cage Questionnaire cut down: 0 Cage questionnaire annoyed: 0 Cage questionnaire guilty: 0 Cage questionnaire eye curtain inspector: 0 Cage Overall score: 0 Tobacco Use: Low Risk (04/07/2025) Patient History Smoking Tobacco Use: Never Smokeless Tobacco Use: Never Passive Exposure: Not on file Financial Resource Strain: Low Risk (04/06/2025) Received from [facility] Overall Financial Resource Strain (CARDIA) Difficulty of Paying Living Expenses: Not hard at all Depression: Not at risk (04/06/2025) Received from [facility] PHQ-2 Patient Health Questionnaire-2 Score: 0 Depression: Not on file Stress: No Stress Concern Present (04/06/2025) Received from [facility] [employer] - Occupational Stress Questionnaire Feeling of Stress : Not at all Physical Activity: Insufficiently Active (04/06/2025) Received from [facility] Exercise Vital Sign On average, how many days per week do you engage in moderate to strenuous exercise (like a brisk walk)?: 2 days On average, how many minutes do you engage in exercise at this level?: 10 min Food Insecurity: No Food Insecurity (04/12/2025) Hunger Vital Sign Worried About Running Out of Food in the Last Year: Never true Ran Out of Food in the Last Year: Never true Transportation Needs: No Transportation Needs (04/12/2025) PRAPARE - Transportation Lack of Transportation (Medical): No Lack of Transportation (Non-Medical): No Housing Stability: Low Risk (04/12/2025) Housing Stability Vital Sign Unable to Pay for Housing in the Last Year: No Number of Times Moved in the Last Year: 1 Homeless in the Last Year: No Utilities: Not At Risk (04/12/2025) [facility] Utilities Threatened with loss of utilities: No Additional Comments: Pt is a 25 y/o at 26w2d, presenting to the facility with vaginal bleeding in the setting ofknown subchorionic hemorrhage. SW met with pt at bedside for an initial assessment. Pt verbally consented to assessment after role induction and confidentiality discussion with her boyfriend present. Pt was A&Ox4, appeared calm, and was content throughout conversation. She reports living with her three children in [place], [place]. SW confirmed the family's demographic information and insurance on file. Pt reports having the necessary baby supplies including a car seat and crib. Support system is stable and readily available. SW provided the family with a welcome packet of community resources (WIC/HANDS/[employer]/HSTD/RMH). SW administered C-SSRS with pt score (0) indicating no current risk for SI/HI. No immediate resource needs or safety concerns identified. Pt reports plans to establish her infants wellness/preventative care with [facility]- Dr. Mayi Leblanc DO after delivery. DANIEL GARCIA team reports pt is medically ready for discharge home.SW utilized active listening to engage and support the pt. No further SW/CM needs. Boy Woodward MSW, MEDICAL TECHNOLOGIST CHIEF * Yun Welch RN - 04/12/2025 3:11 PM EDT Images from the original note were not included. 598 Placental Abruption What is placental abruption? Bleeding can happen at any time during . Placental abruption can cause bleeding. It can occur as early as 20 weeks of . Placental abruption is when the placenta pulls away from where it's attached to the uterus. The placenta has many blood vessels that bring the nutrients from the mother to the developing baby. If theplacenta starts to pull away during , these blood vessels bleed. The larger the area that pulls away, the greater the amount of bleeding. What causes placental abruption? A direct blow to the uterus can cause placental abruption. For instance, this could happen during acar crash. Healthcare providers don?t know what causes it in other cases. You may be at higher riskif: ? You had a placental abruption with a previous ? Your water breaks before 37 weeks of (called premature rupture of membranes) ? You have high blood pressure ? You smoke cigarettes ? You're with twins or more (multiple ) ? You have sickle cell anemia, a disorder with abnormally shaped red blood cells What are the symptoms of placental abruption? The most common symptom of placental abruption is painful, dark red bleeding from the vagina. It often happens during the third trimester of . It also can occur during labor. Some women may not have vaginal bleeding that can be seen, but there may be bleeding inside the uterus. Symptoms ofplacental abruption may include: ? Vaginal bleeding ? Pain in the belly (abdomen) ? Back pain ? Labor pains (uterine contractions) that don't relax ? Blood in the bag of water (amniotic fluid) ? Feeling faint ? Not feeling the baby move as much as before These symptoms may be caused by other health conditions. Always see your healthcare provider for a diagnosis. How is placental abruption diagnosed? Your healthcare provider can diagnose placental abruption based on your symptoms. These include theamount of bleeding and pain. You will likely need an ultrasound. This test will show where the bleeding is. The provider will also check on your developing baby. There are grades of placental abruption: ? Grade 1. Small amount of vaginal bleeding and some uterine contractions. But no signs of distress or low blood pressure in the mother. ? Grade 2. Mild to medium amount of bleeding and uterine contractions. The baby's heart rate may show signs of distress. ? Grade 3. Medium to severe bleeding or hidden bleeding. Also uterine contractions that don't relax, belly pain, low blood pressure, and the of the baby. Sometimes placental abruption isn't found until after delivery, when an area of clotted blood is found behind the placenta. How is placental abruption treated? There is no treatment to stop placental abruption or reattach the placenta. Your care depends on how much bleeding you have, how far along your is, and how healthy your developing baby is. You may be able to have a vaginal delivery. Or you may need a section delivery if you have severe bleeding or if you or your baby are in danger. You may need a blood transfusion if you lose a lot of blood. What are possible complications of placental abruption? Placental abruption is dangerous because of the risk of uncontrolled bleeding (hemorrhage). This can mean less oxygen and nutrients going to the developing baby. Severe placental abruption is rare. Other complications may include: ? Uncontrolled bleeding (hemorrhage) and shock ? Disseminated intravascular coagulation. This is a serious blood clotting problem. ? Poor blood flow and damage to kidneys or brain ? The baby dies in the uterus (stillbirth) When should I call my healthcare provider? Call your healthcare provider about any bleeding you have while . Bleeding during pregnancymay not be serious. If the bleeding is medium to severe, or you have pain, contact your healthcare provider right away. Quintana points about placental abruption ? Placental abruption causes bleeding when the placenta starts to pull away too early from the uterus. ? This condition is often painful. ? If you have placental abruption, you may need to deliver your baby early and may need a section delivery. ? Report any bleeding in to your healthcare provider. Next steps Tips to help you get the most from a visit to your healthcare provider: ? Know the reason for your visit and what you want to happen. ? Before your visit, write down questions you want answered. ? Bring someone with you to help you ask questions and remember what your provider tells you. ? At the visit, write down the name of a new diagnosis, and any new medicines, treatments, or tests. Also write down any new instructions your provider gives you. ? Know why a new medicine or treatment is prescribed, and how it will help you. Also know what the side effects are. ? Ask if your condition can be treated in other ways. ? Know why a test or procedure is recommended and what the results could mean. ? Know what to expect if you do not take the medicine or have the test or procedure. ? If you have a follow-up appointment, write down the date, time, and purpose for that visit. ? Know how you can contact your provider if you have questions, especially after office hours or over weekends. Last Reviewed Date: 2023 00:00:00 ?? [id number] [employer]. All rights reserved. This information is not intended as a substitute for professional medical care. Always follow your healthcare professional's instructions. * Dl Sharif - Yun Parham RN - 04/12/2025 3:11 PM EDT Images from the original note were not included. [id number] Vaginal Bleeding During You may have vaginal bleeding during for many reasons. In some cases, you may be told it's not something to worry about. But bleeding can be a symptom of something serious, especially if itoccurs later in your . Here is a look at common causes of vaginal bleeding during . Always call your doctor if you have bleeding at any stage of . Bleeding in early Common problems Common causes of vaginal bleeding during early include: ? An infection. An infection in your pelvis or urinary tract can cause bleeding and some abnormal discharge. ? Cervical changes. hormones can make the cervix softer and more likely to bleed. A noncancer growth (polyp) may also form and may cause bleeding. ? Having sex. You may have some bleeding after sex. See your doctor before having sex again. ? Implantation bleeding. Implantation is the fertilized egg attaching to the uterine lining, about 6 to 12 days after conception. You may have some light spotting or bleeding just before you would expect your next period. This is often mistaken for a light period. But the bleeding is often a reel worker color and not heavy. Serious problems These are some serious problems that can cause vaginal bleeding in early . Early loss (miscarriage) This is a loss that occurs before 20 weeks of . Symptoms can include bleeding and cramping. Some tissue may still be in your uterus. It may pass naturally from your vagina, or you may need to have it removed with medicine or surgery. Ectopic This happens when the fertilized egg implants outside of the uterus. In most cases, it implants in one of the fallopian tubes. This is very serious and must be treated. If the fallopian tube bursts (ruptures), there may be internal bleeding. This may lead to fainting, shock, or even . Symptomsof ectopic include: ? Vaginal bleeding (sometimes this is the only symptom). ? Belly, pelvic, or shoulder pain. Molar In rare cases, early bleeding is caused by a molar . This occurs when you have an abnormaltissue growth, not an embryo. Symptoms include: ? Vaginal bleeding. ? No heartbeat. ? Ultrasound shows small round clusters in the uterus. Subchorionic bleeding This is caused by a blood clot (subchorionic hematoma) that forms when blood collects between the uterine lining and the placenta. In most cases, this goes away on its own with no problems. But in some cases, it may cause the placenta to separate from the uterine wall. And it may be linked to a higher risk of labor and miscarriage. There is no treatment for these blood clots. But your doctor may want you to have regular follow-up exams. You may also be advised not to do any strenuous activity or heavy lifting. Bleeding later in Vaginal bleeding in the second and third trimesters is often a sign of a more serious problem. If you have any bleeding later in your , call your doctor right away. Common problems that can cause light bleeding later in are cervical growths, inflammation, sex, and infection. Heavy bleeding later in is serious. It may mean there is a problem with the placenta. Placental abruption This occurs when the placenta separates from the uterine wall too soon Placental abruption is a medical emergency. Sometimes there may be heavy bleeding, but it can also happen with only sudden, constant belly pain or a firm, rigid abdomen. If you have severe pain, pass a large clot, or soak a pad in an hour or less, call 911 or go to the nearest emergency department right away to protect both you and your baby. Placenta previa This condition is most common in the third trimester. It occurs when the placenta is attached to the lower part of the uterus, instead of the upper part. This can partly or fully block the cervix. Bleeding may happen suddenly without any pain, but you may have cramping. In some cases, the placenta moves to the top of the uterus as advances. But if that doesn?t happen, you will need to have an early . Placenta accreta In this condition, part or all of the placenta is too deeply attached to the uterine wall. It can cause vaginal bleeding in the third trimester and life- threatening blood loss during delivery. In some cases, placenta accreta is found during a routine ultrasound. But it may not be found until delivery. If this condition is found before you deliver, you will likely have an early . In many cases, the uterus is also removed (hysterectomy) right after delivery. This is done to prevent severe blood loss. labor Vaginal bleeding that occurs later in may also mean you are going into labor. Bleeding that occurs before 37 weeks may be a sign of labor. You may be given medicine to delay contractions. But if labor can?t be stopped, or there are other specific concerns, you may haveto deliver your baby. Symptoms of labor also include: ? Vaginal discharge (may be bloody, watery, or mucus-like). ? Feeling of pressure in the pelvis or lower belly. ? Low back pain. ? Cramps (may occur with diarrhea). ? Contractions. ? Your water breaks (ruptured membranes). If you have abnormal bleeding during ? Contact your doctor right away. ? Wear a pad or panty liner, so you can tell how much you are bleeding. ? Keep a record of your bleeding. Is it heavy or light? Is it a red or brown color? Is it smooth orare there any clots? ? Don?t use a tampon or have sex when you are bleeding. When to contact your doctor Contact your doctor right away if you have vaginal bleeding at any stage of . Last Reviewed Date: 2025 00:00:00 ?? [id number] [employer]. All rights reserved. This information is not intended as a substitute for professional medical care. Always follow your healthcare professional's instructions. * Discharge Summary - Guerline Estrada MD - 04/12/2025 2:34 PM EDT Hospitalization Admit Date/Time: 04/07/2025 12:40 AM Admitting Attending: Rashard Allen Discharge Date: 04/12/25 Discharge Attending Physician: Yun Dominguez MD PCP name and Address: Pcp, Vandana [address] [place] [address] Referring provider name and address: No referring provider defined for this encounter. Chief Concern, Brief History of Present Illness, and Hospital Course Pamela Anderson is a 25yo at 25w4d admitted as a transfer for care for acute vaginal bleeding. complicated by chronic placental abruption, 3 prior c-sections. Has had intermittentvaginal bleeding since 8 weeks gestation, and thus received ANCS 04/04-04/05 after a bleeding episode. Throughout admission her labs remained stable, HCT 29, PLT 203 prior to discharge. Fibrinogen, PT,PTT additionally stable. status reassuring, patient able to speak with the NICU team and undergo formal ultrasound which showed [id number] bleed from right lateral placenta. Bleeding stable and heart tracing reactive. Stable for discharge 04/12 with plans to follow-[facility] for ultrasound 04/18 and [facility] clinic. Strict return precautions given. Surgeries and Procedures Procedures performed in this encounter Procedures nonstress test Medication List You have not been prescribed any medications. Discharge Diagnosis Medical Problems Active and Resolved Hospital Problems Hospital Placental abruption in second trimester History of delivery affecting Short interval between pregnancies affecting in second trimester, antepartum 26 weeks gestation of Post Discharge Instructions Call your QUALITY IMPROVEMENT COORDINATOR or come to OB triage at [facility] if: You are having heavy vaginal bleeding You are having new onset of headaches, blurry vision, chest pain, shortness of air, significant legswelling. Fever (temperature >100.4 F) Severe abdominal pain, nausea/vomiting Difficulty with urination You feel like your baby has stopped moving You think that your water is broken You are having contractions, less than 10 minutes apart for an hour or more. Follow-up recommendations: *Please follow up with your provider at [facility] in one week. * Who to Call: [facility] Medical Office Building [address] [address] Outpatient Follow-Up No future appointments. Test Results Pending At Discharge Pending Labs Order Current Status Prepare Leukocyte Reduced RBC: 2 Units Preliminary result Discharge Disposition/Condition Disposition: Home Condition: Stable (s/sx potential problems absent or manageable) I spent < 30 minutes of patient care and instruction time in preparation for this discharge. Guerline Estrada MD Obstetrics & Gynecology, PGY-2 [facility] Cosigned by Yun Dominguez MD at 04/12/2025 4:07 PM EDT Associated attestation - Yun Dominguez MD - 04/12/2025 4:07 PM EDT I saw and evaluated the patient with the resident/fellow. I discussed the case with the resident/fellow and agree with the findings and plan as documented. 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 She feels well with no signs of PTL. EFM reassuring. Labs stable. She will move her appt up at [facility] for US to next wk. Close outpatient surveillance. * Procedures - Yun Parham RN - 04/12/2025 11:30 AM EDTAssociated Order(s): NONSTRESS TEST Non-Stress Test Interpretation Pamela Anderson, a at 26w2d with an EMILY of 07/17/2025, by Patient Reported, was seen at [facility] for a nonstress test. Reason for Non-Stress Test: Placenta abnormality Variability in Waveform for Baby A: Moderate Decelerations in Baby A: None Accelerations in Baby A: Yes Acoustic Stimulator for Baby A: No Baseline Heart Rate for Baby A: 145 BPM Uterine Irritability for Baby A: No Contractions in Baby A: Not present Comments on Non-Stress Test: OK to come off monitor per Guerline Estrada Cosigned by Yun Dominguez MD at 04/12/2025 4:06 PM EDT Associated attestation - Yun Dominguez MD - 04/12/2025 4:06 PM EDT Reactive NON-STRESS TEST, personally reviewed. Continue surveillance as clinically indicated. Yun Dominguez M.D. Maternal- Medicine 4:06 PM * Progress Notes - Shelly Jackson MD - 04/12/2025 6:28 AM EDT [facility] Antepartum Progress Note Subjective No concerns overnight. Minimal bleeding overnight. She denies contractions and leakage of fluid. Feeling regular movement. Objective Vitals: 04/11/25 1604 04/11/25 2050 04/11/25 2332 04/12/25 0306 BP: 105/67 125/82 122/76 110/69 BP Location: Patient Position: Pulse: (!) 114 103 99 100 Resp: Temp: 36.8 ??C (98.3 ??F) 36.8 ??C (98.2 ??F) 36.9 ??C (98.5 ??F) 36.9 ??C (98.5 ??F) TempSrc: SpO2: 98% 97% 96% 95% Weight: Height: No intake or output data in the 24 hours ending 04/12/25 0628 PHYSICAL EXAM Constitutional: No acute distress, well appearing and well nourished. Neck: Neck symmetric, trachea midline, no visible masses/deformities. Cardiovascular: Warm and well perfused. No peripheral edema. Pulmonary: No increased work of breathing or signs of respiratory distress. Breast: Deferred Gastrointestinal: Abdomen gravid, non-tender. Genitourinary: Deferred Neurologic: Alert and oriented. Moves all extremities equally. Skin: Skin and subcutaneous tissue were normal without rashes or lesions on exposed areas. Psychiatric: Mood and affect were normal. monitoring: Baseline 135 bpm with moderate variability and accelerations and no decelerations. Irritability on toco LABS Lab Results Component Value Date WBC 12.26 (H) 04/12/2025 HGB 9.6 (L) 04/12/2025 HCT 29.3 (L) 04/12/2025 MCV 91 04/12/2025 PLT 203 04/12/2025 No results found for: CREATININE , URATECRYU , AST , LDH , ALT Assessment 25 y.o. at 26w2d admitted for vaginal bleeding in the setting of known subchorionic hemorrhage # Vaginal bleeding # Chronic placental abruption # Subchorionic Hemorrhage - Known subchorionic hemorrhage with intermittent vaginal bleeding since 8 weeks gestation - Endorsed increased bleeding for 2-3 weeks prior to arrival - Received outpatient ANCS 04/04-04/05 due to bleeding - Sent by primary QUALITY IMPROVEMENT COORDINATOR for direct admission to [facility] due to bleeding - Transferred to at 25w4d after bleeding requiring 3-4 pads over course of day with concern thatshe will need to be delivered - S/p magnesium PLAN: - Continue to trend coags and CBC, daily labs ordered - Strict pad counts - Minimal bleeding overnight # Borderline Fibrinogen - Trend: [phone] - Coags otherwise within normal limits Plan: - Trend coags Q12 - Transfuse cryo if <200 or increased heavy bleeding # Prior c/s x3 - DP: RCS # status - presentation: vertex - Consented for vaginal or delivery. Risks of procedures including bleeding, infection, damage to surrounding tissues, lacerations, and need for further surgery discussed and patient expressed understanding. All questions were answered to the patient's satisfaction. - [facility] w/ [facility], will request records - needs GTT - s/p ANCS 04/04-04/05 - Last US 03/20 with PDC @ [facility]: breech, post, BECKY 12, 9.5 x 1.6 x 4.3 cm ISAAC, EFW 692g 95%, AC 91% - US 04/07: vtx, post fund plac (5x2x3 cm bleed from right lateral plac), 3vc, nl AF, EFW 1016g (73%), AC 98% # considerations - Feeding: unknown - Contraception: Undecided # FEN/Prophylaxis - REG / HLIV - SCDs Dispo: Continue inpatient management. For any questions or concerns regarding this patient's care, please call OB resident workroom at #[phone]. Shelly Jackson MD PGY-3 Obstetrics & Gynecology [phone] Cosigned by Yun Dominguez MD at 04/13/2025 9:03 AM EDT Associated attestation - Yun Dominguez MD - 04/13/2025 9:03 AM EDT I saw and evaluated the patient with the resident/fellow. I discussed the case with the resident/fellow and agree with the findings and plan as documented. * Care Plan - Danitza Merino RN - 04/11/2025 8:08 PM EDT Problem: Adult Inpatient Plan of Care Goal: Plan of Care Review Outcome: Ongoing, Progressing Flowsheets (Taken 04/11/20252006) Progress: improving Plan of Care Reviewed With: patient Goal: Patient-Specific Goal (Individualized) Outcome: Ongoing, Progressing Goal: Absence of Hospital-Acquired Illness or Injury Outcome: Ongoing, Progressing Goal: Optimal Comfort and Wellbeing Outcome: Ongoing, Progressing Intervention: Provide Person-Centered Care Flowsheets (Taken 04/11/20252006) Trust Relationship/Rapport: care explained questions encouraged reassurance provided thoughts/feelings acknowledged Problem: Hospitalized Patient Goal: Optimal Patient- Wellbeing Outcome: Ongoing, Progressing Intervention: Support Psychosocial Response Flowsheets (Taken 04/11/20252006) Supportive Measures: active listening utilized Problem: Pain Acute Goal: Optimal Pain Control and Function Outcome: Ongoing, Progressing Intervention: Optimize Psychosocial Wellbeing Flowsheets (Taken 04/11/20252006) Supportive Measures: active listening utilized Intervention: Prevent or Manage Pain Flowsheets (Taken 04/11/20252006) Bowel Elimination Promotion: adequate fluid intake promoted * Procedures - Yun Parham RN - 04/11/2025 3:00 PM EDTAssociated Order(s): NONSTRESS TEST Non-Stress Test Interpretation Pamela Anderson, kain at 26w1d with an EMILY of 07/17/2025, by Patient Reported, was seen at [facility] for a nonstress test. Reason for Non-Stress Test: Placenta abnormality Variability in Waveform for Baby A: Moderate Decelerations in Baby A: None Accelerations in Baby A: Yes Acoustic Stimulator for Baby A: No Baseline Heart Rate for Baby A: 150 BPM Uterine Irritability for Baby A: No Contractions in Baby A: Not present Comments on Non-Stress Test: OK to come off per Dr. Robertson Cosigned by Yun Dominguez MD at 04/11/2025 5:03 PM EDT Associated attestation - Yun Dominguez MD - 04/11/2025 5:03 PM EDT Reactive NON-STRESS TEST, personally reviewed. Continue surveillance as clinically indicated. Yun Dominguez M.D. Maternal- Medicine 5:03 PM * Progress Notes - Shelly Jackson MD - 04/11/2025 7:56 AM EDT Obstetrics & Gynecology Antepartum Progress Note Subjective No concerns overnight. Endorses continued bleeding overnight improved from baseline, only filling 1/2 a pad. She denies contractions and leakage of fluids. Feeling regular movement. Objective Vitals: 04/10/25 1625 04/10/25 2055 04/10/25 2355 04/11/25 0402 BP: 110/70 113/61 108/66 101/63 BP Location: Right arm Patient Position: Sitting Pulse: 108 106 99 93 Resp: 16 16 Temp: 36.8 ??C (98.2 ??F) 36.8 ??C (98.2 ??F) 36.6 ??C (97.9 ??F) 37 ??C (98.6 ??F) TempSrc: Oral Oral Oral SpO2: 97% 97% Weight: Height: No intake or output data in the 24 hours ending 04/11/25 0812 PHYSICAL EXAM Constitutional: No acute distress, well appearing and well nourished. Neck: Neck symmetric, trachea midline, no visible masses/deformities. Cardiovascular: Warm and well perfused. No peripheral edema. Pulmonary: No increased work of breathing or signs of respiratory distress. Breast: Deferred Gastrointestinal: Abdomen gravid, non-tender. Genitourinary: Deferred Neurologic: Alert and oriented. Moves all extremities equally. Skin: Skin and subcutaneous tissue were normal without rashes or lesions on exposed areas. Psychiatric: Mood and affect were normal. monitoring: Baseline 135 bpm with moderate variability and accelerations and no decelerations. Irritability on toco LABS Lab Results Component Value Date WBC 13.44 (H) 04/11/2025 HGB 9.4 (L) 04/11/2025 HCT 28.8 (L) 04/11/2025 MCV 91 04/11/2025 PLT 210 04/11/2025 No results found for: CREATININE , URATECRYU , AST , LDH , ALT Assessment 25 y.o. at 26w0d admitted for vaginal bleeding in the setting of known subchorionic hemorrhage # Vaginal bleeding # Chronic placental abruption # Subchorionic Hemorrhage - Known subchorionic hemorrhage with intermittent vaginal bleeding since 8 weeks gestation - Endorsed increased bleeding for 2-3 weeks prior to arrival - Received outpatient ANCS 04/04-04/05 due to bleeding - Sent by primary QUALITY IMPROVEMENT COORDINATOR for direct admission to [facility] due to bleeding - Transferred to at 25w4d after bleeding requiring 3-4 pads over course of day with concern thatshe will need to be delivered - S/p magnesium PLAN: - Continue to trend coags and CBC, q12 labs ordered - Strict pad counts - Three pads partially saturated overnight # Borderline Fibrinogen - Trend: [phone] - Coags otherwise within normal limits Plan: - Trend coags Q12 - Transfuse cryo if <200 or increased heavy bleeding # Prior c/s x3 - DP: RCS # status - presentation: vertex - Consented for vaginal or delivery. Risks of procedures including bleeding, infection, damage to surrounding tissues, lacerations, and need for further surgery discussed and patient expressed understanding. All questions were answered to the patient's satisfaction. - [facility] w/ [facility], will request records - needs GTT - s/p ANCS 04/04-04/05 - Last US 03/20 with PDC @ [facility]: breech, post, BECKY 12, 9.5 x 1.6 x 4.3 cm ISAAC, EFW 692g 95%, AC 91% - US 04/07: vtx, post fund plac (5x2x3 cm bleed from right lateral plac), 3vc, nl AF, EFW 1016g (73%), AC 98% # considerations - Feeding: unknown - Contraception: Undecided # FEN/Prophylaxis - REG / HLIV - SCDs Dispo: Continue inpatient management. For any questions or concerns regarding this patient's care, please call OB resident workroom at #[phone]. Shelly Jackson MD PGY-3 Obstetrics & Gynecology [phone] Cosigned by Yun Dominguez MD at 04/11/2025 4:39 PM EDT Associated attestation - Yun Dominguez MD - 04/11/2025 4:39 PM EDT I saw and evaluated the patient with the resident/fellow. I discussed the case with the resident/fellow and agree with the findings and plan as documented. * Care Plan - Yun Parham RN - 04/11/2025 7:50 AM EDT Problem: Adult Inpatient Plan of Care Goal: Patient-Specific Goal (Individualized) Flowsheets (Taken 04/11/2025748) Patient/Family-Specific Goals (Include Timeframe): Pt.will let nurse know if she has any bleeding during this shift Individualized Care Needs: cluster care Anxieties, Fears or Concerns: none Problem: Hospitalized Patient Goal: Optimal Patient- Wellbeing Intervention: Promote Patient- Wellbeing Flowsheets (Taken 04/11/2025748) Wellbeing Promotion: heart rate monitored maternal position adjusted Intervention: Support Psychosocial Response Flowsheets (Taken 04/11/2025748) Supportive Measures: active listening utilized Problem: Pain Acute Goal: Optimal Pain Control and Function Intervention: Optimize Psychosocial Wellbeing Flowsheets (Taken 04/11/2025748) Supportive Measures: active listening utilized Intervention: Develop Pain Management Plan Flowsheets (Taken 04/11/2025748) Pain Management Interventions: position adjusted Intervention: Prevent or Manage Pain Flowsheets (Taken 04/11/2025748) Sleep/Rest Enhancement: awakenings minimized Problem: Adult Inpatient Plan of Care Goal: Plan of Care Review Outcome: Ongoing, Progressing Goal: Patient-Specific Goal (Individualized) 04/11/2025750 by Yun Parham RN Outcome: Ongoing, Progressing 04/11/2025748 by Yun Parham RN Flowsheets (Taken 04/11/2025748) Patient/Family-Specific Goals (Include Timeframe): Pt.will let nurse know if she has any bleeding during this shift Individualized Care Needs: cluster care Anxieties, Fears or Concerns: none Goal: Absence of Hospital-Acquired Illness or Injury Outcome: Ongoing, Progressing Goal: Optimal Comfort and Wellbeing Outcome: Ongoing, Progressing Problem: Hospitalized Patient Goal: Optimal Patient- Wellbeing Outcome: Ongoing, Progressing Intervention: Promote Patient- Wellbeing Flowsheets (Taken 04/11/2025 0749) Wellbeing Promotion: heart rate monitored maternal position adjusted Intervention: Support Psychosocial Response Flowsheets (Taken 04/11/2025 0749) Supportive Measures: active listening utilized * Care Plan - Ayanna Corey RN - 04/11/2025 4:41 AM EDT Problem: Adult Inpatient Plan of Care Goal: Plan of Care Review Outcome: Ongoing, Progressing Flowsheets (Taken 04/11/2025 0440) Progress: improving Plan of Care Reviewed With: patient Goal: Patient-Specific Goal (Individualized) Outcome: Ongoing, Progressing Goal: Absence of Hospital-Acquired Illness or Injury Outcome: Ongoing, Progressing Goal: Optimal Comfort and Wellbeing Outcome: Ongoing, Progressing Intervention: Provide Person-Centered Care Flowsheets (Taken 04/11/2025 0440) Trust Relationship/Rapport: questions encouraged care explained choices provided reassurance provided Problem: Hospitalized Patient Goal: Optimal Patient- Wellbeing Outcome: Ongoing, Progressing Intervention: Support Psychosocial Response Flowsheets (Taken 04/11/2025 0440) Supportive Measures: active listening utilized relaxation techniques promoted Problem: Pain Acute Goal: Optimal Pain Control and Function Outcome: Ongoing, Progressing Intervention: Prevent or Manage Pain Flowsheets (Taken 04/11/2025 0440) Medication Review/Management: medications reviewed * Care Plan - Max Miller RN - 04/10/2025 9:14 PM EDT Problem: Adult Inpatient Plan of Care Goal: Plan of Care Review Outcome: Ongoing, Progressing Flowsheets Taken 04/10/20252111 by Max Miller RN Progress: improving Taken 04/10/2025 1301 by Anabel Allred RN Plan of Care Reviewed With: patient Goal: Patient-Specific Goal (Individualized) Outcome: Ongoing, Progressing Flowsheets (Taken 04/10/20252111) Patient/Family-Specific Goals (Include Timeframe): pt will have pain <4/10 during this shift andwill notify the RN if having pain during the 12 hour shift Individualized Care Needs: cluster care, emotional support Anxieties, Fears or Concerns: none stated by pt Goal: Absence of Hospital-Acquired Illness or Injury Outcome: Ongoing, Progressing Intervention: Identify and Manage Fall Risk Flowsheets (Taken 04/09/20252199 by Mary Ellen Casey, RN) Safety Promotion/Fall Prevention: clutter-free environment maintained Intervention: Prevent Skin Injury Flowsheets (Taken 04/10/20252111) Body Position: neutral body alignment Intervention: Prevent and Manage VTE (Venous Thromboembolism) Risk Flowsheets (Taken 04/10/20251999) VTE Prevention/Management: bilateral right lower extremity SCDs (sequential compression devices) on Intervention: Prevent Infection Flowsheets (Taken 04/08/20251611 by Ashly Martinez RN) Infection Prevention: hand hygiene promoted rest/sleep promoted Goal: Optimal Comfort and Wellbeing Outcome: Ongoing, Progressing Intervention: Monitor Pain and Promote Comfort Flowsheets (Taken 04/10/20252111) Pain Management Interventions: quiet environment facilitated Intervention: Provide Person-Centered Care Flowsheets (Taken 04/09/2025238 by Sheridan Willis RN) Trust Relationship/Rapport: care explained questions answered questions encouraged Problem: Hospitalized Patient Goal: Optimal Patient- Wellbeing Outcome: Ongoing, Progressing Intervention: Promote Patient- Wellbeing Flowsheets (Taken 04/09/20252015 by Mary Ellen Casey, MILLICENT) Wellbeing Promotion: heart rate monitored Note: NSTS Intervention: Support Psychosocial Response Flowsheets (Taken 04/10/20252111) Family/Support System Care: support provided Problem: Pain Acute Goal: Optimal Pain Control and Function Outcome: Ongoing, Progressing Intervention: Optimize Psychosocial Wellbeing Flowsheets Taken 04/09/20252015 by Mary Ellen Casey, RN Diversional Activities: (patient given meal) movies other (see comments) Taken 04/08/20251611 by Ashly aMrtinez RN Supportive Measures: active listening utilized Intervention: Develop Pain Management Plan Flowsheets (Taken 04/10/20252111) Pain Management Interventions: quiet environment facilitated Intervention: Prevent or Manage Pain Flowsheets (Taken 04/09/2025 0239 by Sheridan Willis RN) Bowel Elimination Promotion: adequate fluid intake promoted Sleep/Rest Enhancement: regular sleep/rest pattern promoted * Care Plan - Anabel Allred RN - 04/10/2025 1:10 PM EDT Problem: Adult Inpatient Plan of Care Goal: Plan of Care Review Outcome: Ongoing, Progressing Flowsheets (Taken 04/10/2025 1301) Progress: improving Plan of Care Reviewed With: patient Goal: Patient-Specific Goal (Individualized) Outcome: Ongoing, Progressing Flowsheets (Taken 04/10/2025 1301) Patient/Family-Specific Goals (Include Timeframe): pt will have pain <4/10 this shift Individualized Care Needs: cluster care Anxieties, Fears or Concerns: none stated Goal: Absence of Hospital-Acquired Illness or Injury Outcome: Ongoing, Progressing Goal: Optimal Comfort and Wellbeing Outcome: Ongoing, Progressing * Progress Notes - Kelsey Mock - 04/10/2025 12:11 PM EDT Case Management Adult Progress Note Pamela Anedrson 25 y.o. female CSN: [id number] Admission: 04/07/2025 12:40 AM Primary Problem: No Principal Problem: There is no principal problem currently on the Problem List.Please update the Problem List and refresh. Anticipated Discharge Date: TBD Has Discharge Plans Changed? No Medicare Second Notice: Housing Circumstances: Not Applicable Housing Circumstances Action Taken: Other N/A Medically Ready for Discharge: Anticipated in 5+ Days Additional Comments POC reviewed. Pt is a 25 y.o. at 25w6d who presents as transfer of care from [facility] for vaginal bleeding in the setting of known subchorionic hemorrhage. Plan is to continue inpatient management. CM will follow for any discharge needs. Kelsey Mock * Progress Notes - Nay Garcia MD - 04/10/2025 6:39 AM EDT Obstetrics & Gynecology Antepartum Progress Note Subjective No concerns overnight. Endorses bright red bleeding overnight consistent with baseline. She denies feeling contractions despite tracing on toco. Resting comfortably. Denies leakage of fluids. Feelingregular movement. Objective Vitals: 04/09/25 1955 04/09/25 2200 04/10/25 0500 04/10/25 0515 BP: 110/60 102/55 Pulse: 87 87 Resp: 15 16 Temp: 37.1 ??C (98.7 ??F) 36.6 ??C (97.9 ??F) 36.7 ??C (98.1 ??F) TempSrc: Oral Oral Oral SpO2: Weight: Height: Intake/Output Summary (Last 24 hours) at 04/10/2025 0641 Last data filed at 04/09/2025 1600 Gross per 24 hour Intake 328.75 ml Output 156 ml Net 172.75 ml PHYSICAL EXAM Constitutional: No acute distress, well appearing and well nourished. Neck: Neck symmetric, trachea midline, no visible masses/deformities. Cardiovascular: Warm and well perfused. No peripheral edema. Pulmonary: No increased work of breathing or signs of respiratory distress. Breast: Deferred Gastrointestinal: Abdomen gravid, non-tender. Genitourinary: Deferred Neurologic: Alert and oriented. Moves all extremities equally. Skin: Skin and subcutaneous tissue were normal without rashes or lesions on exposed areas. Psychiatric: Mood and affect were normal. monitoring: Baseline 135 bpm with moderate variability and accelerations and no decelerations. Irritability on toco LABS Lab Results Component Value Date WBC 11.57 (H) 04/10/2025 HGB 9.1 (L) 04/10/2025 HCT 28.5 (L) 04/10/2025 MCV 92 04/10/2025 PLT 195 04/10/2025 No results found for: CREATININE , URATECRYU , AST , LDH , ALT Assessment 25 y.o. at 25w6d admitted for vaginal bleeding in the setting of known subchorionic hemorrhage # Vaginal bleeding # Chronic placental abruption # Subchorionic Hemorrhage - Known subchorionic hemorrhage with intermittent vaginal bleeding since 8 weeks gestation - Endorsed increased bleeding for 2-3 weeks prior to arrival - Received outpatient ANCS 04/04-04/05 due to bleeding - Sent by primary QUALITY IMPROVEMENT COORDINATOR for direct admission to [facility] due to bleeding - Transferred to at 25w4d after bleeding requiring 3-4 pads over course of day with concern thatshe will need to be delivered - S/p magnesium PLAN: - Continue to trend coags and CBC, q12 labs ordered - Strict pad counts - Three pads partially saturated overnight # Prior c/s x3 - DP: RCS # status - presentation: vertex - Consented for vaginal or delivery. Risks of procedures including bleeding, infection, damage to surrounding tissues, lacerations, and need for further surgery discussed and patient expressed understanding. All questions were answered to the patient's satisfaction. - PNC w/ [facility], will request records - needs GTT - s/p ANCS 04/04-04/05 - Last US 03/20 with PDC @ [facility]: breech, post, BECKY 12, 9.5 x 1.6 x 4.3 cm ISAAC, EFW 692g 95%, AC 91% - US 04/07: vtx, post fund plac (5x2x3 cm bleed from right lateral plac), 3vc, nl AF, EFW 1016g (73%), AC 98% # considerations - Feeding: unknown - Contraception: Undecided # FEN/Prophylaxis - REG / LR @ 75 - SCDs Dispo: Continue inpatient management. For any questions or concerns regarding this patient's care, please call OB resident workroom at #[phone]. Nay Reveles MD Obstetrics and Gynecology, PGY-3 Cosigned by David Hubbard DO at 04/10/2025 11:12 AM EDT Associated attestation - David Hubbard DO - 04/10/2025 11:12 AM EDT I saw and evaluated the patient with the resident. I discussed the case with the resident/fellow and agree with the findings and plan as documented. Ms. Anderson is doing well this morning and reports only saturating 5-10% of a peripad a couple of times overnight. Her symptoms overall are reported to be improved. She denies any significant abdominalcramping, or leakage of fluid. Additionally, the heart tracing remains reassuring with good movement noted. Labs were collected this morning and her fibrinogen is now 253 with a hemoglobin of 9.1. This is lower than her last set of labs yesterday. Plan for repeat labs this afternoon to reassess her hemoglobin and coags. We will continue to monitor her inpatient at this time. * Care Plan - Mary Ellen Casey RN - 04/09/2025 8:18 PM EDT Problem: Adult Inpatient Plan of Care Goal: Plan of Care Review Outcome: Ongoing, Progressing Flowsheets Taken 04/09/20252015 by Mary Ellen Casey RN Plan of Care Reviewed With: patient Taken 04/09/2025 0239 by Sheridan Willis RN Progress: improving Goal: Patient-Specific Goal (Individualized) Outcome: Ongoing, Progressing Flowsheets Taken 04/09/2025 0150 by Sheridan Willis RN Patient/Family-Specific Goals (Include Timeframe): Patient will keep every soaked pad to provide toRN on any shift for EBL purposes until order discontinues. Patient verbalized understanding Taken 04/08/2025 1917 by Sheridan Willis RN Individualized Care Needs: Rest Clustered cares Anxieties, Fears or Concerns: None expressed at the moment Goal: Absence of Hospital-Acquired Illness or Injury Outcome: Ongoing, Progressing Intervention: Identify and Manage Fall Risk Flowsheets (Taken 04/09/20252015) Safety Promotion/Fall Prevention: clutter-free environment maintained Goal: Optimal Comfort and Wellbeing Outcome: Ongoing, Progressing Problem: Hospitalized Patient Goal: Optimal Patient- Wellbeing Outcome: Ongoing, Progressing Intervention: Promote Patient- Wellbeing Flowsheets (Taken 04/09/20252015) Wellbeing Promotion: heart rate monitored Problem: Pain Acute Goal: Optimal Pain Control and Function Outcome: Ongoing, Progressing Intervention: Optimize Psychosocial Wellbeing Flowsheets (Taken 04/09/20252015) Diversional Activities: (patient given meal) movies other (see comments) * Care Plan - Sheridan Willis RN - 04/09/2025 2:40 AM EDT Problem: Adult Inpatient Plan of Care Goal: Plan of Care Review Outcome: Ongoing, Progressing Flowsheets (Taken 04/09/2025238) Progress: improving Plan of Care Reviewed With: patient Goal: Patient-Specific Goal (Individualized) Outcome: Ongoing, Progressing Goal: Absence of Hospital-Acquired Illness or Injury Outcome: Ongoing, Progressing Goal: Optimal Comfort and Wellbeing Outcome: Ongoing, Progressing Intervention: Provide Person-Centered Care Flowsheets (Taken 04/09/2025238) Trust Relationship/Rapport: care explained questions answered questions encouraged Problem: Hospitalized Patient Goal: Optimal Patient- Wellbeing Outcome: Ongoing, Progressing Intervention: Promote Patient- Wellbeing Flowsheets (Taken 04/09/2025238) Wellbeing Promotion: heart rate monitored maternal position adjusted uterine contraction activity assessed Problem: Pain Acute Goal: Optimal Pain Control and Function Outcome: Ongoing, Progressing Intervention: Prevent or Manage Pain Flowsheets (Taken 04/09/2025 023) Bowel Elimination Promotion: adequate fluid intake promoted Sleep/Rest Enhancement: regular sleep/rest pattern promoted Medication Review/Management: medications reviewed * Progress Notes - Guerline Estrada MD - 04/09/2025 2:15 AM EDT Obstetrics & Gynecology Antepartum Progress Note Subjective NAEON. Remained on continuous monitoring overnight 2/2 bleeding and contractions. Stable bleeding this morning. Just got up to the bathroom to pee, blood just when she wipes, not pooling out into thetoilet. Sees small clots when she wipes. Contractions tracing on toco, patient does not feel them at this moment, resting comfortably. Denies leakage of fluids. Feeling regular movement. Objective Vitals: 04/08/25 0931 04/08/25 1917 04/08/25 2145 04/08/25 2345 BP: 111/59 106/60 110/60 103/58 Pulse: 98 102 91 104 Resp: 18 Temp: 36.8 ??C (98.2 ??F) 36.9 ??C (98.4 ??F) 36.9 ??C (98.5 ??F) TempSrc: Oral Oral Oral SpO2: Weight: Height: Intake/Output Summary (Last 24 hours) at 04/09/2025 0215 Last data filed at 04/08/2025 2110 Gross per 24 hour Intake 373.5 ml Output 152 ml Net 221.5 ml PHYSICAL EXAM Constitutional: No acute distress, well appearing and well nourished. Neck: Neck symmetric, trachea midline, no visible masses/deformities. Cardiovascular: Warm and well perfused. No peripheral edema. Pulmonary: No increased work of breathing or signs of respiratory distress. Breast: Deferred Gastrointestinal: Abdomen gravid, non-tender. Genitourinary: Deferred Neurologic: Alert and oriented. Moves all extremities equally. Skin: Skin and subcutaneous tissue were normal without rashes or lesions on exposed areas. Psychiatric: Mood and affect were normal. monitoring: Heart Rate Mode: External US Baseline Heart Rate: 135 bpm Baseline Classification: Normal Variability: Moderate (Between 6 and 25 BPM) Pattern: 15x15 accelerations, No decelerations Pattern Observations: poor tracing, unable to determine category FHR Category: Category I Fetus A Comments: Active movement Multiple Births: No Uterine Activity Mode: [place] Contraction Frequency: Q 3-5 min Contraction Duration: 40 - 80 sec Contraction Pattern: Normal Contraction Quality: Mild Resting Tone Palpated: Relaxed Contraction Comments: Patient reported no feeling any contractions at this time . Denies cramping as well LABS Lab Results Component Value Date WBC 9.37 04/08/2025 HGB 10.4 (L) 04/08/2025 HCT 31.3 (L) 04/08/2025 MCV 93 04/08/2025 PLT 174 04/08/2025 No results found for: CREATININE , URATECRYU , AST , LDH , ALT Assessment 25 y.o. at 25w6d admitted for vaginal bleeding in the setting of known subchorionic hemorrhage # Vaginal bleeding # Chronic placental abruption # Subchorionic Hemorrhage - Known subchorionic hemorrhage with intermittent vaginal bleeding since 8 weeks gestation - Endorsed increased bleeding for 2-3 weeks prior to arrival - Received outpatient ANCS 04/04-04/05 due to bleeding - Sent by primary QUALITY IMPROVEMENT COORDINATOR for direct admission to [facility] due to bleeding - Transferred to at 25w4d after bleeding requiring 3-4 pads over course of day with concern thatshe will need to be delivered - S/p magnesium PLAN: - Continue to trend coags and CBC - Strict pad counts - EBL overnight 152mL, not soaking through pads or clothes # Prior c/s x3 - DP: RCS # status - presentation: vertex - Consented for vaginal or delivery. Risks of procedures including bleeding, infection, damage to surrounding tissues, lacerations, and need for further surgery discussed and patient expressed understanding. All questions were answered to the patient's satisfaction. - PN w/ [facility], will request records - needs GTT - s/p ANCS 04/04-04/05 - Last US 03/20 with PDC @ [facility]: breech, post, BECKY 12, 9.5 x 1.6 x 4.3 cm ISAAC, EFW 692g 95%, AC 91% - US 04/07: vtx, post fund plac (5x2x3 cm bleed from right lateral plac), 3vc, nl AF, EFW 1016g (73%), AC 98% # considerations - Feeding: unknown - Contraception: Undecided # FEN/Prophylaxis - NPO / LR @ 75 - SCDs Dispo: Continue inpatient management. For any questions or concerns regarding this patient's care, please call OB resident workroom at #[phone]. Guerline Estrada MD Obstetrics & Gynecology, PGY-2 [facility] Cosigned by Reema Louis MD at 04/09/2025 12:09 PM EDT Associated attestation - Reema Louis MD - 04/09/2025 12:09 PM EDT MFM Attending: I saw and evaluated the patient with the resident/fellow. I discussed the case with the resident/fellow and agree with the findings and plan as documented. The patient is a 25 y.o. at 25w6d with vaginal bleeding and known large ISAAC. Prior CS x 3. Placenta is posterior and no previa, no overt signs of PAS. Patient now s/p BMZ and Mag. S/p NICU consult. Yesterday had another large gush of blood midday and had associated frequent contractions. Stabilized overnight. This am she feels fine and does not appreciate any contractions She continuesto have light bleeding. status is reassuring. Will remain inpatient for now given continued bleeding and continued risk for acute hemorrhage/abruption. Ok for breaks off monitor for shower, meals. Visit Vitals BP (!) 98/59 Pulse 87 Temp 36.8 ??C (98.3 ??F) (Oral) Resp 17 Ht 1.626 m (5' 4 ) Wt 75.3 kg (166 lb) Comment: per pt report SpO2 95% BMI 28.49 kg/m?? OB Status Smoking Status Never BSA 1.84 m?? Lab Results Component Value Date WBC 11.27 (H) 04/09/2025 HGB 10.4 (L) 04/09/2025 HCT 32.8 (L) 04/09/2025 MCV 93 04/09/2025 PLT 201 04/09/2025 Lab Results Component Value Date INR 1.1 04/09/2025 INR 1.1 04/08/2025 INR 1.1 04/07/2025 Fibrinogen stable. * Care Plan - Ashly Martinez RN - 04/08/2025 4:13 PM EDT Problem: Adult Inpatient Plan of Care Goal: Plan of Care Review Outcome: Ongoing, Progressing Goal: Patient-Specific Goal (Individualized) Outcome: Ongoing, Progressing Flowsheets (Taken 04/08/2025 1612) Patient/Family-Specific Goals (Include Timeframe): pt will inform RN of increased bleeding during shift Individualized Care Needs: cluster care/rest Anxieties, Fears or Concerns: none expressed Goal: Absence of Hospital-Acquired Illness or Injury Outcome: Ongoing, Progressing Intervention: Prevent Infection Flowsheets (Taken 04/08/2025 161) Infection Prevention: hand hygiene promoted rest/sleep promoted Goal: Optimal Comfort and Wellbeing Outcome: Ongoing, Progressing Intervention: Provide Person-Centered Care Flowsheets (Taken 04/08/2025 161) Trust Relationship/Rapport: care explained Problem: Hospitalized Patient Goal: Optimal Patient- Wellbeing Outcome: Ongoing, Progressing Intervention: Support Psychosocial Response Flowsheets (Taken 04/08/2025 161) Supportive Measures: active listening utilized Problem: Pain Acute Goal: Optimal Pain Control and Function Outcome: Ongoing, Progressing Intervention: Prevent or Manage Pain Flowsheets (Taken 04/08/2025 161) Sensory Stimulation Regulation: auditory stimulation minimized Sleep/Rest Enhancement: awakenings minimized * Procedures - Virgil Arevalo, RN - 04/08/2025 11:43 AM EDTAssociated Order(s): NONSTRESS TEST Non-Stress Test Interpretation Pamela Anderson, kain at 25w5d with an EMILY of 07/17/2025, by Patient Reported, was seen at [facility] for a nonstress test. Variability in Waveform for Baby A: Moderate Decelerations in Baby A: None Baseline Heart Rate for Baby A: 140 BPM Uterine Irritability for Baby A: No Contractions in Baby A: Not present Comments on Non-Stress Test: Reactive per MD Baer Cosigned by Galina Mariscal MD at 04/09/2025 1:40 PM EDT Associated attestation - Galina Mariscal MD - 04/09/2025 1:40 PM EDT NST Attestation AGA - appropriate for gestational age * Progress Notes - Raya Rivera MD - 04/08/2025 1:54 AM EDT Obstetrics & Gynecology Antepartum Progress Note Subjective No acute events reported overnight. Patient doing well, without complaints. Continues to report light vaginal bleeding. Denies loss of fluid or contractions. Reports normal movement. Objective Vitals: 04/07/25 1510 04/07/25 1610 04/07/25 1926 04/08/25 0020 BP: 106/58 (!) 92/56 103/56 108/57 Pulse: 95 94 93 96 Resp: Temp: 36.8 ??C (98.3 ??F) 36.7 ??C (98.1 ??F) TempSrc: Oral Oral SpO2: 95% Weight: Height: Intake/Output Summary (Last 24 hours) at 04/08/2025 0155 Last data filed at 04/08/2025 0020 Gross per 24 hour Intake 0 ml Output 2050 ml Net -2050 ml PHYSICAL EXAM Constitutional: No acute distress, well appearing and well nourished. Neck: Neck symmetric, trachea midline, no visible masses/deformities. Cardiovascular: Warm and well perfused. No peripheral edema. Pulmonary: No increased work of breathing or signs of respiratory distress. Breast: Deferred Gastrointestinal: Abdomen gravid, non-tender. Genitourinary: Deferred Neurologic: Alert and oriented. Moves all extremities equally. Skin: Skin and subcutaneous tissue were normal without rashes or lesions on exposed areas. Psychiatric: Mood and affect were normal. monitoring: Heart Rate Mode: External US Baseline Heart Rate: 135 bpm Baseline Classification: Normal Variability: Moderate (Between 6 and 25 BPM) Pattern: 15x15 accelerations, No decelerations Pattern Observations: poor tracing, unable to determine category FHR Category: Category I Fetus A Comments: Active movement per patient Multiple Births: No Uterine Activity Mode: [place] Contraction Frequency: irregular Contraction Duration: 50-80sec Contraction Pattern: Normal Contraction Quality: Mild Resting Tone Palpated: Relaxed Contraction Comments: Patient denies cramping or contraction at this time LABS Lab Results Component Value Date WBC 10.81 (H) 04/07/2025 HGB 10.9 (L) 04/07/2025 HCT 33.3 (L) 04/07/2025 MCV 93 04/07/2025 PLT 201 04/07/2025 No results found for: CREATININE , URATECRYU , AST , LDH , ALT Assessment 25 y.o. at 25w5d admitted for vaginal bleeding in the setting of known subchorionic hemorrhage # Vaginal bleeding # Chronic placental abruption # Subchorionic Hemorrhage - Known subchorionic hemorrhage with intermittent vaginal bleeding since 8 weeks gestation - Endorsed increased bleeding for 2-3 weeks prior to arrival - Received outpatient ANCS 04/04-04/05 due to bleeding - Sent by primary QUALITY IMPROVEMENT COORDINATOR for direct admission to [facility] due to bleeding - Transferred to at 25w4d after bleeding requiring 3-4 pads over course of day with concern thatshe will need to be delivered - S/p magnesium PLAN: - Continue to trend coags - Strict pad counts # Prior c/s x3 - DP: RCS # status - presentation: vertex - Consented for vaginal or delivery. Risks of procedures including bleeding, infection, damage to surrounding tissues, lacerations, and need for further surgery discussed and patient expressed understanding. All questions were answered to the patient's satisfaction. - [facility] w/ [facility], will request records - needs GTT - s/p ANCS 04/04-04/05 - Last US 03/20 with PDC @ [facility]: breech, post, BECKY 12, 9.5 x 1.6 x 4.3 cm ISAAC, EFW 692g 95%, AC 91% # considerations - Feeding: unknown - Contraception: Undecided # FEN/Prophylaxis - NPO / LR @ 75 - SCDs Dispo: Continue inpatient management. For any questions or concerns regarding this patient's care, please call OB resident workroom at #[phone]. Raya Rivera MD Obstetrics & Gynecology, PGY-2 Cosigned by Reema Louis MD at 04/08/2025 1:36 PM EDT Associated attestation - Reema Louis MD - 04/08/2025 1:36 PM EDT MFM Attending: I saw and evaluated the patient with the resident/fellow. I discussed the case with the resident/fellow and agree with the findings and plan as documented. The patient is a 25 y.o. at 25w5d with vaginal bleeding and known large ISAAC. Prior CS x 3. Placenta is posterior and no previa, no overt signs of PAS. Patient now s/p BMZ and Mag. S/p NICU consult. Did well overnight. Still with light bleeding but much improved from admission. Ok for floor status but to remain inpatient for now given continued bleeding and continued risk foracute hemorrhage/abruption Visit Vitals BP 111/59 Pulse 98 Temp 36.8 ??C (98.2 ??F) (Oral) Resp 18 Ht 1.626 m (5' 4 ) Wt 75.3 kg (166 lb) Comment: per pt report SpO2 95% BMI 28.49 kg/m?? OB Status Smoking Status Never BSA 1.84 m?? Lab Results Component Value Date WBC 9.37 04/08/2025 HGB 10.4 (L) 04/08/2025 HCT 31.3 (L) 04/08/2025 MCV 93 04/08/2025 PLT 174 04/08/2025 Fibrinogen stable at 276. * Care Plan - Sheridan Willis RN - 04/08/2025 1:00 AM EDT Problem: Adult Inpatient Plan of Care Goal: Plan of Care Review Outcome: Ongoing, Progressing Flowsheets (Taken 04/08/202558) Progress: improving Plan of Care Reviewed With: patient Problem: Adult Inpatient Plan of Care Goal: Plan of Care Review Outcome: Ongoing, Progressing Flowsheets (Taken 04/08/202558) Progress: improving Plan of Care Reviewed With: patient Goal: Patient-Specific Goal (Individualized) Outcome: Ongoing, Progressing Goal: Absence of Hospital-Acquired Illness or Injury Outcome: Ongoing, Progressing Goal: Optimal Comfort and Wellbeing Outcome: Ongoing, Progressing Intervention: Provide Person-Centered Care Flowsheets (Taken 04/08/202558) Trust Relationship/Rapport: care explained choices provided emotional support provided empathic listening provided questions answered questions encouraged reassurance provided thoughts/feelings acknowledged Problem: Hospitalized Patient Goal: Optimal Patient- Wellbeing Outcome: Ongoing, Progressing Intervention: Promote Patient- Wellbeing Flowsheets (Taken 04/08/2025 005) Wellbeing Promotion: maternal position adjusted intake and output monitored uterine contraction activity assessed Problem: Pain Acute Goal: Optimal Pain Control and Function Outcome: Ongoing, Progressing Intervention: Develop Pain Management Plan Flowsheets (Taken 04/08/202558) Pain Management Interventions: pain management plan reviewed with patient/caregiver rest shower * Consults - Jaylon Kimball MBBS - 04/07/2025 10:44 AM EDTAssociated Order(s): IP CONSULT TO NEONATOLOGY A NICU consult was requested by OB/MFM for this of 25w4d weeks gestation due to concerns regarding delivery. The mother, Pamela Anderson , is a 25 y.o. at 25w4d weeks. She reports related to her OB history that she is having vaginal bleeding(intermittent since 8 weeks),chronic placenta abruption and subchorionic hemorrhage. Past Medical History[1] Surgical History[2] Social History Socioeconomic History Marital status: Unknown Spouse name: Not on file Number of children: Not on file Years of education: Not on file Highest education level: Not on file Occupational History Not on file Tobacco Use Smoking status: Never Smokeless tobacco: Never Substance and Sexual Activity Alcohol use: Never Drug use: Never Sexual activity: Not on file Other Topics Concern Not on file Social History Narrative Not on file Social Drivers of Health Financial Resource Strain: Low Risk (04/06/2025) Received from [facility] Overall Financial Resource Strain (CARDIA) Difficulty of Paying Living Expenses: Not hard at all Food Insecurity: No Food Insecurity (04/06/2025) Received from [facility] Hunger Vital Sign Within the past 12 months, you worried that your food would run out before you got the money to buymore.: Never true Within the past 12 months, the food you bought just didn't last and you didn't have money to get more.: Never true Transportation Needs: No Transportation Needs (04/06/2025) Received from [facility] PRAPARE - Transportation In the past 12 months, has lack of transportation kept you from medical appointments or from getting medications?: No In the past 12 months, has lack of transportation kept you from meetings, work, or from getting things needed for daily living?: No Physical Activity: Insufficiently Active (04/06/2025) Received from [facility] Exercise Vital Sign On average, how many days per week do you engage in moderate to strenuous exercise (like a brisk walk)?: 2 days On average, how many minutes do you engage in exercise at this level?: 10 min Stress: No Stress Concern Present (04/06/2025) Received from [facility] [employer] - Occupational Stress Questionnaire Feeling of Stress : Not at all Social Connections: Not At Risk (04/06/2025) Received from [facility] Family and Community Support If for any reason you need help with day-to-day activities such as bathing, preparing meals, shopping, managing finances, etc., do you get the help you need?: I don't need any help How often do you feel lonely or isolated from those around you?: Never Intimate Partner Violence: Not At Risk (04/06/2025) Received from [facility] Abuse Screen Feels Unsafe at Home or Work/School: no Feels Threatened by Someone: no Does Anyone Try to Keep You From Having Contact with Others or Doing Things Outside Your Home?: no Physical Signs of Abuse Present: no Housing Stability: Not At Risk (04/06/2025) Received from [facility] Housing Stability Current Living Arrangements: apartment Potentially Unsafe Housing Conditions: none Social History: She is not and her partner wants to be involved in baby care. She denies any use during of alcohol, tobacco products, or recreational/illicit drugs. Medications Ordered Prior to Encounter[3] Allergies[4] Family History[5] She denies any known family history of intellectual disability or defects. Maternal labs: A Positive / syphilis antibodies - non-reactive /GBS unknown Most recent ultrasound: 03/20 with PDC @ [facility]: breech, post, BECKY 12, 9.5 x 1.6 x 4.3 cm ISAAC, EFW 692g95%, AC 91% I spoke with mother at the bedside today. Also present was partner at the bedside. Mother reports that baby is a boy. I first spent time discussing general resuscitative measures at this gestational age including but not limited to drying/warming/stimulating, potentially utilizing respiratory support including CPAP,intubation, and/or endotracheal surfactant administration. I superficially explained RDS and premature lung physiology and the consequences of ventilation including BPD. I then explained the risk forinterventricular hemorrhage and the grades and consequences of such a bleed, including terminal operations manager neurodevelopmental delay. I outlined the plans for nutrition as they relate to gestational age including parenteral feeds, enteral feeds, and the importance of breast milk either from maternal pumping or donor breast milk if needed. I described NEC and SIP and explained the risk factors for their development. I then briefly outlined the pathophysiology, risk factors, and treatments for retinopathy of prematurity. I spent some time discussing an overview of some other common conditions in NICU babies including feeding difficulties, hyperbilirubinemia, apnea of prematurity, anemia of prematurity, sepsis, PDA, and iatrogenic complications from a NICU stay. We discussed overall mortality and morbidity as they relate to the gestational age and discussed the potential for moderate to severe disabilities as consequences of prematurity. Parent's goals: both the mother and her partner wants to be involved in the care. I briefly introduced the idea of potential research studies that this may qualify for andexplained that if her met criteria, someone may discuss opportunities with her later. Mother and her partner verbalized understanding and did not have any further questions at this time. I offered a return by NICU providers should questions arise later. Jaylon Kimball MD Fellow PGY4 [1] History reviewed. No pertinent past medical history. [2] Past Surgical History: Procedure Laterality Date SECTION, LOW TRANSVERSE TONSILECTOMY, ADENOIDECTOMY, BILATERAL MYRINGOTOMY AND TUBES [3] No current facility-administered medications on file prior to encounter. No current outpatient medications on file prior to encounter. [4] No Known Allergies [5] History reviewed. No pertinent family history. Cosigned by Milton Johnson MD at 04/07/2025 5:16 PM EDT Associated attestation - Milton Johnson MD - 04/07/2025 5:16 PM EDT I saw and evaluated the patient with the resident/fellow. I discussed the case with the resident/fellow and agree with the findings and plan as documented. * Progress Notes - Kelsey Mock - 04/07/2025 9:37 AM EDT Case Management Adult Initial Progress Note Pamela Anderson 25 y.o. female CSN: [id number] Admission: 04/07/2025 12:40 AM Primary Problem: No Principal Problem: There is no principal problem currently on the Problem List.Please update the Problem List and refresh. Mother Tester reviewed chart to complete this Initial Case Management Assessment. PCP: No primary care provider on file. Emergency Contact: No emergency contact information on file. Insurance: Primary Visit Coverage Payer Plan Sponsor Code Group Number Group Name [employer] [place] Primary Visit Coverage Subscriber Subscriber ID Subscriber Name Subscriber SSN Subscriber Address [id number] Pamela Anderson [id number] [address] [place] [address] Anticipated Discharge Date: TBD Patient's Discharge Goal: Home Assistance Available at Discharge: Discharge Transport: Follow Up Transport: Home Health / Home Infusion / Outpatient Dialysis Services: Living Will/Advance Directive/Power of Can Cutter /Guardian: Unable to assess: No Have you reviewed your Advance Directive and is it valid for this stay?: No Advance Directive: Patient would not like information Information Provided on Healthcare Directives: No Pre-existing DNR/DNI Order: No Patient Requests Assistance: No Additional Comments: POC reviewed. Pt is a 25 y.o. at 25w4d who presents as transfer of care from [facility] for vaginal bleeding in the setting of known subchorionic hemorrhage. Plan is to continue inpatient management. CM will follow for any discharge needs. Kelsey Mock * Care Plan - Anu Ty RN - 04/07/2025 7:36 AM EDT Problem: Adult Inpatient Plan of Care Goal: Plan of Care Review Outcome: Ongoing, Progressing Flowsheets (Taken 04/07/2025729) Progress: improving Plan of Care Reviewed With: patient Goal: Patient-Specific Goal (Individualized) Outcome: Ongoing, Progressing Flowsheets (Taken 04/07/2025729) Patient/Family-Specific Goals (Include Timeframe): pt will verbalize increased bleeding during shift today Individualized Care Needs: cluster care Anxieties, Fears or Concerns: no new concerns Goal: Absence of Hospital-Acquired Illness or Injury Outcome: Ongoing, Progressing Goal: Optimal Comfort and Wellbeing Outcome: Ongoing, Progressing Intervention: Monitor Pain and Promote Comfort Flowsheets (Taken 04/07/2025729) Pain Management Interventions: quiet environment facilitated Problem: Hospitalized Patient Goal: Optimal Patient- Wellbeing Outcome: Ongoing, Progressing Intervention: Promote Patient- Wellbeing Flowsheets (Taken 04/07/2025729) Wellbeing Promotion: heart rate monitored Problem: Pain Acute Goal: Optimal Pain Control and Function Outcome: Ongoing, Progressing Intervention: Optimize Psychosocial Wellbeing Flowsheets (Taken 04/07/2025729) Supportive Measures: positive reinforcement provided * Care Plan - Alex Zayas RN - 04/07/2025 4:52 AM EDT Problem: Adult Inpatient Plan of Care Goal: Plan of Care Review 04/07/2025452 by Alex Zayas RN Outcome: Ongoing, Progressing 04/07/2025450 by Alex Zayas RN Outcome: Ongoing, Progressing Flowsheets (Taken 04/07/2025450) Progress: improving Plan of Care Reviewed With: patient significant other Goal: Patient-Specific Goal (Individualized) 04/07/2025452 by Alex Zayas RN Outcome: Ongoing, Progressing 04/07/2025450 by Alex Zayas RN Outcome: Ongoing, Progressing Goal: Absence of Hospital-Acquired Illness or Injury 04/07/2025452 by Alex Zayas RN Outcome: Ongoing, Progressing 04/07/2025450 by Alex Zayas RN Outcome: Ongoing, Progressing Intervention: Identify and Manage Fall Risk Flowsheets (Taken 04/07/2025450) Safety Promotion/Fall Prevention: clutter-free environment maintained lighting adjusted fall prevention program maintained nonskid shoes/slippers when out of bed Goal: Optimal Comfort and Wellbeing 04/07/2025452 by Alex Zayas RN Outcome: Ongoing, Progressing 04/07/2025450 by Alex Zayas RN Outcome: Ongoing, Progressing Problem: Hospitalized Patient Goal: Optimal Patient- Wellbeing 04/07/2025452 by Alex Zayas RN Outcome: Ongoing, Progressing 04/07/2025450 by Alxe Zayas RN Outcome: Ongoing, Progressing Intervention: Promote Patient- Wellbeing Flowsheets (Taken 04/07/2025450) Wellbeing Promotion: heart rate monitored uterine contraction activity assessed Problem: Pain Acute Goal: Optimal Pain Control and Function 04/07/2025452 by Alex Zayas RN Outcome: Ongoing, Progressing 04/07/2025450 by Alex Zayas RN Outcome: Ongoing, Progressing Intervention: Optimize Psychosocial Wellbeing Flowsheets (Taken 04/07/2025452) Supportive Measures: active listening utilized decision-making supported Diversional Activities: television tablet * H&P - Nay Garcia MD - 04/07/2025 1:45 AM EDT Obstetrics History and Physical Patient Name: Pamela Anderson : 2000 Primary OB: [facility] Date of Admission: 04/07/25 Chief Concern: No chief complaint on file. Subjective Subjective History of Present Illness: Pamela Anderson is a 25 y.o. at 25w4d who presents as transfer of care from [facility] for vaginal bleeding in the setting of known subchorionic hemorrhage. is otherwise complicated by three prior sections, short interval , accelerated growth. Patient denies fevers, chills, chest pain, shortness of breath. Denies loss of fluid, contractions, abdominal pain or cramping. Reports normal movement. Patient reports intermittent bleeding since around 8 weeks gestation with diagnosis of subchorionichemorrhage. She has had increased bleeding for the past 2-3 weeks. She saw her primary QUALITY IMPROVEMENT COORDINATOR this week and was given outpatient ANCS due to increased bleeding. She then was sent for direct admissionto [facility] due to bleeding by her primary OBGYN. She has seen PDC at [facility] for subchorionic hemorrhage. At time of initial presentation, she was having scant dark blood. While admitted she had increased bleeding and partially filled 3-4 pads while there. She was transferred to due to concern for need for delivery given vaginal bleeding. She endorses continued vaginal bleeding since transfer. Obstetric History OB History 5 Para 3 Term AB Living SAB IAB Ectopic Multiple Live Births Prior CS x 3 at term Past Medical History Past Medical History[1] Past Surgical History Surgical History[2] Social History Social History[3] Family History Denies any family history of defects/mental disabilities Family History[4] Current Medications No current outpatient medications Allergies Allergies[5] Review of Systems Review of Systems As per HPI Objective Objective There were no vitals taken for this visit. There is no height or weight on file to calculate BMI. No intake or output data in the 24 hours ending 04/07/25 0236 Physical Exam: Physical Exam Constitutional: Appearance: Normal appearance. HENT: Head: Normocephalic and atraumatic. Eyes: Conjunctiva/sclera: Conjunctivae normal. Cardiovascular: Rate and Rhythm: Normal rate. Pulmonary: Effort: Pulmonary effort is normal. Musculoskeletal: General: Normal range of motion. Cervical back: Normal range of motion. Neurological: General: No focal deficit present. Mental Status: She is alert and oriented to person, place, and time. Skin: General: Skin is warm and dry. Capillary Refill: Capillary refill takes less than 2 seconds. Psychiatric: Mood and Affect: Mood normal. Behavior: Behavior normal. Heart Rate Mode: External US Baseline Heart Rate: 135 bpm Variability: Moderate (Between 6 and 25 BPM) Pattern: 15x15 accelerations Multiple Births: No Labs: Lab Results Component Value Date WBC 14.59 (H) 04/06/2025 RBC 3.61 (L) 04/06/2025 HGB 11.2 (L) 04/06/2025 HCT 33.5 (L) 04/06/2025 PLT 181 04/06/2025 MCV 92.8 04/06/2025 MCH 31 04/06/2025 MCHC 33.4 04/06/2025 RDW 13.6 04/06/2025 MPV 9.5 04/06/2025 Imaging: Bedside Ultrasound: vertex Assessment/Plan Assessment / Plan Pamela Anderson is a 25 y.o. at 23w5d # Vaginal bleeding # Chronic placental abruption # Subchorionic Hemorrhage - Known subchorionic hemorrhage with intermittent vaginal bleeding since 8 weeks gestation - Endorses increased bleeding for 2-3 weeks - Received outpatient ANCS 04/04-04/05 due to bleeding - Sent by primary QUALITY IMPROVEMENT COORDINATOR for direct admission to [facility] due to bleeding - Transferred to after bleeding requiring 3-4 pads over course of day with concern that she willneed delivered - Denies abdominal pain/contractions - Moderate amount of bright red vaginal bleeding on arrival on speculum exam, CE C/T/H - Hct 33 at OSH, fibrinogen 316 PLAN: - On magnesium @2 - Coags pending - CBC pending - Pad counts - NPO - CEFM # Prior c/s x3 - DP: RCS # status - presentation: vertex - Consented for vaginal or delivery. Risks of procedures including bleeding, infection, damage to surrounding tissues, lacerations, and need for further surgery discussed and patient expressed understanding. All questions were answered to the patient's satisfaction. - CEFM (appropriate for gestational age since admission) - [facility] w/ [facility], will request records - needs GTT - s/p ANCS 04/04-04/05 - Last US 03/20 with PDC @ [facility]: breech, post, BECKY 12, 9.5 x 1.6 x 4.3 cm ISAAC, EFW 692g 95%, AC 91% # considerations - Feeding: unknown - Contraception: Undecided # FEN/Prophylaxis - NPO / LR @ 75 - SCDs Dispo: Admit to Labor & Delivery. Please contact first-call provider on [facility] Secure Chat for questions or concerns. For emergencies [place] [phone]. Nay Reveles MD Obstetrics and Gynecology, PGY-3 [1] History reviewed. No pertinent past medical history. [2] Past Surgical History: Procedure Laterality Date SECTION, LOW TRANSVERSE TONSILECTOMY, ADENOIDECTOMY, BILATERAL MYRINGOTOMY AND TUBES [3] Social History Tobacco Use Smoking status: Never Smokeless tobacco: Never Substance Use Topics Alcohol use: Never Drug use: Never [4] History reviewed. No pertinent family history. [5] No Known Allergies Cosigned by Reema Louis MD at 04/07/2025 11:54 AM EDT Associated attestation - Reema Louis MD - 04/07/2025 11:54 AM EDT MFM Attending: I saw and evaluated the patient with the resident/fellow. I discussed the case with the resident/fellow and agree with the findings and plan as documented. The patient is a 25 y.o. at 25w4d with acute vaginal bleeding as transfer from [facility] overnight. Patient with bleedng throughout with ISAAC but had acute bleed yesterday. Upon arrival had significant bleeding noted on exam and then decreased. This am she states she feels well. She denies any abdominal pain, LOF, cramping/contractions. She reports normal movement. Visit Vitals BP 104/61 Pulse 91 Temp 36.8 ??C (98.2 ??F) (Oral) Resp 18 Ht 1.626 m (5' 4 ) Wt 75.3 kg (166 lb) Comment: per pt report SpO2 93% BMI 28.49 kg/m?? OB Status Smoking Status Never BSA 1.84 m?? Lab Results Component Value Date WBC 10.81 (H) 04/07/2025 HGB 10.9 (L) 04/07/2025 HCT 33.3 (L) 04/07/2025 MCV 93 04/07/2025 PLT 201 04/07/2025 Lab Results Component Value Date INR 1.1 04/07/2025 INR 1.1 04/07/2025 Fibrinogen: 286 Ultrasound with large subchorionic hematoma right lateral at edge of posterior placenta. -Discussed plan of care with serial labs and concern for acute hemorrhage or development of DIC. Will watch this closely. -Bleeding is still present but light currently. 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 -NPO as we continue to assess stabiity. If remains stable today, will consider diet this evening. -NICU consult requested. documented in this encounter Plan of Treatment Upcoming Encounters Date Type Department Care Team (Late st Contact Info) Description 04/27/2025 9:00 AM EDT Initial Medical Office Building Obstetrics and Gynecology [address], [address] [place] [address] Yun Dominguez MD [address] [place] [address] Pending Results Name Type Priority Associated Diagnoses Date /Time Prepare Leukocyte Reduced RBC: 2 Units Blood Bank Routine 04/07/2025 1:46 AM EDT documented as of this encounter Procedures Procedure Name Priority Date/Time Associated Diagnosis Comments NONSTRESS TEST Routine 04/12/2025 11:30 AM EDT EXTRA TUBE LIGHT GREEN TOP Routine 04/12/2025 3:27 AM EDT EXTRA TUBES Routine 04/12/2025 3:27 AM EDT APTT Routine 04/12/2025 3:27 AM EDT PROTHROMBIN TIME(PT) / INR Routine 04/12/2025 3:27 AM EDT FIBRINOGEN,QUANTITA TIVE (CLOTTABLE) Routine 04/12/2025 3:27 AM EDT CBC W/O DIFFERENTIAL Routine 04/12/2025 3:27 AM EDT NONSTRESS TEST Routine 04/11/2025 3:00 PM EDT EXTRA TUBE LIGHT GREEN TOP Routine 04/11/2025 4:29 AM EDT EXTRA TUBES Routine 04/11/2025 4:29 AM EDT APTT Routine 04/11/2025 4:29 AM EDT PROTHROMBIN TIME(PT) / INR Routine 04/11/2025 4:29 AM EDT FIBRINOGEN,QUANTITA TIVE (CLOTTABLE) Routine 04/11/2025 4:29 AM EDT CBC W/O DIFFERENTIAL Routine 04/11/2025 4:29 AM EDT TYPE AND SCREEN Routine 04/11/2025 4:29 AM EDT APTT Pending Discharge 04/10/2025 4:18 PM EDT PROTHROMBIN TIME(PT) / INR Pending Discharge 04/10/2025 4:18 PM EDT FIBRINOGEN,QUANTITA TIVE (CLOTTABLE) Pending Discharge 04/10/2025 4:18 PM EDT CBC W/O DIFFERENTIAL Pending Discharge 04/10/2025 4:18 PM EDT APTT Pending Discharge 04/10/2025 5:18 AM EDT PROTHROMBIN TIME(PT) / INR Pending Discharge 04/10/2025 5:18 AM EDT FIBRINOGEN,QUANTITA TIVE (CLOTTABLE) Pending Discharge 04/10/2025 5:18 AM EDT CBC W/O DIFFERENTIAL Pending Discharge 04/10/2025 5:18 AM EDT EXTRA TUBE LIGHT GREEN TOP Routine 04/09/2025 3:51 AM EDT EXTRA TUBES Routine 04/09/2025 3:51 AM EDT APTT Routine 04/09/2025 3:51 AM EDT PROTHROMBIN TIME(PT) / INR Routine 04/09/2025 3:51 AM EDT FIBRINOGEN,QUANTITA TIVE (CLOTTABLE) Routine 04/09/2025 3:51 AM EDT CBC W/O DIFFERENTIAL Routine 04/09/2025 3:51 AM EDT NONSTRESS TEST Routine 04/08/2025 11:43 AM EDT EXTRA TUBE LIGHT GREEN TOP Routine 04/08/2025 5:38 AM EDT EXTRA TUBES Routine 04/08/2025 5:38 AM EDT APTT Routine 04/08/2025 5:38 AM EDT PROTHROMBIN TIME(PT) / INR Routine 04/08/2025 5:38 AM EDT FIBRINOGEN,QUANTITA TIVE (CLOTTABLE) Routine 04/08/2025 5:38 AM EDT CBC W/O DIFFERENTIAL Routine 04/08/2025 5:38 AM EDT OB US DETAIL ANATOMY Routine 04/07/2025 10:54 AM EDT EXTRA TUBE LIGHT GREEN TOP Routine 04/07/2025 9:22 AM EDT EXTRA TUBES Routine 04/07/2025 9:22 AM EDT TRICHOMONAS VAGINALIS ANTIGEN STAT 04/07/2025 9:03 AM EDT CHLAMYDIA TRACHOMATIS DNA BY PCR STAT 04/07/2025 9:03 AM EDT NEISSERIA GONORRHEA DNA BY PCR STAT 04/07/2025 9:03 AM EDT APTT Routine 04/07/2025 9:03 AM EDT PROTHROMBIN TIME(PT) / INR Routine 04/07/2025 9:03 AM EDT FIBRINOGEN,QUANTITA TIVE (CLOTTABLE) Routine 04/07/2025 9:03 AM EDT CBC W/O DIFFERENTIAL Routine 04/07/2025 9:03 AM EDT TREPONEMA PALLIDUM (SYPHILIS) ANTIBODIES WITH REFLEX TO RPR AND RPR TITER (THOSE WITH NO KNOWN SYPHILIS) Routine 04/07/2025 2:53 AM EDT APTT STAT 04/07/2025 2:53 AM EDT PROTHROMBIN TIME(PT) / INR STAT 04/07/2025 2:53 AM EDT FIBRINOGEN,QUANTITA TIVE (CLOTTABLE) STAT 04/07/2025 2:53 AM EDT CBC W/O DIFFERENTIAL Routine 04/07/2025 2:53 AM EDT TYPE AND SCREEN STAT 04/07/2025 2:53 AM EDT PREPARE RBC Routine 04/07/2025 1:46 AM EDT documented in this encounter Results * nonstress test (04/12/2025 11:30 AM EDT) Narrative Yun Dominguez MD - 04/12/2025 11:30 AM EDT Yun Dominguez MD 04/12/2025 4:06 PM Non-Stress Test Interpretation kain Ibarra at 26w2d with an EMILY of 07/17/2025, by Patient Reported, was seen at [facility] for a nonstress test. Reason for Non-Stress Test: Placenta abnormality Variability in Waveform for Baby A: Moderate Decelerations in Baby A: None Accelerations in Baby A: Yes Acoustic Stimulator for Baby A: No Baseline Heart Rate for Baby A: 145 BPM Uterine Irritability for Baby A: No Contractions in Baby A: Not present Comments on Non-Stress Test: OK to come off monitor per Guerline Estrada us Reema Louis MD IN CLINIC/BEDSIDE ORDERABLES Final Result * Light Green Top (04/12/2025 3:27 AM EDT) Extra Hold for add-ons 04/12/2025 6:01 AM EDT [facility] Comment:Auto resulted. Blood Venous blood specimen / Unknown 04/12/2025 3:27 AM EDT 04/12/2025 3:45 AM EDT us Reema Louis MD LAB BLOOD ORDERABLES Final R esult [facility] [address] [place] [address] * Prothrombin Time/INR (04/12/2025 3:27 AM EDT) Prothrombin Time 14.1 12.0 - 14.3 sec LAB COAGULATION METHOD 04/12/2025 4:11 AM EDT [facility] INR 1.1 0.9 - 1.1 LAB COAGULATION METHOD 04/12/2025 4:11 AM EDT [facility] Blood Venous blood specimen / Unknown Venipuncture / Unknown 04/12/2025 3:27 AM EDT 04/12/2025 3:44 AM EDT Narrative [facility] - 04/12/2025 4:11 AM EDT OPTIMAL INR RANGES FOR PATIENT ON ORAL ANTICOAGULANT THERAPY Prevention of venous thromboembolism INR 2.0 to 3.0 In patients with heart disease: Atrial fibrillation INR 2.0 to 3.0 Valvular heart disease INR 2.0 to 3.0 Tissue heart valves INR 2.0 to 3.0 Mechanical prosthetic valves INR 2.5 to 3.5 Prevention of recurrent PR INR 2.5 to 3.5 us Reema Louis MD LAB BLOOD ORDERABLES Final R esult [facility] [address] [place] [address] * Fibrinogen (04/12/2025 3:27 AM EDT) Pathologist [facility] Fibrinogen, Quantitative (Clottable) 315 208 - 459 mg/dL LAB COAGULATION METHOD 04/12/2025 4:11 AM EDT [facility] Blood Venous blood specimen / Unknown Venipuncture / Unknown 04/12/2025 3:27 AM EDT 04/12/2025 3:44 AM EDT us Reema Louis MD LAB BLOOD ORDERABLES Final R esult [facility] [address] [place] [address] * (ABNORMAL) CBC (04/12/2025 3:27 AM EDT) Pathologist [facility] WBC Count 12.26(H) 3.70 - 10.30 10*3/uL LAB HEMATOLOGY METHOD 04/12/2025 3:56 AM EDT [facility] RBC Count 3.22(L) 3.90 - 5.20 10*6/uL LAB HEMATOLOGY METHOD 04/12/2025 3:56 AM EDT [facility] HGB 9.6(L) 11.2 - 15.7 g/dL LAB HEMATOLOGY METHOD 04/12/2025 3:56 AM EDT [facility] HCT 29.3(L) 34.0 - 45.0 % LAB HEMATOLOGY METHOD 04/12/2025 3:56 AM EDT [facility] Platelet Count 203 155 - 369 10*3/uL LAB HEMATOLOGY METHOD 04/12/2025 3:56 AM EDT [facility] MCV 91 79 - 98 fL LAB HEMATOLOGY METHOD 04/12/2025 3:56 AM EDT [facility] MCH 29.8 26.0 - 32.0 pg LAB HEMATOLOGY METHOD 04/12/2025 3:56 AM EDT [facility] MCHC 32.8 30.7 - 35.5 g/dL LAB HEMATOLOGY METHOD 04/12/2025 3:56 AM EDT [facility] RDW 13.7 11.5 - 14.5 % LAB HEMATOLOGY METHOD 04/12/2025 3:56 AM EDT [facility] MPV 9.6 8.8 - 12.5 fL LAB HEMATOLOGY METHOD 04/12/2025 3:56 AM EDT [facility] nRBC 0.0 <=0.0 per 100 WBCs LAB HEMATOLOGY METHOD 04/12/2025 3:56 AM EDT [facility] Blood Venous blood specimen / Unknown Venipuncture / Unknown 04/12/2025 3:27 AM EDT 04/12/2025 3:46 AM EDT Reema Louis MD LAB BLOOD ORDERABLES Final R esult Performing Organization Address City/[facility]/ZIP Co de Phone Number [facility] [address] [place] [address] * APTT (04/12/2025 3:27 AM EDT) aPTT 28 25 - 35 sec LAB COAGULATION METHOD 04/12/2025 4:11 AM EDT [facility] Blood Venous blood specimen / Unknown Venipuncture / Unknown 04/12/2025 3:27 AM EDT 04/12/2025 3:44 AM EDT Reema Louis MD LAB BLOOD ORDERABLES Final R esult Performing Organization Address City/[facility]/ZIP Co de Phone Number [facility] [address] [place] [address] * nonstress test (04/11/2025 3:00 PM EDT) Narrative Yun Dominguez MD - 04/11/2025 3:00 PM EDT Yun Dominguez MD 04/11/2025 5:03 PM Non-Stress Test Interpretation kain Ibarra at 26w1d with an EMILY of 07/17/2025, by Patient Reported, was seen at [facility] for a nonstress test. Reason for Non-Stress Test: Placenta abnormality Variability in Waveform for Baby A: Moderate Decelerations in Baby A: None Accelerations in Baby A: Yes Acoustic Stimulator for Baby A: No Baseline Heart Rate for Baby A: 150 BPM Uterine Irritability for Baby A: No Contractions in Baby A: Not present Comments on Non-Stress Test: OK to come off per Dr. Robertson us Reema Louis MD IN CLINIC/BEDSIDE ORDERABLES Final Result * Light Green Top (04/11/2025 4:29 AM EDT) Extra Hold for add-ons 04/11/2025 7:01 AM EDT [facility] Comment:Auto resulted. Blood Venous blood specimen / Unknown 04/11/2025 4:29 AM EDT 04/11/2025 4:56 AM EDT us Reema Louis MD LAB BLOOD ORDERABLES Final R esult Performing Organization Address City/[facility]/ZIP Co de Phone Number [facility] [address] [place] [address] * Type and screen (04/11/2025 4:29 AM EDT) ABO/Rh A Positive 04/11/2025 4:40 AM EDT BLOOD BANK Antibody Screen Negative 04/11/2025 4:40 AM EDT BLOOD BANK Specimen Expiration 04/14/2025 23:59 04/11/2025 4:40 AM EDT BLOOD BANK Blood Venous blood specimen / Unknown Venipuncture / Unknown 04/11/2025 4:29 AM EDT 04/11/2025 4:40 AM EDT us Reema Louis MD LAB BLOOD BANK TEST ORDERABL ES Final Result Performing Organization Address City/[facility] Co de Phone Number BLOOD BANK [address] * (ABNORMAL) Prothrombin Time/INR (04/11/2025 4:29 AM EDT) Prothrombin Time 14.5(H) 12.0 - 14.3 sec LAB COAGULATION METHOD 04/11/2025 5:19 AM EDT [facility] INR 1.1 0.9 - 1.1 LAB COAGULATION METHOD 04/11/2025 5:19 AM EDT [facility] Blood Venous blood specimen / Unknown Venipuncture / Unknown 04/11/2025 4:29 AM EDT 04/11/2025 4:46 AM EDT Narrative [facility] - 04/11/2025 5:19 AM EDT OPTIMAL INR RANGES FOR PATIENT ON ORAL ANTICOAGULANT THERAPY Prevention of venous thromboembolism INR 2.0 to 3.0 In patients with heart disease: Atrial fibrillation INR 2.0 to 3.0 Valvular heart disease INR 2.0 to 3.0 Tissue heart valves INR 2.0 to 3.0 Mechanical prosthetic valves INR 2.5 to 3.5 Prevention of recurrent PR INR 2.5 to 3.5 us Reema Louis MD LAB BLOOD ORDERABLES Final R esult Performing Organization Address City/[facility]/ZIP Co de Phone Number [facility] [address] [place] [address] * Fibrinogen (04/11/2025 4:29 AM EDT) Fibrinogen, Quantitative (Clottable) 292 208 - 459 mg/dL LAB COAGULATION METHOD 04/11/2025 5:19 AM EDT [facility] Blood Venous blood specimen / Unknown Venipuncture / Unknown 04/11/2025 4:29 AM EDT 04/11/2025 4:46 AM EDT us Reema Louis MD LAB BLOOD ORDERABLES Final R esult [facility] [address] [place] [address] * (ABNORMAL) CBC (04/11/2025 4:29 AM EDT) WBC Count 13.44(H) 3.70 - 10.30 10*3/uL LAB HEMATOLOGY METHOD 04/11/2025 4:57 AM EDT [facility] RBC Count 3.15(L) 3.90 - 5.20 10*6/uL LAB HEMATOLOGY METHOD 04/11/2025 4:57 AM EDT [facility] HGB 9.4(L) 11.2 - 15.7 g/dL LAB HEMATOLOGY METHOD 04/11/2025 4:57 AM EDT [facility] HCT 28.8(L) 34.0 - 45.0 % LAB HEMATOLOGY METHOD 04/11/2025 4:57 AM EDT [facility] Platelet Count 210 155 - 369 10*3/uL LAB HEMATOLOGY METHOD 04/11/2025 4:57 AM EDT [facility] MCV 91 79 - 98 fL LAB HEMATOLOGY METHOD 04/11/2025 4:57 AM EDT [facility] MCH 29.8 26.0 - 32.0 pg LAB HEMATOLOGY METHOD 04/11/2025 4:57 AM EDT [facility] MCHC 32.6 30.7 - 35.5 g/dL LAB HEMATOLOGY METHOD 04/11/2025 4:57 AM EDT [facility] RDW 13.9 11.5 - 14.5 % LAB HEMATOLOGY METHOD 04/11/2025 4:57 AM EDT [facility] MPV 9.6 8.8 - 12.5 fL LAB HEMATOLOGY METHOD 04/11/2025 4:57 AM EDT [facility] nRBC 0.0 <=0.0 per 100 WBCs LAB HEMATOLOGY METHOD 04/11/2025 4:57 AM EDT [facility] Blood Venous blood specimen / Unknown Venipuncture / Unknown 04/11/2025 4:29 AM EDT 04/11/2025 4:49 AM EDT us Reema Louis MD LAB BLOOD ORDERABLES Final R esult [facility] [address] [place] [address] * APTT (04/11/2025 4:29 AM EDT) aPTT 28 25 - 35 sec LAB COAGULATION METHOD 04/11/2025 5:19 AM EDT [facility] Blood Venous blood specimen / Unknown Venipuncture / Unknown 04/11/2025 4:29 AM EDT 04/11/2025 4:46 AM EDT us Reema Louis MD LAB BLOOD ORDERABLES Final R esult Performing Organization Address City/[facility]/ZIP Co de Phone Number [facility] [address] [place] [address] * Prothrombin Time/INR (04/10/2025 4:18 PM EDT) Prothrombin Time 14.2 12.0 - 14.3 sec LAB COAGULATION METHOD 04/10/2025 5:05 PM EDT [facility] INR 1.1 0.9 - 1.1 LAB COAGULATION METHOD 04/10/2025 5:05 PM EDT [facility] Blood Venous blood specimen / Unknown Venipuncture / Unknown 04/10/2025 4:18 PM EDT 04/10/2025 4:41 PM EDT Narrative [facility] - 04/10/2025 5:05 PM EDT OPTIMAL INR RANGES FOR PATIENT ON ORAL ANTICOAGULANT THERAPY Prevention of venous thromboembolism INR 2.0 to 3.0 In patients with heart disease: Atrial fibrillation INR 2.0 to 3.0 Valvular heart disease INR 2.0 to 3.0 Tissue heart valves INR 2.0 to 3.0 Mechanical prosthetic valves INR 2.5 to 3.5 Prevention of recurrent PR INR 2.5 to 3.5 Result Sheldon Louis MD LAB BLOOD ORDERABLES Final R esult Performing Organization Address City/[facility]/ZIP Co de Phone Number [facility] [address] [place] [address] * Fibrinogen (04/10/2025 4:18 PM EDT) Fibrinogen, Quantitative (Clottable) 329 208 - 459 mg/dL LAB COAGULATION METHOD 04/10/2025 5:05 PM EDT [facility] Blood Venous blood specimen / Unknown Venipuncture / Unknown 04/10/2025 4:18 PM EDT 04/10/2025 4:41 PM EDT us Reema Louis MD LAB BLOOD ORDERABLES Final R esult [facility] [address] [place] [address] * (ABNORMAL) CBC (04/10/2025 4:18 PM EDT) WBC Count 13.62(H) 3.70 - 10.30 10*3/uL LAB HEMATOLOGY METHOD 04/10/2025 4:51 PM EDT [facility] RBC Count 3.40(L) 3.90 - 5.20 10*6/uL LAB HEMATOLOGY METHOD 04/10/2025 4:51 PM EDT [facility] HGB 10.5(L) 11.2 - 15.7 g/dL LAB HEMATOLOGY METHOD 04/10/2025 4:51 PM EDT [facility] HCT 30.9(L) 34.0 - 45.0 % LAB HEMATOLOGY METHOD 04/10/2025 4:51 PM EDT [facility] Platelet Count 221 155 - 369 10*3/uL LAB HEMATOLOGY METHOD 04/10/2025 4:51 PM EDT [facility] MCV 91 79 - 98 fL LAB HEMATOLOGY METHOD 04/10/2025 4:51 PM EDT [facility] MCH 30.9 26.0 - 32.0 pg LAB HEMATOLOGY METHOD 04/10/2025 4:51 PM EDT [facility] MCHC 34.0 30.7 - 35.5 g/dL LAB HEMATOLOGY METHOD 04/10/2025 4:51 PM EDT [facility] RDW 13.7 11.5 - 14.5 % LAB HEMATOLOGY METHOD 04/10/2025 4:51 PM EDT [facility] MPV 9.4 8.8 - 12.5 fL LAB HEMATOLOGY METHOD 04/10/2025 4:51 PM EDT [facility] nRBC 0.1(H) <=0.0 per 100 WBCs LAB HEMATOLOGY METHOD 04/10/2025 4:51 PM EDT [facility] Blood Venous blood specimen / Unknown Venipuncture / Unknown 04/10/2025 4:18 PM EDT 04/10/2025 4:43 PM EDT us Reema Louis MD LAB BLOOD ORDERABLES Final R esult Performing Organization Address City/[facility]/ZIP Co de Phone Number [facility] [address] [place] [address] * APTT (04/10/2025 4:18 PM EDT) aPTT 27 25 - 35 sec LAB COAGULATION METHOD 04/10/2025 5:05 PM EDT [facility] Blood Venous blood specimen / Unknown Venipuncture / Unknown 04/10/2025 4:18 PM EDT 04/10/2025 4:41 PM EDT us Reema Louis MD LAB BLOOD ORDERABLES Final R esult Performing Organization Address City/[facility] [place] [address] * Fibrinogen (04/10/2025 5:18 AM EDT) Fibrinogen, Quantitative (Clottable) 257 208 - 459 mg/dL LAB COAGULATION METHOD 04/10/2025 5:51 AM EDT [facility] Blood Venous blood specimen / Unknown Venipuncture / Unknown 04/10/2025 5:18 AM EDT 04/10/2025 5:24 AM EDT us Rashard Allen MD LAB BLOOD ORDERABLES Final Re sult Performing Organization Address City/[facility]/ZIP Co de Phone Number [facility] [address] [place] [address] * APTT (04/10/2025 5:18 AM EDT) aPTT 28 25 - 35 sec LAB COAGULATION METHOD 04/10/2025 5:51 AM EDT [facility] Blood Venous blood specimen / Unknown Venipuncture / Unknown 04/10/2025 5:18 AM EDT 04/10/2025 5:24 AM EDT us Rashard Allen MD LAB BLOOD ORDERABLES Final Re sult Performing Organization Address [facility]/ZIP Co de Phone Number [facility] [address] [place] [address] * Prothrombin Time/INR (04/10/2025 5:18 AM EDT) Prothrombin Time 14.2 12.0 - 14.3 sec LAB COAGULATION METHOD 04/10/2025 5:51 AM EDT [facility] INR 1.1 0.9 - 1.1 LAB COAGULATION METHOD 04/10/2025 5:51 AM EDT [facility] Blood Venous blood specimen / Unknown Venipuncture / Unknown 04/10/2025 5:18 AM EDT 04/10/2025 5:24 AM EDT Narrative [facility] - 04/10/2025 5:51 AM EDT OPTIMAL INR RANGES FOR PATIENT ON ORAL ANTICOAGULANT THERAPY Prevention of venous thromboembolism INR 2.0 to 3.0 In patients with heart disease: Atrial fibrillation INR 2.0 to 3.0 Valvular heart disease INR 2.0 to 3.0 Tissue heart valves INR 2.0 to 3.0 Mechanical prosthetic valves INR 2.5 to 3.5 Prevention of recurrent PR INR 2.5 to 3.5 us Rashard Allen MD LAB BLOOD ORDERABLES Final Re sult Performing Organization Address [facility] Co de Phone Number [facility] [address] [place] [address] * (ABNORMAL) CBC (04/10/2025 5:18 AM EDT) WBC Count 11.57(H) 3.70 - 10.30 10*3/uL LAB HEMATOLOGY METHOD 04/10/2025 5:34 AM EDT [facility] RBC Count 3.10(L) 3.90 - 5.20 10*6/uL LAB HEMATOLOGY METHOD 04/10/2025 5:34 AM EDT [facility] HGB 9.1(L) 11.2 - 15.7 g/dL LAB HEMATOLOGY METHOD 04/10/2025 5:34 AM EDT [facility] HCT 28.5(L) 34.0 - 45.0 % LAB HEMATOLOGY METHOD 04/10/2025 5:34 AM EDT [facility] Platelet Count 195 155 - 369 10*3/uL LAB HEMATOLOGY METHOD 04/10/2025 5:34 AM EDT [facility] MCV 92 79 - 98 fL LAB HEMATOLOGY METHOD 04/10/2025 5:34 AM EDT [facility] MCH 29.4 26.0 - 32.0 pg LAB HEMATOLOGY METHOD 04/10/2025 5:34 AM EDT [facility] MCHC 31.9 30.7 - 35.5 g/dL LAB HEMATOLOGY METHOD 04/10/2025 5:34 AM EDT [facility] RDW 13.9 11.5 - 14.5 % LAB HEMATOLOGY METHOD 04/10/2025 5:34 AM EDT [facility] MPV 9.6 8.8 - 12.5 fL LAB HEMATOLOGY METHOD 04/10/2025 5:34 AM EDT [facility] nRBC 0.0 <=0.0 per 100 WBCs LAB HEMATOLOGY METHOD 04/10/2025 5:34 AM EDT [facility] Blood Venous blood specimen / Unknown Venipuncture / Unknown 04/10/2025 5:18 AM EDT 04/10/2025 5:26 AM EDT us Rashard Allen MD LAB BLOOD ORDERABLES Final Re sult [facility] [address] [place] [address] * Light Green Top (04/09/2025 3:51 AM EDT) Extra Hold for add-ons 04/09/2025 7:01 AM EDT [facility] Comment:Auto resulted. Blood Venous blood specimen / Unknown 04/09/2025 3:51 AM EDT 04/09/2025 4:05 AM EDT us Reema Louis MD LAB BLOOD ORDERABLES Final R esult Performing Organization Address City/[facility]/ZIP Co de Phone Number [facility] [address] [place] [address] * Fibrinogen (04/09/2025 3:51 AM EDT) Fibrinogen, Quantitative (Clottable) 287 208 - 459 mg/dL LAB COAGULATION METHOD 04/09/2025 4:23 AM EDT [facility] Blood Venous blood specimen / Unknown Venipuncture / Unknown 04/09/2025 3:51 AM EDT 04/09/2025 4:03 AM EDT us Rashard Allen MD LAB BLOOD ORDERABLES Final Re sult Performing Organization Address [facility] Co de Phone Number [facility] [address] [place] [address] * APTT (04/09/2025 3:51 AM EDT) aPTT 28 25 - 35 sec LAB COAGULATION METHOD 04/09/2025 4:23 AM EDT [facility] Blood Venous blood specimen / Unknown Venipuncture / Unknown 04/09/2025 3:51 AM EDT 04/09/2025 4:03 AM EDT us Rashard Allen MD LAB BLOOD ORDERABLES Final Re sult Performing Organization Address [facility] [place] [address] * Prothrombin Time/INR (04/09/2025 3:51 AM EDT) Prothrombin Time 14.2 12.0 - 14.3 sec LAB COAGULATION METHOD 04/09/2025 4:23 AM EDT [facility] INR 1.1 0.9 - 1.1 LAB COAGULATION METHOD 04/09/2025 4:23 AM EDT [facility] Blood Venous blood specimen / Unknown Venipuncture / Unknown 04/09/2025 3:51 AM EDT 04/09/2025 4:03 AM EDT Narrative [facility] - 04/09/2025 4:23 AM EDT OPTIMAL INR RANGES FOR PATIENT ON ORAL ANTICOAGULANT THERAPY Prevention of venous thromboembolism INR 2.0 to 3.0 In patients with heart disease: Atrial fibrillation INR 2.0 to 3.0 Valvular heart disease INR 2.0 to 3.0 Tissue heart valves INR 2.0 to 3.0 Mechanical prosthetic valves INR 2.5 to 3.5 Prevention of recurrent PR INR 2.5 to 3.5 us Rashard Allen MD LAB BLOOD ORDERABLES Final Re sult [facility] [address] [place] [address] * (ABNORMAL) CBC (04/09/2025 3:51 AM EDT) WBC Count 11.27(H) 3.70 - 10.30 10*3/uL LAB HEMATOLOGY METHOD 04/09/2025 4:16 AM EDT [facility] RBC Count 3.52(L) 3.90 - 5.20 10*6/uL LAB HEMATOLOGY METHOD 04/09/2025 4:16 AM EDT [facility] HGB 10.4(L) 11.2 - 15.7 g/dL LAB HEMATOLOGY METHOD 04/09/2025 4:16 AM EDT [facility] HCT 32.8(L) 34.0 - 45.0 % LAB HEMATOLOGY METHOD 04/09/2025 4:16 AM EDT [facility] Platelet Count 201 155 - 369 10*3/uL LAB HEMATOLOGY METHOD 04/09/2025 4:16 AM EDT [facility] MCV 93 79 - 98 fL LAB HEMATOLOGY METHOD 04/09/2025 4:16 AM EDT [facility] MCH 29.5 26.0 - 32.0 pg LAB HEMATOLOGY METHOD 04/09/2025 4:16 AM EDT [facility] MCHC 31.7 30.7 - 35.5 g/dL LAB HEMATOLOGY METHOD 04/09/2025 4:16 AM EDT [facility] RDW 13.9 11.5 - 14.5 % LAB HEMATOLOGY METHOD 04/09/2025 4:16 AM EDT [facility] MPV 9.6 8.8 - 12.5 fL LAB HEMATOLOGY METHOD 04/09/2025 4:16 AM EDT [facility] nRBC 0.3(H) <=0.0 per 100 WBCs LAB HEMATOLOGY METHOD 04/09/2025 4:16 AM EDT [facility] Blood Venous blood specimen / Unknown Venipuncture / Unknown 04/09/2025 3:51 AM EDT 04/09/2025 4:04 AM EDT Rashard Allen MD LAB BLOOD ORDERABLES Final Re sult Performing Organization Address City/[facility] Co de Phone Number [facility] [address] [place] [address] * nonstress test (04/08/2025 11:43 AM EDT) Narrative Galina Mariscal MD - 04/08/2025 11:43 AM EDT Galina Mariscal MD 04/09/2025 1:40 PM Non-Stress Test Interpretation Pamela Anderson, a at 25w5d with an EMILY of 07/17/2025, by Patient Reported, was seen at [facility] for a nonstress test. Variability in Waveform for Baby A: Moderate Decelerations in Baby A: None Baseline Heart Rate for Baby A: 140 BPM Uterine Irritability for Baby A: No Contractions in Baby A: Not present Comments on Non-Stress Test: Reactive per MD Baer Rashard Allen MD IN CLINIC/BEDSIDE ORDERABLES Final Result * Light Green Top (04/08/2025 5:38 AM EDT) Extra Hold for add-ons 04/08/2025 8:01 AM EDT [facility] Comment:Auto resulted. Blood Venous blood specimen / Unknown 04/08/2025 5:38 AM EDT 04/08/2025 5:45 AM EDT us Rashard Allen MD LAB BLOOD ORDERABLES Final Re sult Performing Organization Address City/[facility]/ZIP Co de Phone Number [facility] [address] [place] [address] * Fibrinogen (04/08/2025 5:38 AM EDT) Fibrinogen, Quantitative (Clottable) 276 208 - 459 mg/dL LAB COAGULATION METHOD 04/08/2025 6:10 AM EDT [facility] Blood Venous blood specimen / Unknown Venipuncture / Unknown 04/08/2025 5:38 AM EDT 04/08/2025 5:45 AM EDT Rashard Allen MD LAB BLOOD ORDERABLES Final Re sult Performing Organization Address City/[facility] Co de Phone Number [facility] [address] [place] [address] * APTT (04/08/2025 5:38 AM EDT) aPTT 27 25 - 35 sec LAB COAGULATION METHOD 04/08/2025 6:10 AM EDT [facility] Blood Venous blood specimen / Unknown Venipuncture / Unknown 04/08/2025 5:38 AM EDT 04/08/2025 5:45 AM EDT Rashard Allen MD LAB BLOOD ORDERABLES Final Re sult Performing Organization Address City/[facility] [place] [address] * (ABNORMAL) Prothrombin Time/INR (04/08/2025 5:38 AM EDT) Prothrombin Time 14.6(H) 12.0 - 14.3 sec LAB COAGULATION METHOD 04/08/2025 6:10 AM EDT [facility] INR 1.1 0.9 - 1.1 LAB COAGULATION METHOD 04/08/2025 6:10 AM EDT [facility] Blood Venous blood specimen / Unknown Venipuncture / Unknown 04/08/2025 5:38 AM EDT 04/08/2025 5:45 AM EDT Narrative [facility] - 04/08/2025 6:10 AM EDT OPTIMAL INR RANGES FOR PATIENT ON ORAL ANTICOAGULANT THERAPY Prevention of venous thromboembolism INR 2.0 to 3.0 In patients with heart disease: Atrial fibrillation INR 2.0 to 3.0 Valvular heart disease INR 2.0 to 3.0 Tissue heart valves INR 2.0 to 3.0 Mechanical prosthetic valves INR 2.5 to 3.5 Prevention of recurrent PR INR 2.5 to 3.5 us Rashard Allen MD LAB BLOOD ORDERABLES Final Re sult [facility] [address] [place] [address] * (ABNORMAL) CBC (04/08/2025 5:38 AM EDT) WBC Count 9.37 3.70 - 10.30 10*3/uL LAB HEMATOLOGY METHOD 04/08/2025 5:55 AM EDT [facility] RBC Count 3.35(L) 3.90 - 5.20 10*6/uL LAB HEMATOLOGY METHOD 04/08/2025 5:55 AM EDT [facility] HGB 10.4(L) 11.2 - 15.7 g/dL LAB HEMATOLOGY METHOD 04/08/2025 5:55 AM EDT [facility] HCT 31.3(L) 34.0 - 45.0 % LAB HEMATOLOGY METHOD 04/08/2025 5:55 AM EDT [facility] Platelet Count 174 155 - 369 10*3/uL LAB HEMATOLOGY METHOD 04/08/2025 5:55 AM EDT [facility] MCV 93 79 - 98 fL LAB HEMATOLOGY METHOD 04/08/2025 5:55 AM EDT [facility] MCH 31.0 26.0 - 32.0 pg LAB HEMATOLOGY METHOD 04/08/2025 5:55 AM EDT [facility] MCHC 33.2 30.7 - 35.5 g/dL LAB HEMATOLOGY METHOD 04/08/2025 5:55 AM EDT [facility] RDW 14.0 11.5 - 14.5 % LAB HEMATOLOGY METHOD 04/08/2025 5:55 AM EDT [facility] MPV 9.2 8.8 - 12.5 fL LAB HEMATOLOGY METHOD 04/08/2025 5:55 AM EDT [facility] nRBC 0.3(H) <=0.0 per 100 WBCs LAB HEMATOLOGY METHOD 04/08/2025 5:55 AM EDT [facility] Blood Venous blood specimen / Unknown Venipuncture / Unknown 04/08/2025 5:38 AM EDT 04/08/2025 5:45 AM EDT Result [facility] Rashard Allen MD LAB BLOOD ORDERABLES Final Re sult Performing Organization Address [facility] de Phone Number [facility] [address] [place] [address] * OB US Detail Anatomy (04/07/2025 10:54 AM EDT) Anatomical Region Laterality Modality Body Ultrasound 04/07/2025 8:08 AM EDT Impressions 04/08/2025 4:01 PM EDT The OB Ultrasound you requested has been resulted. Please navigate to the Imaging tab in [facility] for review. This message has been generated by the interface. Narrative Procedure Note Kaylyn Castellanos MD - 04/08/2025 IMPRESSION: The OB Ultrasound you requested has been resulted. Please navigate to theImaging tab in [employer] for review. This message has been generated by theinterface. Result [facility] us Rashard Allen MD IMG OB US PROCEDURES Final Re sult * Light Green Top (04/07/2025 9:22 AM EDT) Extra Hold for add-ons 04/07/2025 12:01 PM EDT [facility] Comment:Auto resulted. Blood Venous blood specimen / Unknown Venipuncture / Unknown 04/07/2025 9:22 AM EDT 04/07/2025 9:22 AM EDT Result [facility] us Rashard Allen MD LAB BLOOD ORDERABLES Final Re sult Performing Organization Address City/[facility]/ZIP Co de Phone Number [facility] [address] [place] [address] * Neisseria gonorrhea DNA by PCR (04/07/2025 9:03 AM EDT) Neisseria gonorrhea DNA PCR Result Not Detected Not Detected. 04/09/2025 3:28 PM EDT [facility] Swab Vaginal structure / Unknown Non-blood Collection / Unknown 04/07/2025 9:03 AM EDT 04/07/2025 9:38 AM EDT Narrative [facility] - 04/09/2025 3:28 PM EDT This test is performed by the [employer] [email or web address] instrument for Real Time PCR C. trachomatis and N. gonorrhea. This test is FDA approved for use with endocervical, vaginal, and urine specimens. This test is used for clinical purposes. It should not be regarded as invesigational or for research. The [facility] Clinical [facility]biology [facility] is certified under the Clinical Laboratory Improvement Amendments of 1988 (CLIA-88) as qualified to perform high complexity clinical laboratory testing. Rashard Allen MD LAB MICROBIOLOGY - GENERAL OR DERABLES Final Result Performing Organization Address [facility] Co de Phone Number [address] [address] * Chlamydia trachomatis DNA by PCR (04/07/2025 9:03 AM EDT) Chlamydia trachomatis DNA PCR Result Not Detected Not Detected 04/09/2025 3:28 PM EDT [facility] Swab Vaginal structure / Unknown Non-blood Collection / Unknown 04/07/2025 9:03 AM EDT 04/07/2025 9:38 AM EDT Narrative [facility] - 04/09/2025 3:28 PM EDT This test is performed by the [employer] m2000 instrument for Real Time PCR C. trachomatis and N. gonorrhea. This test is FDA approved for use with endocervical, vaginal, and urine specimens. This test is used for clinical purposes. It should not be regarded as invesigational or for research. The [facility] Clinical Microbiology [facility] is certified under the Clinical Laboratory Improvement Amendments of 1988 (CLIA-88) as qualified to perform high complexity clinical laboratory testing. Rashard Allen MD LAB MICROBIOLOGY - GENERAL OR DERABLES Final Result Performing Organization Address [facility] Co de Phone Number [address] [place] [address] * Trichomonas Vaginalis Antigen (04/07/2025 9:03 AM EDT) Trichomonas vaginalis Antigen Result Negative Negative 04/07/2025 1:04 PM EDT [facility] Swab Vaginal structure / Unknown Non-blood Collection / Unknown 04/07/2025 9:03 AM EDT 04/07/2025 9:38 AM EDT Narrative [facility] - 04/07/2025 1:04 PM EDT This test was developed and its performance characteristics determined by [facility]. It has not been cleared or approved by the US Food and Drug Administration. FDA does not require this test to go through premarket FDA review. This test is used for clinical purposes. It should not be regarded as investigational or for research. This laboratory is certified under the Clinical Laboratory Improvement Amendments (CLIA) as qualified to perform high complexity clinical laboratory testing. Rashard Allen MD LAB MICROBIOLOGY - GENERAL OR DERABLES Final Result [facility] [address] [place] [address] * APTT (04/07/2025 9:03 AM EDT) Pathologist [facility] aPTT 28 25 - 35 sec LAB COAGULATION METHOD 04/07/2025 9:38 AM EDT [facility] Blood Venous blood specimen / Unknown Venipuncture / Unknown 04/07/2025 9:03 AM EDT 04/07/2025 9:17 AM EDT Rashard Allen MD LAB BLOOD ORDERABLES Final Re sult [facility] [address] [place] [address] * Fibrinogen, Quantitative (Clottable) (04/07/2025 9:03 AM EDT) Pathologist [facility] Fibrinogen, Quantitative (Clottable) 274 208 - 459 mg/dL LAB COAGULATION METHOD 04/07/2025 9:38 AM EDT [facility] Blood Venous blood specimen / Unknown Venipuncture / Unknown 04/07/2025 9:03 AM EDT 04/07/2025 9:17 AM EDT Rashard Allen MD LAB BLOOD ORDERABLES Final Re sult Performing Organization Address [facility] Co de Phone Number [facility] [address] [place] [address] * Prothrombin Time/INR (04/07/2025 9:03 AM EDT) Prothrombin Time 14.1 12.0 - 14.3 sec LAB COAGULATION METHOD 04/07/2025 9:38 AM EDT [facility] INR 1.1 0.9 - 1.1 LAB COAGULATION METHOD 04/07/2025 9:38 AM EDT [facility] Blood Venous blood specimen / Unknown Venipuncture / Unknown 04/07/2025 9:03 AM EDT 04/07/2025 9:17 AM EDT Narrative [facility] - 04/07/2025 9:38 AM EDT OPTIMAL INR RANGES FOR PATIENT ON ORAL ANTICOAGULANT THERAPY Prevention of venous thromboembolism INR 2.0 to 3.0 In patients with heart disease: Atrial fibrillation INR 2.0 to 3.0 Valvular heart disease INR 2.0 to 3.0 Tissue heart valves INR 2.0 to 3.0 Mechanical prosthetic valves INR 2.5 to 3.5 Prevention of recurrent PR INR 2.5 to 3.5 Rashard Allen MD LAB BLOOD ORDERABLES Final Re sult Performing Organization Address [facility] Co de Phone Number [facility] [address] [place] [address] * (ABNORMAL) CBC (04/07/2025 9:03 AM EDT) WBC Count 10.81(H) 3.70 - 10.30 10*3/uL LAB HEMATOLOGY METHOD 04/07/2025 9:30 AM EDT [facility] RBC Count 3.57(L) 3.90 - 5.20 10*6/uL LAB HEMATOLOGY METHOD 04/07/2025 9:30 AM EDT [facility] HGB 10.9(L) 11.2 - 15.7 g/dL LAB HEMATOLOGY METHOD 04/07/2025 9:30 AM EDT [facility] HCT 33.3(L) 34.0 - 45.0 % LAB HEMATOLOGY METHOD 04/07/2025 9:30 AM EDT [facility] Platelet Count 201 155 - 369 10*3/uL LAB HEMATOLOGY METHOD 04/07/2025 9:30 AM EDT [facility] MCV 93 79 - 98 fL LAB HEMATOLOGY METHOD 04/07/2025 9:30 AM EDT [facility] MCH 30.5 26.0 - 32.0 pg LAB HEMATOLOGY METHOD 04/07/2025 9:30 AM EDT [facility] MCHC 32.7 30.7 - 35.5 g/dL LAB HEMATOLOGY METHOD 04/07/2025 9:30 AM EDT [facility] RDW 13.7 11.5 - 14.5 % LAB HEMATOLOGY METHOD 04/07/2025 9:30 AM EDT [facility] MPV 9.6 8.8 - 12.5 fL LAB HEMATOLOGY METHOD 04/07/2025 9:30 AM EDT [facility] nRBC 0.4(H) <=0.0 per 100 WBCs LAB HEMATOLOGY METHOD 04/07/2025 9:30 AM EDT [facility] Blood Venous blood specimen / Unknown Venipuncture / Unknown 04/07/2025 9:03 AM EDT 04/07/2025 9:20 AM EDT us Rashard Allen MD LAB BLOOD ORDERABLES Final Re sult [facility] [address] [place] [address] * APTT (04/07/2025 2:53 AM EDT) aPTT 25 25 - 35 sec LAB COAGULATION METHOD 04/07/2025 3:19 AM EDT [facility] Blood Venous blood specimen / Unknown Venipuncture / Unknown 04/07/2025 2:53 AM EDT 04/07/2025 3:00 AM EDT Result Sheldon Allen MD LAB BLOOD ORDERABLES Final Re sult Performing Organization Address City/[facility]/ZIP Co de Phone Number [facility] [address] [place] [address] * Fibrinogen, Quantitative (Clottable) (04/07/2025 2:53 AM EDT) Fibrinogen, Quantitative (Clottable) 286 208 - 459 mg/dL LAB COAGULATION METHOD 04/07/2025 3:19 AM EDT [facility] Blood Venous blood specimen / Unknown Venipuncture / Unknown 04/07/2025 2:53 AM EDT 04/07/2025 3:00 AM EDT Result Sheldon Allen MD LAB BLOOD ORDERABLES Final Re sult Performing Organization Address City/[facility] Co de Phone Number [facility] [address] [place] [address] * Prothrombin Time/INR (04/07/2025 2:53 AM EDT) Prothrombin Time 14.2 12.0 - 14.3 sec LAB COAGULATION METHOD 04/07/2025 3:19 AM EDT [facility] INR 1.1 0.9 - 1.1 LAB COAGULATION METHOD 04/07/2025 3:19 AM EDT [facility] Blood Venous blood specimen / Unknown Venipuncture / Unknown 04/07/2025 2:53 AM EDT 04/07/2025 3:00 AM EDT Narrative [facility] - 04/07/2025 3:19 AM EDT OPTIMAL INR RANGES FOR PATIENT ON ORAL ANTICOAGULANT THERAPY Prevention of venous thromboembolism INR 2.0 to 3.0 In patients with heart disease: Atrial fibrillation INR 2.0 to 3.0 Valvular heart disease INR 2.0 to 3.0 Tissue heart valves INR 2.0 to 3.0 Mechanical prosthetic valves INR 2.5 to 3.5 Prevention of recurrent PR INR 2.5 to 3.5 Result Sheldon Allen MD LAB BLOOD ORDERABLES Final Re sult [facility] [address] [place] [address] * (ABNORMAL) CBC (04/07/2025 2:53 AM EDT) WBC Count 12.15(H) 3.70 - 10.30 10*3/uL LAB HEMATOLOGY METHOD 04/07/2025 3:13 AM EDT [facility] RBC Count 3.51(L) 3.90 - 5.20 10*6/uL LAB HEMATOLOGY METHOD 04/07/2025 3:13 AM EDT [facility] HGB 10.7(L) 11.2 - 15.7 g/dL LAB HEMATOLOGY METHOD 04/07/2025 3:13 AM EDT [facility] HCT 32.4(L) 34.0 - 45.0 % LAB HEMATOLOGY METHOD 04/07/2025 3:13 AM EDT [facility] Platelet Count 201 155 - 369 10*3/uL LAB HEMATOLOGY METHOD 04/07/2025 3:13 AM EDT [facility] MCV 92 79 - 98 fL LAB HEMATOLOGY METHOD 04/07/2025 3:13 AM EDT [facility] MCH 30.5 26.0 - 32.0 pg LAB HEMATOLOGY METHOD 04/07/2025 3:13 AM EDT [facility] MCHC 33.0 30.7 - 35.5 g/dL LAB HEMATOLOGY METHOD 04/07/2025 3:13 AM EDT [facility] RDW 13.8 11.5 - 14.5 % LAB HEMATOLOGY METHOD 04/07/2025 3:13 AM EDT [facility] MPV 9.7 8.8 - 12.5 fL LAB HEMATOLOGY METHOD 04/07/2025 3:13 AM EDT [facility] nRBC 0.2(H) <=0.0 per 100 WBCs LAB HEMATOLOGY METHOD 04/07/2025 3:13 AM EDT [facility] Blood Venous blood specimen / Unknown Venipuncture / Unknown 04/07/2025 2:53 AM EDT 04/07/2025 3:02 AM EDT us Rashard M Alejandro MD LAB BLOOD ORDERABLES Final Re sult [facility] [address] [place] [address] * Treponema Pallidum (Syphilis) Antibodies with Reflex to RPR and RPR Titer (Those with NO known Syphilis) (04/07/2025 2:53 AM EDT) Syphilis Antibody (IgG+IgM) Nonreactive Nonreactive 04/07/2025 4:07 AM EDT [facility] Comment:Nonreactive. No sero logic evidence of syphilis. No follow-up necessary unless clinically indicated (e.g., early syphilis). Blood Venous blood specimen / Unknown Venipuncture / Unknown 04/07/2025 2:53 AM EDT 04/07/2025 2:59 AM EDT us Rashard Allen MD LAB BLOOD ORDERABLES Final Re sult Performing Organization Address [facility] Co de Phone Number [facility] [address] [place] [address] * Type and Screen (04/07/2025 2:53 AM EDT) ABO/Rh A Positive 04/07/2025 3:02 AM EDT [facility] Antibody Screen Negative 04/07/2025 3:02 AM EDT [facility] Specimen Expiration 04/10/2025 23:59 04/07/2025 3:02 AM EDT [facility]LO[facility] Blood Venous blood specimen / Unknown Venipuncture / Unknown 04/07/2025 2:53 AM EDT 04/07/2025 3:02 AM EDT Rashard Allen MD LAB BLOOD BANK TEST ORDERABLE S Final Result Performing Organization Address City/[facility] Co de Phone Number BLOOD BANK [address] [place] [address] documented in this encounter Visit Diagnoses Diagnosis Placental abruption in second trimester History of delivery affecting Short interval between pregnancies affecting in second trimester, antepartum 26 weeks gestation of documented in this encounter Administered Medications Inactive Administered Medications - up to 3 most recent administrations Medication Order MAR Action Action Date Dose Rate Site acetaminophen (Tylenol) tablet 650 mg 650 mg, Oral, Every 4 hours PRN, Starting on Thu04/07/25 at 0048, Until Thu04/12/25 at 1726, Routine, Pre-Delivery, mild pain Given 04/09/2025 3:45 AM EDT 650 mg Given 04/08/2025 4:08 PM EDT 650 mg calcium carbonate (Tums) chewable tablet 1,000 mg 1,000 mg, Oral, 4 times daily PRN, Starting on Thu04/07/25 at 0049, Until Thu04/12/25 at 1726, Routine, Pre-Delivery, indigestion, heartburn cyclobenzaprine (Flexeril) tablet 5 mg 5 mg, Oral, 3 times daily PRN, Starting on Thu04/08/25 at 1343, Until Thu04/12/25 at 1726, Routine, muscle spasms Given 04/09/2025 12:00 AM EDT 5 mg Given 04/08/2025 4:08 PM EDT 5 mg famotidine (Pepcid) tablet 20 mg 20 mg, Oral, 2 times daily PRN, Starting on Thu04/07/25 at 0049, Until Thu04/12/25 at 1726, Routine, Pre-Delivery, indigestion, heartburn, or inj IV famotidine PF (Pepcid) injection 20 mg 20 mg, Intravenous, 2 times daily PRN, Starting on Thu04/07/25 at 0049, Until Thu04/12/25 at 1726, Routine, Pre-Delivery, indigestion, heartburn, or tablet po lactated Ringer's bolus 500 mL 500 mL, Intravenous, Once, 1 dose, On 04/08/25 at 2045, Administer over 2 Hours, Routine Restarted 04/08/2025 7:55 PM EDT 250 mL/hr lactated Ringer's bolus 500 mL 500 mL, Intravenous, Once, 1 dose, On 04/09/25 at 2345, Administer over 1 Hours, Routine New Bag 04/09/2025 11:00 PM EDT 500 mL 500 mL/hr lactated Ringer's infusion 75 mL/hr, Intravenous, Continuous, Starting on Thu04/07/25 at 0245, Until 04/10/25 at 1754, Routine Rate/Dose Verify 04/09/2025 6:59 AM EDT 75 mL/hr 75 mL/hr Rate/Dose Verify 04/09/2025 2:36 AM EDT 75 mL/hr 75 mL/h r Rate/Dose Verify 04/08/2025 9:10 PM EDT 75 mL/hr 75 mL/h r magnesium sulfate 20 GM/500ML infusion 2 g/hr (50 mL/hr), Intravenous, Continuous, Starting on Thu04/07/25 at 0200, Until Thu04/07/25 at 1605, RoutineIndications:Neuroprotective Dosing New Bag 04/07/2025 10:30 AM EDT 2 g/hr 50 mL/hr New Bag 04/07/2025 1:59 AM EDT 2 g/hr 50 mL/hr multivitamin tablet 1 tablet 1 tablet, Oral, Daily, First dose on Thu04/07/25 at 0900, Until Discontinued, Routine, Pre-Delivery Given 04/12/2025 10:56 AM EDT 1 tablet Given 04/11/2025 9:16 AM EDT 1 tablet Given 04/10/2025 1:29 PM EDT 1 tablet ondansetron (Zofran) 4 MG/5ML solution 4 mg 4 mg, Oral, Every 6 hours PRN, Starting on Thu04/07/25 at 0049, Until Thu04/12/25 at 1726, Routine, Pre-Delivery, nausea, vomiting ondansetron (Zofran) injection 4 mg 4 mg, Intravenous, Every 6 hours PRN, Starting on Thu04/07/25 at 0049, Until Thu04/12/25 at 1726, Routine, Pre-Delivery, vomiting, nausea ondansetron ODT (Zofran-ODT) disintegrating tablet 4 mg 4 mg, Oral, Every 6 hours PRN, Starting on Thu04/07/25 at 0049, Until Thu04/12/25 at 1726, Routine, Pre-Delivery, nausea, vomiting sodium chloride 0.9 % flush 3 mL 3 mL, Intravenous, As needed, Starting on Thu04/07/25 at 0048, Until Thu04/12/25 at 1726, Routine, Pre-Delivery, line care, 3 mL flush for PERIPHERAL IV CARE ONLY. documented in this encounter Active and Recently Administered Medications Times are shown in EDT. Scheduled Medication Order 04/10/2025 04/11/2025 04/12/2025 multivitamin tablet 1 tablet 1 tablet, Oral, Daily, First dose on Thu04/07/25 at 0900, Until Discontinued, Routine, Pre-Delivery 1329 (Given - Provider: Anabel Allred RN) 0916 (Given - Provider: Yun Parham, RN) 1056 (Given - Provider: Yun Parham RN) PRN Medication Order 04/10/2025 04/11/2025 04/12/2025 acetaminophen (Tylenol) tablet 650 mg 650 mg, Oral, Every 4 hours PRN, Starting on Thu04/07/25 at 0048, Until Thu04/12/25 at 1726, Routine, Pre-Delivery, mild pain calcium carbonate (Tums) chewable tablet 1,000 mg 1,000 mg, Oral, 4 times daily PRN, Starting on Thu04/07/25 at 0049, Until Thu04/12/25 at 1726, Routine, Pre-Delivery, indigestion, heartburn cyclobenzaprine (Flexeril) tablet 5 mg 5 mg, Oral, 3 times daily PRN, Starting on Thu04/08/25 at 1343, Until Thu04/12/25 at 1726, Routine, muscle spasms famotidine (Pepcid) tablet 20 mg(Linked Group 1) 20 mg, Oral, 2 times daily PRN, Starting on Thu04/07/25 at 0049, Until Thu04/12/25 at 1726, Routine, Pre-Delivery, indigestion, heartburn, or inj IV famotidine PF (Pepcid) injection 20 mg(Linked Group 1) 20 mg, Intravenous, 2 times daily PRN, Starting on Thu04/07/25 at 0049, Until Thu04/12/25 at 1726, Routine, Pre-Delivery, indigestion, heartburn, or tablet po ondansetron (Zofran) 4 MG/5ML solution 4 mg(Linked Group 2) 4 mg, Oral, Every 6 hours PRN, Starting on Thu04/07/25 at 0049, Until Thu04/12/25 at 1726, Routine, Pre-Delivery, nausea, vomiting ondansetron (Zofran) injection 4 mg(Linked Group 2) 4 mg, Intravenous, Every 6 hours PRN, Starting on Thu04/07/25 at 0049, Until Thu04/12/25 at 1726, Routine, Pre-Delivery, vomiting, nausea ondansetron ODT (Zofran-ODT) disintegrating tablet 4 mg(Linked Group 2) 4 mg, Oral, Every 6 hours PRN, Starting on Thu04/07/25 at 0049, Until Thu04/12/25 at 1726, Routine, Pre-Delivery, nausea, vomiting sodium chloride 0.9 % flush 3 mL(Linked Group 3) 3 mL, Intravenous, As needed, Starting on Thu04/07/25 at 0048, Until Thu04/12/25 at 1726, Routine, Pre-Delivery, line care, 3 mL flush for PERIPHERAL IV CARE ONLY. Linked Groups Order Group 1: famotidine (Pepcid) tablet 20 mgJump to med 20 mg, Oral, 2 times daily PRN, Starting on Thu04/07/25 at 0049, Until Thu04/12/25 at 1726, Routine, Pre-Delivery, indigestion, heartburn, or inj IV Or famotidine PF (Pepcid) injection 20 mgJump to med 20 mg, Intravenous, 2 times daily PRN, Starting on Thu04/07/25 at 0049, Until Thu04/12/25 at 1726, Routine, Pre-Delivery, indigestion, heartburn, or tablet po Group 2: ondansetron ODT (Zofran-ODT) disintegrating tablet 4 mgJump to med 4 mg, Oral, Every 6 hours PRN, Starting on Thu04/07/25 at 0049, Until Thu04/12/25 at 1726, Routine, Pre-Delivery, nausea, vomiting Or ondansetron (Zofran) injection 4 mgJump to med 4 mg, Intravenous, Every 6 hours PRN, Starting on Thu04/07/25 at 0049, Until Thu04/12/25 at 1726, Routine, Pre-Delivery, vomiting, nausea Or ondansetron (Zofran) 4 MG/5ML solution 4 mgJump to med 4 mg, Oral, Every 6 hours PRN, Starting on Thu04/07/25 at 0049, Until Thu04/12/25 at 1726, Routine, Pre-Delivery, nausea, vomiting Group 3: Insert peripheral IV (CANCELED) Once, On Thu04/07/25 at 0049, For 1 occurrence, Pre-Delivery And Saline lock IV (CANCELED) Once, On Thu04/07/25 at 0049, For 1 occurrence, Pre-Delivery And sodium chloride 0.9 % flush 3 mLJump to med 3 mL, Intravenous, As needed, Starting on Thu04/07/25 at 0048, Until Thu04/12/25 at 1726, Routine, Pre-Delivery, line care, 3 mL flush for PERIPHERAL IV CARE ONLY. 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
--- OUTSIDE RECORDS SUMMARY | 2025-04-08 01:03 | XMS_ITS | Encounter Summary ---
Author Organization Healthcare Address [address] [place] [address] Care Team Providers Care Sailing Master Name Role Phone Pcp, No Primary Care Provider Unavailabl e Reason for Visit * Auth/Cert (Routine) Specialty Diagnoses / Procedures Referred By Contac t Referred To Contact Diagnoses Vaginal bleeding Rashard Allen MD [address] [address] Phone: tel: fax: [facility] [address] [place] [phone] Phone: tel: fax: Referral ID Status Reason Start Date Expiration Date Visits Re quested Visits Authorized [id number] 1 1 Encounter Details Date Type Department Care Team (Late st Contact Info) Description 04/08/2025 1:03 AM EDT Anesthesia Event [facility] [address] [place] [phone] Huang Chowdhury, DO [address] [place] [address] Anesthesia Record Procedure Summary Procedure Name Responsible [...] drink first t mickie in the morning (EYE-STONECUTTER ASSISTANT) to steady your nerves or to get [...] concerns addressed. Consent obtained and in chart. clinical review nurse Evaluation Relevant Problems No relevant active problems [...] Office Building Obstetrics and Gynecology [address] [facility], [address] [place] [address] Yun Dominguez MD [address] [place] [address] documented as of this encounter Visit Diagnoses Not on filedocumented in this encounter Additional Health Concerns Assessment Noted Time A Body Mass Index follow-up plan has been documented for the patient 04/12/2025 3:13 PM EDT documented as of this encounter Care Teams Sailing Master Relationship Specialty Start Date End Date Pcp, No [address] [place] [address] PCP - General Family Medicine 03/08/25 documented as of this encounter
--- OUTSIDE RECORDS SUMMARY | 2025-04-18 11:15 | XMS_ITS | Encounter Summary ---
Author Organization [facility] Address [address] [place] [address] Care Team Providers Care Rn Community Health Name Role Phone Provider, No Known Primary Care Provider Unavail able Reason for Visit * Reason Comments chronic ISAAC, prev C/S x 3, S>D Encounter Details Date Type Department Care Team (Late st Contact Info) Description 04/18/2025 11:15 AM EDT Office Visit [facility] [address] [facility] [address] [place] [address] Pari Rueda MD [address] [place] [phone] Vaginal bleeding in , second trimester (Primary Dx) Social History Tobacco Use Types Packs/Day Years Used Date Smoking Tobacco: Never Smokeless Tobacco: Never Alcohol Use Standard Drinks/Week Comments Not Currently 0 (1 standard drink = 0.6 oz pur e alcohol) [facility] Utilities Answer Date Recorded In the past 12 months has [employer], [employer], oil, or water [employer] threatened to shut off services in your [...] and heating? Not hard at all 04/06/2025 [facility] - Occupational Stress Questionnaire Answer Date Recorded [...] GED or equivalent No 04/06/2025 Preferred Language Czech 04/06/2025 PHQ-2 Answer Date Recorded Patient Health [...] Sign Reading Time Taken Comments Blood Pressure 120/66 04/18/2025 11:19 AM EDT Pulse - - Temperature - - Respiratory Rate - - Oxygen Saturation - - Inhaled Oxygen Concentration - - Weight 75.8 kg (167 lb) 04/18/2025 11:19 AM EDT Height - - Body Mass Index 28.67 04/06/2025 6:35 PM EDT documented in this encounter Progress Notes * Pari Rueda MD - 04/23/2025 9:33 PM EDTAssociated Problem(s): Vaginal bleeding in , second trimester Overall reassuring ultrasound though collection of fluid again noted Bleeding precautions reviewed Follow up 4 weeks with MFM * Loretta Atkinson RN - 04/18/2025 11:15 AM EDT Denies leaking fluid, and contractions. Vaginal bleeding today is small, bright red and mixed with mucus discharge. Endorses normal movement. NIPT negative. Next OB follow-up appointment with Dr. Cortes on 04/24/2025. * Pari Rueda MD - 04/18/2025 11:15 AM EDT Maternal/ Medicine Follow Up Note Name: Pamela Anderson : 2000 Referring Provider: Joshua Cortes MD Chief Complaint chronic ISAAC, prev C/S x 3, S>D Subjective History of Present Illness: Pamela Anderson is a 25 y.o. 27w6d who presents today for follow up EMILY: Estimated Date of Delivery: 07/17/25 ROS: As noted in HPI. Objective Vital Signs BP 120/66 Wt 75.8 kg (167 lb) Estimated body mass index is 28.67 kg/m?? as calculated from the following: Height as of 04/06/25: 162.6 cm (64 ). Weight as of this encounter: 75.8 kg (167 lb). Ultrasound Impression: See viewpoint Assessment and Plan Pamela Anderson is a 25 y.o. 27w6d Diagnoses and all orders for this visit: 1. Vaginal bleeding in , second trimester (Primary) Assessment & Plan: Overall reassuring ultrasound though collection of fluid again noted Bleeding precautions reviewed Follow up 4 weeks with MFM Follow Up 4 weeks I spent 20 minutes caring for the patient on the [...] other procedures such as amniocentesis or CVS. Pari Rueda MD FACOG Maternal Medicine, [facility] 04/18/2025 documented in this encounter Plan of Treatment Upcoming Encounters Date Type Department Care Team (Late st Contact Info) Description 05/16/2025 11:30 AM EST Office Visit [facility] MATERNAL MEDICINE [address] [place] [address] [address] [place] [address] documented as of this encounter Visit Diagnoses Diagnosis Vaginal bleeding in , second trimester- Primary documented in this encounter Care Teams Rn Community Health Relationship Specialty Start Date End Date Provider, [place] [address] PCP - General 03/13/25 documented as of this encounter
--- OUTSIDE RECORDS SUMMARY | 2025-04-18 11:15 | XMS_ITS | Encounter Summary ---
Author Organization [facility] Address [address] [place] [id number] Care Team Providers Care Email Administrator Name Role Phone Provider, No Known Primary Care Provider Unavail able Reason for Visit * Diagnostic Imaging (Routine) - Authorized Specialty Diagnoses / Procedures Referred By Contac t Referred To Contact Radiology Diagnoses Short interval between pregnancies affecting in second trimester, antepartum Vaginal bleeding in , second trimester History of delivery affecting Procedures [facility] Cooper Pham MD [address] [facility] [address] [place] [address] Phone: tel: fax: [facility] [address] [place] [address] Phone: tel: Referral ID Status Reason Start Date Expiration Date V isits Requested Visits Authorized [id number] Authorized 03/20/2025 06/19/2026 4 4 Encounter Details Date Type Department Care Team (Latest Contact Info) Description 04/18/2025 11:15 AM EDT - 04/18/2025 11:59 PM EDT Hospital Encounter [facility] [address] [place] [address] Kenisha Fitzgerald MD [address] [facility] [address] [place] [id number] Discharge Disposition: Home or Self Care Social History Tobacco Use Types Packs/Day Years Used Date Smoking Tobacco: Never Smokeless Tobacco: Never Alcohol Use Standard Drinks/Week Comments Not Currently 0 (1 standard drink = 0.6 oz pur e alcohol) [facility] Utilities Answer Date Recorded In the [...] and heating? Not hard at all 04/06/2025 [facility] of Occupat ional Health - Occupational Stress [...] GED or equivalent No 04/06/[address] [place] 04/06/2025 PHQ-2 Answer Date Recorded Patient Health [...] 05/16/2025 11:30 AM EST Office Visit [facility] [address] [place] [address] documented as of this encounter Procedures Procedure Name Priority Date/Time Associated Diagnosis Comments [facility] Routine 04/18/2025 11:53 AM EDT Short interval between pregnancies affecting in second trimester, antepartum Vaginal bleeding in , second trimester History of delivery affecting documented in this encounter Results * [facility] (04/18/2025 11:53 AM EDT) Anatomical Region Laterality Modality Ultrasound 04/18/2025 11:3 0 AM EDT Narrative 04/23/2025 9:35 PM EDT PAT NAME: PAMELA BONILLA MED REC#: [id number] DA: [id number] PAT GEND: F PAT TYPE: O EXAM FAUSTINO: [id number] REF PHYS KENISHA FITZGERALD Comparison Studies The [...] EFW (oz) 10 oz EFW by: Hadlock ([id number]) Extended Volunteer Assistant 5.3 mm Rt Renal pelvis ap 3.9 [...] Normal Heart / Thorax 3-vessel view: Normal 4-jamsae-icazpup view: normal Cord insertion: Normal Stomach: Appears [...] fluid UA doppler normal Coding ====== Description: 47386-22 Follow Up Balancer Scale: Balbina Condon RDMS Physician: Pari Rueda MD, FACOG Electronically signed by: Pari Rueda MD, FACOG at: 21:35 Procedure Note Pari Rueda MD - 04/23/2025 PAT NAME: PAMELA BONILLA MED REC#: [id number] DA: 2000 PAT GEND: F PAT TYPE: O EXAM FAUSTINO: [id number] REF PHYS KENISHA FITZGERALD Comparison Studies The findings of this study are compared to the prior ultrasound studydated 03/20/25 Patient Status Outpatient Indication ======== Chronic subchorionic hemorrhage with vaginal bleeding. Size greater thandates. Previous c/s x 3. Maternal Assessment Ksojxd096 cm Height (ft)5 ft Height (in)4 in Reoxat77 kg Weight (lb)167 lb BMI28.86 kg/m Method ======= Transabdominal ultrasound examination ========= Moe . Number of fetuses: 1 Dating ====== Method of dating:based on stated EMILY GA by prior [id number] w + 1 d EMILY by prior assessment:07/17/2025 Ultrasound examination on:04/18/2025 GA by U/S based upon:AC, BPD, Femur, HC GA by U/S28 w + 2 d EMILY by U/S:07/09/2025 Previous dating:based on stated EMILY, selected on 03/20/2025 Agreed EMILY of previous datin07/17/2025 Assigned:based on stated EMILY, selected on 04/18/2025 Assigned GA27 w + 1 d Assigned EMILY:07/17/2025 [id number] d Biometry Standard BPD72.1 mm 29w 0d 90% Hadlock OFD90.3 mm 29w 1d 94% Geo HC259.4 mm 28w 1d 57% Hadlock AC243.9 mm 28w 5d 84% Hadlock Femur51.4 mm 27w 3d 45% Hadlock HC / AC1.06 EFW1,195 g 27w 6d 80% Hadlock EFW (lb)2 lb EFW (oz)10 oz EFW by:Hadlock ([id number]-FL) Extended Vp5.3 mm Rt Renal pelvis ap3.9 mm Head / Face / Neck Cephalic index0.80 63% Nicolaides Extremities / Bony Struc FL / BPD0.71 FL / HC0.20 FL / AC0.21 Other Structures RLE830 bpm General Evaluation Cardiac activity present. FHR [...] LVOT view:Normal Heart / Thorax 3-vessel view:Normal 1-cmjxhf-fofmzkj view:normal Cord insertion:Normal Stomach:Appears normal Kidneys:Appears normal [...] Normal fluid UA doppler normal Coding ====== Description:42369-44 Follow Up Balancer Scale: Balbina Condon RDMS Physician: Pari Rueda MD, FACOG Electronically signed by: Pari Rueda MD, FACOG at: :35 us Cooper Pham MD IMG US ORDERABLES Final Res ult documented in this encounter Visit Diagnoses Not on filedocumented in this encounter Care Teams Email Administrator Relationship Specialty Start Date End Date Provider, [place] [address] PCP - General 03/13/25 documented as of this encounter
--- NOTE | 2025-04-25 09:15 | US_ITS ---
PROCEDURE: US OB FOLLOW UP CLINICAL INDICATION: repeat u/s for f/u on kidneys and growth COMPARISON: US US OB <= 14 WEEKS FETUS from 12/01/2024 US US OB >= 14 WEEKS FETUS from 02/03/2025 US US OB FOLLOW UP from 03/12/2025 US OB FOLLOW UP from 03/29/2025 US OB FOLLOW UP from 04/04/2025 FINDINGS: Transabdominal sonographic images of the pelvis were obtained. The following parameters are obtained: From her established due date she is 28weeks 1day Viable fetus in the cephalic presentation with an anterior laterally wrapped placenta grade 2. There are multiple small placental lakes. There is an area on the anterior lower uterine segment that measures up to 4.8 cm in length and could be a resolving hematoma. The cervix measures 4.84 cm heart rate: 156bpm bpm. Average ultrasound age 29 weeks 6 days Estimated weight 1482 grams, 3 lb 4 oz BPD: 29weeks 4days, 81 percentile HC: 30weeks 2days, 83 percentile AC: 31weeks 1day, >98 percentile FL: 28weeks 1day, 34 percentile HC/AC: 1.03 FL/BPD: 0.72 FL/AC: 0.2 Growth percentile: 94 Amniotic fluid index: 11.22cm, MVP 3.29 cm No obvious anomalies evident. profile seen, stomach, bladder, kidneys, three-vessel cord, four chamber heart appear normal. IMPRESSION: 1. Viable fetus in the cephalic presentation with an anterior laterally wrapped placenta grade 2. There are multiple small placental lakes. 2. Anteriorly in the lower uterine segment there is a 4.8 cm resolving hematoma. 3. The fluid is within normal limits with an amniotic fluid index 11.22 cm, MVP 3.29 cm. 4. There has been good interval growth with the fetus currently 94th percentile. The abdominal circumference has shown accelerated growth and is 3 weeks ahead. 5. Limited anatomical scan appears normal. Dictated by: Joshua Cortes MD 04/25/2025 12:29 Joshua Cortes MD in OV 04/25/2025 12:29
--- OUTSIDE RECORDS SUMMARY | 2025-04-25 09:27 | XMS_ITS | Encounter Summary ---
Author Organization [facility] Address [address] [place] [address] Care Team Providers Care Utilization Specialist Name Role Phone Provider, No Known Primary Care Provider Unavail able Encounter Details Date Type Department Care Team (Latest Contact Info) Description 04/06/2025 Travel Social History Tobacco Use Types Packs/Day Years Used Date Smoking Tobacco: Never Smokeless Tobacco: Never Alcohol Use Standard Drinks/Week Comments Not Currently 0 (1 standard drink = 0.6 oz pur e alcohol) [facility] Utilities Answer Date Recorded In the past 12 months has [employer], gas, oil, or water [employer] threatened to shut off services in your [...] and heating? Not hard at all 04/06/2025 [facility] [place] of Occupat ional Health - Occupational Stress [...] GED or equivalent No 04/06/2025 Preferred Language Stateless 04/06/2025 PHQ-2 Answer Date Recorded Patient Health Questionnaire-2 Score 0 04/06/2025 Estimated Date of Delivery Comme nts Yes 07/17/2025 Date entered francesca or to episode creation Sex and Gender Information Value Date Recorded Sex Assigned at Not on file Legal Sex Female 12:14 PM EDT Gender Identity Not on file Sexual Orientation Not on file documented as of this encounter Functional Status * AUDIT-C Score Answer Date of Assessment Author 0 04/06/2025 6:41 PM EDT Cherise Harden RN * Question Answer Date of Assessment Author Q1: How often do you have a drink containing alcohol? Never 04/06/2025 6:41 PM EDT Cherise Harden RN Q2: How many drinks containing alcohol [...] 6:38 PM EDT Perla Mas RN * [place] Suicide Severity Rating Scale (Screener/Recent Self-Report) Question Answer Date of Assessment Author 6. Suicidal Behavior (Lifetime) No 6:38 PM EDT Perla Benitez RN * Question Answer Date of Assessment Author Little interest or pleasure in doing things Not at all 04/06/2025 6:41 PM EDT Cherise Harden RN Feeling down, depressed, or hopeless Not at all 04/06/2025 6:41 PM ERMELINDAT Cherise Harden RN documented as of this encounter Plan of Treatment Upcoming Encounters Date Type Department Care Team (Late st Contact Info) Description 05/16/2025 11:30 AM EST Office Visit [facility]ICINE [address] [place] [address] documented as of this encounter Visit Diagnoses Not on filedocumented in this encounter Care Teams Utilization Specialist Relationship Specialty Start Date End Date Provider, [place] [address] PCP - General 03/13/25 documented as of this encounter
--- OUTSIDE RECORDS SUMMARY | 2025-04-25 09:27 | XMS_ITS | Encounter Summary ---
Author Organization [facility] Address [address] [place] [address] Care Team Providers Care Composition Instructor Name Role Phone Provider, No Known [...] Description 05/16/2025 11:30 AM EST Office Visit [facility] [address] [facility] [address] [place] [address] documented as of this encounter Visit Diagnoses Not on filedocumented in this encounter Care Teams Composition Instructor Relationship Specialty Start Date End Date Provider, No Known [facility] [place] [address] PCP - General 03/13/25 documented as of this encounter
--- OUTSIDE RECORDS SUMMARY | 2025-04-25 09:28 | XMS_ITS | Encounter Summary ---
Author Organization Healthcare Address [address] [place] [address] Care Team Providers Care Dev Technical Mgr Name Role Phone Pcp, No Primary Care Provider Unavailabl e Encounter Details Date Type Department Care Team ([facility] st Contact Info) Description 04/13/2025 Orders Only Ch hris coordinator (l&d) Virtual Dept. [address] [place], [place] [phone] Guerline Estrada MD [address] [place] [address] Social History Tobacco Use Types Packs/Day Years [...] any time in the past 12 m [facility], were you homeless or living in a fci (including now)? No 04/12/2025 [facility] Utilities Answer Date Recorded In the [...] drink first t mickie in the morning (EYE-SEMICONDUCTOR ENGINEER) to steady your nerves or to get [...] Upcoming Encounters Date Type Department Care Team ([facility] Contact Info) Description 04/27/2025 9:00 AM EDT Initial Medical Office Building Obstetrics and Gynecology [address] [facility], [address] [place] [address] Yun Dominguez MD [address] [place] [address] documented as of this encounter Visit Diagnoses Not on filedocumented in this encounter Additional Health Concerns Assessment Noted Time A Body Mass Index follow-up plan has been documented for the patient 04/12/2025 3:13 PM EDT documented as of this encounter Care Teams Dev Technical Mgr Relationship Specialty Start Date End Date Pcp, [place] [address] PCP - General Family Medicine 03/08/25 documented as of this encounter
--- OUTSIDE RECORDS SUMMARY | 2025-04-25 09:28 | XMS_ITS | Clinical Summary ---
Author Organization Healthcare Address [address] [place] [address] Care Team Providers Care Splunk Developer Name Role Phone Pcp, No Primary Care Provider Unavailabl e Allergies No known active allergies Active Problems Problem Noted Date Diagnosed Date Placental abruption in second trimester 04/11/20 25 History of delivery affecting 04/11/2025 Short interval between pregn ancies affecting in second trimester, antepartum 04/11/2025 26 weeks gestation of 04/11/2025 Estimated Date of Delivery Comme nts Yes 07/17/2025 Based on Patient Reported Encounters Date Type Department Care Team Description 04/13/2025 Orders Only Ch process expert (l&d) Virtual Dept. [address] [phone] Guerline Estrada MD 04/08/2025 1:03 AM EDT Anesthesia Event [facility] Delivery [address] [phone] Huang Chowdhury DO 04/07/2025 12:40 AM EDT - 04/12/2025 3:26 PM EDT Hospital Encounter [facility] Baby Unit [address] [place] [phone] Rashard Allen MD Snyder, Candice C, MD Discharge Disposition: Home or Self Care 04/07/2025 Travel from Last 3 Months Social History Tobacco Use Types Packs/Day Years [...] were you homeless or living in a senior living (including now)? No 04/12/2025 [facility] Utilities Answer Date Recorded In the past 12 months has e [employer], gas, oil, or water [employer] threatened to shut off services in your [...] drink first t mickie in the morning (EYE-PATENT COUNSEL) to steady your nerves or to get [...] Mass Index 28.49 04/07/2025 8:46 AM EDT Plan of Treatment Upcoming Encounters Date Type Department Care Team ([facility] st Contact Info) Description 04/27/2025 9:00 AM EDT Initial Medical Office Building Obstetrics and Gynecology [address], [address] [place] [phone] Yun Dominguez MD [address] [place] [phone] Health Maintenance Due Date Last Done Comments [facility]-Depression Screening 2000 [facility]-HIV Screening 2000 [facility]-Hepatitis C Screening 2000 [facility]-Infant/Child/Adol SDOH Screenings 2000 HPV Vaccines (2 - 2-dose series) 09/01/2012 03/01/2012 [facility]-Pap Smear 2021 [id number] Vaccine ( season) 2025 [facility]-Influenza Vaccine (#1) 2025 08/19/2018 [facility]-RSV Vaccine: 60+ Years or (1 - Risk 1-dose series) 05/22/2025 [facility]- SDOH Screenings 10/11/2025 [facility]-Adult SDOH Screenings 10/11/2025 04/12/2025 [facility]-DTaP,Tdap,and Td Vaccines (8 - Td or Tdap) 01/18/2034 01/19/2024, 03/01/2012, 04/01/2004, Additional history exists [facility]-Zoster Vaccines (1 of 2) 2050 03/01/2012, 11/09/2001 [facility]-Hepatitis B Vaccines Completed 001, 2000, 2000 [facility]-HIB Vaccines Completed 11/09/2001, 11/2000, 2000, Additional history exists [facility]-IPV Vaccines Completed 04/01/2004, 11/2000, 2000, Additional history exists [facility]-Varicella Vaccines Completed 03/01/2012, 2001 [facility]-Hepatitis A Vaccines Completed 08/19/2018, 12/2017 [facility]-Obesity Intervention Completed 04/07/2025 [facility]-Pneumococcal Vaccine: Pediatrics (0 to 5 Years) and At-Risk Patients (6 to 49 Years) Aged Out No longer eligible based on patient's age to complete this topic [facility]-Rotavirus Vaccines Aged Out No lo nger eligible based on patient's age to complete this topic Procedures Procedure Name Priority Date/Time Associated Diagnosis Comments NONSTRESS TEST Routine 04/12/2025 11:30 AM EDT EXTRA TUBE LIGHT GREEN TOP Routine 04/12/2025 3:27 AM EDT EXTRA TUBES Routine 04/12/2025 3:27 AM EDT PROTHROMBIN TIME(PT) / INR Routine 04/12/2025 3:27 AM EDT FIBRINOGEN,QUANTITA TIVE (CLOTTABLE) Routine 04/12/2025 3:27 AM EDT CBC W/O DIFFERENTIAL Routine 04/12/2025 3:27 AM EDT APTT Routine 04/12/2025 3:27 AM EDT NONSTRESS TEST Routine 04/11/2025 3:00 PM EDT EXTRA TUBE LIGHT GREEN TOP Routine 04/11/2025 4:29 AM EDT EXTRA TUBES Routine 04/11/2025 4:29 AM EDT TYPE AND SCREEN Routine 04/11/2025 4:29 AM EDT PROTHROMBIN TIME(PT) / INR Routine 04/11/2025 4:29 AM EDT FIBRINOGEN,QUANTITA TIVE (CLOTTABLE) Routine 04/11/2025 4:29 AM EDT CBC W/O DIFFERENTIAL Routine 04/11/2025 4:29 AM EDT APTT Routine 04/11/2025 4:29 AM EDT PROTHROMBIN TIME(PT) / INR Pending Discharge 04/10/2025 4:18 PM EDT FIBRINOGEN,QUANTITA TIVE (CLOTTABLE) Pending Discharge 04/10/2025 4:18 PM EDT CBC W/O DIFFERENTIAL Pending Discharge 04/10/2025 4:18 PM EDT APTT Pending Discharge 04/10/2025 4:18 PM EDT FIBRINOGEN,QUANTITA TIVE (CLOTTABLE) Pending Discharge 04/10/2025 5:18 AM EDT APTT Pending Discharge 04/10/2025 5:18 AM EDT PROTHROMBIN TIME(PT) / INR Pending Discharge 04/10/2025 5:18 AM EDT CBC W/O DIFFERENTIAL Pending Discharge 04/10/2025 5:18 AM EDT EXTRA TUBE LIGHT GREEN TOP Routine 04/09/2025 3:51 AM EDT EXTRA TUBES Routine 04/09/2025 3:51 AM EDT FIBRINOGEN,QUANTITA TIVE (CLOTTABLE) Routine 04/09/2025 3:51 AM EDT APTT Routine 04/09/2025 3:51 AM EDT PROTHROMBIN TIME(PT) / INR Routine 04/09/2025 3:51 AM EDT CBC W/O DIFFERENTIAL Routine 04/09/2025 3:51 AM EDT NONSTRESS TEST Routine 04/08/2025 11:43 AM EDT EXTRA TUBE LIGHT GREEN TOP Routine 04/08/2025 5:38 AM EDT EXTRA TUBES Routine 04/08/2025 5:38 AM EDT FIBRINOGEN,QUANTITA TIVE (CLOTTABLE) Routine 04/08/2025 5:38 AM EDT APTT Routine 04/08/2025 5:38 AM EDT PROTHROMBIN TIME(PT) / INR Routine 04/08/2025 5:38 AM EDT CBC W/O DIFFERENTIAL Routine 04/08/2025 5:38 AM EDT OB US DETAIL ANATOMY Routine 04/07/2025 10:54 AM EDT EXTRA TUBE LIGHT GREEN TOP Routine 04/07/2025 9:22 AM EDT EXTRA TUBES Routine 04/07/2025 9:22 AM EDT APTT Routine 04/07/2025 9:03 AM EDT FIBRINOGEN,QUANTITA TIVE (CLOTTABLE) Routine 04/07/2025 9:03 AM EDT PROTHROMBIN TIME(PT) / INR Routine 04/07/2025 9:03 AM EDT CBC W/O DIFFERENTIAL Routine 04/07/2025 9:03 AM EDT NEISSERIA GONORRHEA DNA BY PCR STAT 04/07/2025 9:03 AM EDT CHLAMYDIA TRACHOMATIS DNA BY PCR STAT 04/07/2025 9:03 AM EDT TRICHOMONAS VAGINALIS ANTIGEN STAT 04/07/2025 9:03 AM EDT APTT STAT 04/07/2025 2:53 AM EDT FIBRINOGEN,QUANTITA TIVE (CLOTTABLE) STAT 04/07/2025 2:53 AM EDT PROTHROMBIN TIME(PT) / INR STAT 04/07/2025 2:53 AM EDT CBC W/O DIFFERENTIAL Routine 04/07/2025 2:53 AM EDT TREPONEMA PALLIDUM (SYPHILIS) ANTIBODIES WITH REFLEX TO RPR AND RPR TITER (THOSE WITH NO KNOWN SYPHILIS) Routine 04/07/2025 2:53 AM EDT TYPE AND SCREEN STAT 04/07/2025 2:53 AM EDT PREPARE RBC Routine 04/07/2025 1:46 AM EDT from Last 3 Months Results * nonstress test (04/12/2025 11:30 AM EDT) Narrative Yun Dominguez MD - 04/12/2025 11:30 AM EDT Yun Dominguez MD 04/12/2025 4:06 PM Non-Stress Test Interpretation Pamela Anderson, a at 26w2d with an EMILY of 07/17/2025, by Patient Reported, was seen at [facility] for a [...] Light Green Top (04/12/2025 3:27 AM EDT) Only the most recent of5 resultswithin the time period is included. Extra Hold for add-ons 04/12/2025 6:01 AM EDT [facility] Comment:Auto resulted. Blood Venous blood specimen / Unknown 04/12/2025 3:27 AM EDT 04/12/2025 3:45 AM EDT us Reema Louis MD LAB BLOOD ORDERABLES Final R esult Performing Organization Address City/State/[facility] Co de Phone Number [facility] [address] [place] [address] * APTT (04/12/2025 3:27 AM EDT) Only the most recent of8 resultswithin the time period is included. aPTT 28 25 - 35 sec LAB COAGULATION METHOD 04/12/2025 4:11 AM EDT [facility] Blood Venous blood specimen / Unknown Venipuncture / Unknown 04/12/2025 3:27 AM EDT 04/12/2025 3:44 AM EDT us Reema Louis MD LAB BLOOD ORDERABLES Final R esult [facility] [address] [place] [address] * Prothrombin Time/INR (04/12/2025 3:27 AM EDT) Only the most recent of8 resultswithin the time period is included. Prothrombin Time 14.1 12.0 - 14.3 sec LAB COAGULATION METHOD 04/12/2025 4:11 AM EDT [facility] INR 1.1 0.9 - 1.1 LAB COAGULATION METHOD 04/12/2025 4:11 AM EDT [facility] Blood Venous blood specimen / Unknown Venipuncture / Unknown 04/12/2025 3:27 AM EDT 04/12/2025 3:44 AM EDT Narrative [facility] - 04/12/2025 4:11 AM EDT OPTIMAL INR RANGES FOR PATIENT ON ORAL ANTICOAGULANT THERAPY Prevention of venous thromboembolism INR 2.0 to 3.0 In patients with heart disease: Atrial fibrillation INR 2.0 to 3.0 Valvular heart disease INR 2.0 to 3.0 Tissue heart valves INR 2.0 to 3.0 Mechanical prosthetic valves INR 2.5 to 3.5 Prevention of recurrent FL INR 2.5 to 3.5 Reema Louis MD LAB BLOOD ORDERABLES Final R [facility] Performing Organization Address City/[facility]/ZIP Co de Phone Number [facility] [address] [place] [address] * Fibrinogen (04/12/2025 3:27 AM EDT) Only the most recent of8 resultswithin the time period is included. Fibrinogen, Quantitative (Clottable) 315 208 - 459 mg/dL LAB COAGULATION METHOD 04/12/2025 4:11 AM EDT [facility] Blood Venous blood specimen / Unknown Venipuncture / Unknown 04/12/2025 3:27 AM EDT 04/12/2025 3:44 AM EDT Reema Louis MD LAB BLOOD ORDERABLES Final R esult [facility] [address] [place] [address] * (ABNORMAL) CBC (04/12/2025 3:27 AM EDT) Only the most recent of8 resultswithin the time period is included. WBC Count 12.26(H) 3.70 - 10.30 10*3/uL LAB HEMATOLOGY METHOD 04/12/2025 3:56 AM EDT [facility] RBC Count 3.22(L) 3.90 - 5.20 10*6/uL LAB HEMATOLOGY METHOD 04/12/2025 3:56 AM EDT [facility] HGB 9.6(L) 11.2 - 15.7 g/dL LAB HEMATOLOGY METHOD 04/12/2025 3:56 AM EDT [facility] HCT 29.3(L) 34.0 - 45.0 % LAB HEMATOLOGY METHOD 04/12/2025 3:56 AM EDT [facility] Platelet Count 203 155 - 369 10*3/uL LAB HEMATOLOGY METHOD 04/12/2025 3:56 AM EDT [facility] MCV 91 79 - 98 fL LAB HEMATOLOGY METHOD 04/12/2025 3:56 AM EDT [facility] MCH 29.8 26.0 - 32.0 pg LAB HEMATOLOGY METHOD 04/12/2025 3:56 AM EDT [facility] MCHC 32.8 30.7 - 35.5 g/dL LAB HEMATOLOGY METHOD 04/12/2025 3:56 AM EDT [facility] RDW 13.7 11.5 - 14.5 % LAB HEMATOLOGY METHOD 04/12/2025 3:56 AM EDT [facility] MPV 9.6 8.8 - 12.5 fL LAB HEMATOLOGY METHOD 04/12/2025 3:56 AM EDT [facility] nRBC 0.0 <=0.0 per 100 WBCs LAB HEMATOLOGY METHOD 04/12/2025 3:56 AM EDT [facility] Blood Venous blood specimen / Unknown Venipuncture / Unknown 04/12/2025 3:27 AM EDT 04/12/2025 3:46 AM EDT us Reema Louis MD LAB BLOOD ORDERABLES Final R esult [facility] [address] [place] [address] * nonstress test (04/11/2025 3:00 PM EDT) Narrative Yun Dominguez MD - 04/11/2025 3:00 PM EDT Yun Dominguez MD 04/11/2025 5:03 PM Non-Stress Test Interpretation kain Ibarra at 26w1d with an EMILY of 07/17/2025, by Patient Reported, was seen at [facility] for a [...] OK to come off per Dr. Robertson Reema Louis MD IN CLINIC/BEDSIDE ORDERABLES Final Result * Type and screen (04/11/2025 4:29 AM EDT) Only the most recent of2 resultswithin the time period is included. ABO/Rh A Positive 04/11/2025 4:40 AM EDT BLOOD BANK Antibody Screen Negative 04/11/2025 4:40 AM EDT BLOOD BANK Specimen Expiration 04/14/2025 23:59 04/11/2025 4:40 AM EDT BLOOD BANK Blood Venous blood specimen / Unknown Venipuncture / Unknown 04/11/2025 4:29 AM EDT 04/11/2025 4:40 AM EDT Reema Louis MD LAB BLOOD BANK TEST ORDERABL ES Final Result BLOOD BANK [address] [place] [address], * nonstress test (04/08/2025 11:43 AM EDT) Narrative Galina Mariscal MD - 04/08/2025 11:43 AM EDT [facility]Galina Guajardo MD 04/09/2025 1:40 PM Non-Stress Test Interpretation Pamlea Anderson, a at 25w5d with an EMILY [...] on Non-Stress Test: Reactive per MD Baer us Rashard Allen MD IN CLINIC/BEDSIDE ORDERABLES Final Result * OB US Detail Anatomy (04/07/2025 10:54 AM EDT) Anatomical Region Laterality Modality Body Ultrasound 04/07/2025 8:08 AM EDT Impressions 04/08/2025 4:01 PM EDT The OB Ultrasound you requested has been resulted. Please navigate to the Imaging tab in [facility]erral [facility] (PRN) for review. This message has been generated by the interface. Narrative Procedure Note Kaylyn Castellanos MD - 04/08/2025 IMPRESSION: The OB Ultrasound you requested has been resulted. Please navigate to theImaging tab in Physician Referral Network (PRN) for review. This message has been generated by theinterface. us Rashard Allen MD IMG OB US PROCEDURES Final Re sult * Trichomonas Vaginalis Antigen (04/07/2025 9:03 AM EDT) Trichomonas vaginalis Antigen Result Negative Negative 04/07/2025 1:04 PM EDT [facility] Swab Vaginal structure / Unknown Non-blood Collection / Unknown 04/07/2025 9:03 AM EDT 04/07/2025 9:38 AM EDT Narrative [facility] - 04/07/2025 1:04 PM EDT This test was developed and its performance characteristics determined by [facility]. It has not [...] OR DERABLES Final Result Performing Organization Address [facility] Co de Phone Number [facility] [address] [place] [address] * Chlamydia trachomatis DNA by PCR (04/07/2025 9:03 AM EDT) Chlamydia trachomatis DNA PCR Result Not Detected Not Detected 04/09/2025 3:28 PM EDT [facility] Swab Vaginal structure / Unknown Non-blood Collection / Unknown 04/07/2025 9:03 AM EDT 04/07/2025 9:38 AM EDT Narrative [facility] - 04/09/2025 3:28 PM EDT This test is performed by the [id number] instrument for Real Time PCR C. trachomatis and N. gonorrhea. This test is FDA approved for use with endocervical, vaginal, and urine specimens. This test is used for clinical purposes. It should not be regarded as invesigational or for research. The [facility] is certified under the Clinical Laboratory Improvement Amendments of 1988 (CLIA-88) as qualified to perform high complexity clinical laboratory testing. Rashard Allen MD LAB MICROBIOLOGY - GENERAL OR DERABLES Final Result Performing Organization Address City/[facility] Co de Phone Number [facility] [address] [place] [address] * Neisseria gonorrhea DNA by PCR (04/07/2025 9:03 AM EDT) Neisseria gonorrhea DNA PCR Result Not Detected Not Detected. 04/09/2025 3:28 PM EDT [facility] Swab Vaginal structure / Unknown Non-blood Collection / Unknown 04/07/2025 9:03 AM EDT 04/07/2025 9:38 AM EDT Narrative [facility] - 04/09/2025 3:28 PM EDT This test is performed by the [employer] [id number] instrument for Real Time PCR C. trachomatis and N. gonorrhea. This test is FDA approved for use with endocervical, vaginal, and urine specimens. This test is used for clinical purposes. It should not be regarded as invesigational or for research. The [facility] is certified under the Clinical Laboratory Improvement Amendments of 1988 (CLIA-88) as qualified to perform high complexity clinical laboratory testing. Rashard Allen MD LAB MICROBIOLOGY - GENERAL OR DERABLES Final Result Performing Organization Address [facility] Co de Phone Number [facility] [address] [place] [address] * Treponema Pallidum (Syphilis) Antibodies with Reflex to RPR and RPR Titer (Those with NO known Syphilis) (04/07/2025 2:53 AM EDT) Syphilis Antibody (IgG+IgM) Nonreactive Nonreactive 04/07/2025 4:07 AM EDT [facility] Comment:Nonreactive. No sero logic evidence of syphilis. No follow-up necessary unless clinically indicated (e.g., early syphilis). Blood Venous blood specimen / Unknown Venipuncture / Unknown 04/07/2025 2:53 AM EDT 04/07/2025 2:59 AM EDT Rashard Allen MD LAB BLOOD ORDERABLES Final Re sult Performing Organization Address City/[facility]/ZIP Co de Phone Number [facility] [address] [place] [address] from Last 3 Months Insurance [employer] [facility] MEDICAID Member Subscriber Plan / Payer (Ef fective 2025-Present) Name:Pamela Anderson Danette Relation to Subscriber:Self Name:Pamela Anderson Payer ID:[id number] (NAIC) Group ID:Not on file Type:Not on file Address: [facility] [id number] [place] [id number] Advance Directives * Full Code (Latest Code Status on File) Date Activated Date Inactivated Comments 04/07/2025 12:49 AM 04/12/2025 5:31 PM Question Answer Comments I have reviewed the capacity from the link above and, if needed, have updated to appropriate status: Yes Care Teams Splunk Developer Relationship Specialty Start Date End Date Pcp, No [address] [place] [address] PCP - General Family Medicine 03/08/25
--- OUTSIDE RECORDS SUMMARY | 2025-04-25 09:29 | XMS_ITS | Encounter Summary ---
Author Organization Healthcare Address [address] [place] [address] Care Team Providers Care Stockroom Attendant Name Role Phone Pcp, No Primary Care Provider Unavailabl e Encounter Details Date Type Department Care Team (Latest Contact Info) Description 04/07/2025 Travel Social History Tobacco Use Types Packs/Day [...] drink first t mickie in the morning (EYE-SOFTWARE IMPLEMENTATION SPECIALIST) to steady your nerves or to get [...] Date of Assessment Author No Risk Indicated 04/07/2025 12:48 AM EDT Loretta Denney RN * Question Answer Date of Assessment Author 1. Wish to be (Past 1 Month) No 025 12:48 AM EDT Loretta Denney, RN 2. Non-Specific Active Suici dayton Thoughts (Past 1 Month) No 04/07/2025 12:48 AM EDT Katie Denney, RN 6. Suicidal Behavior (Lifetime) No 12:48 AM EDT Loretta Denney, RN documented as of this encounter Plan of Treatment Upcoming Encounters Date Type Department Care Team ([facility] st Contact Info) Description 04/27/2025 9:00 AM EDT Initial Medical Office Building Obstetrics and Gynecology [address], [address] [place] [address] Yun Dominguez MD [address] [place] [address] documented as of this encounter Visit Diagnoses Not on filedocumented in this encounter Additional Health Concerns Assessment Noted Time A Body Mass Index follow-up plan has been documented for the patient 04/12/2025 3:13 PM EDT documented as of this encounter Care Teams Stockroom Attendant Relationship Specialty Start Date End Date Pcp, No [address] [place] [address] PCP - General Family Medicine 03/08/25 documented as of this encounter
--- OUTSIDE RECORDS SUMMARY | 2025-04-25 09:29 | XMS_ITS | Clinical Summary ---
Author Organization [facility] Address [address] [place] [address] Care Team Providers Care Raw Juice Weigher Name Role Phone Provider, No Known Primary Care Provider Unavail able Allergies No known active allergies Medications Vit-Fe Fumarate-FA ( vitamin 27-0.8) 27-0.8 MG tablet tablet Take 1 tablet by mouth Daily. Active 28-0.8 MG tablet Take 1 tablet by mouth Daily. 04/07/20 25 Discontinu ed(Stop Taking at Discharge) Active Problems Problem Noted Date Diagnosed Date [...] , second trimester 03/20/2025 Assessment & Plan (04/23/2025 9:33 PM EDT): Overall reassuring ultrasound though collection of fluid again noted Bleeding precautions reviewed Follow up 4 weeks with [facility] Assessment & Plan (03/20/2025 12:09 PM EDT): - Admitted to [facility] from 03/12- due to vaginal [...] Encounters Date Type Department Care Team Description 04/18/2025 11:15 AM EDT Office Visit [facility] MATERNAL MEDICINE [address] [facility] [address] [place] [phone] Pari Rueda MD Vaginal bleeding in , second trimester (Primary Dx) 04/18/2025 11:15 AM EDT - 04/18/2025 11:59 PM EDT Hospital Encounter [facility] US PER DIAG CTR [address] [place] [phone] Kenisha Fitzgerald MD Discharge Disposition: Home or Self Care 04/18/2025 Travel 04/06/2025 6:09 PM EDT - 04/07/2025 12:20 AM EDT Hospital Encounter [facility] ANTEPARTUM [address] [place] [phone] Sunil Schmitz, Sherwin Mckinnon MD Discharge Disposition: [facility] ([place]) 04/06/2025 Travel 03/20/2025 10:30 AM EDT Office Visit [facility] MATERNAL MEDICINE [address] [phone] Cooper Pham MD Vaginal bleeding in , second trimester (Primary Dx); Suspected anomaly, antepartum, single or unspecified fetus; Fundal height high for dates; Short interval between pregnancies affecting in second trimester, antepartum; History of delivery affecting 03/20/2025 10:19 AM EDT - 03/20/2025 11:59 PM EDT Hospital Encounter [facility] US PER DIAG CTR [address] [place] [address] Kenisha Fitzgerald MD Subchorionic hematoma [...] Not Answered Alcohol Use Standard Drinks/Week Comments Not Currently 0 (1 standard drink = 0.6 oz pur e alcohol) [facility] Utilities Answer Date Recorded In the past 12 months has [employer], gas, oil, or water [employer] threatened to shut off services in your [...] and heating? Not hard at all 04/06/2025 [facility] of Occupat ional Health - Occupational Stress [...] GED or equivalent No 04/06/2025 Preferred Language Estonian 04/06/2025 PHQ-2 Answer Date Recorded Patient Health [...] Pressure 120/66 04/18/2025 11:19 AM EDT Pulse 105 04/07/2025 12:03 AM EDT Temperature 36.9 C (98.5 F) 04/06/2025 7:53 PM EDT Respiratory Rate 16 04/07/2025 12:03 AM EDT Oxygen Saturation 96% 04/07/2025 12:03 AM EDT Inhaled Oxygen Concentration - - Weight 75.8 kg (167 lb) 04/18/2025 11:19 AM EDT Height 162.6 cm (5' 4 ) 04/06/2025 6:35 PM EDT Body Mass Index 28.67 04/06/2025 6:35 PM EDT Plan of Treatment Upcoming Encounters Date Type Department Care Team (Late st Contact Info) Description 05/16/2025 11:30 AM EST Office Visit [facility] MATERNAL MEDICINE [address] [facility] [address] [place] [phone] Health Maintenance Due Date Last Done [...] Priority Date/Time Associated Diagnosis Comments [facility] Routine 04/18/2025 11:53 AM EDT Short interval between pregnancies affecting in second trimester, antepartum Vaginal bleeding in , second trimester History of delivery affecting TREPONEMA PALLIDUM AB W/REFLEX RPR STAT 04/06/2025 10:22 PM EDT ABORH 2ND SPECIMEN VERIFICATION STAT 04/06/2025 10:04 PM EDT TYPE AND SCREEN STAT 04/06/2025 6:53 PM EDT FIBRINOGEN Urgent 04/06/2025 6:53 PM EDT PRE-ECLAMPSIA PANEL STAT 04/06/2025 6 :53 PM EDT CBC (NO DIFF) STAT 04/06/2025 6:53 PM EDT [facility] Routine 03/20/2025 11:31 AM EDT Subchorionic hematoma in second trimester, single or unspecified fetus Encounter for maternal care for excessive growth in second trimester, single or unspecified fetus Encounter for repeat ultrasound of pyelectasis in pineda , antepartum History of , unspecified gestational age from Last 3 Months Results * [facility] (04/18/2025 11:53 AM EDT) Only the most recent of2 resultswithin the time period is included. Anatomical Region Laterality Modality Ultrasound 04/18/2025 11:3 0 AM EDT Narrative 04/23/2025 9:35 PM EDT PAT NAME: PAMELA BONILLA MED REC#: [id number] DA: 2000 PAT GEND: F PAT TYPE: O EXAM FAUSTINO: [id number] REF PHYS KENISHA FITZGERALD Comparison Studies The [...] kg/m Method ======= Transabdominal ultrasound examination ========= Pineda . Number of fetuses: 1 [...] EFW (oz) 10 oz EFW by: Hadlock ([id number]) Extended Combination Worker 5.3 mm Rt Renal pelvis ap 3.9 [...] Normal Heart / Thorax 3-vessel view: Normal 4-vxvgld-tgscbdy view: normal Cord insertion: Normal Stomach: Appears [...] fluid UA doppler normal Coding ====== Description: 07879-75 Follow Up Occupational Therapy Technician: Balbina Condon RDMS Physician: Pari Rueda MD, FACOG Electronically signed by: Pari Rueda MD, FACOG at: 21:35 Procedure Note Pari Rueda MD - 04/23/2025 PAT NAME: PAMELA BONILLA MED REC#: [id number] DA: 2000 PAT GEND: F PAT TYPE: O EXAM FAUSTINO: [id number] REF PHYS FITZGERALDKENISHA Comparison Studies The findings of this study are compared to the prior ultrasound studydated 03/20/25 Patient Status Outpatient Indication ======== Chronic subchorionic hemorrhage with vaginal bleeding. Size greater thandates. Previous c/s x 3. Maternal Assessment [id number] cm Height (ft)5 ft Height (in)4 in Qtrqka92 kg Weight (lb)167 lb BMI28.86 kg/m Method ======= Transabdominal ultrasound examination ========= Pineda . Number of fetuses: 1 Dating ====== Method of dating:based on stated EMILY GA by prior [id number] w + 1 d EMILY by prior assessment:07/17/2025 Ultrasound examination on:04/18/2025 GA by U/S based upon:AC, BPD, Femur, HC GA by U/S28 w + 2 d EMILY by U/S:07/09/2025 Previous dating:based on stated EMILY, selected on 03/20/2025 Agreed EMILY of previous datin07/17/2025 Assigned:based on stated EMILY, selected on 04/18/2025 Assigned GA27 w + 1 d Assigned EMILY:07/17/2025 d Biometry Standard BPD72.1 mm 29w 0d 90% Hadlock OFD90.3 mm 29w 1d 94% Geo HC259.4 mm 28w 1d 57% Hadlock AC243.9 mm 28w 5d 84% Hadlock Femur51.4 mm 27w 3d 45% Hadlock HC / AC1.06 EFW1,195 g 27w 6d 80% Hadlock EFW (lb)2 lb EFW (oz)10 oz EFW by:Hadlock ([id number]) Extended Vp5.3 mm Rt Renal pelvis ap3.9 mm Head / Face / Neck Cephalic index0.80 63% Nicolaides Extremities / Bony Struc FL / BPD0.71 FL / HC0.20 FL / AC0.21 Other Structures [id number] bpm General Evaluation Cardiac activity present. FHR [...] LVOT view:Normal Heart / Thorax 3-vessel view:Normal 9-rpaeaz-qsmaqll view:normal Cord insertion:Normal Stomach:Appears normal Kidneys:Appears normal [...] Normal fluid UA doppler normal Coding ====== Description:[id number] Follow Up Occupational Therapy Technician: Balbina Condon RDMS Physician: Pari Rueda MD, FACOG Electronically signed by: Pari Rueda MD, FACOG at: :35 us Cooper Pham MD [facility] US ORDERABLES Final Res ult * Treponema pallidum AB w/Reflex RPR (04/06/2025 10:22 PM EDT) Treponemal AB Total Non-Reacti ve Non-React vera 04/07/2025 10:17 AM EDT [facility] Blood Line / Unknown 04/06/2025 10 :22 PM EDT 04/06/2025 10:35 PM EDT Narrative [facility] - 04/07/2025 10:17 AM EDT Reactive results will reflex RPR testing. Sunil Schmitz LAB BLOOD ORDERABLES Final Result [facility]
[address] [place] [address], [place] [phone] * ABO RH Specimen Verification (04/06/2025 10:04 PM EDT) Pathologist [facility] ABO Type A 04/06/2025 11:36 PM EDT [facility] RH type Positive 04/06/2025 11:36 PM EDT [facility] Blood Venipuncture / Unknown 04/06/2025 10:04 PM EDT 04/06/2025 11:07 PM EDT Sunil Schmitz DO BLOOD BANK TEST ORDERABLES Final Result Performing Organization Address City/[facility] Co de Phone Number [facility]
[address] [place] [address], [place] [phone] * (ABNORMAL) Preeclampsia Panel (04/06/2025 6:53 PM EDT) Alkaline Phosphatase 94 39 - 117 U/L 04/06/2025 7:29 PM EDT [facility] ALT (SGPT) 12 1 - 33 U/L 04/06/2025 7:29 PM EDT [facility] AST (SGOT) 14 1 - 32 U/L 04/06/2025 7:29 PM EDT [facility] Creatinine 0.42(L) 0.57 - 1.00 mg/dL 04/06/2025 7:29 PM EDT [facility] Total Bilirubin 0.7 0.0 - 1.2 mg/dL 04/06/2025 7:29 PM EDT [facility] LDH 249(H) 135 - 214 U/L 04/06/2025 7:29 PM EDT [facility] Uric Acid 4.3 2.4 - 5.7 mg/dL 04/06/2025 7:29 PM EDT [facility] Blood Line / Unknown 04/06/2025 6: 53 PM EDT 04/06/2025 7:07 PM EDT us Sunil Schmitz DO LAB BLOOD ORDERABLES Final Result [facility]
[address] [place] [address], * Fibrinogen (04/06/2025 6:53 PM EDT) Fibrinogen 316 203 - 567 mg/dL 04/06/2025 7:21 PM EDT [facility] Blood Line / Unknown 04/06/2025 6: 53 PM EDT 04/06/2025 7:07 PM EDT us Sunil Schmitz DO LAB BLOOD ORDERABLES Final Result [facility]
[address] [place] [address], [place] [phone] * (ABNORMAL) CBC (No Diff) (04/06/2025 6:53 PM EDT) WBC 14.59(H) 3.40 - 10.80 10*3/mm3 04/06/2025 7:09 PM EDT [facility] RBC 3.61(L) 3.77 - 5.28 10*6/mm3 04/06/2025 7:09 PM EDT [facility] Hemoglobin 11.2(L) 12.0 - 15.9 g/dL 04/06/2025 7:09 PM EDT [facility] Hematocrit 33.5(L) 34.0 - 46.6 % 04/06/2025 7:09 PM EDT [facility] MCV 92.8 79.0 - 97.0 fL 04/06/2025 7:09 PM EDT [facility] MCH 31.0 26.6 - 33.0 pg 04/06/2025 7:09 PM EDT [facility] MCHC 33.4 31.5 - 35.7 g/dL 04/06/2025 7:09 PM EDT [facility] RDW 13.6 12.3 - 15.4 % 04/06/2025 7:09 PM EDT [facility] RDW-SD 46.5 37.0 - 54.0 fl 04/06/2025 7:09 PM EDT [facility] MPV 9.5 6.0 - 12.0 fL 04/06/2025 7:09 PM EDT [facility] Platelets 181 140 - 450 10*3/mm3 04/06/2025 7:09 PM EDT [facility] Blood Line / Unknown 04/06/2025 6: 53 PM EDT 04/06/2025 7:07 PM EDT Sunil Schmitz DO LAB BLOOD ORDERABLES Final Result [facility]
[address] [place] [address], * Type & Screen (04/06/2025 6:53 PM EDT) ABO Type A 04/06/2025 8:55 PM EDT [facility] RH type Positive 04/06/2025 8:55 PM EDT [facility] Antibody Screen Negative 04/06/2025 8:55 PM EDT [facility] T&S Expiration Date 04/09/2025 11:59:59 PM 04/06/2025 8:55 PM EDT [facility] Blood Line / Unknown 04/06/2025 6: 53 PM EDT 04/06/2025 7:11 PM EDT Sunil Schmitz DO BLOOD BANK TEST ORDERABLES Edited Result - Final [facility]
[address] [place] [address], from Last 3 Months Insurance Member Subscriber Plan / Payer (Ef fective 2023-Present) Name:Pamela Bonilla Relation to Subscriber:Self Name:Pamela Bonilla Payer ID:[id number] (NAIC) Group ID:Not on file Type:Not on file Address: [facility] [id number] [phone] Care Teams Raw Juice Weigher Relationship Specialty Start Date End Date Provider, [place] [address] PCP - General 03/13/25
--- OUTSIDE RECORDS SUMMARY | 2025-04-25 09:29 | XMS_ITS | Encounter Summary ---
Author Organization [facility] Address [address] [place] [address] Care Team Providers Care Sewer Inspector Name Role Phone Provider, No Known Primary Care Provider Unavail able Encounter Details Date Type Department Care Team (Latest Contact Info) Description 04/18/2025 Travel Social History Tobacco Use Types Packs/Day Years Used Date Smoking Tobacco: Never Smokeless Tobacco: Never Alcohol Use Standard Drinks/Week Comments Not Currently 0 (1 standard drink = 0.6 oz pur e alcohol) [facility] Utilities Answer Date Recorded In the past 12 months has [facility], gas, oil, or water [employer] threatened to shut off services in your [...] and heating? Not hard at all 04/06/2025 [facility] [place] of Occupat ional Health - Occupational Stress [...] GED or equivalent No 04/06/2025 Preferred Language Mongolian 04/06/2025 PHQ-2 Answer Date Recorded Patient Health [...] Description 05/16/2025 11:30 AM EST Office Visit [facility] MATERNAL MEDICINE [address] [facility] [address] [place] [address] documented as of this encounter Visit Diagnoses Not on filedocumented in this encounter Care Teams Sewer Inspector Relationship Specialty Start Date End Date Provider, [place] [address] PCP - General 03/13/25 documented as of this encounter
== END 2025-04-25 23:59 | disposition home or self-care (01) ==
LOC: RAD 09:05
PROVIDERS: PCP Obstetrics & Gynecology; Visit Provider Obstetrics & Gynecology
DX: O28.3 Abnormal ultrasonic finding on antenatal screening of mother (principal); O43.893 Other placental disorders, third trimester; O36.63X0 Maternal care for excessive fetal growth, third trimester, not applicable or unspecified; O99.891 Other specified diseases and conditions complicating pregnancy; O46.93 Antepartum hemorrhage, unspecified, third trimester; Z3A.28 28 weeks gestation of pregnancy
CPT/HCPCS: 76816

== ENCOUNTER 2025-04-26 08:09 | Observation (INO) | payer OTHER, SELFPAY ==
--- OUTSIDE RECORDS SUMMARY | 2025-03-20 10:19 | XMS_ITS | Encounter Summary ---
Author Organization [facility] Address [address] [place] [phone] Care Team Providers Care Care Management Associate Name Role Phone Provider, No Known Primary [...] [facility] Kenisha Fitzgerald MD [address] [place] [address] [address] Phone: tel: fax: [facility] [address] [place] [address] Phone: tel: Referral ID Status Reason Start Date Expiration Date Visits Re quested Visits Authorized [id number] Closed 03/13/2025 06/12/2026 1 1 Reason for [...] [facility] Kenisha Fitzgerald MD [address] [place] [address] [place] [place] [address] Phone: tel: fax: [facility] [address] [place] [address] Phone: tel: Referral ID Status Reason Start Date Expiration Date Visits Re quested Visits Authorized [id number] Closed 03/13/2025 06/12/2026 1 1 Encounter Details Date Type Department Care Team (Latest Contact Info) Description 03/20/2025 10:19 AM EDT - 03/20/2025 11:59 PM EDT Hospital Encounter [facility] [address] [place] [address] Kenisha Fitzgerald MD [address] [place] [address] E [facility] [place] [address] [address] Subchorionic hematoma in second trimester, single or [...] Description 05/16/2025 11:30 AM EST Office Visit [facility] [address] [place] [address] documented as of this encounter Procedures Procedure Name Priority Date/Time Associated Diagnosis Comments [facility] Routine 03/20/2025 11:31 AM EDT Subchorionic hematoma in second trimester, single or unspecified fetus Encounter for maternal care for excessive growth in second trimester, single or unspecified fetus Encounter for repeat ultrasound of pyelectasis in [place] , antepartum History of , unspecified gestational age documented in this encounter Results * [facility] (03/20/2025 11:31 AM EDT) Anatomical Region Laterality Modality Ultrasound 03/20/2025 11:1 4 AM EDT Narrative 03/20/2025 12:20 PM EDT PAT NAME: PAMELA BONILLA MED REC#: [id number] DA: [id number] PAT GEND: F PAT TYPE: O EXAM LENCHO: [id number] REF PHYS KENISHA FITZGERALD Comparison Studies There [...] EFW (oz) 8 oz EFW by: Hadlock (IMK-TZ-JP-FL) Extended Tibia 34.6 mm 22w 6d 43% Geo Fibula 36.0 mm 23w 4d 59% Geo Radius 33.1 mm 23w 4d 55% Geo Ulna 36.6 mm 24w 3d 74% Geo Cav. septi pel. tr 5.0 mm Chargemaster Analyst 5.3 mm CM 7.8 mm 95% Nicolaides [...] normal IVC: normal 3-vessel view: Appears normal 4-zejrsn-mcuesfl view: Appears normal Rt lung: Appears normal [...] Consultation / Office Visit Type: Consultation See [facility] for full consult note. Impression [...] weeks for growth assessment Coding ======= Description: 68159-11 Detailed Housekeeping Laundry Worker: Gris Guerrero RDMS Physician: Cooper Pham MD Electronically signed by: Cooper Pham MD at: 12:20 Procedure Note Cooper Pham MD - 03/20/2025 PAT NAME: PAMELA BONILLA MED REC#: [id number] DA: 2000 PAT GEND: F PAT TYPE: O EXAM LENCHO: [id number] REF PHYS KENISHA FITZGERALD Comparison Studies There are no relevant prior studies to which this study is beingcompared Patient Status Outpatient Indication ======== Chronic subchorionic hemorrhage with vaginal bleeding. Size greater thandates. Previous c/s x 3. Maternal Assessment Jhnfry325 cm Height (ft)5 ft Height (in)4 in Ocondr58 kg Weight (lb)165 lb BMI28.52 kg/m Method ======= Transabdominal ultrasound examination. View: Adequate view ========= Pineda . Number of fetuses: 1 Dating ====== Method of dating:based on stated EMILY GA by prior yuuyhkylry74 w + 0 d EMILY by prior [...] Hadlock Femur42.2 mm 23w 5d 64% Hadlock Pnvnnxp54.2 mm 24w 0d 69% Geo HC / AC1.13 FVJ155 g 24w 1d 95% Hadlock EFW (lb)1 lb EFW (oz)8 oz EFW by:Hadlock (EJE-SJ-YR-FL) Extended Tibia34.6 mm 22w 6d 43% Geo Fhadwq24.0 mm 23w 4d 59% Geo Dqblzq88.1 mm 23w 4d 55% Geo Ulna36.6 mm 24w 3d 74% Geo Cav. septi pel. tr5.0 mm Vp5.3 mm CM7.8 mm 95% Nicolaides Nasal bone7.4 mm Head / Face / Neck Cephalic index0.72 2% Nicolaides Extremities / Bony Struc FL / BPD0.72 FL / HC0.18 FL / AC0.21 Other Structures XIV198 bpm General Evaluation Cardiac activity present. FHR [...] view:Appears normal SVC:normal IVC:normal 3-vessel view:Appears normal 1-briuzr-vmedfed view:Appears normal Rt lung:Appears normal Lt lung:normal [...] Structures Uterus / Cervix Cervix:Visualized Approach:Transabdominal Cervical zhxswa88.6 mm Ovaries / Tubes / Adnexa Rt ovary:Visualized Lt ovary:Visualized Consultation / Office Visit Type: Consultation See [facility] for full consult note. Impression [...] ~28 weeks for growth assessment Coding ======= Description:22714-33 Detailed Housekeeping Laundry Worker: Gris Guerrero RDMS Physician: Cooper Pham MD [...] age documented in this encounter Care Teams Care Management Associate Relationship Specialty Start Date End Date Provider, No Known [place] [phone] PCP - General 03/13/25 documented as of this encounter
--- OUTSIDE RECORDS SUMMARY | 2025-03-20 10:30 | XMS_ITS | Encounter Summary ---
Author Organization [facility] Address [address] [place] [phone] Care Team Providers Care Apprentice Photographer Name Role Phone Provider, No Known Primary Care Provider Unavail able Reason for Referral * Diagnostic Imaging (Routine) - Authorized Specialty Diagnoses / Procedures Referred By Contac t Referred To Contact Radiology Diagnoses Short interval between pregnancies affecting in second trimester, antepartum Vaginal bleeding in , second trimester History of delivery affecting Procedures [facility] [place] [address] [place] [address] Phone: tel: fax: [facility] [address] [place] [phone] Phone: tel: Referral ID Status Reason Start Date Expiration Date V isits Requested Visits Authorized [id number] Authorized 03/20/2025 06/19/2026 4 4 Reason for Visit * Reason Comments ISAAC, S>D, Jose Rafael UTD, Prev C/S x 3 Encounter Details Date Type Department Care Team (Late st Contact Info) Description 03/20/2025 10:30 AM EDT Office Visit [facility]ERNAL MEDICINE [address] [place] [phone] Cooper Pham MD [address] [place] [address] Vaginal bleeding in , second trimester (Primary [...] in , second trimester - Admitted to [facility] from 03/12- due to vaginal [...] and bilateral UTD-A1. She was admitted to [facility] 03/12- due to heavier vaginal [...] (Primary) Assessment & Plan: - Admitted to [facility] from 03/12- due to vaginal [...] type reviewed and Rh positive Orders: - [facility]; Standing 2. Suspected anomaly, [...] may compound overall maternal risk Orders: - [facility]; Standing 5. History of delivery affecting Assessment & Plan: - Three prior C/S reported; no operative reports available for review at time of consultation - PAS risk increases with the number of prior sections, independent of interpregnancy interval - On US today, the placenta is posterior with no overt sonographic evidence of PAS Orders: - [facility]; Standing Follow Up Return [...] CVS. Cooper Pham MD, FACOG Maternal Medicine, [facility] documented in this encounter Plan of Treatment Upcoming Encounters Date Type Department Care Team (Late st Contact Info) Description 05/16/2025 11:30 AM EST Office Visit [facility]ERNAL MEDICINE [address] [facility] [address] [place] [address] Scheduled Orders Name Type Priority Associated Diagnoses Orde r Schedule [facility] Imaging Routine Short interval between pregnancies affecting in second trimester, antepartum Vaginal bleeding in , second trimester History of delivery affecting Every 4 Weeks for 4 Occurrences starting 03/20/2025 until 03/20/2026, 1 completed documented as of this encounter Results * [facility] (04/18/2025 11:53 AM EDT) Anatomical Region Laterality Modality Ultrasound 04/18/2025 11:3 0 AM EDT Narrative 04/23/2025 9:35 PM EDT PAT NAME: PAMELA BONILLA MED REC#: [id number] DA: [id number] PAT GEND: F PAT TYPE: O EXAM LENCHO: [id number] REF PHYS FITZGERALD, KENISHA Comparison Studies The [...] U/S: 07/09/2025 Previous dating: based on stated EMILY, selected on 03/20/2025 Agreed [...] EFW (oz) 10 oz EFW by: Hadlock ([id number]) Extended Server 5.3 mm Rt Renal pelvis ap 3.9 [...] Normal Heart / Thorax 3-vessel view: Normal 8-dgcuqn-xeqryaa view: normal Cord insertion: Normal Stomach: Appears [...] fluid UA doppler normal Coding ====== Description: 98062-38 Follow Up Help Desk Administrator: Balbina Condon RDMS Physician: Pari Rueda MD, FACOG Electronically signed by: Pari Rueda MD, FACOG at: 21:35 Procedure Note Pari Rueda MD - 04/23/2025 PAT NAME: PAMELA BONILLA MED REC#: [id number] DA: [id number] PAT GEND: F PAT TYPE: O EXAM LENCHO: [id number] REF PHYS FITZGERALDKENISHA Comparison Studies The findings of this study are compared to the prior ultrasound studydated 03/20/25 Patient Status Outpatient Indication ======== Chronic subchorionic hemorrhage with vaginal bleeding. Size greater thandates. Previous c/s x 3. Maternal Assessment Doasbr974 cm Height (ft)5 ft Height (in)4 in Tjaipb28 kg Weight (lb)167 lb BMI28.86 kg/m Method ======= Transabdominal ultrasound examination ========= Moe . Number of fetuses: 1 Dating ====== Method of dating:based on stated EMILY GA by prior [id number] w + 1 d EMILY by prior assessment:07/17/2025 Ultrasound examination on:04/18/2025 GA by U/S based upon:AC, BPD, Femur, HC GA by U/S28 w + 2 d EMILY by U/S:07/09/2025 Previous dating:based on stated EMILY, selected on 03/20/2025 Agreed EMILY of previous datin07/17/2025 Assigned:based on stated EMILY, selected on 04/18/2025 Assigned GA27 w + 1 d Assigned EMILY:07/17/2025 [id number] d Biometry Standard BPD72.1 mm 29w 0d 90% Hadlock OFD90.3 mm 29w 1d 94% Geo HC259.4 mm 28w 1d 57% Hadlock AC243.9 mm 28w 5d 84% Hadlock Femur51.4 mm 27w 3d 45% Hadlock HC / AC1.06 EFW1,195 g 27w 6d 80% Hadlock EFW (lb)2 lb EFW (oz)10 oz EFW by:Hadlock ([id number]) Extended Vp5.3 mm Rt Renal pelvis ap3.9 mm Head / Face / Neck Cephalic index0.80 63% Nicolaides Extremities / Bony Struc FL / BPD0.71 FL / HC0.20 FL / AC0.21 Other Structures [id number] bpm General Evaluation Cardiac activity present. FHR [...] LVOT view:Normal Heart / Thorax 3-vessel view:Normal 9-vfifey-fbomgdu view:normal Cord insertion:Normal Stomach:Appears normal Kidneys:Appears normal [...] Normal fluid UA doppler normal Coding ====== Description:65132-70 Follow Up Help Desk Administrator: Balbina Condon RDMS Physician: Pari Rueda MD, [...] affecting documented in this encounter Care Teams Apprentice Photographer Relationship Specialty Start Date End Date Provider, [place] [address] PCP - General 03/13/25 documented as of this encounter
--- OUTSIDE RECORDS SUMMARY | 2025-04-06 18:09 | XMS_ITS | Encounter Summary ---
Author Organization [facility] Address [address] [place] [address] Care Team Providers Care Vehicle Operator Name Role Phone Provider, No Known Primary Care Provider Unavail able Reason for Visit * Reason Comments Vaginal Bleeding * Auth/Cert (Routine) Specialty Diagnoses / Procedures Referred By Contac t Referred To Contact Referral ID Status Reason Start Date Expiration Date Visits Re quested Visits Authorized [id number] 1 1 Encounter Details Date Type Department Care Team (Late st Contact Info) Description 04/06/2025 6:09 PM EDT - 04/07/2025 12:20 AM EDT Hospital Encounter [facility] [address] [place] [phone] Sunil Schmitz DO [address] [address] Sherwin De Leon MD [address] [address] Discharge Disposition: Short Term Hospital (DC) Social History Tobacco Use Types Packs/Day Years Used Date Smoking Tobacco: Never Smokeless Tobacco: Never Alcohol Use Standard Drinks/Week Comments Not Currently 0 (1 standard drink = 0.6 oz pur e alcohol) [facility] Utilities Answer Date Recorded In the past 12 months has e [employer], gas, oil, or water company threatened to shut off services in your home? No 04/06/2025 AUDIT-C Answer Date Recorded Q1: How often do you have a drink containing alcohol? Never 04/06/2025 Q2: How many drinks containi ng alcohol do you have on a typical day when you are drinking? Patient does not drink Q3: How often do you have si x or more drinks on one occasion? Never 04/06/2025 Overall Financial Resource Strain (CARDIA) Answe r Date Recorded How hard is it for you to pa y for the very basics like food, housing, medical care, and heating? Not hard at all 04/06/2025 [facility] - Occupational Stress Questionnaire Answer Date Recorded Do you feel stress - tense, restless, nervous, or anxious, or unable to sleep at night because your mind is troubled all the time - these days? Not at all 04/06/2025 Exercise Vital Sign Answer Date Recorde d On average, how many days pe r week do you engage in moderate to strenuous exercise (like a brisk walk)? 2 days 04/06/2025 On average, how many minutes do you engage in exercise at this level? 10 min 04/06/2025 Hunger Vital Sign Answer Date Recorded Within the past 12 months, y ou worried that your food would run out before you got the money to buy more. Never true 04/06/20 25 Within the past 12 months, t he food you bought just didn't last and you didn't have money to get more. Never true 04/06/2025 PRAPARE - Transportation Answer Date Re corded In the past 12 months, has l ack of transportation kept you from medical appointments or from getting medications? No 08/2024 In the past 12 months, has l ack of transportation kept you from meetings, work, or from getting things needed for daily living? No 04/06/2025 Abuse Screen Answer Date Recorded Feels Unsafe at Home or Work/School no 04/06/2025 Feels Threatened by Someone no 08/2024 Does Anyone Try to Keep You From Having Contact with Others or Doing Things Outside Your Home? no 04/06/2025 Physical Signs of Abuse Present no 04/06/2025 Housing Stability Answer Date Recorded Current Living Arrangements apartment 08/2024 Potentially Unsafe Housing Conditions none 04/06/2025 Family and Community Support Answer Faustino e Recorded If for any reason you need h elp with day-to-day activities such as bathing, preparing meals, shopping, managing finances, etc., do you get the help you need? I don't need any help 04/06/2025 How often do you feel lonely or isolated from those around you? Never 04/06/2025 Employment Answer Date Recorded Do you want help finding or keeping work or a job? I do not need or want help 04/06/2025 Disabilities Answer Date Recorded Difficulty Concentrating, Remembering or Making Decisions no 04/06/2025 Difficulty Managing Errands Independently no 04/06/2025 Education Answer Date Recorded Do you want help with school or training? For example, starting or completing job training or getting a high school diploma, GED or equivalent No 04/06/2025 Preferred Language Djiboutian 04/06/2025 PHQ-2 Answer Date Recorded Patient Health Questionnaire-2 Score 0 04/06/2025 Estimated Date of Delivery Comme nts Yes 07/17/2025 Date entered francesca or to episode creation Sex and Gender Information Value Date Recorded Sex Assigned at Not on file Legal Sex Female 12:14 PM EDT Gender Identity Not on file Sexual Orientation Not on file documented as of this encounter Last Filed Vital Signs Vital Sign Reading Time Taken Comments Blood Pressure 109/66 04/07/2025 12:03 AM EDT Pulse 105 04/07/2025 12:03 AM EDT Temperature 36.9 C (98.5 F) 04/06/2025 7:53 PM EDT Respiratory Rate 16 04/07/2025 12:03 AM EDT Oxygen Saturation 96% 04/07/2025 12:03 AM EDT Inhaled Oxygen Concentration - - Weight 76.7 kg (169 lb) 04/06/2025 6:35 PM EDT Height 162.6 cm (5' 4 ) 04/06/2025 6:35 PM EDT Body Mass Index 29.01 04/06/2025 6:35 PM EDT documented in this encounter Functional Status * AUDIT-C Score Answer Date of Assessment Author 0 04/06/2025 6:41 PM EDT Cherise Harden, MILLICENT * Question Answer Date of Assessment Author Q1: How often do you have a drink containing alcohol? Never 04/06/2025 6:41 PM EDT Cherise Harden, RN Q2: How many drinks containing alcohol do you have on a typical day when you are drinking? Patient does not drink 04/06/2025 6:41 PM EDT Cherise Harden RN Q3: How often do you have six or more drinks on one occasion? Never 04/06/2025 6:41 PM EDT Cherise Harden RN * Over the past 2 weeks, how often have you been bothered by any of the following problems? Question Answer Date of Assessment Author Patient Health Questionnaire -2 Score 0 04/06/2025 6:41 PM EDT Cherise Harden RN * Question Answer Date of Assessment Author 1. Wish to be (Past 1 Month) No 025 6:38 PM EDT Perla Benitez RN 2. Non-Specific Active Suici dayton Thoughts (Past 1 Month) No 04/06/2025 6:38 PM EDT Jose C Benitez RN * Calculated C-SSRS Risk Score (Lifetime/Recent) Answer Date of Assessment Author No Risk Indicated 04/06/2025 6:38 PM EDT Perla Mas RN * [place] Suicide Severity Rating Scale (Screener/Recent Self-Report) Question Answer Date of Assessment Author 6. Suicidal Behavior (Lifetime) No 6:38 PM EDT Perla Benitez RN * Question Answer Date of Assessment Author Little interest or pleasure in doing things Not at all 04/06/2025 6:41 PM EDT Cherise Harden RN Feeling down, depressed, or hopeless Not at all 04/06/2025 6:41 PM EDT Cherise Harden RN documented as of this encounter Discharge Summaries * Sherwin De Leon MD - 04/06/2025 11:12 PM EDT Pamela Anderson [phone] Referring physician: Joshua Cortes MD Chief complaint: chronic abruptio Date of admission: Date of discharge: 25/08/2024 Procedures: none Consultations: maternal- medicine Hospital Course: Pt was admitted and placed on cont EFM showing a reassuring tracing. Labs were drawn and H/H is 11.2/33.5, plt 181k, and fibrinogen 316. Pt had reonset bright red vaginal bleeding and is having small amt continuous flow. FHT;s are reassuring at this time and pt is not having c ontractions. Due to risk of delivery prior to 28 weeks will transfer to for NICU capabilities. P/1) transfer to I spent over 30 minutes on discharge activity which included: [id number] encounter counseling with the patient, reviewing the data in the system, coordination of the care with the nursing staff as well as consultants, documentation, and entering orders. Sherwin De Leon MD 04/06/25 23:12 EDT documented in this encounter Progress Notes * Sherwin De Leon MD - 04/06/2025 11:09 PM EDT Pamela Anderson [phone] Pt is continuing to have bleeding during magnesium administration. Baby is active and reassuring and pt is not feeling contractions. P/1)transfer to (accepted by Dr. Myra Beard) Sherwin De Leon MD 04/06/2025 23:09 EDT * Sherwin De Leon MD - 04/06/2025 10:03 PM EDT Pamela Anedrson [phone] 2000 CTSP for bleeding. Pt had bright red bleeding on 2 pads, ~1/3-1/2 full. Pt denies contractions or leaking. Baby is moving well. No contractions on toco. Baby is moving well. Pt has already received full dose BMZ. P/1)start magnesium (4g/2g) 2)if further bleeding on magnesium will transfer to for NICU capabilities 3)discussed with Dr. Kay. Sherwin De Leon MD 04/06/2025 22:03 EDT documented in this encounter H&P Notes * Sunil Schmitz DO - 04/06/2025 7:09 PM EDT [facility] Obstetric History and Physical Referring Provider: Joshua Cortes MD Chief Complaint Patient presents with Vaginal Bleeding Subjective Patient is a 25 y.o. female currently at 25w3d, who presents for direct admission from Dr. Cortes in [facility] via personal transportation. Patient seen today for visit. Patient reports having intermittent bright/brown blood since 8 weeks gestation. This week patient had a concerning amount of bright red bleeding and received corticosteroids as an outpatient. Today patient states is only having dark brown bleeding.patient denies leaking of fluid, abdominal pain, recent trauma, and reports normal activity. course complicated by prior x 3 at term. PDC ultrasound March 20 revealed normal growth and fetus in breech presentation with subchorionic hemorrhage 94 mm x 16 mm x 42 mm . Information: Maternal Labs Blood Type No results found for: ABO Rh Status No results found for: RH Antibody Screen No results found for: ABSCRN Gonnorhea No results found for: GCCX Chlamydia No results found for: CLAMYDCU RPR No results found for: RPR Syphilis Antibody No results found for: SYPHILIS Rubella No results found for: RUBELLAIGGIN Hepatitis B Surface Antigen No results found for: HEPBSAG HIV-1 Antibody No results found for: LABHIV1 Hepatitis C Antibody No results found for: HEPCAB Rapid Urin Drug Screen No results found for: AMPMETHU , BARBITSCNUR , LABBENZSCN , LABMETHSCN , LABOPIASCN , THCURSCR , COCAINEUR , AMPHETSCREEN , PROPOXSCN , BUPRENORSCNU , METAMPSCNUR , OXYCODONESCN , TRICYCLICSCN Group B Strep Culture No results found for: GBSANTIGEN Past OB History: OB History Para Term AB Living 5 3 3 0 1 3 SAB IAB Ectopic Molar Multiple Live Births 1 0 0 0 0 3 # Outcome Date GA Lbr Paul/2nd Weight Sex Type Anes PTL Lv 5 Current 4 Term 03/17/24 38w0d 3742 g (8 lb 4 oz) M CS-Unspec Spinal N LUCAS 3 Term 01/01/23 38w0d 4026 g (8 lb 14 oz) F CS-Unspec Spinal N LUCAS 2 SAB 2021 5w0d SAB 1 Term 03/22/19 39w0d 3685 g (8 lb 2 oz) F CS-Unspec EPI N LUCAS Complications: Failure to Progress in First Stage Obstetric Comments 1-4: FOB #1 Past Medical History: Past Medical History: Diagnosis Date Sepsis 09/2024 from UTI Past Surgical History Past Surgical History: Procedure Laterality Date SECTION x3 TONSILLECTOMY Family History: No family history on file. Social History: reports that she has never smoked. She has never used smokeless tobacco. reports that she does not currently use alcohol. reports no history of drug use. General ROS Negative Findings:Headaches, Visual Changes, Epigastric pain, Anorexia, Nausia/Vomiting, and ROM ROS All other systems have been reviewed and are neg Objective Vital Signs Range for the last 24 hours Temperature: Temp: [98.3 ??F (36.8 ??C)] 98.3 ??F (36.8 ??C) Temp Source: Temp src: Oral BP: Pulse: Respirations: SPO2: O2 Amount (l/min): O2 Devices Device (Oxygen Therapy): room air Weight: Weight: [76.7 kg (169 lb)] 76.7 kg (169 lb) Physical Examination: General: alert, appears stated age, and cooperative Skin: normal HEENT: Lungs: clear to auscultation bilaterally Heart: regular rate and rhythm, S1, S2 normal, no murmur, click, rub or gallop Gastrointestinal: Abdomen soft, gravid uterus, guarding benign exam Lower Extremities: No edema, no calf tenderness : Musculoskeletal: Neuro: No focal deficits noted Heart Rate Assessment Method: Beats/min: Baseline: Varibility: Accels: Decels: Tracing Category: Uterine Assessment Method: Frequency (min): Ctx Count in 10 min: Duration: Intensity: Intensity by IU[facility]: Resting Tone: Resting Tone by IU[facility]: [place] Units: Laboratory Results: Lab Results (last 24 hours) Procedure Component Value Units Date/Time Preeclampsia Panel [[id number]] Collected: 04/06/251852 Specimen: Blood Updated: 04/06/251906 CBC (No Diff) [[id number]] Collected: 04/06/251852 Specimen: Blood Updated: 04/06/251906 Fibrinogen [[id number]] Collected: 04/06/251852 Specimen: Blood Updated: 04/06/251906 Radiology Review: Imaging Results (Last 24 Hours) No results found for the last 24 hours. Other Studies: Bedside ultrasound revealed single IUP vertex presentation, fetus active, grossly normal amniotic fluid, Assessment & Plan * No active hospital problems. * Assessment: 1. Intrauterine at 25w3d gestation with reactive status. 2. Chronic abruption no evidence of active bleeding today 3. Status post corticosteroids April 04 and April 05 4. Prior x 3 Plan: 1. Admit to antepartum unit, intermittent monitoring, continuous toco, IV access, labs, PDC ultrasound and consult in a.m. if regular contractions or concerns magnesium sulfate tocolysis 2. Plan of care has been reviewed with patient. 3. Risks, benefits of treatment plan have been discussed. 4. All questions have been answered. 5 Dr. Kay notified Sunil Schmitz DO 04/06/2025 19:09 EDT documented in this encounter Plan of Treatment Upcoming Encounters Date Type Department Care Team (Late st Contact Info) Description 05/16/2025 11:30 AM EST Office Visit [facility] [address] [facility] [address] [place] [address] documented as of this encounter Procedures Procedure Name Priority Date/Time Associated Diagnosis Comments TREPONEMA PALLIDUM AB W/REFLEX RPR STAT 04/06/2025 10:22 PM EDT ABORH 2ND SPECIMEN VERIFICATION STAT 04/06/2025 10:04 PM EDT PRE-ECLAMPSIA PANEL STAT 04/06/2025 6 :53 PM EDT FIBRINOGEN Urgent 04/06/2025 6:53 PM EDT CBC (NO DIFF) STAT 04/06/2025 6:53 PM EDT TYPE AND SCREEN STAT 04/06/2025 6:53 PM EDT documented in this encounter Results * Treponema pallidum AB w/Reflex RPR (04/06/2025 10:22 PM EDT) Treponemal AB Total Non-Reacti ve Non-React vera 04/07/2025 10:17 AM EDT [facility] Blood Line / Unknown 04/06/2025 10 :22 PM EDT 04/06/2025 10:35 PM EDT Narrative [facility] - 04/07/2025 10:17 AM EDT Reactive results will reflex RPR testing. Sunil Schmitz LAB BLOOD ORDERABLES Final Result [facility]
[address] [place] [address], [place] [phone] * ABO RH Specimen Verification (04/06/2025 10:04 PM EDT) ABO Type A 04/06/2025 11:36 PM EDT [facility] RH type Positive 04/06/2025 11:36 PM EDT [facility] Blood Venipuncture / Unknown 04/06/2025 10:04 PM EDT 04/06/2025 11:07 PM EDT Sunil Schmitz DO BLOOD BANK TEST ORDERABLES Final Result [facility]
[address] [place] [address], [place] [phone] * Type & Screen (04/06/2025 6:53 PM EDT) ABO Type A 04/06/2025 8:55 PM EDT [facility] RH type Positive 04/06/2025 8:55 PM EDT [facility] Antibody Screen Negative 04/06/2025 8:55 PM EDT [facility] T&S Expiration Date 04/09/2025 11:59:59 PM 04/06/2025 8:55 PM EDT [facility] Blood Line / Unknown 04/06/2025 6: 53 PM EDT 04/06/2025 7:11 PM EDT Sunil Schmitz DO BLOOD BANK TEST ORDERABLES Edited Result - Final [facility]
[address] [place] [address], [place] [phone] * Fibrinogen (04/06/2025 6:53 PM EDT) Pathologist [facility] Fibrinogen 316 203 - 567 mg/dL 04/06/2025 7:21 PM EDT [facility] Blood Line / Unknown 04/06/2025 6: 53 PM EDT 04/06/2025 7:07 PM EDT Sunil Schmitz DO LAB BLOOD ORDERABLES Final Result [facility]
[address] [place] [address], [place] [phone] * (ABNORMAL) Preeclampsia Panel (04/06/2025 6:53 PM EDT) Alkaline Phosphatase 94 39 - 117 U/L 04/06/2025 7:29 PM EDT [facility] ALT (SGPT) 12 1 - 33 U/L 04/06/2025 7:29 PM EDT [facility] AST (SGOT) 14 1 - 32 U/L 04/06/2025 7:29 PM EDT [facility] Creatinine 0.42(L) 0.57 - 1.00 mg/dL 04/06/2025 7:29 PM EDT [facility] Total Bilirubin 0.7 0.0 - 1.2 mg/dL 04/06/2025 7[facility] LDH 249(H) 135 - 214 U/L 04/06/2025 7:29 PM EDT [facility] Uric Acid 4.3 2.4 - 5.7 mg/dL 04/06/2025 7:29 PM EDT [facility] Blood Line / Unknown 04/06/2025 6: 53 PM EDT 04/06/2025 7:07 PM EDT Sunil Schmitz DO LAB BLOOD ORDERABLES Final Result [facility]
[address] [place] [address], * (ABNORMAL) CBC (No Diff) (04/06/2025 6:53 PM EDT) WBC 14.59(H) 3.40 - 10.80 10*3/mm3 04/06/2025 7:09 PM EDT [facility] RBC 3.61(L) 3.77 - 5.28 10*6/mm3 04/06/2025 7:09 PM EDT [facility] Hemoglobin 11.2(L) 12.0 - 15.9 g/dL 04/06/2025 7:09 PM EDT [facility] Hematocrit 33.5(L) 34.0 - 46.6 % 04/06/2025 7:09 PM EDT [facility] MCV 92.8 79.0 - 97.0 fL 04/06/2025 7:09 PM EDT [facility] MCH 31.0 26.6 - 33.0 pg 04/06/2025 7:09 PM EDT [facility] MCHC 33.4 31.5 - 35.7 g/dL 04/06/2025 7:09 PM EDT [facility] RDW 13.6 12.3 - 15.4 % 04/06/2025 7:09 PM EDT [facility] RDW-SD 46.5 37.0 - 54.0 fl 04/06/2025 7:09 PM EDT [facility] MPV 9.5 6.0 - 12.0 fL 04/06/2025 7:09 PM EDT [facility] Platelets 181 140 - 450 10*3/mm3 04/06/2025 7:09 PM EDT [facility] Blood Line / Unknown 04/06/2025 6: 53 PM EDT 04/06/2025 7:07 PM EDT Sunil Schmitz DO LAB BLOOD ORDERABLES Final Result [facility]
[address] [place] [address], documented in this encounter Visit Diagnoses Not on filedocumented in this encounter Administered Medications Inactive Administered Medications - up to 3 most recent administrations Medication Order MAR Action Action Date Dose Rate Site calcium gluconate injection 1 g 1 g, Intravenous, Administer over 10-15 Minutes, As Needed, Magnesium Toxicity, Starting on Yolie 04/06/25 at 2206, For 48 hours lactated ringers infusion 75 mL/hr, Intravenous, Continuous, Starting on Yolie 04/06/25 at 2315, For 3 days New Bag 04/06/2025 10:38 PM EDT 75 mL/hr 75 mL/hr magnesium sulfate 20 GM/500ML infusion 2 g/hr (50 mL/hr), Intravenous, Continuous, Starting on Yolie 04/06/25 at 2300, For 48 hours Rate/Dose Change 04/06/2025 11:02 PM EDT 2 g/hr 50 mL/hr magnesium sulfate bolus from bag 0.04 g/mL solution 4 g 4 g, Intravenous, at 200 mL/hr, Administer over 30 Minutes, Once, On Yolie 04/06/25 at 2300, For 1 dose Bolus from Bag 04/06/2025 10:41 PM EDT 4 g 200 mL/hr ondansetron (ZOFRAN) injection 4 mg 4 mg, Intravenous, Every 6 Hours PRN, Nausea, Vomiting, Starting on Yolie 04/06/25 at 2206, If multiple N/V medications ordered, use in the following order: Ondansetron, Prochlorperazine, Promethazine. Use PO unless patient refuses or patient unable to swallow. Given 04/06/2025 10:31 PM EDT 4 mg sodium chloride 0.9 % flush 10 mL 10 mL, Intravenous, Every 12 Hours Scheduled, First dose on Yolie 04/06/25 at 2100 Given 04/06/2025 10:41 PM EDT 10 mL sodium chloride 0.9 % flush 10 mL 10 mL, Intravenous, As Needed, Line Care, After Medication Administration or Blood Draw, Starting on Yolie 04/06/25 at 1842 documented in this encounter Active and Recently Administered Medications Times are shown in EDT. Scheduled Medication Order 04/05/2025 04/06/2025 04/07/2025 magnesium sulfate bolus from bag 0.04 g/mL solution 4 g (COMPLETED) 4 g, Intravenous, at 200 mL/hr, Administer over 30 Minutes, Once, On Yolie 04/06/25 at 2300, For 1 dose 2241 (Bolus from Bag - Provider: Briseida Chauhan RN) sodium chloride 0.9 % flush 10 mL 10 mL, Intravenous, Every 12 Hours Scheduled, First dose on Yolie 04/06/25 at 2100 2241 (Given - Provider: Briseida Chauhan RN) Continuous Medication Order 04/05/2025 04/06/2025 04/07/2025 lactated ringers infusion 75 mL/hr, Intravenous, Continuous, Starting on Yolie 04/06/25 at 2315, For 3 days 2238 (New Bag - Provider: Briseida Chauhan RN) 0232 (Due: Order Ending - Provider: Automatic Discharge Provider - Comment: [Order ends at this time. Document the following action when infusion is complete: Stopped]) magnesium sulfate 20 GM/500ML infusion 2 g/hr (50 mL/hr), Intravenous, Continuous, Starting on Yolie 04/06/25 at 2300, For 48 hours 2225 (Due)2300 (Due)2302 (Rate/Dose Change - Provider: Briseida Chauhan RN) 0232 (Due: Order Ending - Provider: Automatic Discharge Provider - Comment: [Order ends at this time. Document the following action when infusion is complete: Stopped]) PRN Medication Order 04/05/2025 04/06/2025 04/07/2025 calcium gluconate injection 1 g 1 g, Intravenous, Administer over 10-15 Minutes, As Needed, Magnesium Toxicity, Starting on Yolie 04/06/25 at 2206, For 48 hours ondansetron (ZOFRAN) injection 4 mg 4 mg, Intravenous, Every 6 Hours PRN, Nausea, Vomiting, Starting on Yolie 04/06/25 at 2206, If multiple N/V medications ordered, use in the following order: Ondansetron, Prochlorperazine, Promethazine. Use PO unless patient refuses or patient unable to swallow. 2231 (Given - Provider: Briseida Chauhan, RN) sodium chloride 0.9 % flush 10 mL 10 mL, Intravenous, As Needed, Line Care, After Medication Administration or Blood Draw, Starting on Yolie 04/06/25 at 1842 documented in this encounter Care Teams Vehicle Operator Relationship Specialty Start Date End Date Provider, [place] [address] PCP - General 03/13/25 documented as of this encounter
--- OUTSIDE RECORDS SUMMARY | 2025-04-07 00:40 | XMS_ITS | Encounter Summary ---
Author Organization Healthcare Address [address] [id number] Care Team Providers Care Powder Blender And Pourer Name Role Phone Pcp, No Primary Care Provider Unavailabl e Reason for Visit * Auth/Cert (Routine) Specialty Diagnoses / Procedures Referred By Contac t Referred To Contact Diagnoses Vaginal bleeding Rashard Allen MD [address] [address] Phone: tel: fax: [facility] [address] [place] [address] Phone: tel: fax: Referral ID Status Reason Start Date Expiration Date Visits Re quested Visits Authorized [id number] 1 1 Encounter Details Date Type Department Care Team (Latest Contact Info) Description 04/07/2025 12:40 AM EDT - 04/12/2025 3:26 PM EDT Hospital Encounter [facility] Mother [facility] Baby Unit [address] [place] [address] Rashard Allen MD [address] [address] Reema Louis MD [address] [address] Discharge Disposition: Home or Self [...] any time in the past 12 m [facility], were you homeless or living in a residential (including now)? No 04/12/2025 [facility] Utilities Answer Date Recorded In the past 12 months has [employer], gas, oil, or water company threatened to [...] drink first t mickie in the morning (EYE-HOT AIR FURNACE INSTALLER REPAIRER) to steady your nerves or to get [...] Risk Indicated 04/12/2025 9:35 AM EDT Yun Parham RN * Question Answer Date of Assessment [...] - 04/12/2025 2:34 PM EDT Call your JEWELRY POLISHER or come to OB triage at [facility] if: You are having heavy vaginal bleeding [...] *Please follow up with your provider at [facility] in one week. * Who to Call: [facility] Medical Office Building [address] [address] documented in this encounter Miscellaneous Notes * [...] team and undergo formal ultrasound which showed [id number] bleed from right lateral placenta. Bleeding stable and heart tracing reactive. Stable for discharge 04/12 with plans to follow-[facility] for ultrasound 04/[address] [facility] clinic. Strict return precautions given. * Care [...] PM EDT Will need an appt. With [facility] [phone] * Yun Welch RN - 04/12/2025 3:12 [...] with a nurse. [facility] (Triage) [facility] [address] [place] [address] [facility] Medical Office Building [address], [address] [place] [address] [facility] [address] [place] [address] Family Practice [address], Third Floor [address] [place] [address] [facility] [address] [facility] [address] [place] [address] [facility] Obstetrics & Gynecology [place] [address] [place] [address] [facility] Ob[facility]etrics & Gynecology [address] [place] [address] * Dl Sharif - Yun [...] contact your health care provider or visit [email or web address] ? [facility] Emergency Department Clinic: ? Women's Health & Obstetrics: ? Birthing Center Triage: ? [facility]: ? Family Practice: ? [facility] Obstetrics & Gynecology [place]: ? [facility] Obstetrics [facility] Gynecology [place]: [phone] * Progress Notes - Boy Woodward - 04/12/2025 3:12 PM EDT Case Management Adult Initial Progress Note Pamela Anderson 25 y.o. female CSN: [id number] Admission: 04/07/2025 12:40 AM Primary Problem: No [...] ID Subscriber Name Subscriber SSN Subscriber Address [id number] Pamela Anderson [id number] [address] [place] [address] Patient information: Primary Caregiver: Self Accompanied by/Relationship: Pt's Boyfriend available at bedside as support. Support System: Immediate family, Other (Comment) (Boyfriend) Daily Living Activities: Type of Residence: Private residence [address] [place] [address] Smoker in the Home?: No Current DME: Equipment Currently Used at Home: none Current DME Provider: N/A Income Information: Income Source: [employer] Income/Expense Information: Expenses exceed income Current Resources Utilized: [facility] Housing Circumstances-Z Codes: Housing Circumstances (select all [...] DME Provider: N/A Living Will/Advance Directive/Power of Molded Frames Assembler /Guardian: Unable to assess: No Have you [...] Connections: Not At Risk (04/06/2025) Received from [facility] Family and Community Support If for [...] Cage questionnaire guilty: 0 Cage questionnaire eye quality assurance analyst: 0 Cage Overall score: 0 Tobacco Use: Low Risk (04/07/2025) Patient History Smoking Tobacco Use: Never Smokeless Tobacco Use: Never Passive Exposure: Not on file Financial Resource Strain: Low Risk (04/06/2025) Received from [facility] Overall Financial Resource Strain (CARDIA) Difficulty of Paying Living Expenses: Not hard at all Depression: Not at risk (04/06/2025) Received from [facility] PHQ-2 Patient Health Questionnaire-2 Score: 0 Depression: Not on file Stress: No Stress Concern Present (04/06/2025) Received from [facility] [place] [employer] - Occupational Stress Questionnaire Feeling of Stress : Not at all Physical Activity: Insufficiently Active (04/06/2025) Received from [facility] Exercise Vital Sign On average, how [...] Year: No Utilities: Not At Risk (04/12/2025) [facility] Utilities Threatened with loss of [...] reports living with her three children in [place], [place]. SW confirmed the family's demographic information [...] to establish her infants wellness/preventative care with [facility]- Dr. Mayi Leblanc DO after delivery. DANIEL GARCIA team reports pt is medically ready for discharge home.SW utilized active listening to engage and support the pt. No further SW/CM needs. Boy Woodward MSW, DEBURRING MACHINE OPERATOR * Yun Welch RN - 04/12/2025 3:11 [...] weekends. Last Reviewed Date: 2023 00:00:00 ?? [id number] [employer]. All rights reserved. This information is not intended as a substitute for professional medical care. Always follow your healthcare professional's instructions. * Dl Sharif - Yun Parham RN - 04/12/2025 3:11 PM EDT Images from the original note were not included. [id number] Vaginal Bleeding During You may have vaginal [...] period. But the bleeding is often a offal worker color and not heavy. Serious problems [...] . Last Reviewed Date: 2025 00:00:00 ?? [id number] [employer]. All rights reserved. This information is not intended as a substitute for professional medical care. Always follow your healthcare professional's instructions. * Discharge Summary - Guerline Estrada MD - 04/12/2025 2:34 PM EDT Hospitalization Admit Date/Time: 04/07/2025 12:40 AM Admitting Attending: Rashard Allen Discharge Date: 04/12/25 Discharge Attending Physician: Yun Dominguez MD PCP name and Address: Pcp, Vandana [address] [place] [address] Referring provider name and address: No referring [...] team and undergo formal ultrasound which showed [id number] bleed from right lateral placenta. Bleeding stable and heart tracing reactive. Stable for discharge 04/12 with plans to follow-[facility] for ultrasound 04/[address] [facility] clinic. Strict return precautions given. Surgeries and Procedures Procedures performed in this encounter Procedures nonstress test Medication List You have not been prescribed any medications. Discharge Diagnosis Medical Problems Active and Resolved Hospital Problems Hospital Placental abruption in second trimester History of delivery affecting Short interval between pregnancies affecting in second trimester, antepartum 26 weeks gestation of Post Discharge Instructions Call your JEWELRY POLISHER or come to OB triage at [facility] if: You are having heavy vaginal bleeding [...] *Please follow up with your provider at [facility] in one week. * Who to Call: [facility] Medical Office Building [address] [address] Outpatient Follow-Up No future appointments. Test Results Pending At Discharge Pending Labs Order Current Status Prepare Leukocyte Reduced RBC: 2 Units Preliminary result Discharge Disposition/Condition Disposition: Home Condition: Stable (s/sx potential problems absent or manageable) I spent < 30 minutes of patient care and instruction time in preparation for this discharge. Guerline Estrada MD Obstetrics & Gynecology, PGY-2 [facility] Cosigned by Yun Dominguez MD at 04/12/2025 4:07 PM EDT Associated attestation - Yun Dominguez MD - 04/12/2025 4:07 PM EDT I saw and evaluated the patient with the resident/fellow. I discussed the case with the resident/fellow and agree with the findings and plan as documented. Bleeding has resolved to offal worker than her chronic home bleeding. She [...] 07/17/2025, by Patient Reported, was seen at [facility] for a nonstress [...] due to bleeding - Sent by primary JEWELRY POLISHER for direct admission to [facility] due to bleeding - Transferred to at 25w4d after bleeding requiring 3-4 pads over course of day with concern thatshe will need to be delivered - S/p magnesium PLAN: - Continue to trend coags and CBC, daily labs ordered - Strict pad counts - Minimal bleeding overnight # Borderline Fibrinogen - Trend: [id number] - Coags otherwise within normal limits Plan: [...] were answered to the patient's satisfaction. - [facility] w/ [facility], will request records - needs GTT [...] care, please call OB resident workroom at #[phone]. Shelly Jackson MD PGY-3 Obstetrics & Gynecology [phone] Cosigned by Yun Dominguez MD at 04/13/2025 [...] 07/17/2025, by Patient Reported, was seen at [facility] for a nonstress [...] due to bleeding - Sent by primary JEWELRY POLISHER for direct admission to [facility] due to bleeding - Transferred to at 25w4d after bleeding requiring 3-4 pads over course of day with concern thatshe will need to be delivered - S/p magnesium PLAN: - Continue to trend coags and CBC, q12 labs ordered - Strict pad counts - Three pads partially saturated overnight # Borderline Fibrinogen - Trend: [phone] - Coags otherwise within normal limits Plan: [...] were answered to the patient's satisfaction. - [facility] w/ [facility], will request records - needs GTT [...] care, please call OB resident workroom at #[phone]. Shelly Jackson MD PGY-3 Obstetrics & Gynecology [phone] Cosigned by Yun Dominguez MD at 04/11/2025 [...] other (see comments) Taken 04/08/20251611 by Ashly Martinez RN Supportive Measures: active listening utilized Intervention: [...] EDT Case Management Adult Progress Note Pamela Anderson 25 y.o. female CSN: [id number] Admission: 04/07/2025 12:40 AM Primary Problem: No [...] who presents as transfer of care from [facility] for vaginal bleeding in the setting [...] due to bleeding - Sent by primary JEWELRY POLISHER for direct admission to [facility] [...] to the patient's satisfaction. - [facility] w/ [facility], will request records - needs GTT [...] care, please call OB resident workroom at #[phone]. Nay Reveles MD Obstetrics and Gynecology, PGY-3 [...] movement Multiple Births: No Uterine Activity Mode: Pike Contraction Frequency: Q 3-5 min Contraction Duration: [...] due to bleeding - Sent by primary JEWELRY POLISHER for direct admission to [facility] [...] to the patient's satisfaction. - [facility] w/ [facility], will request records - needs GTT [...] care, please call OB resident workroom at #[phone]. Guerline Estrada MD Obstetrics & Gynecology, PGY-2 [facility] Cosigned by Reema Louis MD at 04/09/2025 [...] patient Multiple Births: No Uterine Activity Mode: Pike Contraction Frequency: irregular Contraction Duration: 50-80sec Contraction [...] due to bleeding - Sent by primary JEWELRY POLISHER for direct admission to [facility] [...] were answered to the patient's satisfaction. - [facility] w/ [facility], will request records - needs GTT [...] care, please call OB resident workroom at #[phone]. Raya Rivera MD Obstetrics & Gynecology, PGY-2 [...] Resource Strain: Low Risk (04/06/2025) Received from [facility] Overall Financial Resource Strain (CARDIA) Difficulty of Paying Living Expenses: Not hard at all Food Insecurity: No Food Insecurity (04/06/2025) Received from [facility] Hunger Vital Sign Within the past 12 months, you worried that your food would run out before you got the money to buymore.: Never true Within the past 12 months, the food you bought just didn't last and you didn't have money to get more.: Never true Transportation Needs: No Transportation Needs (04/06/2025) Received from [facility] PRAPARE - Transportation In the past 12 months, has lack of transportation kept you from medical appointments or from getting medications?: No In the past 12 months, has lack of transportation kept you from meetings, work, or from getting things needed for daily living?: No Physical Activity: Insufficiently Active (04/06/2025) Received from [facility] Exercise Vital Sign On average, how many days per week do you engage in moderate to strenuous exercise (like a brisk walk)?: 2 days On average, how many minutes do you engage in exercise at this level?: 10 min Stress: No Stress Concern Present (04/06/2025) Received from [facility] [place] [employer] - Occupational Stress Questionnaire Feeling of Stress : Not at all Social Connections: Not At Risk (04/06/2025) Received from [facility] Family and Community Support If for any reason you need help with day-to-day activities such as bathing, preparing meals, shopping, managing finances, etc., do you get the help you need?: I don't need any help How often do you feel lonely or isolated from those around you?: Never Intimate Partner Violence: Not At Risk (04/06/2025) Received from [facility] Abuse Screen Feels Unsafe at Home or Work/School: no Feels Threatened by Someone: no Does Anyone Try to Keep You From Having Contact with Others or Doing Things Outside Your Home?: no Physical Signs of Abuse Present: no Housing Stability: Not At Risk (04/06/2025) Received from [facility] Housing Stability Current Living Arrangements: apartment [...] and consequences of such a bleed, including dedicated intermodal truck driver neurodevelopmental delay. I outlined the plans for [...] Note Pamela Anderson 25 y.o. female CSN: [id number] Admission: 04/07/2025 12:40 AM Primary Problem: No Principal Problem: There is no principal problem currently on the Problem List.Please update the Problem List and refresh. Power Sweeper Operator reviewed chart to complete this Initial Case Management Assessment. PCP: No primary care provider on file. Emergency Contact: No emergency contact information on file. Insurance: Primary Visit Coverage Payer Plan Sponsor Code Group Number Group Name [employer] MEDICAID [employer] [place] Primary Visit Coverage Subscriber Subscriber ID Subscriber Name Subscriber SSN Subscriber Address [id number] Pamela Anderson [id number] [address] [place] [address] Anticipated Discharge Date: TBD Patient's Discharge Goal: Home Assistance Available at Discharge: Discharge Transport: Follow Up Transport: Home Health / Home Infusion / Outpatient Dialysis Services: Living Will/Advance Directive/Power of Molded Frames Assembler /Guardian: Unable to assess: No Have you reviewed your Advance Directive and is it valid for this stay?: No Advance Directive: Patient would not like information Information Provided on Healthcare Directives: No Pre-existing DNR/DNI Order: No Patient Requests Assistance: No Additional Comments: POC reviewed. Pt is a 25 y.o. at 25w4d who presents as transfer of care from [facility] for vaginal bleeding in the setting [...] Alex Zayas RN Outcome: Ongoing, Progressing Intervention: Promote [...] Name: Pamela Anderson : 2000 Primary OB: [facility] Date of Admission: 04/07/25 Chief Concern: No chief complaint on file. Subjective Subjective History of Present Illness: Pamela Anderson is a 25 y.o. at 25w4d who presents as transfer of care from [facility] for vaginal bleeding in the setting [...] past 2-3 weeks. She saw her primary JEWELRY POLISHER this week and was given outpatient ANCS [...] due to bleeding - Sent by primary JEWELRY POLISHER for direct admission to [facility] [...] (appropriate for gestational age since admission) - [facility] w/ [facility], will request records - needs GTT [...] & Delivery. Please contact first-call provider on [employer] Secure Chat for questions or concerns. For emergencies [place] [phone]. Nay Reveles MD Obstetrics and Gynecology, PGY-3 [...] given 04/04-04/05 and currently on magnesium for NEWS PHOTOGRAPHER. -NPO as we continue to assess stabiity. If remains stable today, will consider diet this evening. -NICU consult requested. documented in this encounter Plan of Treatment Upcoming Encounters Date Type Department Care Team (Late st Contact Info) Description 04/27/2025 9:00 AM EDT Initial Medical Office Building Obstetrics and Gynecology [address] [facility], [address] [place] [address] Yun Dominguez MD [address] [place] [address] Pending Results Name Type Priority [...] 07/17/2025, by Patient Reported, was seen at [facility] for a nonstress [...] Hold for add-ons 04/12/2025 6:01 AM EDT [facility] Comment:Auto resulted. Blood Venous blood specimen / Unknown 04/12/2025 3:27 AM EDT 04/12/2025 3:45 AM EDT us Reema Louis MD LAB BLOOD ORDERABLES Final R esult [facility] [address] [place] [address] * Prothrombin Time/INR (04/12/2025 3:27 AM EDT) Prothrombin Time 14.1 12.0 - 14.3 sec LAB COAGULATION METHOD 04/12/2025 4:11 AM EDT [facility] INR 1.1 0.9 - 1.1 LAB COAGULATION METHOD 04/12/2025 4:11 AM EDT [facility] Blood Venous blood specimen / Unknown Venipuncture / Unknown 04/12/2025 3:27 AM EDT 04/12/2025 3:44 AM EDT Narrative [facility] - 04/12/2025 4:11 AM EDT OPTIMAL INR RANGES FOR PATIENT ON ORAL ANTICOAGULANT THERAPY Prevention of venous thromboembolism INR 2.0 to 3.0 In patients with heart disease: Atrial fibrillation INR 2.0 to 3.0 Valvular heart disease INR 2.0 to 3.0 Tissue heart valves INR 2.0 to 3.0 Mechanical prosthetic valves INR 2.5 to 3.5 Prevention of recurrent TX INR 2.5 to 3.5 us Reema Louis MD LAB BLOOD ORDERABLES Final R esult [facility] [address] [place] [address] * Fibrinogen (04/12/2025 3:27 AM EDT) Pathologist [facility] Fibrinogen, Quantitative (Clottable) 315 208 - 459 mg/dL LAB COAGULATION METHOD 04/12/2025 4:11 AM EDT [facility] Blood Venous blood specimen / Unknown Venipuncture / Unknown 04/12/2025 3:27 AM EDT 04/12/2025 3:44 AM EDT us Reema Louis MD LAB BLOOD ORDERABLES Final R esult [facility] [address] [place] [address] * (ABNORMAL) CBC (04/12/2025 3:27 AM EDT) Pathologist [facility] WBC Count 12.26(H) 3.70 - 10.30 10*3/uL LAB HEMATOLOGY METHOD 04/12/2025 3:56 AM EDT [facility] RBC Count 3.22(L) 3.90 - 5.20 10*6/uL LAB HEMATOLOGY METHOD 04/12/2025 3:56 AM EDT [facility] HGB 9.6(L) 11.2 - 15.7 g/dL LAB HEMATOLOGY METHOD 04/12/2025 3:56 AM EDT [facility] HCT 29.3(L) 34.0 - 45.0 % LAB HEMATOLOGY METHOD 04/12/2025 3:56 AM EDT [facility] Platelet Count 203 155 - 369 10*3/uL LAB HEMATOLOGY METHOD 04/12/2025 3:56 AM EDT [facility] MCV 91 79 - 98 fL LAB HEMATOLOGY METHOD 04/12/2025 3:56 AM EDT [facility] MCH 29.8 26.0 - 32.0 pg LAB HEMATOLOGY METHOD 04/12/2025 3:56 AM EDT [facility] MCHC 32.8 30.7 - 35.5 g/dL LAB HEMATOLOGY METHOD 04/12/2025 3:56 AM EDT [facility] RDW 13.7 11.5 - 14.5 % LAB HEMATOLOGY METHOD 04/12/2025 3:56 AM EDT [facility] MPV 9.6 8.8 - 12.5 fL LAB HEMATOLOGY METHOD 04/12/2025 3:56 AM EDT [facility] nRBC 0.0 <=0.0 per 100 WBCs LAB HEMATOLOGY METHOD 04/12/2025 3:56 AM EDT [facility] Blood Venous blood specimen / Unknown Venipuncture / Unknown 04/12/2025 3:27 AM EDT 04/12/2025 3:46 AM EDT Reema Louis MD LAB BLOOD ORDERABLES Final R esult Performing Organization Address City/[facility]/ZIP Co de Phone Number [facility] [address] [place] [address] * APTT (04/12/2025 3:27 AM EDT) aPTT 28 25 - 35 sec LAB COAGULATION METHOD 04/12/2025 4:11 AM EDT [facility] Blood Venous blood specimen / Unknown Venipuncture / Unknown 04/12/2025 3:27 AM EDT 04/12/2025 3:44 AM EDT Reema Louis MD LAB BLOOD ORDERABLES Final R esult Performing Organization Address City/[facility]/ZIP Co de Phone Number [facility] [address] [place] [address] * nonstress test (04/11/2025 3:00 PM EDT) Narrative Yun Dominguez MD - 04/11/2025 3:00 PM EDT Yun Dominguez MD 04/11/2025 5:03 PM Non-Stress Test Interpretation kain Ibarra at 26w1d with an EMILY of 07/17/2025, by Patient Reported, was seen at [facility] for a nonstress [...] Hold for add-ons 04/11/2025 7:01 AM EDT [facility] Comment:Auto resulted. Blood Venous blood specimen / Unknown 04/11/2025 4:29 AM EDT 04/11/2025 4:56 AM EDT us Reema Louis MD LAB BLOOD ORDERABLES Final R esult Performing Organization Address City/[facility]/ZIP Co de Phone Number [facility] [address] [place] [address] * Type and screen (04/11/2025 4:29 AM [...] ORDERABL ES Final Result Performing Organization Address City/[facility] Co de Phone Number BLOOD BANK [address] * (ABNORMAL) Prothrombin Time/INR (04/11/2025 4:29 AM EDT) Prothrombin Time 14.5(H) 12.0 - 14.3 sec LAB COAGULATION METHOD 04/11/2025 5:19 AM EDT [facility] INR 1.1 0.9 - 1.1 LAB COAGULATION METHOD 04/11/2025 5:19 AM EDT [facility] Blood Venous blood specimen / Unknown Venipuncture / Unknown 04/11/2025 4:29 AM EDT 04/11/2025 4:46 AM EDT Narrative [facility] - 04/11/2025 5:19 AM EDT OPTIMAL INR RANGES FOR PATIENT ON ORAL ANTICOAGULANT THERAPY Prevention of venous thromboembolism INR 2.0 to 3.0 In patients with heart disease: Atrial fibrillation INR 2.0 to 3.0 Valvular heart disease INR 2.0 to 3.0 Tissue heart valves INR 2.0 to 3.0 Mechanical prosthetic valves INR 2.5 to 3.5 Prevention of recurrent TX INR 2.5 to 3.5 us Reema Louis MD LAB BLOOD ORDERABLES Final R esult Performing Organization Address City/[facility]/ZIP Co de Phone Number [facility] [address] [place] [address] * Fibrinogen (04/11/2025 4:29 AM EDT) Fibrinogen, Quantitative (Clottable) 292 208 - 459 mg/dL LAB COAGULATION METHOD 04/11/2025 5:19 AM EDT [facility] Blood Venous blood specimen / Unknown Venipuncture / Unknown 04/11/2025 4:29 AM EDT 04/11/2025 4:46 AM EDT us Reema Louis MD LAB BLOOD ORDERABLES Final R esult [facility] [address] [place] [address] * (ABNORMAL) CBC (04/11/2025 4:29 AM EDT) WBC Count 13.44(H) 3.70 - 10.30 10*3/uL LAB HEMATOLOGY METHOD 04/11/2025 4:57 AM EDT [facility] RBC Count 3.15(L) 3.90 - 5.20 10*6/uL LAB HEMATOLOGY METHOD 04/11/2025 4:57 AM EDT [facility] HGB 9.4(L) 11.2 - 15.7 g/dL LAB HEMATOLOGY METHOD 04/11/2025 4:57 AM EDT [facility] HCT 28.8(L) 34.0 - 45.0 % LAB HEMATOLOGY METHOD 04/11/2025 4:57 AM EDT [facility] Platelet Count 210 155 - 369 10*3/uL LAB HEMATOLOGY METHOD 04/11/2025 4:57 AM EDT [facility] MCV 91 79 - 98 fL LAB HEMATOLOGY METHOD 04/11/2025 4:57 AM EDT [facility] MCH 29.8 26.0 - 32.0 pg LAB HEMATOLOGY METHOD 04/11/2025 4:57 AM EDT [facility] MCHC 32.6 30.7 - 35.5 g/dL LAB HEMATOLOGY METHOD 04/11/2025 4:57 AM EDT [facility] RDW 13.9 11.5 - 14.5 % LAB HEMATOLOGY METHOD 04/11/2025 4:57 AM EDT [facility] MPV 9.6 8.8 - 12.5 fL LAB HEMATOLOGY METHOD 04/11/2025 4:57 AM EDT [facility] nRBC 0.0 <=0.0 per 100 WBCs LAB HEMATOLOGY METHOD 04/11/2025 4:57 AM EDT [facility] Blood Venous blood specimen / Unknown Venipuncture / Unknown 04/11/2025 4:29 AM EDT 04/11/2025 4:49 AM EDT us Reema Louis MD LAB BLOOD ORDERABLES Final R esult [facility] [address] [place] [address] * APTT (04/11/2025 4:29 AM EDT) aPTT 28 25 - 35 sec LAB COAGULATION METHOD 04/11/2025 5:19 AM EDT [facility] Blood Venous blood specimen / Unknown Venipuncture / Unknown 04/11/2025 4:29 AM EDT 04/11/2025 4:46 AM EDT us Reema Louis MD LAB BLOOD ORDERABLES Final R esult Performing Organization Address City/[facility]/ZIP Co de Phone Number [facility] [address] [place] [address] * Prothrombin Time/INR (04/10/2025 4:18 PM EDT) Prothrombin Time 14.2 12.0 - 14.3 sec LAB COAGULATION METHOD 04/10/2025 5:05 PM EDT [facility] INR 1.1 0.9 - 1.1 LAB COAGULATION METHOD 04/10/2025 5:05 PM EDT [facility] Blood Venous blood specimen / Unknown Venipuncture / Unknown 04/10/2025 4:18 PM EDT 04/10/2025 4:41 PM EDT Narrative [facility] - 04/10/2025 5:05 PM EDT OPTIMAL INR RANGES FOR PATIENT ON ORAL ANTICOAGULANT THERAPY Prevention of venous thromboembolism INR 2.0 to 3.0 In patients with heart disease: Atrial fibrillation INR 2.0 to 3.0 Valvular heart disease INR 2.0 to 3.0 Tissue heart valves INR 2.0 to 3.0 Mechanical prosthetic valves INR 2.5 to 3.5 Prevention of recurrent TX INR 2.5 to 3.5 Result Sheldon Louis MD LAB BLOOD ORDERABLES Final R esult Performing Organization Address City/[facility]/ZIP Co de Phone Number [facility] [address] [place] [address] * Fibrinogen (04/10/2025 4:18 PM EDT) Fibrinogen, Quantitative (Clottable) 329 208 - 459 mg/dL LAB COAGULATION METHOD 04/10/2025 5:05 PM EDT [facility] Blood Venous blood specimen / Unknown Venipuncture / Unknown 04/10/2025 4:18 PM EDT 04/10/2025 4:41 PM EDT us Reema Louis MD LAB BLOOD ORDERABLES Final R esult [facility] [address] [place] [address] * (ABNORMAL) CBC (04/10/2025 4:18 PM EDT) WBC Count 13.62(H) 3.70 - 10.30 10*3/uL LAB HEMATOLOGY METHOD 04/10/2025 4:51 PM EDT [facility] RBC Count 3.40(L) 3.90 - 5.20 10*6/uL LAB HEMATOLOGY METHOD 04/10/2025 4:51 PM EDT [facility] HGB 10.5(L) 11.2 - 15.7 g/dL LAB HEMATOLOGY METHOD 04/10/2025 4:51 PM EDT [facility] HCT 30.9(L) 34.0 - 45.0 % LAB HEMATOLOGY METHOD 04/10/2025 4:51 PM EDT [facility] Platelet Count 221 155 - 369 10*3/uL LAB HEMATOLOGY METHOD 04/10/2025 4:51 PM EDT [facility] MCV 91 79 - 98 fL LAB HEMATOLOGY METHOD 04/10/2025 4:51 PM EDT [facility] MCH 30.9 26.0 - 32.0 pg LAB HEMATOLOGY METHOD 04/10/2025 4:51 PM EDT [facility] MCHC 34.0 30.7 - 35.5 g/dL LAB HEMATOLOGY METHOD 04/10/2025 4:51 PM EDT [facility] RDW 13.7 11.5 - 14.5 % LAB HEMATOLOGY METHOD 04/10/2025 4:51 PM EDT [facility] MPV 9.4 8.8 - 12.5 fL LAB HEMATOLOGY METHOD 04/10/2025 4:51 PM EDT [facility] nRBC 0.1(H) <=0.0 per 100 WBCs LAB HEMATOLOGY METHOD 04/10/2025 4:51 PM EDT [facility] Blood Venous blood specimen / Unknown Venipuncture / Unknown 04/10/2025 4:18 PM EDT 04/10/2025 4:43 PM EDT us Reema Louis MD LAB BLOOD ORDERABLES Final R esult Performing Organization Address City/[facility]/ZIP Co de Phone Number [facility] [address] [place] [address] * APTT (04/10/2025 4:18 PM EDT) aPTT 27 25 - 35 sec LAB COAGULATION METHOD 04/10/2025 5:05 PM EDT [facility] Blood Venous blood specimen / Unknown Venipuncture / Unknown 04/10/2025 4:18 PM EDT 04/10/2025 4:41 PM EDT us Reema Louis MD LAB BLOOD ORDERABLES Final R esult Performing Organization Address City/[facility] [place] [address] * Fibrinogen (04/10/2025 5:18 AM EDT) Fibrinogen, Quantitative (Clottable) 257 208 - 459 mg/dL LAB COAGULATION METHOD 04/10/2025 5:51 AM EDT [facility] Blood Venous blood specimen / Unknown Venipuncture / Unknown 04/10/2025 5:18 AM EDT 04/10/2025 5:24 AM EDT us Rashard Allen MD LAB BLOOD ORDERABLES Final Re sult Performing Organization Address City/[facility]/ZIP Co de Phone Number [facility] [address] [place] [address] * APTT (04/10/2025 5:18 AM EDT) aPTT 28 25 - 35 sec LAB COAGULATION METHOD 04/10/2025 5:51 AM EDT [facility] Blood Venous blood specimen / Unknown Venipuncture / Unknown 04/10/2025 5:18 AM EDT 04/10/2025 5:24 AM EDT us Rashard Allen MD LAB BLOOD ORDERABLES Final Re sult Performing Organization Address [facility]/ZIP Co de Phone Number [facility] [address] [place] [address] * Prothrombin Time/INR (04/10/2025 5:18 AM EDT) Prothrombin Time 14.2 12.0 - 14.3 sec LAB COAGULATION METHOD 04/10/2025 5:51 AM EDT [facility] INR 1.1 0.9 - 1.1 LAB COAGULATION METHOD 04/10/2025 5:51 AM EDT [facility] Blood Venous blood specimen / Unknown Venipuncture / Unknown 04/10/2025 5:18 AM EDT 04/10/2025 5:24 AM EDT Narrative [facility] - 04/10/2025 5:51 AM EDT OPTIMAL INR RANGES FOR PATIENT ON ORAL ANTICOAGULANT THERAPY Prevention of venous thromboembolism INR 2.0 to 3.0 In patients with heart disease: Atrial fibrillation INR 2.0 to 3.0 Valvular heart disease INR 2.0 to 3.0 Tissue heart valves INR 2.0 to 3.0 Mechanical prosthetic valves INR 2.5 to 3.5 Prevention of recurrent TX INR 2.5 to 3.5 us Rashard Allen MD LAB BLOOD ORDERABLES Final Re sult Performing Organization Address [facility] Co de Phone Number [facility] [address] [place] [address] * (ABNORMAL) CBC (04/10/2025 5:18 AM EDT) WBC Count 11.57(H) 3.70 - 10.30 10*3/uL LAB HEMATOLOGY METHOD 04/10/2025 5:34 AM EDT [facility] RBC Count 3.10(L) 3.90 - 5.20 10*6/uL LAB HEMATOLOGY METHOD 04/10/2025 5:34 AM EDT [facility] HGB 9.1(L) 11.2 - 15.7 g/dL LAB HEMATOLOGY METHOD 04/10/2025 5:34 AM EDT [facility] HCT 28.5(L) 34.0 - 45.0 % LAB HEMATOLOGY METHOD 04/10/2025 5:34 AM EDT [facility] Platelet Count 195 155 - 369 10*3/uL LAB HEMATOLOGY METHOD 04/10/2025 5:34 AM EDT [facility] MCV 92 79 - 98 fL LAB HEMATOLOGY METHOD 04/10/2025 5:34 AM EDT [facility] MCH 29.4 26.0 - 32.0 pg LAB HEMATOLOGY METHOD 04/10/2025 5:34 AM EDT [facility] MCHC 31.9 30.7 - 35.5 g/dL LAB HEMATOLOGY METHOD 04/10/2025 5:34 AM EDT [facility] RDW 13.9 11.5 - 14.5 % LAB HEMATOLOGY METHOD 04/10/2025 5:34 AM EDT [facility] MPV 9.6 8.8 - 12.5 fL LAB HEMATOLOGY METHOD 04/10/2025 5:34 AM EDT [facility] nRBC 0.0 <=0.0 per 100 WBCs LAB HEMATOLOGY METHOD 04/10/2025 5:34 AM EDT [facility] Blood Venous blood specimen / Unknown Venipuncture / Unknown 04/10/2025 5:18 AM EDT 04/10/2025 5:26 AM EDT us Rashard Allen MD LAB BLOOD ORDERABLES Final Re sult [facility] [address] [place] [address] * Light Green Top (04/09/2025 3:51 AM EDT) Extra Hold for add-ons 04/09/2025 7:01 AM EDT [facility] Comment:Auto resulted. Blood Venous blood specimen / Unknown 04/09/2025 3:51 AM EDT 04/09/2025 4:05 AM EDT us Reema Louis MD LAB BLOOD ORDERABLES Final R esult Performing Organization Address City/[facility]/ZIP Co de Phone Number [facility] [address] [place] [address] * Fibrinogen (04/09/2025 3:51 AM EDT) Fibrinogen, Quantitative (Clottable) 287 208 - 459 mg/dL LAB COAGULATION METHOD 04/09/2025 4:23 AM EDT [facility] Blood Venous blood specimen / Unknown Venipuncture / Unknown 04/09/2025 3:51 AM EDT 04/09/2025 4:03 AM EDT us Rashard Allen MD LAB BLOOD ORDERABLES Final Re sult Performing Organization Address [facility] Co de Phone Number [facility] [address] [place] [address] * APTT (04/09/2025 3:51 AM EDT) aPTT 28 25 - 35 sec LAB COAGULATION METHOD 04/09/2025 4:23 AM EDT [facility] Blood Venous blood specimen / Unknown Venipuncture / Unknown 04/09/2025 3:51 AM EDT 04/09/2025 4:03 AM EDT us Rashard Allen MD LAB BLOOD ORDERABLES Final Re sult Performing Organization Address [facility] [place] [address] * Prothrombin Time/INR (04/09/2025 3:51 AM EDT) Prothrombin Time 14.2 12.0 - 14.3 sec LAB COAGULATION METHOD 04/09/2025 4:23 AM EDT [facility] INR 1.1 0.9 - 1.1 LAB COAGULATION METHOD 04/09/2025 4:23 AM EDT [facility] Blood Venous blood specimen / Unknown Venipuncture / Unknown 04/09/2025 3:51 AM EDT 04/09/2025 4:03 AM EDT Narrative [facility] - 04/09/2025 4:23 AM EDT OPTIMAL INR RANGES FOR PATIENT ON ORAL ANTICOAGULANT THERAPY Prevention of venous thromboembolism INR 2.0 to 3.0 In patients with heart disease: Atrial fibrillation INR 2.0 to 3.0 Valvular heart disease INR 2.0 to 3.0 Tissue heart valves INR 2.0 to 3.0 Mechanical prosthetic valves INR 2.5 to 3.5 Prevention of recurrent TX INR 2.5 to 3.5 us Rashard Allen MD LAB BLOOD ORDERABLES Final Re sult [facility] [address] [place] [address] * (ABNORMAL) CBC (04/09/2025 3:51 AM EDT) WBC Count 11.27(H) 3.70 - 10.30 10*3/uL LAB HEMATOLOGY METHOD 04/09/2025 4:16 AM EDT [facility] RBC Count 3.52(L) 3.90 - 5.20 10*6/uL LAB HEMATOLOGY METHOD 04/09/2025 4:16 AM EDT [facility] HGB 10.4(L) 11.2 - 15.7 g/dL LAB HEMATOLOGY METHOD 04/09/2025 4:16 AM EDT [facility] HCT 32.8(L) 34.0 - 45.0 % LAB HEMATOLOGY METHOD 04/09/2025 4:16 AM EDT [facility] Platelet Count 201 155 - 369 10*3/uL LAB HEMATOLOGY METHOD 04/09/2025 4:16 AM EDT [facility] MCV 93 79 - 98 fL LAB HEMATOLOGY METHOD 04/09/2025 4:16 AM EDT [facility] MCH 29.5 26.0 - 32.0 pg LAB HEMATOLOGY METHOD 04/09/2025 4:16 AM EDT [facility] MCHC 31.7 30.7 - 35.5 g/dL LAB HEMATOLOGY METHOD 04/09/2025 4:16 AM EDT [facility] RDW 13.9 11.5 - 14.5 % LAB HEMATOLOGY METHOD 04/09/2025 4:16 AM EDT [facility] MPV 9.6 8.8 - 12.5 fL LAB HEMATOLOGY METHOD 04/09/2025 4:16 AM EDT [facility] nRBC 0.3(H) <=0.0 per 100 WBCs LAB HEMATOLOGY METHOD 04/09/2025 4:16 AM EDT [facility] Blood Venous blood specimen / Unknown Venipuncture / Unknown 04/09/2025 3:51 AM EDT 04/09/2025 4:04 AM EDT Rashard Allen MD LAB BLOOD ORDERABLES Final Re sult Performing Organization Address City/[facility] Co de Phone Number [facility] [address] [place] [address] * nonstress test (04/08/2025 11:43 AM EDT) [...] Hold for add-ons 04/08/2025 8:01 AM EDT [facility] Comment:Auto resulted. Blood Venous blood specimen / Unknown 04/08/2025 5:38 AM EDT 04/08/2025 5:45 AM EDT us Rashard Allen MD LAB BLOOD ORDERABLES Final Re sult Performing Organization Address City/[facility]/ZIP Co de Phone Number [facility] [address] [place] [address] * Fibrinogen (04/08/2025 5:38 AM EDT) Fibrinogen, Quantitative (Clottable) 276 208 - 459 mg/dL LAB COAGULATION METHOD 04/08/2025 6:10 AM EDT [facility] Blood Venous blood specimen / Unknown Venipuncture / Unknown 04/08/2025 5:38 AM EDT 04/08/2025 5:45 AM EDT Rashard Allen MD LAB BLOOD ORDERABLES Final Re sult Performing Organization Address City/[facility] Co de Phone Number [facility] [address] [place] [address] * APTT (04/08/2025 5:38 AM EDT) aPTT 27 25 - 35 sec LAB COAGULATION METHOD 04/08/2025 6:10 AM EDT [facility] Blood Venous blood specimen / Unknown Venipuncture / Unknown 04/08/2025 5:38 AM EDT 04/08/2025 5:45 AM EDT Rashard Allen MD LAB BLOOD ORDERABLES Final Re sult Performing Organization Address City/[facility] [place] [address] * (ABNORMAL) Prothrombin Time/INR (04/08/2025 5:38 AM EDT) Prothrombin Time 14.6(H) 12.0 - 14.3 sec LAB COAGULATION METHOD 04/08/2025 6:10 AM EDT [facility] INR 1.1 0.9 - 1.1 LAB COAGULATION METHOD 04/08/2025 6:10 AM EDT [facility] Blood Venous blood specimen / Unknown Venipuncture / Unknown 04/08/2025 5:38 AM EDT 04/08/2025 5:45 AM EDT Narrative [facility] - 04/08/2025 6:10 AM EDT OPTIMAL INR RANGES FOR PATIENT ON ORAL ANTICOAGULANT THERAPY Prevention of venous thromboembolism INR 2.0 to 3.0 In patients with heart disease: Atrial fibrillation INR 2.0 to 3.0 Valvular heart disease INR 2.0 to 3.0 Tissue heart valves INR 2.0 to 3.0 Mechanical prosthetic valves INR 2.5 to 3.5 Prevention of recurrent TX INR 2.5 to 3.5 us Rashard Allen MD LAB BLOOD ORDERABLES Final Re sult [facility] [address] [place] [address] * (ABNORMAL) CBC (04/08/2025 5:38 AM EDT) WBC Count 9.37 3.70 - 10.30 10*3/uL LAB HEMATOLOGY METHOD 04/08/2025 5:55 AM EDT [facility] RBC Count 3.35(L) 3.90 - 5.20 10*6/uL LAB HEMATOLOGY METHOD 04/08/2025 5:55 AM EDT [facility] HGB 10.4(L) 11.2 - 15.7 g/dL LAB HEMATOLOGY METHOD 04/08/2025 5:55 AM EDT [facility] HCT 31.3(L) 34.0 - 45.0 % LAB HEMATOLOGY METHOD 04/08/2025 5:55 AM EDT [facility] Platelet Count 174 155 - 369 10*3/uL LAB HEMATOLOGY METHOD 04/08/2025 5:55 AM EDT [facility] MCV 93 79 - 98 fL LAB HEMATOLOGY METHOD 04/08/2025 5:55 AM EDT [facility] MCH 31.0 26.0 - 32.0 pg LAB HEMATOLOGY METHOD 04/08/2025 5:55 AM EDT [facility] MCHC 33.2 30.7 - 35.5 g/dL LAB HEMATOLOGY METHOD 04/08/2025 5:55 AM EDT [facility] RDW 14.0 11.5 - 14.5 % LAB HEMATOLOGY METHOD 04/08/2025 5:55 AM EDT [facility] MPV 9.2 8.8 - 12.5 fL LAB HEMATOLOGY METHOD 04/08/2025 5:55 AM EDT [facility] nRBC 0.3(H) <=0.0 per 100 WBCs LAB HEMATOLOGY METHOD 04/08/2025 5:55 AM EDT [facility] Blood Venous blood specimen / Unknown Venipuncture / Unknown 04/08/2025 5:38 AM EDT 04/08/2025 5:45 AM EDT Result [facility] Rashard Allen MD LAB BLOOD ORDERABLES Final Re sult Performing Organization Address [facility] de Phone Number [facility] [address] [place] [address] * OB US Detail Anatomy (04/07/2025 10:54 AM EDT) Anatomical Region Laterality Modality Body Ultrasound 04/07/2025 8:08 AM EDT Impressions 04/08/2025 4:01 PM EDT The OB Ultrasound you requested has been resulted. Please navigate to the Imaging tab in [facility] for review. This message has been generated by the interface. Narrative Procedure Note Kaylyn Castellanos MD - 04/08/2025 IMPRESSION: The OB Ultrasound you requested has been resulted. Please navigate to theImaging tab in [employer] [facility] for review. This message has been generated by theinterface. Result [facility] us Rashard Allen MD IMG OB US PROCEDURES Final Re sult * Light Green Top (04/07/2025 9:22 AM EDT) Extra Hold for add-ons 04/07/2025 12:01 PM EDT [facility] Comment:Auto resulted. Blood Venous blood specimen / Unknown Venipuncture / Unknown 04/07/2025 9:22 AM EDT 04/07/2025 9:22 AM EDT Result [facility] us Rashard Allen MD LAB BLOOD ORDERABLES Final Re sult Performing Organization Address City/[facility]/ZIP Co de Phone Number [facility] [address] [place] [address] * Neisseria gonorrhea DNA by PCR (04/07/2025 9:03 AM EDT) Neisseria gonorrhea DNA PCR Result Not Detected Not Detected. 04/09/2025 3:28 PM EDT [facility] Swab Vaginal structure / Unknown Non-blood Collection / Unknown 04/07/2025 9:03 AM EDT 04/07/2025 9:38 AM EDT Narrative [facility] - 04/09/2025 3:28 PM EDT This test is performed by the [employer] m2000 instrument for Real Time PCR C. trachomatis and N. gonorrhea. This test is FDA approved for use with endocervical, vaginal, and urine specimens. This test is used for clinical purposes. It should not be regarded as invesigational or for research. The [facility] is certified under the Clinical Laboratory Improvement Amendments of 1988 (CLIA-88) as qualified to perform high complexity clinical laboratory testing. Rashard Allen MD LAB MICROBIOLOGY - GENERAL OR DERABLES Final Result Performing Organization Address [facility] Co de Phone Number [address] [address] * Chlamydia trachomatis DNA by PCR (04/07/2025 9:03 AM EDT) Chlamydia trachomatis DNA PCR Result Not Detected Not Detected 04/09/2025 3:28 PM EDT [facility] Swab Vaginal structure / Unknown Non-blood Collection / Unknown 04/07/2025 9:03 AM EDT 04/07/2025 9:38 AM EDT Narrative [facility] - 04/09/2025 3:28 PM EDT This test is performed by the [employer] m2000 instrument for Real Time PCR C. trachomatis and N. gonorrhea. This test is FDA approved for use with endocervical, vaginal, and urine specimens. This test is used for clinical purposes. It should not be regarded as invesigational or for research. The [facility] is certified under the Clinical Laboratory Improvement Amendments of 1988 (CLIA-88) as qualified to perform high complexity clinical laboratory testing. Rashard Allen MD LAB MICROBIOLOGY - GENERAL OR DERABLES Final Result Performing Organization Address [facility] Co de Phone Number [address] [place] [address] * Trichomonas Vaginalis Antigen (04/07/2025 9:03 AM EDT) Trichomonas vaginalis Antigen Result Negative Negative 04/07/2025 1:04 PM EDT [facility] Swab Vaginal structure / Unknown Non-blood Collection / Unknown 04/07/2025 9:03 AM EDT 04/07/2025 9:38 AM EDT Narrative [facility] - 04/07/2025 1:04 PM EDT This test was developed and its performance characteristics determined by [facility]. It has not [...] MICROBIOLOGY - GENERAL OR DERABLES Final Result [facility] [address] [place] [address] * APTT (04/07/2025 9:03 AM EDT) Pathologist [facility] aPTT 28 25 - 35 sec LAB COAGULATION METHOD 04/07/2025 9:38 AM EDT [facility] Blood Venous blood specimen / Unknown Venipuncture / Unknown 04/07/2025 9:03 AM EDT 04/07/2025 9:17 AM EDT Rashard Allen MD LAB BLOOD ORDERABLES Final Re sult [facility] [address] [place] [address] * Fibrinogen, Quantitative (Clottable) (04/07/2025 9:03 AM EDT) Pathologist [facility] Fibrinogen, Quantitative (Clottable) 274 208 - 459 mg/dL LAB COAGULATION METHOD 04/07/2025 9:38 AM EDT [facility] Blood Venous blood specimen / Unknown Venipuncture / Unknown 04/07/2025 9:03 AM EDT 04/07/2025 9:17 AM EDT Rashard Allen MD LAB BLOOD ORDERABLES Final Re sult Performing Organization Address [facility] Co de Phone Number [facility] [address] [place] [address] * Prothrombin Time/INR (04/07/2025 9:03 AM EDT) Prothrombin Time 14.1 12.0 - 14.3 sec LAB COAGULATION METHOD 04/07/2025 9:38 AM EDT [facility] INR 1.1 0.9 - 1.1 LAB COAGULATION METHOD 04/07/2025 9:38 AM EDT [facility] Blood Venous blood specimen / Unknown Venipuncture / Unknown 04/07/2025 9:03 AM EDT 04/07/2025 9:17 AM EDT Narrative [facility] - 04/07/2025 9:38 AM EDT OPTIMAL INR RANGES FOR PATIENT ON ORAL ANTICOAGULANT THERAPY Prevention of venous thromboembolism INR 2.0 to 3.0 In patients with heart disease: Atrial fibrillation INR 2.0 to 3.0 Valvular heart disease INR 2.0 to 3.0 Tissue heart valves INR 2.0 to 3.0 Mechanical prosthetic valves INR 2.5 to 3.5 Prevention of recurrent TX INR 2.5 to 3.5 Rashard Allen MD LAB BLOOD ORDERABLES Final Re sult Performing Organization Address [facility] Co de Phone Number [facility] [address] [place] [address] * (ABNORMAL) CBC (04/07/2025 9:03 AM EDT) WBC Count 10.81(H) 3.70 - 10.30 10*3/uL LAB HEMATOLOGY METHOD 04/07/2025 9:30 AM EDT [facility] RBC Count 3.57(L) 3.90 - 5.20 10*6/uL LAB HEMATOLOGY METHOD 04/07/2025 9:30 AM EDT [facility] HGB 10.9(L) 11.2 - 15.7 g/dL LAB HEMATOLOGY METHOD 04/07/2025 9:30 AM EDT [facility] HCT 33.3(L) 34.0 - 45.0 % LAB HEMATOLOGY METHOD 04/07/2025 9:30 AM EDT [facility] Platelet Count 201 155 - 369 10*3/uL LAB HEMATOLOGY METHOD 04/07/2025 9:30 AM EDT [facility] MCV 93 79 - 98 fL LAB HEMATOLOGY METHOD 04/07/2025 9:30 AM EDT [facility] MCH 30.5 26.0 - 32.0 pg LAB HEMATOLOGY METHOD 04/07/2025 9:30 AM EDT [facility] MCHC 32.7 30.7 - 35.5 g/dL LAB HEMATOLOGY METHOD 04/07/2025 9:30 AM EDT [facility] RDW 13.7 11.5 - 14.5 % LAB HEMATOLOGY METHOD 04/07/2025 9:30 AM EDT [facility] MPV 9.6 8.8 - 12.5 fL LAB HEMATOLOGY METHOD 04/07/2025 9:30 AM EDT [facility] nRBC 0.4(H) <=0.0 per 100 WBCs LAB HEMATOLOGY METHOD 04/07/2025 9:30 AM EDT [facility] Blood Venous blood specimen / Unknown Venipuncture / Unknown 04/07/2025 9:03 AM EDT 04/07/2025 9:20 AM EDT us Rashard Allen MD LAB BLOOD ORDERABLES Final Re sult [facility] [address] [place] [address] * APTT (04/07/2025 2:53 AM EDT) aPTT 25 25 - 35 sec LAB COAGULATION METHOD 04/07/2025 3:19 AM EDT [facility] Blood Venous blood specimen / Unknown Venipuncture / Unknown 04/07/2025 2:53 AM EDT 04/07/2025 3:00 AM EDT Result Sheldon Allen MD LAB BLOOD ORDERABLES Final Re sult Performing Organization Address City/[facility]/ZIP Co de Phone Number [facility] [address] [place] [address] * Fibrinogen, Quantitative (Clottable) (04/07/2025 2:53 AM EDT) Fibrinogen, Quantitative (Clottable) 286 208 - 459 mg/dL LAB COAGULATION METHOD 04/07/2025 3:19 AM EDT [facility] Blood Venous blood specimen / Unknown Venipuncture / Unknown 04/07/2025 2:53 AM EDT 04/07/2025 3:00 AM EDT Result Sheldon Allen MD LAB BLOOD ORDERABLES Final Re sult Performing Organization Address City/[place] [facility] Co de Phone Number [facility] [address] [place] [address] * Prothrombin Time/INR (04/07/2025 2:53 AM EDT) Prothrombin Time 14.2 12.0 - 14.3 sec LAB COAGULATION METHOD 04/07/2025 3:19 AM EDT [facility] INR 1.1 0.9 - 1.1 LAB COAGULATION METHOD 04/07/2025 3:19 AM EDT [facility] Blood Venous blood specimen / Unknown Venipuncture / Unknown 04/07/2025 2:53 AM EDT 04/07/2025 3:00 AM EDT Narrative [facility] - 04/07/2025 3:19 AM EDT OPTIMAL INR RANGES FOR PATIENT ON ORAL ANTICOAGULANT THERAPY Prevention of venous thromboembolism INR 2.0 to 3.0 In patients with heart disease: Atrial fibrillation INR 2.0 to 3.0 Valvular heart disease INR 2.0 to 3.0 Tissue heart valves INR 2.0 to 3.0 Mechanical prosthetic valves INR 2.5 to 3.5 Prevention of recurrent TX INR 2.5 to 3.5 Result Sheldon Allen MD LAB BLOOD ORDERABLES Final Re sult [facility] [address] [place] [address] * (ABNORMAL) CBC (04/07/2025 2:53 AM EDT) WBC Count 12.15(H) 3.70 - 10.30 10*3/uL LAB HEMATOLOGY METHOD 04/07/2025 3:13 AM EDT [facility] RBC Count 3.51(L) 3.90 - 5.20 10*6/uL LAB HEMATOLOGY METHOD 04/07/2025 3:13 AM EDT [facility] HGB 10.7(L) 11.2 - 15.7 g/dL LAB HEMATOLOGY METHOD 04/07/2025 3:13 AM EDT [facility] HCT 32.4(L) 34.0 - 45.0 % LAB HEMATOLOGY METHOD 04/07/2025 3:13 AM EDT [facility] Platelet Count 201 155 - 369 10*3/uL LAB HEMATOLOGY METHOD 04/07/2025 3:13 AM EDT [facility] MCV 92 79 - 98 fL LAB HEMATOLOGY METHOD 04/07/2025 3:13 AM EDT [facility] MCH 30.5 26.0 - 32.0 pg LAB HEMATOLOGY METHOD 04/07/2025 3:13 AM EDT [facility] MCHC 33.0 30.7 - 35.5 g/dL LAB HEMATOLOGY METHOD 04/07/2025 3:13 AM EDT [facility] RDW 13.8 11.5 - 14.5 % LAB HEMATOLOGY METHOD 04/07/2025 3:13 AM EDT [facility] MPV 9.7 8.8 - 12.5 fL LAB HEMATOLOGY METHOD 04/07/2025 3:13 AM EDT [facility] nRBC 0.2(H) <=0.0 per 100 WBCs LAB HEMATOLOGY METHOD 04/07/2025 3:13 AM EDT [facility] Blood Venous blood specimen / Unknown Venipuncture / Unknown 04/07/2025 2:53 AM EDT 04/07/2025 3:02 AM EDT us Rashard M Alejandro MD LAB BLOOD ORDERABLES Final Re sult [facility] [address] [place] [address] * Treponema Pallidum (Syphilis) Antibodies with Reflex to RPR and RPR Titer (Those with NO known Syphilis) (04/07/2025 2:53 AM EDT) Syphilis Antibody (IgG+IgM) Nonreactive Nonreactive 04/07/2025 4:07 AM EDT [facility] Comment:Nonreactive. No sero logic evidence of syphilis. No follow-up necessary unless clinically indicated (e.g., early syphilis). Blood Venous blood specimen / Unknown Venipuncture / Unknown 04/07/2025 2:53 AM EDT 04/07/2025 2:59 AM EDT us Rashard Allen MD LAB BLOOD ORDERABLES Final Re sult Performing Organization Address [facility] [place] Co de Phone Number [facility] [address] [place] [address] * Type and Screen (04/07/2025 2:53 AM [...] ORDERABLE S Final Result Performing Organization Address City/[facility] Co de Phone Number BLOOD BANK [address] [place] [address] documented in this encounter Visit Diagnoses Diagnosis [...] documented as of this encounter Care Teams Powder 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
--- OUTSIDE RECORDS SUMMARY | 2025-04-08 01:03 | XMS_ITS | Encounter Summary ---
Author Organization Healthcare Address [address] [place] [address] Care Team Providers Care Charge Aide Name Role Phone Pcp, No Primary Care Provider Unavailabl e Reason for Visit * Auth/Cert (Routine) Specialty Diagnoses / Procedures Referred By Contac t Referred To Contact Diagnoses Vaginal bleeding Rashard Allen MD [address] [address] Phone: tel: fax: [facility] [address] [place] [phone] Phone: tel: fax: Referral ID Status Reason Start Date Expiration Date Visits Re quested Visits Authorized [id number] 1 1 Encounter Details Date Type Department Care Team (Late st Contact Info) Description 04/08/2025 1:03 AM EDT Anesthesia Event [facility] [address] [place] [phone] Huang Chowdhury, DO [address] [place] [address] Anesthesia Record Procedure Summary Procedure Name Responsible Anesthesiologist Anesthesia Start Time Anesthesia Stop Time Labor Consult Events No events on file. Meds * Agents No agents on file. * Blood No blood administrations on file. Lines, Drains, and Airways No LDAs on file. documented in this encounter Social History Tobacco Use Types Packs/Day Years Used Date Smoking Tobacco: Never Smokeless Tobacco: Never Alcohol Use Standard Drinks/Week Comments Never 0 (1 standard drink = 0.6 oz pur e alcohol) CAGE ASSESSMENT Answer Date Recorded Cage unable [...] drink first t mickie in the morning (EYE-TEXTILE DYER) to steady your nerves or to get [...] on file documented as of this encounter Functional Status * Calculated C-SSRS Risk Score (Lifetime/Recent) Answer Date of Assessment Author No Risk Indicated 04/08/2025 12:20 AM EDT Sheridan Santiago RN * Question Answer Date of Assessment Author 1. Wish to be (Past 1 Month) No 04/08/2025 12:20 AM EDT Ginny Willis RN 2. Non-Specific Active Suicidal Thoughts (Past 1 Month) No 04/08/2025 12:20 AM EDT Ginny Willis RN 6. Suicidal Behavior (Lifetime) No 04/08/2025 12:20 AM EDT Ginny Willis RN documented as of this encounter Miscellaneous Notes * Anesthesia IP Labor Consult - Huang Chowdhury DO - 04/07/2025 4:14 AM EDT Patient: Pamela Anderson Procedure Information Date: 04/07/25 Procedure: Labor Consult HPI Pamela Anderson is a 25 y.o. female at 24w4d presenting for Suspected abruption. Current is complicated by possible abruption. Patient denies any major cardiac or lung issues. Thepatient has had 3 prior C-sec Ions in the pas . No blood thinners, bleeding/clotting disorders. No issues with back/spinal cord. Functional capacity is > 4 METs. Anesthesia techniques and risks discussed with patient. The risks and benefits of epidural, spinal,and general anesthesia were discussed. The risks for epidural included infection, bleeding, damage to surrounding structures/nerve damage, intravascular/intrathecal injection, misplaced epidural, andPDPH. The risks for spinal included infection, bleeding, infection, damage to surrounding structures/nerve damage, PDPH, and hypotension. The risks for general anesthesia included N/V, sore throat, damage to gums/mouth/teeth, heart attack, stroke, allergic reaction, and . These risks were not all-inclusive. All questions answered and concerns addressed. 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 Respiratory: Negative respiratory ROS. Physical Exam Airway Mallampati: II Mouth opening: normal TM distance: >3 FB Neck ROM: full Cardiovascular Rhythm: regular Rate: normal Dental - normal exam Pulmonary Breath sounds clear to auscultation Neurological Oriented: normal to time, normal to place and normal to person and oriented to person, place and time Skin Skin: warm and dry Musculoskeletal Extremities Anesthesia Plan ASA 2 Plan was reviewed with: resident and attending Anesthesia technique(s) discussed with the patient/family: CSE, DPE, epidural, general, spinal and regional Anesthetic plan and risks discussed with patient. Additional Equipment Requests documented in this encounter Plan of Treatment Upcoming Encounters Date Type Department Care Team (Late st Contact Info) Description 04/27/2025 9:00 AM EDT Initial Medical Office Building Obstetrics and Gynecology [address] [facility], [address] [place] [address] Yun Dominguez MD [address] [place] [address] documented as of this encounter Visit Diagnoses Not on filedocumented in this encounter Additional Health Concerns Assessment Noted Time A Body Mass Index follow-up plan has been documented for the patient 04/12/2025 3:13 PM EDT documented as of this encounter Care Teams Charge Aide Relationship Specialty Start Date End Date Pcp, No [address] [place] [address] PCP - General Family Medicine 03/08/25 documented as of this encounter
--- OUTSIDE RECORDS SUMMARY | 2025-04-18 11:15 | XMS_ITS | Encounter Summary ---
Author Organization [facility] Address [address] [place] [id number] Care Team Providers Care Woodworking Shop Laborer Name Role Phone Provider, No Known Primary Care Provider Unavail able Reason for Visit * Diagnostic Imaging (Routine) - Authorized Specialty Diagnoses / Procedures Referred By Contac t Referred To Contact Radiology Diagnoses Short interval between pregnancies affecting in second trimester, antepartum Vaginal bleeding in , second trimester History of delivery affecting Procedures [facility] Cooper Pham MD [address] [facility] [address] [place] [address] Phone: tel: fax: [facility] PER DI[facility] [address] [place] [address] Phone: tel: Referral ID Status Reason Start Date Expiration Date V isits Requested Visits Authorized [id number] Authorized 03/20/2025 06/19/2026 4 4 Encounter Details Date Type Department Care Team (Latest Contact Info) Description 04/18/2025 11:15 AM EDT - 04/18/2025 11:59 PM EDT Hospital Encounter [facility] [address] [place] [address] Kenisha Fitzgerald MD [address] [facility] [address] [place] [phone] Discharge Disposition: Home or Self Care Social History Tobacco Use Types Packs/Day Years Used Date Smoking Tobacco: Never Smokeless Tobacco: Never Alcohol Use Standard Drinks/Week Comments Not Currently 0 (1 standard drink = 0.6 oz pur e alcohol) [facility] Utilities Answer Date Recorded In the past 12 months has th e electric, gas, oil, or water company threatened to [...] and heating? Not hard at all 04/06/2025 [facility] - Occupational Stress Questionnaire Answer Date Recorded [...] none 04/06/2025 Family and Community Support Answer Faustnio e Recorded If for any reason you [...] GED or equivalent No 04/06/2025 Preferred Language Andorran 04/06/2025 PHQ-2 Answer Date Recorded Patient Health [...] this encounter Medications at Time of Discharge Vit-Fe Fumarate-FA ( vitamin 27-0.8) 27-0.8 MG tablet tablet Take 1 tablet by mouth Daily. documented as of this encounter Plan of Treatment Upcoming Encounters Date Type Department Care Team (Late st Contact Info) Description 05/16/2025 11:30 AM EST Office Visit [facility] MATERNAL MEDICINE [address] [place] [address] documented as of this encounter Procedures Procedure Name Priority Date/Time Associated Diagnosis Comments [facility] Routine 04/18/2025 11:53 AM EDT Short interval between pregnancies affecting in second trimester, antepartum Vaginal bleeding in , second trimester History of delivery affecting documented in this encounter Results * [facility] (04/18/2025 11:53 AM EDT) Anatomical Region Laterality Modality Ultrasound 04/18/2025 11:3 0 AM EDT Narrative 04/23/2025 9:35 PM EDT PAT NAME: PAMELA BONILLA MED REC#: [id number] DA: [id number] PAT GEND: F PAT TYPE: O EXAM FAUSTINO: [id number] REF PHYS KENISHA FITZGERALD Comparison Studies The findings of this study [...] EFW (oz) 10 oz EFW by: Hadlock ([id number]) Extended Egg Candler 5.3 mm Rt Renal pelvis ap 3.9 [...] Normal Heart / Thorax 3-vessel view: Normal 4-kikuwa-lzloxjy view: normal Cord insertion: Normal Stomach: Appears [...] fluid UA doppler normal Coding ====== Description: [id number] Follow Up Fleet Manager/Dispatch: Balbina Condon RDMS Physician: Pari Rueda MD, FACOG Electronically signed by: Pari Rueda MD, FACOG at: 21:35 Procedure Note Pari Rueda MD - 04/23/2025 PAT NAME: PAMELA BONILLA MED REC#: [id number] DA: 2000 PAT GEND: F PAT TYPE: O EXAM FAUSTINO: [id number] REF PHYS KENISHA FITZGERALD Comparison Studies The findings of this study are compared to the prior ultrasound studydated 03/20/25 Patient Status Outpatient Indication ======== Chronic subchorionic hemorrhage with vaginal bleeding. Size greater thandates. Previous c/s x 3. Maternal Assessment Pidebq662 cm Height (ft)5 ft Height (in)4 in Cgdvxh13 kg Weight (lb)167 lb BMI28.86 kg/m Method ======= Transabdominal ultrasound examination ========= Moe . Number of fetuses: 1 Dating ====== Method of dating:based on stated EMILY GA by prior [id number] w + 1 d EMILY by prior assessment:07/17/2025 Ultrasound examination on:04/18/2025 GA by U/S based upon:AC, BPD, Femur, HC GA by U/S28 w + 2 d EMILY by U/S:07/09/2025 Previous dating:based on stated EMILY, selected on 03/20/2025 Agreed EMILY of previous datin07/17/2025 Assigned:based on stated EMILY, selected on 04/18/2025 Assigned GA27 w + 1 d Assigned EMILY:07/17/2025 oyesgw143 d Biometry Standard BPD72.1 mm 29w 0d 90% Hadlock OFD90.3 mm 29w 1d 94% Geo HC259.4 mm 28w 1d 57% Hadlock AC243.9 mm 28w 5d 84% Hadlock Femur51.4 mm 27w 3d 45% Hadlock HC / AC1.06 EFW1,195 g 27w 6d 80% Hadlock EFW (lb)2 lb EFW (oz)10 oz EFW by:Hadlock (EQB-[id number]-FL) Extended Vp5.3 mm Rt Renal pelvis ap3.9 mm Head / Face / Neck Cephalic index0.80 63% Nicolaides Extremities / Bony Struc FL / BPD0.71 FL / HC0.20 FL / AC0.21 Other Structures KLR016 bpm General Evaluation Cardiac activity present. FHR [...] LVOT view:Normal Heart / Thorax 3-vessel view:Normal 3-apddzo-xcmzkep view:normal Cord insertion:Normal Stomach:Appears normal Kidneys:Appears normal [...] Normal fluid UA doppler normal Coding ====== Description:[id number] Follow Up Fleet Manager/Dispatch: Balbina Condon RDMS Physician: Pari Rueda MD, FACOG Electronically signed by: Pari Rueda MD, FACOG at: :35 us Cooper Pham MD IMG US ORDERABLES Final Res ult documented in this encounter Visit Diagnoses Not on filedocumented in this encounter Care Teams Woodworking Shop Laborer Relationship Specialty Start Date End Date Provider, [place] [address] PCP - General 03/13/25 documented as of this encounter
--- OUTSIDE RECORDS SUMMARY | 2025-04-18 11:15 | XMS_ITS | Encounter Summary ---
Author Organization [facility] Address [address] [place] [address] Care Team Providers Care Personal Care Aid Name Role Phone Provider, No Known Primary Care Provider Unavail able Reason for Visit * Reason Comments chronic ISAAC, prev C/S x 3, S>D Encounter Details Date Type Department Care Team (Late st Contact Info) Description 04/18/2025 11:15 AM EDT Office Visit [facility] MATERNAL MEDICINE [address] [facility] [address] [place] [address] Pari Rueda MD [address] [place] [phone] Vaginal bleeding in , second trimester (Primary Dx) Social History Tobacco Use Types Packs/Day Years Used Date Smoking Tobacco: Never Smokeless Tobacco: Never Alcohol Use Standard Drinks/Week Comments Not Currently 0 (1 standard drink = 0.6 oz pur e alcohol) [facility] Utilities Answer Date Recorded In the past 12 months has [employer], [employer], oil, or water [employer] threatened to shut off services in your [...] and heating? Not hard at all 04/06/2025 [facility] - Occupational Stress Questionnaire Answer Date [...] GED or equivalent No 04/06/2025 Preferred Language Liberian 04/06/2025 PHQ-2 Answer Date Recorded Patient Health [...] CVS. Pari Rueda MD FACOG Maternal Medicine, [facility] 04/18/2025 documented in this encounter Plan of Treatment Upcoming Encounters Date Type Department Care Team (Late st Contact Info) Description 05/16/2025 11:30 AM EST Office Visit [facility] MATERNAL MEDICINE [address] [place] [address] [address] [place] [address] documented as of this encounter Visit Diagnoses Diagnosis Vaginal bleeding in , second trimester- Primary documented in this encounter Care Teams Personal Care Aid Relationship Specialty Start Date End Date Provider, [place] [address] PCP - General 03/13/25 documented as of this encounter
[2025-04-26] VITALS (11 sets, daily range): BP systolic 109–155; BP diastolic 73–81; PULSE 96–116; RESP 18; TEMP 36.7–36.9; O2SAT 95–100; BMI 29.0
--- OUTSIDE RECORDS SUMMARY | 2025-04-26 04:54 | XMS_ITS | Encounter Summary ---
Author Organization [facility] Address [address] [place] [address] Care Team Providers Care Beauty Artist Name Role Phone Provider, No Known Primary [...] AM EST Office Visit [facility] MATERNAL MEDICINE [address] [facility] [address] [place] [phone] documented as of this encounter Visit Diagnoses Not on filedocumented in this encounter Care Teams Beauty Artist Relationship Specialty Start Date End Date Provider, No Known [facility] [place] [address] PCP - General 03/13/25 documented as of this encounter
--- OUTSIDE RECORDS SUMMARY | 2025-04-26 04:54 | XMS_ITS | Encounter Summary ---
Author Organization [facility] Address [address] [place] [address] Care Team Providers Care Dental Laboratory Assistant Name Role Phone Provider, No Known Primary [...] Recorded In the past 12 months has [employer], gas, oil, or water [employer] threatened to shut off services in your [...] and heating? Not hard at all 04/06/2025 [facility] of Occupat ional Health - Occupational Stress [...] GED or equivalent No 04/06/2025 Preferred Language Cape Verdean 04/06/2025 PHQ-2 Answer Date Recorded Patient Health [...] 6:38 PM EDT Perla Mas RN * [place] Suicide Severity Rating Scale (Screener/Recent Self-Report) Question [...] Description 05/16/2025 11:30 AM EST Office Visit [facility] MATERNAL MEDICINE [address] [place] [address] documented as of this encounter Visit Diagnoses Not on filedocumented in this encounter Care Teams Dental Laboratory Assistant Relationship Specialty Start Date End Date Provider, [place] [address] PCP - General 03/13/25 documented as of this encounter
--- OUTSIDE RECORDS SUMMARY | 2025-04-26 04:55 | XMS_ITS | Clinical Summary ---
[facility] Address [address] [place], [place] Care Team Providers Care Chip Washer Name Role Phone Provider, No Known Primary [...] precautions reviewed Follow up 4 weeks with [facility] Assessment & Plan (03/20/2025 12:09 PM EDT): - Admitted to [facility] from 03/12- due to vaginal [...] Description 04/18/2025 11:15 AM EDT Office Visit [facility] [address] [facility] [address] [place] [phone] Pari Rueda MD Vaginal bleeding in , second trimester (Primary Dx) 04/18/2025 11:15 AM EDT - 04/18/2025 11:59 PM EDT Hospital Encounter [facility] US PER DIAG CTR [address] [place] [phone] Kenisha Fitzgerald MD Discharge Disposition: Home or Self Care 04/18/2025 Travel 04/06/2025 6:09 PM EDT - 04/07/2025 12:20 AM EDT Hospital Encounter [facility] ANTEPARTUM [address] [place] [phone] Sunil Schmitz, Sherwin Mckinnon MD Discharge Disposition: [facility] ([place]) 04/06/2025 Travel 03/20/2025 10:30 AM EDT Office Visit [facility] [address] [phone] Cooper Pham MD Vaginal bleeding in , second trimester (Primary Dx); Suspected anomaly, antepartum, single or unspecified fetus; Fundal height high for dates; Short interval between pregnancies affecting in second trimester, antepartum; History of delivery affecting 03/20/2025 10:19 AM EDT - 03/20/2025 11:59 PM EDT Hospital Encounter [facility] PER [facility] [address] [place] [address] Kenisha Fitzgerald MD Subchorionic hematoma [...] drink = 0.6 oz pur e alcohol) [facility] Utilities Answer Date Recorded In the past 12 months has [facility], gas, oil, or water [employer] threatened to shut off services in your [...] and heating? Not hard at all 04/06/2025 [facility] [place] of Occupat ional Health - Occupational Stress [...] GED or equivalent No 04/06/2025 Preferred Language Arabic 04/06/2025 PHQ-2 Answer Date Recorded Patient Health [...] Description 05/16/2025 11:30 AM EST Office Visit [facility] [address] [facility] [address] [place] [phone] Health Maintenance Due Date Last Done [...] Priority Date/Time Associated Diagnosis Comments [facility] Routine 04/18/2025 11:53 [...] (NO DIFF) STAT 04/06/2025 6:[address] [facility] Routine 03/20/2025 11:31 AM EDT Subchorionic hematoma in second trimester, single or unspecified fetus Encounter for maternal care for excessive growth in second trimester, single or unspecified fetus Encounter for repeat ultrasound of pyelectasis in pineda , antepartum History of , unspecified gestational age from Last 3 Months Results * [facility] (04/18/2025 11:53 AM EDT) Only the most recent of2 resultswithin the time period is included. Anatomical Region Laterality Modality Ultrasound 04/18/2025 11:3 0 AM EDT Narrative 04/23/2025 9:35 PM EDT PAT NAME: PAMELA BONILLA MED REC#: [id number] DA: 2000 PAT GEND: F PAT TYPE: O EXAM FAUSTINO: [id number] REF PHYS KENISHA FITZGERALD Comparison Studies The [...] EFW (oz) 10 oz EFW by: Hadlock ([id number]) Extended Web Merchant 5.3 mm Rt Renal pelvis ap 3.9 [...] Normal Heart / Thorax 3-vessel view: Normal 1-ecwgfy-wgjbhpc view: normal Cord insertion: Normal Stomach: Appears [...] fluid UA doppler normal Coding ====== Description: 41552-69 Follow Up Instructor Trainer Canine Service: Balbina Condon RDMS Physician: Pari Rueda MD, FACOG Electronically signed by: Pari Rueda MD, FACOG at: 21:35 Procedure Note Pari Rueda MD - 04/23/2025 PAT NAME: PAMELA BONILLA MED REC#: [id number] DA: 2000 PAT GEND: F PAT TYPE: O EXAM FAUSTINO: [id number] REF PHYS FITZGERALDKENISHA Comparison Studies The findings of this study are compared to the prior ultrasound studydated 03/20/25 Patient Status Outpatient Indication ======== Chronic subchorionic hemorrhage with vaginal bleeding. Size greater thandates. Previous c/s x 3. Maternal Assessment Digfcw007 cm Height (ft)5 ft Height (in)4 in Mmlvzz38 kg Weight (lb)167 lb BMI28.86 kg/m Method ======= Transabdominal ultrasound examination ========= Pineda . Number of fetuses: 1 Dating ====== Method of dating:based on stated EMILY GA by prior w + 1 d EMILY by prior assessment:07/17/2025 Ultrasound examination on:04/18/2025 GA by U/S based upon:AC, BPD, Femur, HC GA by U/S28 w + 2 d EMILY by U/S:07/09/2025 Previous dating:based on stated EMILY, selected on 03/20/2025 Agreed EMILY of previous datin07/17/2025 Assigned:based on stated EMILY, selected on 04/18/2025 Assigned GA27 w + 1 d Assigned EMILY:07/17/2025 dizpit883 d Biometry Standard BPD72.1 mm 29w 0d 90% Hadlock OFD90.3 mm 29w 1d 94% Geo HC259.4 mm 28w 1d 57% Hadlock AC243.9 mm 28w 5d 84% Hadlock Femur51.4 mm 27w 3d 45% Hadlock HC / AC1.06 EFW1,195 g 27w 6d 80% Hadlock EFW (lb)2 lb EFW (oz)10 oz EFW by:Hadlock ([id number]-FL) Extended Vp5.3 mm Rt Renal pelvis ap3.9 mm Head / Face / Neck Cephalic index0.80 63% Nicolaides Extremities / Bony Struc FL / BPD0.71 FL / HC0.20 FL / AC0.21 Other Structures GLI767 bpm General Evaluation Cardiac activity present. FHR [...] LVOT view:Normal Heart / Thorax 3-vessel view:Normal 2-lduzbi-gzemfyy view:normal Cord insertion:Normal Stomach:Appears normal Kidneys:Appears normal [...] Normal fluid UA doppler normal Coding ====== Description:[id number] Follow Up Instructor Trainer Canine Service: Balbina Condon RDMS Physician: Pari Rueda MD, FACOG Electronically signed by: Pari Rueda MD, FACOG at: :35 us Cooper Pham MD [facility] US ORDERABLES Final Res ult * Treponema pallidum AB w/Reflex RPR (04/06/2025 10:22 PM EDT) Treponemal AB Total Non-Reacti ve Non-React vera 04/07/2025 10:17 AM EDT [facility] Blood Line / Unknown 04/06/2025 10 :22 PM EDT 04/06/2025 10:35 PM EDT Narrative [facility] - 04/07/2025 10:17 AM EDT Reactive results will reflex RPR testing. Sunil Schmitz LAB BLOOD ORDERABLES Final Result [facility]
[address] [place] [address], [place] [phone] * ABO RH Specimen Verification (04/06/2025 10:04 PM EDT) Pathologist [facility] ABO Type A 04/06/2025 11:36 PM EDT [facility] RH type Positive 04/06/2025 11:36 PM EDT [facility] Blood Venipuncture / Unknown 04/06/2025 10:04 PM EDT 04/06/2025 11:07 PM EDT Sunil Schmitz DO BLOOD BANK TEST ORDERABLES Final Result Performing Organization Address City/[facility] Co de Phone Number [facility]
[address] [place] [address], [place] [phone] * (ABNORMAL) Preeclampsia Panel (04/06/2025 6:53 PM EDT) Alkaline Phosphatase 94 39 - 117 U/L 04/06/2025 7:29 PM EDT [facility] ALT (SGPT) 12 1 - 33 U/L 04/06/2025 7:29 PM EDT [facility] AST (SGOT) 14 1 - 32 U/L 04/06/2025 7:29 PM EDT [facility] Creatinine 0.42(L) 0.57 - 1.00 mg/dL 04/06/2025 7:29 PM EDT [facility] Total Bilirubin 0.7 0.0 - 1.2 mg/dL 04/06/2025 7:29 PM EDT [facility] LDH 249(H) 135 - 214 U/L 04/06/2025 7:29 PM EDT [facility] Uric Acid 4.3 2.4 - 5.7 mg/dL 04/06/2025 7:29 PM EDT [facility] Blood Line / Unknown 04/06/2025 6: 53 PM EDT 04/06/2025 7:07 PM EDT us Sunil Schmitz DO LAB BLOOD ORDERABLES Final Result [facility]
[address] [place] [address], * Fibrinogen (04/06/2025 6:53 PM EDT) Fibrinogen 316 203 - 567 mg/dL 04/06/2025 7:21 PM EDT [facility] Blood Line / Unknown 04/06/2025 6: 53 PM EDT 04/06/2025 7:07 PM EDT us Sunil Schmitz DO LAB BLOOD ORDERABLES Final Result [facility]
[address] [place] [address], [place] [phone] * (ABNORMAL) CBC (No Diff) (04/06/2025 6:53 PM EDT) WBC 14.59(H) 3.40 - 10.80 10*3/mm3 04/06/2025 7:09 PM EDT [facility] RBC 3.61(L) 3.77 - 5.28 10*6/mm3 04/06/2025 7:09 PM EDT [facility] Hemoglobin 11.2(L) 12.0 - 15.9 g/dL 04/06/2025 7:09 PM EDT [facility] Hematocrit 33.5(L) 34.0 - 46.6 % 04/06/2025 7:09 PM EDT [facility] MCV 92.8 79.0 - 97.0 fL 04/06/2025 7:09 PM EDT [facility] MCH 31.0 26.6 - 33.0 pg 04/06/2025 7:09 PM EDT [facility] MCHC 33.4 31.5 - 35.7 g/dL 04/06/2025 7:09 PM EDT [facility] RDW 13.6 12.3 - 15.4 % 04/06/2025 7:09 PM EDT [facility] RDW-SD 46.5 37.0 - 54.0 fl 04/06/2025 7:09 PM EDT [facility] MPV 9.5 6.0 - 12.0 fL 04/06/2025 7:09 PM EDT [facility] Platelets 181 140 - 450 10*3/mm3 04/06/2025 7:09 PM EDT [facility] Blood Line / Unknown 04/06/2025 6: 53 PM EDT 04/06/2025 7:07 PM EDT Sunil Schmitz DO LAB BLOOD ORDERABLES Final Result [facility]
[address] [place] [address], * Type & Screen (04/06/2025 6:53 PM EDT) ABO Type A 04/06/2025 8:55 PM EDT [facility] RH type Positive 04/06/2025 8:55 PM EDT [facility] Antibody Screen Negative 04/06/2025 8:55 PM EDT [facility] T&S Expiration Date 04/09/2025 11:59:59 PM 04/06/2025 8:55 PM EDT [facility] Blood Line / Unknown 04/06/2025 6: 53 PM EDT 04/06/2025 7:11 PM EDT Sunil Schmitz DO BLOOD BANK TEST ORDERABLES Edited Result - Final [facility]
[address] [place] [address], from Last 3 Months Insurance Member Subscriber Plan / Payer (Ef fective 2023-Present) Name:Pamela Bonilla Relation to Subscriber:Self Name:Pamela Bonilla Payer ID:[id number] (NAIC) Group ID:Not on file Type:Not on file Address: [facility] [id number] [place] [id number] Care Teams Chip Washer Relationship Specialty Start Date End Date Provider, [place] [address] PCP - General 03/13/25
--- OUTSIDE RECORDS SUMMARY | 2025-04-26 04:55 | XMS_ITS | Encounter Summary ---
Author Organization Healthcare Address [address] [place] [address] Care Team Providers Care Smoke Room Operator Name Role Phone Pcp, No Primary Care Provider Unavailabl e Encounter Details Date Type Department Care Team ([facility] st Contact Info) Description 04/13/2025 Orders Only Ch unarmed security officer (l&d) Virtual Dept. [address] [place], [place] [phone] Guerline Estrada MD [address] [place] [address] Social History Tobacco Use Types Packs/Day Years [...] any time in the past 12 m [facility], were you homeless or living in a correction (including now)? No 04/12/2025 [facility] Utilities Answer Date Recorded In the [...] drink first t mickie in the morning (EYE-ADMINISTRATIVE DIRECTOR) to steady your nerves or to get [...] Upcoming Encounters Date Type Department Care Team ([facility] Contact Info) Description 04/27/2025 9:00 AM EDT Initial Medical Office Building Obstetrics and Gynecology [address], [address] [place] [address] Yun Dominguez MD [address] [place] [phone] documented as of this encounter Visit Diagnoses Not on filedocumented in this encounter Additional Health Concerns Assessment Noted Time A Body Mass Index follow-up plan has been documented for the patient 04/12/2025 3:13 PM EDT documented as of this encounter Care Teams Smoke Room Operator Relationship Specialty Start Date End Date Pcp, [place] [address] PCP - General Family Medicine 03/08/25 documented as of this encounter
--- OUTSIDE RECORDS SUMMARY | 2025-04-26 04:55 | XMS_ITS | Clinical Summary ---
Author Organization Healthcare Address [address] [place] [address] Care Team Providers Care High Speed Printer Operator Name Role Phone Pcp, No Primary [...] Care Team Description 04/13/2025 Orders Only Ch cutter brake lining (l&d) Virtual Dept. [address] [place] [phone] Guerline Estrada MD 04/08/2025 1:03 AM EDT Anesthesia Event [facility] Labor [facility] Delivery [address] [place] [phone] Huang Chowdhury DO 04/07/2025 12:40 AM EDT - 04/12/2025 3:26 PM EDT Hospital Encounter [facility] Mother [facility] Baby Unit [address] [place] [address] Rashard Allen MD Snyder, Candice C, MD [...] any time in the past 12 m [facility], were you homeless or living in a jail (including now)? 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) to steady your nerves or to get [...] Upcoming Encounters Date Type Department Care Team ([facility] st Contact Info) Description 04/27/2025 9:00 AM EDT Initial Medical Office Building Obstetrics and Gynecology [address], [address] [place] [phone] Yun Dominguez MD [address] [place] [phone] Health Maintenance Due Date Last Done Comments [facility]-Depression Screening 2000 [facility]-HIV Screening 2000 [facility]-Hepatitis C Screening 2000 [facility]-Infant/Child/Adol SDOH Screenings 2000 HPV Vaccines (2 - 2-dose series) 09/01/2012 03/01/2012 [facility]-Pap Smear 2021 [id number] Vaccine ( season) 2025 [facility]-Influenza Vaccine (#1) [...] 07/17/2025, by Patient Reported, was seen at [facility] for a [...] Hold for add-ons 04/12/2025 6:[address] [facility] Comment:Auto resulted. Blood Venous blood specimen / Unknown 04/12/2025 3:27 AM EDT 04/12/2025 3:45 AM EDT us Reema Louis MD LAB BLOOD ORDERABLES Final R esult Performing Organization Address City/State/[facility] Co de Phone Number [facility] [address] [place] [address] * APTT (04/12/2025 3:27 AM EDT) Only the most recent of8 resultswithin the time period is included. aPTT 28 25 - 35 sec LAB COAGULATION METHOD 04/12/2025 4:[address] [facility] Blood Venous blood specimen / Unknown Venipuncture / Unknown 04/12/2025 3:27 AM EDT 04/12/2025 3:44 AM EDT us Reema Louis MD LAB BLOOD ORDERABLES Final R esult [facility] [address] [place] [address] * Prothrombin Time/INR (04/12/2025 3:27 AM EDT) Only the most recent of8 resultswithin the time period is included. Prothrombin Time 14.1 12.0 - 14.3 sec LAB COAGULATION METHOD 04/12/2025 4:[address] [facility] INR 1.1 0.9 - 1.1 LAB COAGULATION METHOD 04/12/2025 4:[address] [facility] Blood Venous blood specimen / Unknown Venipuncture / Unknown 04/12/2025 3:27 AM EDT 04/12/2025 3:[address] [facility] - 04/12/2025 4:11 AM EDT OPTIMAL INR RANGES FOR PATIENT ON ORAL ANTICOAGULANT THERAPY Prevention of venous thromboembolism INR 2.0 to 3.0 In patients with heart disease: Atrial fibrillation INR 2.0 to 3.0 Valvular heart disease INR 2.0 to 3.0 Tissue heart valves INR 2.0 to 3.0 Mechanical prosthetic valves INR 2.5 to 3.5 Prevention of recurrent NH INR 2.5 to 3.5 Reema Louis MD LAB BLOOD ORDERABLES Final R [facility] Performing Organization Address City/[facility]/ZIP Co de Phone Number [facility] [address] [place] [address] * Fibrinogen (04/12/2025 3:27 AM EDT) Only the most recent of8 resultswithin the time period is included. Fibrinogen, Quantitative (Clottable) 315 208 - 459 mg/dL LAB COAGULATION METHOD 04/12/2025 4:[address] [facility] Blood Venous blood specimen / Unknown Venipuncture / Unknown 04/12/2025 3:27 AM EDT 04/12/2025 3:44 AM EDT Reema Louis MD LAB BLOOD ORDERABLES Final R esult [facility] [address] [place] [address] * (ABNORMAL) CBC (04/12/2025 3:27 AM EDT) Only the most recent of8 resultswithin the time period is included. WBC Count 12.26(H) 3.70 - 10.30 10*3/uL LAB HEMATOLOGY METHOD 04/12/2025 3:[address] [facility] RBC Count 3.22(L) 3.90 - 5.20 10*6/uL LAB HEMATOLOGY METHOD 04/12/2025 3:[address] [facility] HGB 9.6(L) 11.2 - 15.7 g/dL LAB HEMATOLOGY METHOD 04/12/2025 3:[address] [facility] HCT 29.3(L) 34.0 - 45.0 % LAB HEMATOLOGY METHOD 04/12/2025 3:[address] [facility] Platelet Count 203 155 - 369 10*3/uL LAB HEMATOLOGY METHOD 04/12/2025 3:[address] [facility] MCV 91 79 - 98 fL LAB HEMATOLOGY METHOD 04/12/2025 3:[address] [facility] MCH 29.8 26.0 - 32.0 pg LAB HEMATOLOGY METHOD 04/12/2025 3:[address] [facility] MCHC 32.8 30.7 - 35.5 g/dL LAB HEMATOLOGY METHOD 04/12/2025 3:[address] [facility] RDW 13.7 11.5 - 14.5 % LAB HEMATOLOGY METHOD 04/12/2025 3:[address] [facility] MPV 9.6 8.8 - 12.5 fL LAB HEMATOLOGY METHOD 04/12/2025 3:[address] [facility] nRBC 0.0 <=0.0 per 100 WBCs LAB HEMATOLOGY METHOD 04/12/2025 3:[address] [facility] Blood Venous blood specimen / Unknown Venipuncture / Unknown 04/12/2025 3:27 AM EDT 04/12/2025 3:46 AM EDT us Reema Louis MD LAB BLOOD ORDERABLES Final R esult [facility] [address] [place] [address] * nonstress test (04/11/2025 3:00 PM EDT) Narrative Yun Dominguez MD - 04/11/2025 3:00 PM EDT Yun Dominguez MD 04/11/2025 5:03 PM Non-Stress Test Interpretation kain Ibarra at 26w1d with an EMILY of 07/17/2025, by Patient Reported, was seen at [facility] for a [...] ORDERABL ES Final Result BLOOD BANK [address] [place] [address], * nonstress test (04/08/2025 11:43 AM EDT) Narrative Galina Mariscal MD - 04/08/2025 11:43 AM EDT [facility] Guaj[place] MD 04/09/2025 1:40 PM Non-Stress Test [...] Please navigate to the Imaging tab in Docitt for review. This message has been generated by the interface. Narrative Procedure Note Kaylyn Castellanos MD - 04/08/2025 IMPRESSION: The OB Ultrasound you requested has been resulted. Please navigate to theImaging tab in Docitt for review. This message has been generated by theinterface. us Rashard Allen MD IMG OB US PROCEDURES Final Re sult * Trichomonas Vaginalis Antigen (04/07/2025 9:03 AM EDT) Trichomonas vaginalis Antigen Result Negative Negative 04/07/2025 1:[address] [facility] Swab Vaginal structure / Unknown Non-blood Collection / Unknown 04/07/2025 9:03 AM EDT 04/07/2025 9:[address] [facility] - 04/07/2025 1:04 PM EDT This test was developed and its performance characteristics determined by [facility]. It has not [...] OR DERABLES Final Result Performing Organization Address [facility] Co de Phone Number [facility] [address] [place] [address] * Chlamydia trachomatis DNA by PCR (04/07/2025 9:03 AM EDT) Chlamydia trachomatis DNA PCR Result Not Detected Not Detected 04/09/2025 3:28 PM EDT [facility] Swab Vaginal structure / Unknown Non-blood Collection / Unknown 04/07/2025 9:03 AM EDT 04/07/2025 9:[address] [facility] - 04/09/2025 3:28 PM EDT This test is performed by the [employer]000 instrument for Real Time PCR C. trachomatis and N. gonorrhea. This test is FDA approved for use with endocervical, vaginal, and urine specimens. This test is used for clinical purposes. It should not be regarded as invesigational or for research. The [facility] is certified under the Clinical Laboratory Improvement Amendments of 1988 (CLIA-88) as qualified to perform high complexity clinical laboratory testing. Rashard Allen MD LAB MICROBIOLOGY - GENERAL OR DERABLES Final Result Performing Organization Address City/[facility] Co de Phone Number [facility] [address] [place] [address] * Neisseria gonorrhea DNA by PCR (04/07/2025 9:03 AM EDT) Neisseria gonorrhea DNA PCR Result Not Detected Not Detected. 04/09/2025 3:[address] [facility] Swab Vaginal structure / Unknown Non-blood Collection / Unknown 04/07/2025 9:03 AM EDT 04/07/2025 9:[address] [facility] - 04/09/2025 3:28 PM EDT This test is performed by the [employer] m2000 instrument for Real Time PCR C. trachomatis and N. gonorrhea. This test is FDA approved for use with endocervical, vaginal, and urine specimens. This test is used for clinical purposes. It should not be regarded as invesigational or for research. The [facility] is certified under the Clinical Laboratory Improvement Amendments of 1988 (CLIA-88) as qualified to perform high complexity clinical laboratory testing. Rashard Allen MD LAB MICROBIOLOGY - GENERAL OR DERABLES Final Result Performing Organization Address [facility] Co de Phone Number [facility] [address] [place] [address] * Treponema Pallidum (Syphilis) Antibodies with Reflex to RPR and RPR Titer (Those with NO known Syphilis) (04/07/2025 2:53 AM EDT) Syphilis Antibody (IgG+IgM) Nonreactive Nonreactive 04/07/2025 4:[address] [facility] Comment:Nonreactive. No sero logic evidence of syphilis. No follow-up necessary unless clinically indicated (e.g., early syphilis). Blood Venous blood specimen / Unknown Venipuncture / Unknown 04/07/2025 2:53 AM EDT 04/07/2025 2:59 AM EDT Rashard Allen MD LAB BLOOD ORDERABLES Final Re sult Performing Organization Address City/[facility]/ZIP Co de Phone Number [facility] [address] [place] [address] from Last 3 Months Insurance [employer] [facility] MEDICAID Member Subscriber Plan / Payer (Ef fective 2025-Present) Name:Pamela Anderson Danette Relation to Subscriber:Self Name:Pamela Anderson Payer ID:1 (NAIC) Group ID:Not on file Type:Not on file Address: [facility] [id number] [phone] Advance Directives * Full Code (Latest Code Status on File) Date Activated Date Inactivated Comments 04/07/2025 12:49 AM 04/12/2025 5:31 PM Question Answer Comments I have reviewed the capacity from the link above and, if needed, have updated to appropriate status: Yes Care Teams High Speed Printer Operator Relationship Specialty Start Date End Date Pcp, No [address] [place] [address] PCP - General Family Medicine 03/08/25
--- OUTSIDE RECORDS SUMMARY | 2025-04-26 04:55 | XMS_ITS | Encounter Summary ---
Author Organization [facility] Address [address] [place] [address] Care Team Providers Care Customer Loyalty Representative Name Role Phone Provider, No Known Primary Care Provider Unavail able Encounter Details Date Type Department Care Team (Latest Contact Info) Description 04/18/2025 Travel Social History Tobacco Use Types Packs/Day Years Used Date Smoking Tobacco: Never Smokeless Tobacco: Never Alcohol Use Standard Drinks/Week Comments Not Currently 0 (1 standard drink = 0.6 oz pur e alcohol) [facility] Utilities Answer Date Recorded In the past 12 months has [employer], gas, oil, or water [employer] threatened to shut off services in your [...] and heating? Not hard at all 04/06/2025 [facility] [place] of Occupat ional Health - Occupational Stress [...] Description 05/16/2025 11:30 AM EST Office Visit [facility] MATERNAL MEDICINE [address] [facility] [address] [place] [address] documented as of this encounter Visit Diagnoses Not on filedocumented in this encounter Care Teams Customer Loyalty Representative Relationship Specialty Start Date End Date Provider, [place] [address] PCP - General 03/13/25 documented as of this encounter
--- OUTSIDE RECORDS SUMMARY | 2025-04-26 04:55 | XMS_ITS | Encounter Summary ---
Author Organization Healthcare Address [address] 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) to steady your nerves or to get [...] Upcoming Encounters Date Type Department Care Team ([facility] st Contact Info) Description 04/27/2025 9:00 AM EDT Initial Medical Office Building Obstetrics and Gynecology [address] [place] [address] Yun Dominguez MD [address] [place] [address] documented as of this encounter Visit Diagnoses Not on filedocumented in this encounter Additional Health Concerns Assessment Noted Time A Body Mass Index follow-up plan has been documented for the patient 04/12/2025 3:13 PM EDT documented as of this encounter Care Teams Disk Sander Relationship Specialty Start Date End Date Pcp, No [address] [place] [address] PCP - General Family Medicine 03/08/25 documented as of this encounter
--- NOTE | 2025-04-26 06:59 | US_ITS ---
PROCEDURE: US OB FOLLOW UP CLINICAL INDICATION: vaginal bleeding COMPARISON: US US OB <= 14 WEEKS FETUS from 12/01/2024 US US OB >= 14 WEEKS FETUS from 02/03/2025 US OB /MATERNAL DETAIL from 03/03/2025 US OB FOLLOW UP from 03/12/2025 US OB FOLLOW UP from 03/29/2025 US OB FOLLOW UP from 04/04/2025 [facility] OB FOLLOW UP from 04/25/2025 FINDINGS: Transabdominal sonographic images of the pelvis were obtained. The following parameters are obtained: From her established due date she is 28weeks 2days Viable fetus in the cephalic presentation with an anterior laterally wrapped placenta grade 2. There are multiple small placental lakes. There is an abruption along the lower segment of the anterior placenta measuring up to 7.0 cm in length. There appears to be a fluid collection as well as clot. The cervix measures 2.87 cm in length heart rate: 128bpm bpm. Amniotic fluid index: 4.69cm, MVP 4.26 cm No obvious anomalies evident. IMPRESSION: 1. Viable fetus in the cephalic presentation with an anterior laterally wrapped placenta grade 2. There are multiple small placental lakes. 2. There is an obvious abruption along the lower uterine segment of the anterior placenta measuring up to 7 cm in length. 3. There appears to be a clot in the lower uterine segment just above the cervix measuring an 6.5 cm by 3.9 cm. 4. Subjectively the fluid appears low today with an amniotic fluid index 4.69 cm, MVP 4.26 cm. 5. Fetus is active. 6. Dr. Cortes saw the patient in labor and delivery for vaginal bleeding and she was sent by helicopter to the [facility]. Dictated by: Joshua Cortes MD 04/26/2025 10:14 Joshua Cortes MD in OV 04/26/2025 10:14
[2025-04-26 07:18] LABS: Hematocrit 29.6 % (37.0-47.0); Hemoglobin 9.4 g/dL (12.2-16.2); Immature Granulocytes % 1.4 %; Mean Corpuscular HGB Conc 31.8 g/dL (31.8-35.4); Mean Corpuscular Hemoglobin 28.5 pg (27.0-31.2); Mean Corpuscular Volume 89.7 fl (81-99); Nucleated Red Blood Cells % 0.4 %; Platelet Count 156 K/mm3 (142-424); Red Blood Count 3.30 M/mm3 (4.20-5.40); Red Cell Distribution Width-SD 46.4 fL; White Blood Count 10.1 K/mm3 (4.8-10.8)
[2025-04-26] MEDS: LACTATED RINGERS 1000ML 1,000 ML 75 ML IV (08:05)
--- NOTE | 2025-04-26 08:07 | PC.NURSE ---
[employer] accepted flight-ETA 30mins
--- NOTE | 2025-04-26 08:19 | EXP.HPDC ---
General Admission date:: 04/26/25 Discharge date: 04/26/25 *Admission Date: 04/26/25 *Chief complaint: Vaginal bleeding, abruption *History of present illness: She is a 25-year-old 4 para 3 at 28 weeks 6 days. She has had 3 previous sections. She has had bleeding throughout her and a couple of weeks ago was admitted to for this bleeding. An abruption was suspected but the bleeding stopped and she was discharged home. She received a course of steroids at that time. Around 4:00 this morning she began to have an intermittent trickle of blood. She came into labor and delivery and it was noted that she was bleeding intermittently. Her total blood loss vaginally is approximately 150 cc at this point in time. Her vital signs are stable. heart tones are normal and she has good reactivity. She does have a slightly low hemoglobin at 9.4 it was previously 12.0 6 weeks ago. She is an otherwise healthy lady. Ultrasound this morning shows a fetus in the cephalic presentation with an anterior placenta with a lateral wrap. There is clearly an abruption in the lower aspect of the placenta. There is also a collection of blood in the lower uterine segment as well. The fetus is active and the fluid subjectively looks low. BECKY was 4.69. There was a pocket that measured 4.26 cm. [facility] Disclaimer: The information contained in this section may have been updated after the patient was seen, as this information can be updated by other users. Medical History Placental abruption in second trimester Vaginal bleeding during , antepartum Threatened miscarriage Pyelonephritis Sepsis without septic shock Abrasion, corneal Vaginal bleeding in patient after first trimester Acute blood loss anemia Chloasma Surgical History S/P History of S/P repeat low transverse History of tonsillectomy Family History No significant family history Family history of hypertension Social History Smoking Status: Never smoker alcohol intake: never substance use type: denies use current occupational status: unemployed Travel in the last 8 weeks?: None do you feel safe at home: Yes victim of physical abuse: No victim of emotional abuse: No victim of sexual abuse: No Have you lived/traveled outside US in past 30 days?: No Contact w/someone who lives/traveled outside US past 30 days?: No Exposure to someone with infectious disease in past 14 days?: No Do you have a fever (greater than 100.4 F or 38 C)?: No Have you tested positive for COVID-19?: No Exposed to someone with COVID-19 in past 14 days?: No Do you have a sore throat?: No Do you have a cough?: No Do you have any weakness?: No Do you have any diarrhea?: No Are you experiencing any unusual bleeding?: Yes Do you have any muscle aches/pain?: No Do you have any abdominal pain?: No Are you experiencing loss of taste or smell?: No Other Medical History Have you received the Flu Vaccine for this season: No Have you received the Pneumonia Vaccine: No Review of Systems Review of Systems Review of systems:: pertinent systems reviewed and negative unless documented below Exam Data for Last 24 hours Vital signs and Labs for Last 24 Hours: Temp Pulse Resp BP Pulse Ox O2 Del Method 98.0 F 110 H 18 122/81 100 Room Air 04/26/25 05:46 04/26/25 05:46 04/26/25 05:46 04/26/25 05:46 04/26/25 05:46 04/26/25 05:46 Laboratory Results - last 24 hr 04/26/25 07:13: WBC 10.1, RBC 3.30 L, Hgb 9.4 L, Hct 29.6 L, MCV 89.7, MCH 28.5, MCHC 31.8, RDW 14.4, Plt Count 156, MPV 10.0, Neut % (Auto) 64.6, Lymph % (Auto) 24.7, [place] % (Auto) 7.7, Eos % (Auto) 1.0, Baso % (Auto) 0.6, Neut # (Auto) 6.6, Lymph # (Auto) 2.5, [place] # (Auto) 0.8, Eos # (Auto) 0.1, Baso # (Auto) 0.1 I & O for Last 24 hours: Intake & Output 04/23/25 04/24/25 04/25/25 04/26/25 11:59 11:59 11:59 11:59 Weight 169 lb Constitutional Constitutional: no acute distress *Routine HEENT Exam Head: Present normocephalic Eye: Present EOMI and PERRL ENT: Present mucous membranes moist *Routine Neck Exam Neck: Present supple; Absent lymphadenopathy *Routine Respiratory Exam Respiratory: Present CTA bilaterally *Routine Cardiovascular Exam Cardiovascular: Present RRR *Routine Abdominal Exam Abdominal: Present soft and normoactive bowel sounds; Absent tenderness *Routine Rectal Exam Rectal:: deferred *Routine Genitalia Exam Genitalia:: deferred *Routine Extremities Exam Extremities: Absent cyanosis, clubbing or edema *Routine Skin Exam Skin: Present warm; Absent rash *Routine Neurological Exam Neurological: Present alert and oriented X3 Meds Home Medications and Allergies Home Medications ?Medication ?Instructions ?Recorded ?Confirmed ?Type vits no.133-ferrous 1 tab PO DAILY 03/13/25 04/06/25 History fumarate 28 mg-folic acid 800 mcg tablet () New Prescriptions to Start Prescriptions: Allergies Allergy/AdvReac Type Severity Reaction Status Date / Time brompheniramine (From Allergy Intermediate Hives Verified 04/06/25 14:34 Bromfed DM) dextromethorphan (From Allergy Intermediate Hives Verified 04/06/25 14:34 Bromfed DM) guaifenesin Allergy Intermediate Hives Verified 04/06/25 14:34 pseudoephedrine Allergy Intermediate Hives Verified 04/06/25 14:34 Hospital Course Hospital Course Hospital Course: She has been admitted to hospital and an IV has been started. Hemoglobin is 9.4. She was given a bolus of magnesium sulfate 4 g and will get 2 g an hour. She has had a previous course of steroids. I spoke to Dr. Colette Louis at [facility] maternal- medicine and she will accept the patient in transfer. The patient will be sent by helicopter urgently to [facility]. Prior to discharge the patient is stable her vaginal bleeding has settled and the nonstress test is reactive. Results Data Completed and Pending Labs on day of discharge: Labs from last 24 hours 04/26/25 07:13 WBC 10.1 RBC 3.30 L Hgb 9.4 L Hct 29.6 L MCV 89.7 MCH 28.5 MCHC 31.8 RDW 14.4 Plt Count 156 MPV 10.0 Neut % (Auto) 64.6 Lymph % (Auto) 24.7 [place] % (Auto) 7.7 Eos % (Auto) 1.0 Baso % (Auto) 0.6 Neut # (Auto) 6.6 Lymph # (Auto) 2.5 [place] # (Auto) 0.8 Eos # (Auto) 0.1 Baso # (Auto) 0.1 DS: Diagnosis Discharge Diagnosis (1) Placental abruption in third trimester: Status: Acute Code(s): O45.93 - Premature separation of placenta, unspecified, third trimester (2) Vaginal bleeding during , antepartum: Status: Acute Code(s): O46.90 - Antepartum hemorrhage, unspecified, unspecified trimester (3) History of : Status: Acute Code(s): Z98.891 - History of uterine scar from previous surgery Problem details: x 3 Discharge Plan Disposition Patient Disposition: Xfer Short-Term Hosp Discharge Order Discharge Orders: Discharge Order (Routine); Ordered 04/26/25 Ordered By: Joshua Cortes Follow up Plan Prescriptions/Medication Reconciliation: Continued 28-800 mg-mcg tablet 1 tab PO DAILY Problem Reconciliation Problems Reviewed?: Yes Patient Discharge Instructions ACTIVITY: Bed rest DIET: NPO Stand Alone Forms: Transfer Record Print Language: Upper Sorbian Providers Primary Care Provider: Provider,Referral Admit Provider: Joshua Cortes Attending Provider: Joshua Cortes
[2025-04-26] MEDS: MAGNESIUM SULFATE IN WATER 4 GM/50 ML PIGGYBACK IV (08:20)
[2025-04-26] MEDS: MAGNESIUM SULFATE IN WATER 20 GM/500 ML IV.SOLN IV (08:28)
== END 2025-04-26 09:20 | disposition short-term general hospital (02) ==
LOC: OBOUT 08:10 → OB 08:10
PROVIDERS: Obstetrics & Gynecology; Admitting Provider Nurse Practitioner Obstetrics & Gynecology; Visit Provider Nurse Practitioner Obstetrics & Gynecology
DX: O45.93 Premature separation of placenta, unspecified, third trimester (principal); Z98.891 History of uterine scar from previous surgery; Z3A.28 28 weeks gestation of pregnancy; Z88.8 Allergy status to other drugs, medicaments and biological substances
CPT/HCPCS: 36415; 59025; 76816; 85025; 96365; 96366; 99212; G0378; G0463; J3475; J7120

== ENCOUNTER 2025-05-23 20:33 | Outpatient (CLI) | payer OTHER, SELFPAY ==
[2025-05-23 20:39] VITALS: BMI 30.2
--- NOTE | 2025-05-23 20:47 | US_ITS ---
PROCEDURE INFORMATION: Exam: US Biophysical Profile Without Non-Stress Test Exam date and time: 05/23/2025 9:07 PM Age: 25 years old Clinical indication: status abnormalities: ; Oligohydramnios; Single gestation; Third trimester (>=28 weeks 0 days); ; Additional info: 32 1/7 weeks, bleeding and leaking fluid TECHNIQUE: Imaging protocol: US biophysical profile without non-stress testing. Total images: 287 COMPARISON: US OB FOLLOW UP 04/26/2025 7:07 AM FINDINGS: Gestation: Single live intrauterine gestation. heart rate: 129 bpm. presentation and position: Cephalic presentation. Placenta: Anterior placenta. Chronic finding of abruption along the caudal margin, measuring approximately 6 cm in length. Amniotic fluid (Qualitative): Oligohydramnios. Single fluid pocket measuring 2.3 cm. Amniotic fluid index: BECKY is 2.3 cm BIOPHYSICAL PROFILE: breathing (BPP): 2 /2 gross body movement (BPP): 0 out of 2. tone (BPP): 0 out of 2. Amniotic fluid (BPP): 0 out of 2. MATERNAL ANATOMY: Cervix: Cervical length measures 2.5 cm. IMPRESSION: 1. Biophysical profile score is 2 out of 8. 2. Oligohydramnios. BECKY 2.3 cm. 3. Chronic abruption along caudal margin of the anterior placenta, measuring approximately 6 cm in length. Previously described. 4. Foreshortened cervix at 2.5 cm.
[2025-05-23 20:53] VITALS: BP 136/83; PULSE 131; RESP 18; TEMP 36.6; O2SAT 98
[2025-05-23 21:00] VITALS: BP 129/76; PULSE 130; RESP 20; TEMP 36.6; O2SAT 98; BMI 30.2
[2025-05-23 21:26] LABS: Hematocrit 29.9 % (37.0-47.0); Hemoglobin 9.2 g/dL (12.2-16.2); Immature Granulocytes % 0.9 %; Mean Corpuscular HGB Conc 30.8 g/dL (31.8-35.4); Mean Corpuscular Hemoglobin 25.7 pg (27.0-31.2); Mean Corpuscular Volume 83.5 fl (81-99); Nucleated Red Blood Cells % 0.4 %; Platelet Count 153 K/mm3 (142-424); Red Blood Count 3.58 M/mm3 (4.20-5.40); Red Cell Distribution Width-SD 47.7 fL; White Blood Count 11.1 K/mm3 (4.8-10.8)
[2025-05-23 22:05] LABS: Bilirubin,Urine Negative (Negative); Color,Urine YELLOW (Yellow); Glucose,Urine (UA) Negative (Negative); Ketones,Urine Negative (Negative); Leukocyte Esterase,Urine Negative (Negative); Microscopic, Urine URINE MICROSCOPIC (MICROSCOPIC); PH,Urine 6.5 (5.0-8.5); Protein,Urine Negative (Negative); Specific Gravity, Urine 1.010 (1.005-1.030); Urobilinogen,Urine 2.0 EU/dl (0.2)
[2025-05-23] MEDS: MAGNESIUM SULFATE IN WATER 20 GM/500 ML IV.SOLN IV (22:06)
--- NOTE | 2025-05-23 22:06 | EXP.HPDC ---
General Discharge date: 05/23/25 *Admission Date: 05/23/25 *Chief complaint: abruption *History of present illness: Pamela Anderson is a pleasant 25yo who presented with bright red vaginal bleeding after pt reported leaking clear fluid since 6pm. She endorses good movement. She denies feeling any contractions. She has a past history of an abruption which has been followed by M with several inpatient hospital admissions for observation. She has received two courses of steroids during this . Pt has a hx of 3 prior deliveries. Since arrival her total blood loss vaginally is approximately 150 mL at this point in time. [facility] Disclaimer: The information contained in this section may have been updated after the patient was seen, as this information can be updated by other users. Medical History Encounter for related examination in second trimester Asymptomatic bacteriuria during Placental abruption in second trimester Vaginal bleeding during , antepartum Threatened miscarriage Pyelonephritis Sepsis without septic shock Abrasion, corneal Vaginal bleeding in patient after first trimester Acute blood loss anemia Chloasma Surgical History S/P History of x 3 S/P repeat low transverse History of tonsillectomy Family History Other Family history of hypertension No significant family history Social History Smoking Status: Never smoker alcohol intake: never substance use type: denies use current occupational status: unemployed Travel in the last 8 weeks?: None do you feel safe at home: Yes victim of physical abuse: No victim of emotional abuse: No victim of sexual abuse: No Have you lived/traveled outside US in past 30 days?: No Contact w/someone who lives/traveled outside US past 30 days?: No Exposure to someone with infectious disease in past 14 days?: No Do you have a fever (greater than 100.4 F or 38 C)?: No Have you tested positive for COVID-19?: No Exposed to someone with COVID-19 in past 14 days?: No Do you have a sore throat?: No Do you have a cough?: No Do you have any weakness?: No Do you have any diarrhea?: No Are you experiencing any unusual bleeding?: No Do you have any muscle aches/pain?: No Do you have any abdominal pain?: No Are you experiencing loss of taste or smell?: No Other Medical History Have you received the Flu Vaccine for this season: No Have you received the Pneumonia Vaccine: No Review of Systems Review of Systems Review of systems:: pertinent systems reviewed and negative unless documented below Exam Data for Last 24 hours Vital signs and Labs for Last 24 Hours: Temp Pulse Resp BP Pulse Ox O2 Del Method 97.8 F 130 H 20 129/76 98 Room Air 05/23/25 21:00 05/23/25 21:00 05/23/25 21:00 05/23/25 21:00 05/23/25 21:00 05/23/25 21:00 Laboratory Results - last 24 hr 05/23/25 21:10: WBC 11.1 H, RBC 3.58 L, Hgb 9.2 L, Hct 29.9 L, MCV 83.5, MCH 25.7 L, MCHC 30.8 L, RDW 15.8, Plt Count 153, MPV 10.3, Neut % (Auto) 75.0, Lymph % (Auto) 15.2, [place] % (Auto) 6.7, Eos % (Auto) 1.8, Baso % (Auto) 0.4, Neut # (Auto) 8.3 H, Lymph # (Auto) 1.7, [place] # (Auto) 0.7, Eos # (Auto) 0.2, Baso # (Auto) 0.1 05/23/25 21:55: Urine Color Yellow, Urine Appearance Clear, Urine pH 6.5, Ur Specific [place] 1.010, Urine Protein Negative, Urine Glucose (UA) Negative, Urine Ketones Negative, Urine Blood 1+ A, Urine Nitrate Negative, Urine Bilirubin Negative, Urine Urobilinogen 2.0, Ur Leukocyte Esterase Negative I & O for Last 24 hours: Intake & Output 05/20/25 05/21/25 05/22/25 05/23/25 23:59 23:59 23:59 23:59 Weight 176 lb Constitutional Constitutional: no acute distress *Routine HEENT Exam Head: Present normocephalic Eye: Present EOMI and PERRL ENT: Present mucous membranes moist *Routine Neck Exam Neck: Present supple; Absent lymphadenopathy *Routine Respiratory Exam Respiratory: Present CTA bilaterally *Routine Cardiovascular Exam Cardiovascular: Present RRR *Routine Abdominal Exam Abdominal: Present soft and normoactive bowel sounds; Absent tenderness *Routine Rectal Exam Rectal:: deferred *Routine Genitalia Exam Genitalia:: normal female Comment:: SVE: closed. no significant bleeding or fluid *Routine Extremities Exam Extremities: Absent cyanosis, clubbing or edema *Routine Skin Exam Skin: Present warm; Absent rash *Routine Neurological Exam Neurological: Present alert and oriented X3 Meds Home Medications and Allergies Home Medications ?Medication ?Instructions ?Recorded ?Confirmed ?Type vits no.133-ferrous 1 tab PO DAILY 03/13/25 05/15/25 History fumarate 28 mg-folic acid 800 mcg tablet () ferrous sulfate 325 mg (65 mg 325 mg PO DAILY 05/15/25 05/15/25 History iron) tablet New Prescriptions to Start Prescriptions: Allergies Allergy/AdvReac Type Severity Reaction Status Date / Time brompheniramine (From Allergy Intermediate Hives Verified 05/15/25 09:40 Bromfed DM) dextromethorphan (From Allergy Intermediate Hives Verified 05/15/25 09:40 Bromfed DM) guaifenesin Allergy Intermediate Hives Verified 05/15/25 09:40 pseudoephedrine Allergy Intermediate Hives Verified 05/15/25 09:40 Hospital Course Hospital Course Hospital Course: Pamela was triaged and a report was called to for transfer. Dr. Beard, [facility] accepted transfer. On transfer her vital signs are stable, and she has a cat one tracin, moderate variability, +15x15 accels, no decels. Her BPP: 2/8 (breathing). Pt does state that she hasnt felt movement for several hours. On admission tocometer displayed contractions q3-4minutes, but at transfer they had become irregular. Pt denied feeling contractions even at arrival. Of note, she does have a slightly low hemoglobin at 9.2 it was previously 12.0 6 weeks ago. Pamela has received 2 separate doses of steroids (4 total injections). Magnesium initiated until transfer complete for tocolysis, 6g bolus with 4g/hr. Latency antibiotics initiated. US: vertex, BECKY: 0. There does appear to be a pocket of fluid that measures 2cm. No movement or tone noted on US with BPP: 2/8. Prior to transfer pretty was placed for I&Os. SVE completed: closed, high, posterior. Results Data Completed and Pending Labs on day of discharge: Labs from last 24 hours 05/23/25 05/23/25 21:55 21:10 WBC 11.1 H RBC 3.58 L Hgb 9.2 L Hct 29.9 L MCV 83.5 MCH 25.7 L MCHC 30.8 L RDW 15.8 Plt Count 153 MPV 10.3 Neut % (Auto) 75.0 Lymph % (Auto) 15.2 [place] % (Auto) 6.7 Eos % (Auto) 1.8 Baso % (Auto) 0.4 Neut # (Auto) 8.3 H Lymph # (Auto) 1.7 [place] # (Auto) 0.7 Eos # (Auto) 0.2 Baso # (Auto) 0.1 Urine Color Yellow Urine Appearance Clear Urine pH 6.5 Ur Specific [place] 1.010 Urine Protein Negative Urine Glucose (UA) Negative Urine Ketones Negative Urine Blood 1+ A Urine Nitrate Negative Urine Bilirubin Negative Urine Urobilinogen 2.0 Ur Leukocyte Esterase Negative Blood Type Pending Antibody Screen Pending DS: Diagnosis Discharge Diagnosis (1) Placental abruption in third trimester: Status: Acute Code(s): O45.93 - Premature separation of placenta, unspecified, third trimester (2) premature rupture of membranes (PPROM) delivered, current hospitalization: Status: Acute Code(s): O42.919 - premature rupture of membranes, unspecified as to length of time between rupture and onset of labor, unspecified trimester (3) History of : Status: Acute Code(s): Z98.891 - History of uterine scar from previous surgery Problem details: x 3 (4) Non-reassuring heart tones complicating , antepartum: Status: Acute Code(s): O36.8390 - Maternal care for abnormalities of the heart rate or rhythm, unspecified trimester, not applicable or unspecified Discharge Plan Disposition Patient Disposition: Xfer Short-Term Hosp Follow up Plan Prescriptions/Medication Reconciliation: No Action ferrous sulfate 325 mg (65 mg iron) tablet 325 mg PO DAILY 28-800 mg-mcg tablet 1 tab PO DAILY Problem Reconciliation Problems Reviewed?: Yes Patient Discharge Instructions DIET: regular diet Stand Alone Forms: Transfer Record Print Language: Lao Providers Primary Care Provider: Provider,Referral Attending Provider: Yun [place]
[2025-05-23] MEDS: LACTATED RINGERS 1000ML 1,000 ML 75 ML IV (22:15)
[2025-05-23] MEDS: AMPICILLIN SODIUM 2 GM in 0.9 % SODIUM CHLORIDE 100 ML IV (22:29)
[2025-05-23 22:38] LABS: Bacteria,Urine 1+ /lpf
[2025-05-23] MEDS: ERYTHROMYCIN LACTOBIONATE 250 MG in 0.9 % SODIUM CHLORIDE 100 ML 100 MG IV (22:42)
== END 2025-05-24 00:41 | disposition short-term general hospital (02) ==
LOC: OBOUT 20:35 → OB 20:39
PROVIDERS: Visit Provider Obstetrics & Gynecology
DX: O42.913 Preterm premature rupture of membranes, unspecified as to length of time between rupture and onset of labor, third trimester (principal); O45.93 Premature separation of placenta, unspecified, third trimester; O26.873 Cervical shortening, third trimester; O34.219 Maternal care for unspecified type scar from previous cesarean delivery; Z3A.32 32 weeks gestation of pregnancy
CPT/HCPCS: 51702; 76819; 81001; 85025; 86850; J0290; J1364; J3475; J7120